=== PATIENT | male | born 1955 | race Caucasian/White ===

== ENCOUNTER → 2021-08-07 10:04 | Outpatient (CLI) | payer MEDICARE, SELFPAY | PROVIDERS: Visit Provider Nurse Practitioner | DX: Z20.822 Contact with and (suspected) exposure to COVID-19 (principal) | CPT/HCPCS: C9803; U0003; U0005 ==

== ENCOUNTER 2022-04-08 14:47 | Emergency (ER) | payer MEDICARE, SELFPAY ==
[2022-04-08] VITALS (13 sets, daily range): BP systolic 147–187; BP diastolic 80–125; PULSE 62–110; RESP 17–20; TEMP 36.7; O2SAT 89–96; BMI 36.6
--- NOTE | 2022-04-08 14:43 | ECG_ITS ---
APPROVED REPORT Exam: Resting ECG HR:112 bpm ECG Measurements Heart Rate 112 AXES WI 193 P 170 QRSd 97 QRS -80 QT 305 T 174 QTc 371 Conclusion ECTOPIC ATRIAL TACHYCARDIA INCOMPLETE RIGHT BUNDLE BRANCH BLOCK [90+ ms QRS DURATION, TERMINAL R IN V1/V2, 40+ ms S IN I/aVL/V4/V5/V6] LEFT ANTERIOR FASCICULAR BLOCK [QRS AXIS <= -45, QR IN I, RS IN II] LATERAL MYOCARDIAL INFARCTION , OF INDETERMINATE AGE [40+ ms Q WAVE AND/OR ST/T ABNORMALITY IN I/aVL/V5/V6] ABNORMAL ECG INTERPRETATION BASED ON A DEFAULT AGE OF 40 YEARS UNCONFIRMED REPORT Electronically signed by : Daniel Pelayo MD 04/09/2022 14:47:05
--- NOTE | 2022-04-08 14:48 | XR_ITS ---
FINAL REPORT CLINICAL HISTORY: ams COMPARISON: February 09, 2019 FINDINGS: A single portable view of the chest was obtained. The heart size and pulmonary vascularity are within normal limits. The mediastinum is within normal limits. There are mild left base opacities which may represent atelectasis or pneumonia. The bony thorax is intact. IMPRESSION: Mild left lung base atelectasis or pneumonia. Reviewed, Interpreted and Dictated by Zackery Roblero III, MD Transcribed by Antonette Saldana Authenticated and . [facility]
--- NOTE | 2022-04-08 14:48 | CT_ITS ---
FINAL REPORT CLINICAL HISTORY: ams COMPARISON: February 09, 2019 FINDINGS: Axial images of the head were obtained without contrast. Coronal reformatted images were also obtained. This study was performed with techniques to keep radiation doses as low as reasonably achievable (ALARA). Individualized dose reduction techniques using automated exposure control or adjustment of mA and/or kV according to the patient's size were employed. There is generalized age-appropriate atrophy. Periventricular low-attenuation areas are seen consistent with moderate chronic ischemic changes. There is no evidence of intracranial hemorrhage or mass. Note is made of ectasias of the distal internal carotid arteries and the vertebral arteries. 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 There is a small chronic right periventricular lacunar infarct. There is no evidence of acute infarct. There is no evidence of shift of the midline structures. No skull abnormality is seen on the bone window images. IMPRESSION: Atrophy and moderate periventricular chronic ischemic changes. 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 Consider CTA or MRA for further evaluation. Reviewed, Interpreted and Dictated by Zackery Roblero III, MD Transcribed by Antonette Saldana Authenticated and [facility]
--- NOTE | 2022-04-08 14:48 | PC.NURSE ---
at bedside upon arrival
--- NOTE | 2022-04-08 14:49 | HMH.EDGENADL ---
Discharge Plan Disposition Patient Disposition: Home, Self-Care Condition: Fair Chief Complaint: Altered Mental Status Prescriptions Prescriptions: No Action cephalexin 500 mg capsule 500 mg PO BID 10 Days Qty: 20 0RF metoprolol succinate 100 mg tablet extended release 24 hr 100 mg PO DAILY ranitidine HCl 150 mg capsule 150 mg PO BID nortriptyline 10 mg capsule 10 mg PO DAILY tizanidine 4 mg capsule 4 mg PO Q8H PRN (Reason: ..) triazolam 0.25 mg tablet 0.25 mg PO QHS PRN (Reason: ...) aspirin [Aspir-81] 81 mg tablet,delayed release (DR/EC) 81 mg PO ONCE glipizide 10 mg tablet 5 mg PO BID metformin 1,000 mg tablet 500 mg PO BID bupropion HCl 300 mg tablet extended release 24 hr 150 mg PO QAM fenofibrate 40 mg tablet 145 mg PO ONCE bacitracin 28 GM ointment 28 gm TP TID Qty: 1 0RF cephalexin 500 MG capsule 500 mg PO Q12H Qty: 20 0RF Referrals Follow up/Referrals: Thalia Meek MD [Staff Physician] - See instructions (seizure like activity) Activity Restrictions/Add. Instructions Additional Instructions/Restrictions: You have been evaluated for episode of altered mental status, seizure-like activity. It is very important that you avoid situations where sudden loss of consciousness can be dangerous or deadly. Do not drive a car. Please follow-up with your primary care doctor as well as a neurologist. Return to the emergency department at once for any new or worsening symptoms, headache, dizziness, numbness, weakness, seizures or any other concerns. Clinical Impressions Clinical Impression: Seizure Instructions Patient Instructions: DI for Seizure (Not Epilepsy/Seizure Disorder) Discharge ED Provider: Raine Pineda Adult HPI General Chief complaint: Altered Mental Status Stated complaint: AMS Time Seen by Provider: 04/08/22 14:49 Mode of Arrival: EMS Source of Information: Patient Limitations: Altered Mental Status History of Present Illness HPI narrative: 66-year-old male presenting to the emergency department with altered mental status, possible seizure. Incident happened just prior to arrival. He was at a local [employer] store. Staff said that they thought he was having a seizure, shaking of his arms and legs. Loss of bladder continence. When EMS arrived, he was quite confused. Now slightly less confused. Able to state his name and date of . He is moving all 4 extremities. Fingerstick blood glucose with EMS was greater than 400. He denies any current headache, neck pain, chest pain, abdominal pain. Related Data Home Medications Medication Instructions Recorded Confirmed aspirin 81 mg tablet,delayed 81 mg PO ONCE 01/11/18 01/09/19 release (Aspir-) glipizide 10 mg tablet 5 mg PO BID ... 01/11/18 02/09/19 metformin 1,000 mg tablet 500 mg PO BID .. 01/11/18 02/09/19 bupropion HCl 300 mg 24 hr tablet, 150 mg PO QAM ... 01/09/19 02/09/19 extended release fenofibrate 40 mg tablet 145 mg PO ONCE ... 01/09/19 02/09/19 metoprolol succinate 100 mg 100 mg PO DAILY .. 01/09/19 02/09/19 tablet,extended release 24 hr nortriptyline 10 mg capsule 10 mg PO DAILY .... 01/09/19 02/09/19 ranitidine HCl 150 mg capsule 150 mg PO BID ... 01/09/19 02/09/19 tizanidine 4 mg capsule 4 mg PO Q8H PRN .. 01/09/19 02/09/19 triazolam 0.25 mg tablet 0.25 mg PO QHS PRN ... 01/09/19 02/09/19 Previous Rx's Medication Instructions Recorded cephalexin 500 mg capsule 500 mg PO BID infected abrasion 10 01/09/19 days #20 caps bacitracin 500 unit/gram topical 28 gm TP TID ##1 02/09/19 ointment cephalexin 500 mg capsule 500 mg PO Q12H #20 caps 02/09/19 Allergies Allergy/AdvReac Type Severity Reaction Status Date / Time No Known Allergies Allergy Verified 01/09/19 16:37 [facility] Medical History (Updated 04/08/22 @ 19:54 by Raine Pineda DO) Diabetes mellitus, type 2 Migraine Spleen absent Family Hist
--- NOTE | 2022-04-08 14:54 | PC.NURSE ---
Called pt contact in chart which was his daughter. She advised pt has been c/o headache for the past the 2 weeks but he has a hx of migraines. Also advised he was seen at ER over the weekend for the headache and from the girlfriends info he had a CT of his head and echo of his heart. G/F reported to daughter that they told him he needed to follow-up with cardiology. Daughter advises pt has no hx of seizures. He is uncontrolled non-compliant diabetic. 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 Daughter advises she can call back later for update. Notified MD of this info.
--- NOTE | 2022-04-08 15:06 | PC.NURSE ---
BLOOD COLLECTED AT THIS TIME
--- NOTE | 2022-04-08 15:13 | PC.NURSE ---
Went in to assess pt. He advised he remembers being at the [employer] and then woke up here. Pt able to answer questions more appropriately. Pt going to CT at this time.
--- NOTE | 2022-04-08 15:17 | PC.NURSE ---
pt to ct scan at this time
[2022-04-08 15:20] LABS: Basophils # 0.1 K/mm3 (0-0.2); Basophils % 1.1 % (0.1-2.0); Eosinophils # 0.2 K/mm3 (0.0-0.4); Eosinophils % 2.4 % (0.1-12.0); Hemoglobin 16.5 g/dL (14.1-18.0); Lymphocytes # 2.9 K/mm3 (0.7-4.5); Lymphocytes % 29.6 % (10-50); Mean Corpuscular HGB Conc 32.4 g/dL (31.8-35.4); Mean Corpuscular Hemoglobin 31.3 pg (27.0-31.2); Mean Corpuscular Volume 96.4 fl (80-94); Mean Platelet Volume 10.3 fl (7.4-10.4); Monocytes # 0.6 K/mm3 (0.1-1.0); Monocytes % 6.1 % (1.7-9.3); Neutrophils % 60.7 % (37.0-80.0); Platelet Count 313 K/mm3 (142-424); Red Blood Count 5.29 M/mm3 (4.60-6.20); Red Cell Distribution Width 13.8 % (11.5-17.5); White Blood Count 9.9 K/mm3 (4.8-10.8)
--- NOTE | 2022-04-08 15:23 | PC.NURSE ---
pt returned from ct, urinal provided. no further needs
[2022-04-08 15:28] LABS: Alanine Aminotransferase 32 U/L (12-78); Albumin/Globulin Ratio 1.3 (1.1-1.8); Alkaline Phosphatase 125 U/L (38-126); Anion Gap 17.1 mEq/L (5-15); Aspartate Amino Transferase 33 U/L (17-59); Bilirubin,Total 0.2 mg/dl (0.2-1.3); Blood Urea Nitrogen 14 mg/dl (9-20); Calcium 8.5 mg/dl (8.4-10.2); Carbon Dioxide 23 mmol/L (22.0-30.0); Chloride 96 mmol/L (98-107); Creatinine Clearance Estimated 117 mL/min (50-200); Estimated Glomerular Filt Rate 112 ml/min (>60); GFR (African American) 136 ML/MIN (>60); Globulin 3.2 g/dL (1.3-3.2); Potassium 4.1 mmoL/L (3.5-5.1); Sodium 132 mmol/L (136-145); Total Protein,Serum 7.2 g/dl (6.3-8.2)
[2022-04-08 15:30] LABS: Glucose 466 mg/dl (74-100)
[2022-04-08 15:36] LABS: Acetone, Serum (Rapid) None Detected (None Detect)
[2022-04-08 16:21] LABS: VBG Base Excess -6.2 mmol/L (-2.4-2.3); VBG HCO3 19.4 mmol/L (23-30); VBG Oxygen Saturation 77.1 % (50-70); VBG PCO2 36.1 mmol/L (35-51); VBG PH 7.35 mmol/L (7.31-7.41); VBG PO2 44.2 mmol/L (28-40); VBG Total CO2 20.5 mmol/L (23-27)
--- NOTE | 2022-04-08 16:47 | PC.NURSE ---
DAUGHTER UPDATED BY LYNN QUILES
--- NOTE | 2022-04-08 17:17 | CT_ITS ---
PROCEDURE INFORMATION: Exam: CTA Head With Contrast, Arteriography Exam date and time: 04/08/2022 6:02 PM Age: 66 years old Clinical indication: Abnormal findings; Abnormal CT of the head; Additional info: Abnomral head CT TECHNIQUE: Imaging protocol: Computed tomographic angiography of the head with contrast. Exam focused on the arteries. 3D rendering (Not supervised by radiologist): MIP and/or 3D reconstructed images were created by the technologist. Radiation optimization: All CT scans at this facility use at least one of these dose optimization techniques: automated exposure control; mA and/or kV adjustment per patient size (includes targeted exams where dose is matched to clinical indication); or iterative reconstruction. Contrast material: ISOVUE 370; Contrast volume: 100 ml; Contrast route: INTRAVENOUS (IV); COMPARISON: CT HEAD/BRAIN WO CON 04/08/2022 3:09 PM FINDINGS: ANTERIOR CIRCULATION: Right internal carotid artery: Unremarkable. Intracranial segment is patent with no significant stenosis. No aneurysm. Right middle cerebral artery: Unremarkable. No occlusion or significant stenosis. No aneurysm. Right anterior cerebral artery: Unremarkable. No occlusion or significant stenosis. No aneurysm. Left internal carotid artery: Unremarkable. Calcified atherosclerosis is mild. Intracranial segment is patent with no significant stenosis. No aneurysm. Left middle cerebral artery: Unremarkable. No occlusion or significant stenosis. No aneurysm. Left anterior cerebral artery: Unremarkable. No occlusion or significant stenosis. No aneurysm. 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 Patent. Left vertebral artery: The left vertebral artery is dominant. Patent. Segmental calcified atherosclerosis does not contribute to significant stenosis. Basilar artery: No significant ectasia of or saccular aneurysm identified arising from the basilar artery. There is elongation and tortuosity. The basilar artery is patent. Right posterior cerebral artery: Unremarkable. No occlusion or significant stenosis. No aneurysm. Left posterior cerebral artery: Unremarkable. No occlusion or significant stenosis. No aneurysm. Brain: The brain demonstrates diffuse volume loss. White matter hypodensities most consistent with chronic small vessel ischemic change. No visible evolving territorial infarct. No hemorrhage. Cerebral ventricles: The ventricles are enlarged in keeping with volume loss. Orbital cavities: Thinning of the lenses of the globes consistent with prior lens surgery. Bones/joints: Unremarkable. No acute fracture. Soft tissues: Unremarkable. IMPRESSION: No evidence of intracranial aneurysm.
--- NOTE | 2022-04-08 17:44 | PC.NURSE ---
PT GOING TO CT AND REQUESTING SOMETHING FOR NAUSEA
--- NOTE | 2022-04-08 17:48 | CT_ITS ---
PROCEDURE INFORMATION: Exam: CTA Neck With Contrast Exam date and time: 04/08/2022 6:02 PM Age: 66 years old Clinical indication: Abnormal findings; Abnormal CT of the head; Additional info: Possibe seizure TECHNIQUE: Imaging protocol: Computed tomographic angiography of the neck with contrast. 3D rendering (Not supervised by radiologist): MIP and/or 3D reconstructed images were created by the technologist. Radiation optimization: All CT scans at this facility use at least one of these dose optimization techniques: automated exposure control; mA and/or kV adjustment per patient size (includes targeted exams where dose is matched to clinical indication); or iterative reconstruction. Contrast material: ISOVUE 370; Contrast volume: 100 ml; Contrast route: INTRAVENOUS (IV); COMPARISON: [facility] CT cervical spine wo con 02/09/2019 12:55 AM FINDINGS: Right common carotid artery: No stenosis. No dissection or occlusion. Right internal carotid artery: No stenosis of the extracranial segment. No dissection or occlusion. Right external carotid artery: No occlusion or stenosis of the origin. Left common carotid artery: No stenosis. No dissection or occlusion. Left internal carotid artery: No stenosis of the extracranial segment. No dissection or occlusion. Left external carotid artery: No occlusion or stenosis of the origin. 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 Patent. Left vertebral artery: The left vertebral artery is dominant. Patent. Soft tissues: Normal. No significant soft tissue swelling. Bones/joints: Degenerative changes of the right acromioclavicular joint. Slight degenerative retrolisthesis of C4 on C5 and degenerative anterolisthesis of C5 on C6. There is advanced cervical degenerative disc disease at C3-C4 and C4-C5. Facet arthropathy is moderate to severe on the right at C5-C6, moderate elsewhere. There are cervical central spinal canal and neural foraminal stenoses. IMPRESSION: 1. No acute vascular findings in the neck. 2. 0% right ICA stenosis. 3. 0% left ICA stenosis. 4. The vertebral arteries are patent without stenoses. REFERENCES: NASCET CRITERIA. The degree of stenosis in the cervical segment of the internal carotid artery is based on NASCET criteria. Normal is no stenosis. Mild is less than 50% stenosis. Moderate is 50-69% stenosis. Severe is 70% to 99% stenosis. Total occlusion is no detectable patent lumen.
--- NOTE | 2022-04-08 17:53 | PC.NURSE ---
pt family member at BS
--- NOTE | 2022-04-08 17:55 | PC.NURSE ---
ED MD AT BEDSIDE
--- NOTE | 2022-04-08 18:39 | PC.NURSE ---
PT REQUESTING SOMETHING FOR HIS HEAD MD AWARE
== END 2022-04-08 20:24 | disposition home or self-care (01) ==
PROVIDERS: Emergency Provider Emergency Medicine
DX: R41.82 Altered mental status, unspecified (principal); G40.909 Epilepsy, unspecified, not intractable, without status epilepticus; G43.909 Migraine, unspecified, not intractable, without status migrainosus; E11.65 Type 2 diabetes mellitus with hyperglycemia; R32 Unspecified urinary incontinence; R00.0 Tachycardia, unspecified; R03.0 Elevated blood-pressure reading, without diagnosis of hypertension; Z79.82 Long term (current) use of aspirin; Z79.84 Long term (current) use of oral hypoglycemic drugs; Z79.899 Other long term (current) drug therapy
CPT/HCPCS: 70450; 70496; 70498; 71045; 80053; 82009; 82803; 85025; 93005; 96374; 96375; 99285; J2405; Q9967

== ENCOUNTER 2022-04-12 20:38 | Emergency (ER) | payer MEDICARE, SELFPAY ==
[2022-04-12 20:39] VITALS: BP 182/114; PULSE 85; RESP 19; TEMP 36.6; O2SAT 95; BMI 30.5
[2022-04-12 20:53] VITALS: BP 177/103; PULSE 104; RESP 12; O2SAT 94
[2022-04-12 20:56] VITALS: BMI 30.5
--- NOTE | 2022-04-12 20:56 | XR_ITS ---
PROCEDURE INFORMATION: Exam: XR Chest Exam date and time: 04/12/2022 9:15 PM Age: 66 years old Clinical indication: Injury or trauma; Fall; Blunt trauma (contusions or hematomas); Additional info: Fall, chest pain TECHNIQUE: Imaging protocol: Radiologic exam of the chest. Views: 4 or more views. COMPARISON: CR XR CHEST PORTABLE 04/08/2022 3:27 PM FINDINGS: Lungs: Unremarkable. No consolidation. Pleural spaces: Unremarkable. No pleural effusion. No pneumothorax. Heart/Mediastinum: Unremarkable. No cardiomegaly. Bones/joints: Unremarkable. IMPRESSION: No acute findings.
--- NOTE | 2022-04-12 20:56 | ECG_ITS ---
APPROVED REPORT Exam: Resting ECG HR:108 bpm ECG Measurements Heart Rate 108 AXES MD 199 P 37 QRSd 107 QRS 231 QT 355 T 38 QTc 418 Conclusion SINUS TACHYCARDIA INCOMPLETE RIGHT BUNDLE BRANCH BLOCK [90+ ms QRS DURATION, TERMINAL R IN V1/V2, 40+ ms S IN I/aVL/V4/V5/V6] RIGHT VENTRICULAR HYPERTROPHY [SOME/ALL OF: PROMINENT R IN V1, LATE TRANSITION, RAD, EDDY, SSS] POSSIBLE ANTERIOR MYOCARDIAL INFARCTION , OF INDETERMINATE AGE [30 ms Q WAVE IN V3/V4, OR R < 0.2 mV IN V4] ABNORMAL ECG UNCONFIRMED REPORT Electronically signed by : Daniel Pelayo MD 04/13/2022 22:37:12
--- NOTE | 2022-04-12 20:56 | CT_ITS ---
PROCEDURE INFORMATION: Exam: CT Cervical Spine Without Contrast Exam date and time: 04/12/2022 9:12 PM Age: 66 years old Clinical indication: Injury or trauma; Fall; Additional info: Fall, nihss 3 TECHNIQUE: Imaging protocol: Computed tomography of the cervical spine without contrast. Radiation optimization: All CT scans at this facility use at least one of these dose optimization techniques: automated exposure control; mA and/or kV adjustment per patient size (includes targeted exams where dose is matched to clinical indication); or iterative reconstruction. COMPARISON: [facility] CT cervical spine wo con 02/09/2019 12:55 AM FINDINGS: Bones/joints: No acute fracture. Normal alignment. Moderate disc space narrowing and endplate osteophytes at C3-C4 and C4-C5. No significant disc protrusion. No severe spinal canal stenosis. Multilevel facet arthrosis. Severe left-sided bony foraminal stenosis at C3-C4. Moderate bilateral bony foraminal stenosis at C4-C5. Lungs: Lung apices are normal. Soft tissues: Unremarkable. IMPRESSION: No acute findings.
--- NOTE | 2022-04-12 20:56 | CT_ITS ---
PROCEDURE INFORMATION: Exam: CT Head Without Contrast Exam date and time: 04/12/2022 9:10 PM Age: 66 years old Clinical indication: Injury or trauma; Fall; Additional info: Fall, nihss 3 TECHNIQUE: Imaging protocol: Computed tomography of the head without contrast. Radiation optimization: All CT scans at this facility use at least one of these dose optimization techniques: automated exposure control; mA and/or kV adjustment per patient size (includes targeted exams where dose is matched to clinical indication); or iterative reconstruction. COMPARISON: CT HEAD/BRAIN WO CON 04/08/2022 3:09 PM FINDINGS: Brain: There is age-appropriate cerebral atrophy. Moderate changes of chronic small vessel ischemia within the cerebral white matter regions bilaterally. No acute infarct or hemorrhage. Cerebral ventricles: No ventriculomegaly. Paranasal sinuses: Visualized sinuses are unremarkable. No fluid levels. Mastoid air cells: Visualized mastoid air cells are well aerated. Bones/joints: Unremarkable. No acute fracture. Soft tissues: Unremarkable. IMPRESSION: No acute intracranial abnormality.
--- NOTE | 2022-04-12 20:56 | XR_ITS ---
PROCEDURE INFORMATION: Exam: XR Pelvis Exam date and time: 04/12/2022 9:17 PM Age: 66 years old Clinical indication: Injury or trauma; Fall; Blunt trauma (contusions or hematomas); Bilateral; Pelvic region TECHNIQUE: Imaging protocol: Radiologic exam of the pelvis. Views: 1 or 2 view. COMPARISON: CR (PELVIS, PELVIS AP) 02/09/2019 1:06 AM FINDINGS: Bones/joints: No acute fracture or dislocation. Mild bilateral hip joint space narrowing. SI joints and pubic symphysis are unremarkable. Soft tissues: Unremarkable. IMPRESSION: No acute findings.
[2022-04-12 21:00] VITALS: BP 168/105; PULSE 101; RESP 11
[2022-04-12 21:07] LABS: Basophils # 0.1 K/mm3 (0-0.2); Eosinophils # 0.3 K/mm3 (0.0-0.4); Eosinophils % 2.3 % (0.1-12.0); Hematocrit 53.1 % (42.0-52.0); Hemoglobin 17.6 g/dL (14.1-18.0); Lymphocytes # 3.9 K/mm3 (0.7-4.5); Lymphocytes % 32.8 % (10-50); Mean Corpuscular HGB Conc 33.2 g/dL (31.8-35.4); Mean Corpuscular Hemoglobin 31.8 pg (27.0-31.2); Mean Corpuscular Volume 95.7 fl (80-94); Mean Platelet Volume 10.9 fl (7.4-10.4); Monocytes # 0.8 K/mm3 (0.1-1.0); Monocytes % 6.9 % (1.7-9.3); Neutrophils # 6.7 K/mm3 (1.8-7.8); Neutrophils % 57.1 % (37.0-80.0); Platelet Count 281 K/mm3 (142-424); Red Blood Count 5.54 M/mm3 (4.60-6.20); Red Cell Distribution Width 13.8 % (11.5-17.5); White Blood Count 11.7 K/mm3 (4.8-10.8)
[2022-04-12 21:08] LABS: Coronavirus 19, PCR Not Detected (NotDetected); Influenza A, PCR Not Detected (NotDetected); Influenza B, PCR Not Detected (NotDetected)
[2022-04-12 21:20] LABS: Acetone, Serum (Rapid) None Detected (None Detect)
[2022-04-12 21:21] LABS: Alanine Aminotransferase 28 U/L (12-78); Alkaline Phosphatase 131 U/L (38-126); Ammonia < 9 umol/L (9-30); Amylase 60 U/L (30-110); Anion Gap 15.1 mEq/L (5-15); Aspartate Amino Transferase 32 U/L (17-59); Bilirubin,Direct 0.2 mg/dl (0.0-0.4); Bilirubin,Indirect 0.2 mg/dL (0.0-0.9); Bilirubin,Total 0.4 mg/dl (0.2-1.3); Bilirubin,Unconjugated 0.2 mg/dL (0.0-1.1); Blood Urea Nitrogen 14 mg/dl (9-20); Calcium 8.6 mg/dl (8.4-10.2); Carbon Dioxide 25 mmol/L (22.0-30.0); Chloride 94 mmol/L (98-107); Creatinine Clearance Estimated 90 mL/min (50-200); Estimated Glomerular Filt Rate 96 ml/min (>60); GFR (African American) 117 ML/MIN (>60); Lipase 192 U/L (23-300); Magnesium 1.3 mg/dl (1.6-2.3); Potassium 4.1 mmoL/L (3.5-5.1); Sodium 130 mmol/L (136-145); Total Protein,Serum 7.2 g/dl (6.3-8.2)
[2022-04-12 21:27] LABS: C-Reactive Protein 1.7 mg/L (0-4)
[2022-04-12 21:28] LABS: Glucose 573 mg/dl (74-100)
[2022-04-12 21:36] LABS: NT Pro Brain Natriuretic Pep. 42.2 pg/mL (0-125)
[2022-04-12 21:40] LABS: Procalcitonin 0.083 ng/mL (0.0-2.0)
[2022-04-12 21:42] LABS: Troponin I < 0.01 ng/ml (0.00-0.034)
[2022-04-12 21:45] VITALS: PULSE 103; RESP 14; O2SAT 95
--- NOTE | 2022-04-12 22:00 | PC.NURSE ---
PT REMOVED ALL VITAL SIGN MONITORING DEVICES. PT STATES THEY ARE JUST BOTHERING HIM. PT ALERT AND ORIENTED. FAMILY WITH PATIENT.
[2022-04-12 22:22] LABS: Erythrocyte Sedimentation Rate 11 mm/hr (0-20)
--- NOTE | 2022-04-12 22:49 | HMH.EDNEU ---
Discharge Plan Disposition Patient Disposition: Left Against Medical Advice Chief Complaint: Neuro Symptoms/Deficit Prescriptions Prescriptions: No Action cephalexin 500 mg capsule 500 mg PO BID 10 Days Qty: 20 0RF metoprolol succinate 100 mg tablet extended release 24 hr 100 mg PO DAILY ranitidine HCl 150 mg capsule 150 mg PO BID nortriptyline 10 mg capsule 10 mg PO DAILY tizanidine 4 mg capsule 4 mg PO Q8H PRN (Reason: ..) triazolam 0.25 mg tablet 0.25 mg PO QHS PRN (Reason: ...) aspirin [Aspir-81] 81 mg tablet,delayed release (DR/EC) 81 mg PO ONCE glipizide 10 mg tablet 5 mg PO BID metformin 1,000 mg tablet 500 mg PO BID bupropion HCl 300 mg tablet extended release 24 hr 150 mg PO QAM fenofibrate 40 mg tablet 145 mg PO ONCE bacitracin 28 GM ointment 28 gm TP TID Qty: 1 0RF cephalexin 500 MG capsule 500 mg PO Q12H Qty: 20 0RF Referrals Follow up/Referrals: Provider,Referral, MD [Primary Care Provider] - See instructions Clinical Impressions Clinical Impression: Type 2 diabetes mellitus with hyperglycemia, Concussion syndrome Instructions Patient Instructions: DI for Concussion Discharge ED Provider: Clayton Sol Neuro HPI General Chief Complaint: Neuro Symptoms/Deficit Stated Complaint: Poss Stroke Time Seen by Provider: 04/12/22 22:49 Mode of Arrival: Family Vehicle Source of Information: Patient, Relative and Medical Record Limitations: Altered Mental Status Description of Symptoms (Recalled from ER Triage Doc. by RN): Pt c/o chest pain, headache, and fall yesterday. He has a small swelling and abrasion under R eye. Family states pt has been acting really funny and talking crazy . States tonight at dinner he put butter on his water. Brought a paper-towel to sit down saying it was his plate. He acts like things aren't registering . Pt is still living by himself and is in charge of taking his own medications. Pt has been seen at [facility] on 04/08 for possible seizure and was at [facility] 04/06. NIHSS is 3 d/t mild dysarthria and mild aphasia. No LOC from fall. History of Present Illness HPI Narrative: pt with reported forte and family reports pt not acting right with fall yesterday - pt with recent ed visit and was sent to - no clear dx - pt denied any chest pain or current sx - Onset (ago): day(s) Timing confirmed by: family member History of same: Yes Severity: similar to previous episodes Quality: improving Relieving factors: none Exacerbating factors: none Context: recent fall On Anticoagulants: No Associated symptoms: confusion Treatments Prior to Arrival: none Related Data Home Medications Medication Instructions Recorded Confirmed aspirin 81 mg tablet,delayed 81 mg PO ONCE 01/11/18 01/09/19 release (Aspir-) glipizide 10 mg tablet 5 mg PO BID ... 01/11/18 02/09/19 metformin 1,000 mg tablet 500 mg PO BID .. 01/11/18 02/09/19 bupropion HCl 300 mg 24 hr tablet, 150 mg PO QAM ... 01/09/19 02/09/19 extended release fenofibrate 40 mg tablet 145 mg PO ONCE ... 01/09/19 02/09/19 metoprolol succinate 100 mg 100 mg PO DAILY .. 01/09/19 02/09/19 tablet,extended release 24 hr nortriptyline 10 mg capsule 10 mg PO DAILY .... 01/09/19 02/09/19 ranitidine HCl 150 mg capsule 150 mg PO BID ... 01/09/19 02/09/19 tizanidine 4 mg capsule 4 mg PO Q8H PRN .. 01/09/19 02/09/19 triazolam 0.25 mg tablet 0.25 mg PO QHS PRN ... 01/09/19 02/09/19 Previous Rx's Medication Instructions Recorded cephalexin 500 mg capsule 500 mg PO BID infected abrasion 01/09/19 days #20 caps bacitracin 500 unit/gram topical 28 gm TP TID ##1 02/09/19 ointment cephalexin 500 mg capsule 500 mg PO Q12H #20 caps 02/09/19 Allergies Allergy/AdvReac Type Severity Reaction Status Date / Time No Known Allergies Allergy Verified 01/09/19 16:37 Stroke Alert/NIH Score LOC Stroke Alert: No Level of Consciousness: Alert LOC Questions: Answ
[2022-04-13 00:46] VITALS: BP 148/68; PULSE 68; RESP 18; TEMP 36.7; O2SAT 95
== END 2022-04-13 01:36 | disposition left against medical advice (07) ==
PROVIDERS: Emergency Provider Emergency Medicine
DX: R41.82 Altered mental status, unspecified (principal); G43.909 Migraine, unspecified, not intractable, without status migrainosus; R07.9 Chest pain, unspecified; S05.01XA Injury of conjunctiva and corneal abrasion without foreign body, right eye, initial encounter; Z20.822 Contact with and (suspected) exposure to COVID-19; I25.10 Atherosclerotic heart disease of native coronary artery without angina pectoris; I25.2 Old myocardial infarction; E11.65 Type 2 diabetes mellitus with hyperglycemia; F17.210 Nicotine dependence, cigarettes, uncomplicated; Z79.4 Long term (current) use of insulin; Z79.82 Long term (current) use of aspirin; Z79.84 Long term (current) use of oral hypoglycemic drugs; Z79.899 Other long term (current) drug therapy; Z86.73 Personal history of transient ischemic attack (TIA), and cerebral infarction without residual deficits; Z56.0 Unemployment, unspecified
CPT/HCPCS: 70450; 71045; 72125; 72170; 80048; 80076; 82009; 82140; 82150; 83690; 83735; 83880; 84145; 84484; 85025; 85651; 86140; 93005; 96361; 96374; 99285; C9803; U0003; U0005

== ENCOUNTER → 2022-04-21 06:34 | Outpatient (CLI) | payer MEDICARE, SELFPAY ==
[2022-04-21 19:58] LABS: Alanine Aminotransferase 27 U/L (12-78); Albumin Level 3.8 g/dl (3.5-5.0); Albumin/Globulin Ratio 1.2 (1.1-1.8); Alkaline Phosphatase 163 U/L (38-126); Anion Gap 21.7 mEq/L (5-15); Aspartate Amino Transferase 30 U/L (17-59); Bilirubin,Total 0.2 mg/dl (0.2-1.3); Blood Urea Nitrogen 13 mg/dl (9-20); Calcium 9.1 mg/dl (8.4-10.2); Carbon Dioxide 27 mmol/L (22.0-30.0); Chloride 88 mmol/L (98-107); Estimated Glomerular Filt Rate 112 ml/min (>60); GFR (African American) 136 ML/MIN (>60); Globulin 3.2 g/dL (1.3-3.2); Potassium 4.7 mmoL/L (3.5-5.1); Sodium 132 mmol/L (136-145)
[2022-04-21 20:29] LABS: Thyroid Stimulating Hormone 1.84 uIU/mL (0.465-4.68)
[2022-04-21 21:04] LABS: Glucose 559 mg/dl (74-100)
== END ==
PROVIDERS: PCP Family Medicine; Visit Provider Family Medicine
DX: E11.65 Type 2 diabetes mellitus with hyperglycemia (principal); Z79.4 Long term (current) use of insulin
CPT/HCPCS: 80053; 83036; 84443

== ENCOUNTER → 2022-05-11 10:05 | Outpatient (CLI) | payer MEDICARE, SELFPAY ==
--- NOTE | 2022-05-11 10:05 | MR_ITS ---
FINAL REPORT CLINICAL HISTORY: Confusion, seizure. FATIGUE, WEAKNESS, HEADACHE AND DIZZINESS. FALLING FREQUENTLY WITH UNSTEADY GAIT. MEMORY LOSS. FINDINGS: Multiplanar MR imaging of the brain was performed without contrast. There is age-appropriate atrophy. There are multiple foci of increased T2 signal in the cerebral white matter. There is no evidence of intracranial hemorrhage or mass. No abnormal ventricular dilatation is identified. No abnormal extra-axial fluid collection is seen. No abnormality is seen on the diffusion weighted images. The posterior fossa and brainstem are unremarkable. Normal major vessel vascular flow voids are seen. IMPRESSION: Foci of increased T2 signal in the cerebral white matter could represent moderate chronic ischemic/gliotic change or demyelination. Age-appropriate atrophy. No acute intracranial abnormality. Reviewed, Interpreted and Dictated by Zackery Roblero III, MD Transcribed by Neal Cai Authenticated and [facility]
== END ==
LOC: RAD 10:05
PROVIDERS: PCP Family Medicine; Visit Provider Specialist
DX: G43.109 Migraine with aura, not intractable, without status migrainosus (principal); R56.9 Unspecified convulsions
CPT/HCPCS: 70551

== ENCOUNTER → 2022-05-12 16:20 | Outpatient (CLI) | payer MEDICARE, SELFPAY ==
[2022-05-12 18:46] LABS: Erythrocyte Sedimentation Rate 1 mm/hr (0-20)
[2022-05-12 18:51] LABS: Basophils # 0.5 K/mm3 (0-0.2); Basophils % 5.9 % (0.1-2.0); Eosinophils # 0.2 K/mm3 (0.0-0.4); Eosinophils % 2.5 % (0.1-12.0); Hemoglobin 17.2 g/dL (14.1-18.0); Lymphocytes # 3.1 K/mm3 (0.7-4.5); Lymphocytes % 39.1 % (10-50); Mean Corpuscular HGB Conc 26.3 g/dL (31.8-35.4); Mean Corpuscular Hemoglobin 29.7 pg (27.0-31.2); Mean Platelet Volume 27.6 fl (7.4-10.4); Monocytes # 0.6 K/mm3 (0.1-1.0); Monocytes % 7.4 % (1.7-9.3); Platelet Count 192 K/mm3 (142-424); Red Blood Count 5.78 M/mm3 (4.60-6.20); Red Cell Distribution Width 20.1 % (11.5-17.5); White Blood Count 7.9 K/mm3 (4.8-10.8)
[2022-05-12 18:55] LABS: Alanine Aminotransferase 39 U/L (12-78); Albumin Level 3.6 g/dl (3.5-5.0); Albumin/Globulin Ratio 1.2 (1.1-1.8); Alkaline Phosphatase 147 U/L (38-126); Anion Gap 20.5 mEq/L (5-15); Aspartate Amino Transferase 35 U/L (17-59); Bilirubin,Total 0.4 mg/dl (0.2-1.3); Blood Urea Nitrogen 13 mg/dl (9-20); Calcium 9.2 mg/dl (8.4-10.2); Carbon Dioxide 28 mmol/L (22.0-30.0); Chloride 88 mmol/L (98-107); Estimated Glomerular Filt Rate 96 ml/min (>60); GFR (African American) 117 ML/MIN (>60); Globulin 2.9 g/dL (1.3-3.2); Potassium 5.5 mmoL/L (3.5-5.1); Sodium 131 mmol/L (136-145); Total Protein,Serum 6.5 g/dl (6.3-8.2)
[2022-05-12 19:32] LABS: Hematocrit 65.3 % (42.0-52.0)
[2022-05-12 19:33] LABS: Glucose 532 mg/dl (74-100)
[2022-05-12 19:58] LABS: Vitamin B12 429 pg/mL (239-931)
[2022-05-12 20:20] LABS: Folate 9.15 ng/mL
[2022-05-14 12:20] LABS: Rapid Plasma Reagin Ab Titer Non Reactive (NonRea<1:1)
== END ==
PROVIDERS: PCP Family Medicine; Visit Provider Specialist
DX: R41.0 Disorientation, unspecified (principal); S09.90XA Unspecified injury of head, initial encounter
CPT/HCPCS: 36415; 80053; 82607; 82746; 85025; 85651; 86592

== ENCOUNTER 2022-05-13 14:17 | Emergency (ER) | payer MEDICARE, SELFPAY ==
--- NOTE | 2022-05-13 14:36 | HMH.EDGENADL ---
Discharge Plan Disposition Patient Disposition: Home, Self-Care Condition: Good Chief Complaint: Recheck/Abnormal Lab/Rx Prescriptions Prescriptions: No Action nortriptyline 10 mg capsule 10 mg PO BID trazodone 150 mg tablet 150 mg PO DAILY PRN (Reason: insomnia) Qty: 90 3RF Toujeo Max U-300 SoloStar 300 unit/mL (3 mL) insulin pen 50 unit SQ HS Qty: 6 10RF metformin 500 mg tablet 500 mg PO BID Qty: 180 3RF omeprazole 40 mg capsule,delayed release(DR/EC) 40 mg PO DAILY atorvastatin 80 mg tablet 80 mg PO HS tamsulosin 0.4 mg capsule 0.4 mg PO HS coenzyme [id number] E 100-100 mg-unit capsule 1 cap PO .COMPLEX Rx Instructions: 1 cap orally daily; riboflavin (vitamin B2) 100 mg tablet 100 mg PO DAILY magnesium 250 mg tablet 250 mg PO DAILY hydroxyzine pamoate [Vistaril] 50 mg capsule 50 mg PO HS PRN aspirin 500 mg tablet 325 mg PO DAILY Rx Instructions: while awake Referrals Follow up/Referrals: Kraig Pickett MD [Primary Care Provider] - See instructions Clinical Impressions Clinical Impression: Abnormal laboratory test Discharge ED Provider: Crescencio Langford General Adult HPI General Chief complaint: Recheck/Abnormal Lab/Rx Stated complaint: referral, blood work results Time Seen by Provider: 05/13/22 14:36 History of Present Illness HPI narrative: 66-year-old male with past medical history of diabetes, on insulin, metformin, and is known to be poorly controlled and review of records confirms this with glucose often in the 500s. He presents today with no complaint of symptoms but referred from the primary care office. His states he had a scheduled appointment and she called to reschedule, and the office notified her that recent blood work showed some abnormalities for which they have been trying to contact them and referred them to come to the emergency department. They are unaware of what the lab abnormalities were however on review of most recent lab work the notable abnormalities appear to be a blood glucose over 500 and a potassium of 5.5. He denies any chest pain, shortness of breath, palpitations lightheadedness or any other symptoms at this time, does not appear to have any history of renal insufficiency and renal function appeared normal on yesterday's lab tests. Related Data Home Medications Medication Instructions Recorded Confirmed atorvastatin 80 mg tablet 80 mg PO HS 04/20/22 05/12/22 coenzyme [id number] E 100 mg-100 1 cap PO .COMPLEX 04/20/22 05/12/22 unit capsule hydroxyzine pamoate 50 mg capsule 50 mg PO HS PRN 04/20/22 05/12/22 (Vistaril) magnesium 250 mg tablet 250 mg PO DAILY 04/20/22 05/12/22 nortriptyline 10 mg capsule 10 mg PO BID .... 04/20/22 05/12/22 omeprazole 40 mg capsule,delayed 40 mg PO DAILY 04/20/22 05/12/22 release riboflavin (vitamin B2) 100 mg 100 mg PO DAILY 04/20/22 05/12/22 tablet tamsulosin 0.4 mg capsule 0.4 mg PO HS 04/20/22 05/12/22 aspirin 500 mg tablet 325 mg PO DAILY 05/12/22 05/12/22 Previous Rx's Medication Instructions Recorded insulin glargine U-300 conc 300 50 unit (0.1667 mL) SQ HS #6 mL 04/21/22 unit/mL (3 mL) subcutaneous pen (Toujeo Max U-300 SoloStar) metformin 500 mg tablet 500 mg PO BID #180 tabs 04/21/22 trazodone 150 mg tablet 150 mg PO DAILY PRN insomnia #90 04/21/22 tabs Allergies Allergy/AdvReac Type Severity Reaction Status Date / Time codeine Allergy Mild Verified 05/12/22 15:06 [facility] Medical History Diabetes mellitus, type 2 Migraine Spleen absent Surgical History H/O splenectomy Family History Other Cancer Coronary artery disease Heart attack No significant family history Stroke Social History (Reviewed 05/13/22 @ 14:49 by Crescencio Garcia
[2022-05-13 15:20] VITALS: BMI 26.9
[2022-05-13 15:21] VITALS: BP 142/98; PULSE 87; RESP 18; TEMP 36.8; O2SAT 97; BMI 26.9
--- NOTE | 2022-05-13 15:27 | ECG_ITS ---
APPROVED REPORT Exam: Resting ECG HR:88 bpm ECG Measurements Heart Rate 88 AXES NE 197 P 27 QRSd 98 QRS -76 QT 375 T 30 QTc 421 Conclusion SINUS RHYTHM WITH OCCASIONAL SUPRAVENTRICULAR PREMATURE COMPLEXES LEFT AXIS DEVIATION [QRS AXIS < -30] INCOMPLETE RIGHT BUNDLE BRANCH BLOCK [90+ ms QRS DURATION, TERMINAL R IN V1/V2, 40+ ms S IN I/aVL/V4/V5/V6] ABNORMAL ECG UNCONFIRMED REPORT Electronically signed by : Daniel Pelayo MD 05/14/2022 20:07:26
[2022-05-13 15:41] LABS: Basophils # 0.1 K/mm3 (0-0.2); Basophils % 1.3 % (0.1-2.0); Eosinophils # 0.3 K/mm3 (0.0-0.4); Eosinophils % 3.3 % (0.1-12.0); Hematocrit 50.8 % (42.0-52.0); Hemoglobin 16.6 g/dL (14.1-18.0); Lymphocytes # 3.8 K/mm3 (0.7-4.5); Lymphocytes % 42.5 % (10-50); Mean Corpuscular HGB Conc 32.7 g/dL (31.8-35.4); Mean Corpuscular Hemoglobin 30.4 pg (27.0-31.2); Mean Corpuscular Volume 92.9 fl (80-94); Monocytes # 0.6 K/mm3 (0.1-1.0); Neutrophils # 4.1 K/mm3 (1.8-7.8); Platelet Count 256 K/mm3 (142-424); Red Blood Count 5.47 M/mm3 (4.60-6.20); White Blood Count 8.9 K/mm3 (4.8-10.8)
[2022-05-13 15:57] LABS: Alanine Aminotransferase 32 U/L (12-78); Albumin Level 3.5 g/dl (3.5-5.0); Albumin/Globulin Ratio 1.2 (1.1-1.8); Alkaline Phosphatase 122 U/L (38-126); Anion Gap 12.8 mEq/L (5-15); Aspartate Amino Transferase 28 U/L (17-59); Bilirubin,Total 0.3 mg/dl (0.2-1.3); Blood Urea Nitrogen 11 mg/dl (9-20); Calcium 8.5 mg/dl (8.4-10.2); Carbon Dioxide 27 mmol/L (22.0-30.0); Chloride 95 mmol/L (98-107); Creatinine Clearance Estimated 86 mL/min (50-200); Estimated Glomerular Filt Rate 134 ml/min (>60); GFR (African American) 163 ML/MIN (>60); Globulin 2.9 g/dL (1.3-3.2); Glucose 289 mg/dl (74-100); Magnesium 1.2 mg/dl (1.6-2.3); Potassium 3.8 mmoL/L (3.5-5.1); Sodium 131 mmol/L (136-145); Total Protein,Serum 6.4 g/dl (6.3-8.2)
[2022-05-13 16:01] LABS: POC Glucose,Bedside 272 (70-110)
[2022-05-13 16:03] VITALS: BP 140/94; PULSE 84; RESP 16; O2SAT 96
[2022-05-13 16:10] LABS: Troponin I < 0.01 ng/ml (0.00-0.034)
[2022-05-13 16:26] VITALS: BP 138/90; PULSE 86; RESP 17; TEMP 36.8; O2SAT 97
== END 2022-05-13 16:26 | disposition home or self-care (01) ==
PROVIDERS: Emergency Provider Emergency Medicine; PCP Family Medicine
DX: R79.9 Abnormal finding of blood chemistry, unspecified; E11.9 Type 2 diabetes mellitus without complications; Z79.4 Long term (current) use of insulin; Z79.84 Long term (current) use of oral hypoglycemic drugs; Z79.82 Long term (current) use of aspirin; Z79.899 Other long term (current) drug therapy; Z88.6 Allergy status to analgesic agent; G43.909 Migraine, unspecified, not intractable, without status migrainosus
CPT/HCPCS: 80053; 82962; 83735; 84484; 85025; 93005; 96365; 99284

== ENCOUNTER → 2022-07-20 22:26 | Outpatient (CLI) | payer MEDICARE, SELFPAY ==
[2022-07-20 18:04] LABS: Alanine Aminotransferase 31 U/L (12-78); Albumin Level 4.1 g/dl (3.5-5.0); Albumin/Globulin Ratio 1.4 (1.1-1.8); Alkaline Phosphatase 132 U/L (38-126); Anion Gap 15.4 mEq/L (5-15); Aspartate Amino Transferase 30 U/L (17-59); Bilirubin,Total 0.8 mg/dl (0.2-1.3); Blood Urea Nitrogen 13 mg/dl (9-20); Calcium 9.2 mg/dl (8.4-10.2); Carbon Dioxide 26 mmol/L (22.0-30.0); Chloride 96 mmol/L (98-107); Estimated Glomerular Filt Rate 84 ml/min (>60); GFR (African American) 102 ML/MIN (>60); Globulin 2.9 g/dL (1.3-3.2); Potassium 4.4 mmoL/L (3.5-5.1); Sodium 133 mmol/L (136-145)
[2022-07-20 18:24] LABS: Hemoglobin A1C 10.5 % (4.0-6.0)
[2022-07-20 20:00] LABS: Glucose 466 mg/dl (74-100)
[2022-07-27 09:24] LABS: Testosterone, Total, LC/MS 95 ng/dL (.)
== END ==
PROVIDERS: Visit Provider Family Medicine
DX: E11.65 Type 2 diabetes mellitus with hyperglycemia (principal); Z79.4 Long term (current) use of insulin; E29.1 Testicular hypofunction
CPT/HCPCS: 80053; 83036; 84403

== ENCOUNTER → 2022-09-01 11:11 | Day surgery (SDC) | payer MEDICARE, SELFPAY ==
[2022-09-01 11:42] VITALS: BP 179/103; PULSE 85; RESP 18; TEMP 36.2; O2SAT 98; BMI 28.5
[2022-09-01 11:50] LABS: POC Glucose,Bedside 95 (70-110)
--- NOTE | 2022-09-01 13:12 | EXP.TILT ---
Findings:: Procedure: Upright tilt table test Patient: Henrique Sloan Date of : 1955 MR number: [id number] Ordering physician: Dr. Thalia Meek Date of service: 09/01/2022 Findings: PROCEDURE: Upright tilt table test REQUESTING PHYSICIAN: Thalia Meek MD INDICATION: Recurrent syncopal episodes over the past 18 months MEDS: Aspirin 81 mg daily, atorvastatin 80 mg daily, bupropion 150 mg 3 tablets daily Suuncwuels-kvqadumrffive-mqynosgj 50-325-40 mg as directed, co-Q10 30 mg daily, insulin NPH-regular 70-30 U?100 as directed, magnesium oxide 250 mg daily, metformin 500 mg twice daily, nortriptyline 10 mg twice daily, omeprazole 40 mg daily, B12 100 mg daily, sildenafil 100 mg as needed, tamsulosin 0.4 mg daily, trazodone 150 mg daily as needed PRE-TEST VITALSIGNS: Blood pressure 194/111 mmHg, heart rate 83 bpm, O2 saturation 98% on room air PROCEDURE SUMMARY: Patient was prepared per protocol. He was then tilted into the upright position at 70 degrees for a total of 30 minutes with the test being terminated at that point. He had no syncope, near syncope or complaints of lightheadedness or dizziness. Blood pressure did drop to 159/85 mmHg 5 minutes after elevation to 70 degrees but then stayed around 160/80-106 mmHg for the duration of the test with heart rate in the 68-84 bpm range. Upon returning the patient back to supine position blood pressure noted to be 135/98 mmHg with heart rate 86 bpm and O2 saturation 95% but, one minute later, quickly nancy to 176/110 mmHg at heart rate of 90 bpm with O2 sat 96% with symptoms of slight nausea. Otherwise no discomfort.. Minimum heart rate 68 bpm at 10 minutes into the study and maximum heart rate was 86 bpm at conclusion. Minimum blood pressure during the test was 159/85 mmHg at 5 minutes into the test and peak blood pressure was 161/106 mmHg 10 minutes into the test and 169/76 mmHg at 25 minutes into the test. Patient remained in a sinus rhythm throughout the test. O2 sats on room air ranged from 94 to 98%. COMPLICATIONS: None CONCLUSION: Unremarkable upright TTT. Documented by Vitor Vázquez PA-C
== END ==
PROVIDERS: PCP Family Medicine; Visit Provider Specialist
DX: R55 Syncope and collapse (principal)
CPT/HCPCS: 82962; 93270

== ENCOUNTER → 2022-09-24 14:51 | Outpatient (CLI) | payer MEDICARE, SELFPAY ==
--- NOTE | 2022-09-24 15:04 | XR_ITS ---
FINAL REPORT CLINICAL HISTORY: PAIN, ABNORMAL NCV/EMG COMPARISON: none FINDINGS: LEFT WRIST Three views demonstrate no acute fracture or dislocation. The visualized joint spaces are normally aligned. There is mild degenerative change. There is a chronic calcification at the dorsal aspect of the wrist. The soft tissues are unremarkable. IMPRESSION: Degenerative change with no acute bony abnormality. Reviewed, Interpreted and Dictated by Zackery Roblero III, MD Transcribed by Antoinette Licea Authenticated and [facility]
--- NOTE | 2022-09-24 15:43 | MR_ITS ---
PROCEDURE INFORMATION: Exam: MR Left Upper Extremity Joint Without Contrast; Wrist Exam date and time: 09/24/2022 4:03 PM Age: 67 years old Clinical indication: Pain; Wrist; Left; Additional info: Left ulnar entrapment neuropathy TECHNIQUE: Imaging protocol: Magnetic resonance imaging of the left upper extremity without contrast. Exam focused on the wrist. COMPARISON: CR XR WRIST LT MIN 3V 09/24/2022 3:34 PM FINDINGS: Bones and cartilage: Tiny osseous cysts are identified within the scaphoid and lunate bones. Mild spurring is seen of the scaphoid bone distally. There is minimal spurring of the lunate bone. Narrowing of the radiocarpal joint space, likely due to arthropathy. There is a prominent spur or exostosis dorsal to the triquetral bone. This is likely chronic. No dislocation or significant acute marrow edema is visualized involving the carpal bones. Joint spaces: Minimal distal radioulnar joint effusion. Scapholunate ligament: Heterogeneous signal intensity of the scapholunate ligament, with suggested partial tear. Lunotriquetral ligament: No visualized tear. Triangular fibrocartilage complex: Edema is identified adjacent to the TFC complex, without a visualized full-thickness tear. Flexor compartment tendons: Evaluation of the tendons is limited by the absence of fat saturation on axial images. No visualized full-thickness tear. Extensor compartment tendons: Evaluation of the tendons is limited by the absence of fat saturation on axial images. No visualized full-thickness tear. Mild tendinosis of the extensor carpi ulnaris tendon. Muscles: No visualized acute abnormality. Nerves: Evaluation of the ulnar nerve is limited. There is no evidence of impingement upon the visualized portions of the ulnar nerve. Soft tissues: No significant soft tissue swelling. IMPRESSION: 1. Degenerative change/arthropathy visualized. 2. There is no evidence of impingement upon the visualized portions of the ulnar nerve. 3. Suggested partial tear of the scapholunate ligament. 4. Mild tendinosis of the extensor carpi ulnaris tendon. 5. Minimal distal radioulnar joint effusion. 6. There is a prominent spur or exostosis dorsal to the triquetral bone. This is likely chronic. 7. Additional findings described above.
== END ==
LOC: RAD 14:52
PROVIDERS: PCP Family Medicine; Visit Provider Specialist
DX: G62.9 Polyneuropathy, unspecified (principal); S54.02XA Injury of ulnar nerve at forearm level, left arm, initial encounter
CPT/HCPCS: 73110; 73221

== ENCOUNTER → 2023-03-08 14:30 | Outpatient (CLI) | payer MEDICARE, SELFPAY ==
--- NOTE | 2023-03-08 15:02 | XR_ITS ---
FINAL REPORT CLINICAL HISTORY: R heel pain, possible foreign body FINDINGS: Right foot Three views were obtained. There is no acute fracture or dislocation. There are mild degenerative changes. Mild vascular calcification is identified. There is a 2 mm possible foreign body in the heel pad well seen on the lateral view. IMPRESSION: Possible foreign body in the heel pad. Reviewed, Interpreted and Dictated by Zackery Roblero III, MD Transcribed by Cindy Browning Authenticated and [facility]
== END ==
LOC: RAD 14:31
PROVIDERS: Visit Provider Student in an Organized Health Care Education/Training Program
DX: M79.5 Residual foreign body in soft tissue (principal); M79.671 Pain in right foot
CPT/HCPCS: 73630

== ENCOUNTER → 2023-03-11 23:46 | Outpatient (CLI) | payer MEDICARE, SELFPAY | PROVIDERS: Visit Provider Nurse Practitioner Family | DX: S90.851A Superficial foreign body, right foot, initial encounter (principal); B96.1 Klebsiella pneumoniae [K. pneumoniae] as the cause of diseases classified elsewhere | CPT/HCPCS: 87070; 87077; 87186; 87205 ==

== ENCOUNTER 2023-07-06 12:46 | Emergency (ER) | payer MEDICARE, SELFPAY ==
[2023-07-06 13:10] VITALS: BP 130/81; PULSE 85; RESP 18; TEMP 37.1; O2SAT 98; BMI 31.1
--- NOTE | 2023-07-06 13:28 | EXP.UTC ---
Discharge Plan Disposition Patient Disposition: Home, Self-Care Condition: Good Prescriptions Prescriptions: New meclizine 12.5 mg tablet 12.5 mg PO TID PRN (Reason: dizziness) Qty: 9 0RF ondansetron 4 mg tablet,disintegrating 4 mg PO Q8H PRN (Reason: nausea and vomiting) Qty: 10 0RF amoxicillin-pot clavulanate 875-125 mg Tablet 1 tab PO Q12H Qty: 14 0RF No Action sildenafil 100 mg tablet 100 mg PO DAILY Novolin 70-30 FlexPen U-100 100 unit/mL (70-30) insulin pen 70 unit SQ BID tamsulosin 0.4 mg capsule 0.4 mg PO HS aspirin 500 mg tablet 81 mg PO DAILY Rx Instructions: while awake simvastatin 20 mg tablet 20 mg PO DAILY fenofibrate nanocrystallized 48 mg tablet 48 mg PO DAILY Referrals Follow up/Referrals: Provider,Referral, MD [Primary Care Provider] - See instructions Activity Restrictions/Add. Instructions Additional Instructions/Restrictions: *Monitor Temp, Over the counter Motrin or Tylenol as directed/as needed Tylenol every 4 hours and Motrin every 6 hours (as long as your family doctor has told you that you can take it) for fever or pain. and straight to ER if unable to lower temp less than 101.0 after medication given *Warm salt water gargles may help to soothe the throat *Throat Lozenges? *Warm fluids like tea with honey may help to soothe the throat? *Sleep elevated *Humidifier/Vaporizer Follow up IMMEDIATELY for new or worsening symptoms or no Noticeable improvement over the next 48-72 hours. 911 for difficulty breathing or swallowing You were tested for today for Upper Respiratory Panel with COVID19 your test result should be back in the next 24hours, you may check your results on the [facility] My Health Portal if your COVID test is positive you must Quarantine for 5 days Clinical Impressions Clinical Impression: Sinusitis Qualifiers: Sinusitis location: unspecified location Chronicity: unspecified Qualified Code(s): J32.9 - Chronic sinusitis, unspecified Instructions Patient Instructions: Sinusitis, DI for Sinusitis, DI for Vertigo, Meclizine Discharge ED Provider: Fouzia Patterson [facility] – [place] HPI General Stated complaint: chills, nausea and stomach ache Mode of Arrival: Ambulatory Source of Information: Patient Limitations: No Limitations Time Seen by Provider: 07/06/23 13:28 Description of Symptoms (Recalled from Triage Doc. by RN): body aches, diarrhea, vomiting, nausea, and dizziness for 3 days HEENT Symptoms (Recalled from RN notes): Yes Resp Symptoms (Recalled from RN notes): No Skin Symptoms (Recalled from RN notes): No MS Symptoms (Recalled from RN notes): No Functional Status (Recalled from RN notes): n/a History of Present Illness Provider Complaint: Patient states that he hasnt felt well for about 3 days States that he has been having watery eyes, sinus congestion and pressure behind his eyes, body aches, chills, nausea and felt a little dizzy on and off States that he feels like he has a bad flu States that he has had a little dizziness on and off for many years and has seen PT for it in the past and this is not new he does this sometimes. States that the pressure under and behind his eyes makes his head hurt and the drainage in his throat makes him feel nauseous Related Data Home Medications Medication Instructions Recorded Confirmed tamsulosin 0.4 mg capsule 0.4 mg PO HS prostate 04/20/22 07/06/23 insulin NPH-regular 70-30 U-100 70 unit SQ BID Diabetes 08/25/22 07/06/23 insulin 100 unit/mL subcutaneous pen (Novolin 70-30 FlexPen U-100 Insulin) sildenafil 100 mg tablet 100 mg PO DAILY erection 08/25/22 07/06/23 aspirin 500 mg tablet 81 mg PO DAILY . 08/27/22 07/06/23 fenofibrate nanocrystallized 48 mg 48 mg PO DAILY 07/06/23 07/06/23 tablet simvastatin 20 mg tablet 20 mg PO DAILY 07/06/23 07/06/23 Previous Rx's Medication Instructions Recorded amoxicillin 875 mg-sarah
[2023-07-06 13:30] LABS: UTC Influenza A Antigen Negative (Negative)
[2023-07-06 13:31] LABS: UTC Influenza B Antigen Negative (Negative)
[2023-07-06 13:51] LABS: POC Glucose,Bedside 200 (70-110)
[2023-07-06 14:43] VITALS: BP 130/81; PULSE 85; RESP 18; TEMP 37.1; O2SAT 98
== END 2023-07-06 14:43 | disposition home or self-care (01) ==
PROVIDERS: Emergency Provider Nurse Practitioner
DX: U07.1 COVID-19 (principal); J01.90 Acute sinusitis, unspecified; R11.2 Nausea with vomiting, unspecified; R42 Dizziness and giddiness; R19.7 Diarrhea, unspecified; R09.81 Nasal congestion; R09.82 Postnasal drip; R68.83 Chills (without fever); M79.18 Myalgia, other site; F17.290 Nicotine dependence, other tobacco product, uncomplicated; E11.9 Type 2 diabetes mellitus without complications; E78.5 Hyperlipidemia, unspecified; K21.9 Gastro-esophageal reflux disease without esophagitis; I10 Essential (primary) hypertension; Z79.4 Long term (current) use of insulin
CPT/HCPCS: 82962; 87635; 87804; 99204; 99212; G0463

== ENCOUNTER 2023-07-13 01:58 | Emergency (ER) | payer MEDICARE, SELFPAY ==
[2023-07-13] VITALS (8 sets, daily range): BP systolic 125–162; BP diastolic 67–106; PULSE 71–95; RESP 17–18; TEMP 36.4–36.7; O2SAT 93–99; BMI 31.0
--- OUTSIDE RECORDS SUMMARY | 2023-07-13 02:07 | XMS_ITS | Patient Health Record ---
Author Name Unknown Organization Cristhian Marino MD Address [address] [place] [address] Care Team Providers Care Administrative Professional Name Role Phone Cristhian Marino Primary Care Provider [phone] Allergies Allergen (clinical drug ingredient) Drug/Non Drug Allergy documented on EMR Reaction Allergy Type Onset Date Status codeine Codeine itchy nose Drug Allergy Active Reason For Referral No Information Medications Medication SIG (Take, Route, Frequency, Duration) Notes Start Date End Date Status Donepezil HCl 10 MG 1 tablet at bedtime Orally Once a day for 90 days Active hydrOXYzine Pamoate 50 MG 1 capsule when needed for sleep Orally at bedtime for 30 day(s) 11/11/2021 Active Atorvastatin Calcium 80 MG 1 tablet Oral ly Once a day for 90 days 04/01/2020 Active glipiZIDE 10 MG TAKE ONE TABLET BY M OUTH 2 TIMES A DAY Active Depo-Testosterone 200 MG/ML 2 mls Intramuscular every 2 weeks Active Sildenafil Citrate 100 MG Oral Active metFORMIN HCl 1000 mg 1 tablet with meal s Orally Twice a day Active Omeprazole 40 MG 1 capsule 30 minutes before morning meal Orally Once a day for 90 days Active NovoLIN 70/30 (70
--- NOTE | 2023-07-13 02:13 | XR_ITS ---
PROCEDURE INFORMATION: Exam: XR Chest Exam date and time: 07/13/2023 2:19 AM Age: 67 years old Clinical indication: Shortness of breath; Additional info: SOA TECHNIQUE: Imaging protocol: Radiologic exam of the chest. Views: 1 view. COMPARISON: CR XR CHEST AP 04/12/2022 9:15 PM FINDINGS: Lungs: There is an unchanged 6 mm nodule in the right mid lung. Lungs are otherwise clear. Pleural spaces: Unremarkable. No pleural effusion. No pneumothorax. Heart/Mediastinum: Unremarkable. No cardiomegaly. Bones/joints: Degenerative changes are noted in the bones. IMPRESSION: No acute cardiopulmonary disease.
--- NOTE | 2023-07-13 02:13 | PC.NURSE ---
RT notified for DuoNeb administration.
--- NOTE | 2023-07-13 02:16 | ECG_ITS ---
APPROVED REPORT Exam: Resting ECG HR:71 bpm ECG Measurements Heart Rate 71 AXES NH 214 P 41 QRSd 95 QRS -52 QT 424 T 52 QTc 446 Conclusion SINUS RHYTHM WITH FIRST DEGREE AV BLOCK PATTERN CONSISTENT WITH PULMONARY DISEASE INCOMPLETE RIGHT BUNDLE BRANCH BLOCK [90+ ms QRS DURATION, TERMINAL R IN V1/V2, 40+ ms S IN I/aVL/V4/V5/V6] LEFT ANTERIOR FASCICULAR BLOCK [QRS AXIS <= -45, QR IN I, RS IN II] ABNORMAL ECG UNCONFIRMED REPORT Electronically signed by : Daniel Pelayo MD 07/13/2023 16:52:43
--- NOTE | 2023-07-13 02:18 | HMH.EDCP ---
Discharge Plan Disposition Patient Disposition: Home, Self-Care Condition: Good Prescriptions Prescriptions: New hydroxyzine HCl 25 mg tablet 25 mg PO BID PRN (Reason: itching) Qty: 10 0RF albuterol sulfate 90 mcg/actuation HFA aerosol inhaler 2 inh inhalation Q6H PRN (Reason: shortness of breath or wheezing) Qty: 6.7 0RF No Action sildenafil 100 mg tablet 100 mg PO DAILY Novolin 70-30 FlexPen U-100 100 unit/mL (70-30) insulin pen 70 unit SQ BID tamsulosin 0.4 mg capsule 0.4 mg PO HS aspirin 500 mg tablet 81 mg PO DAILY Rx Instructions: while awake simvastatin 20 mg tablet 20 mg PO DAILY fenofibrate nanocrystallized 48 mg tablet 48 mg PO DAILY meclizine 12.5 mg tablet 12.5 mg PO TID PRN (Reason: dizziness) Qty: 9 0RF ondansetron 4 mg tablet,disintegrating 4 mg PO Q8H PRN (Reason: nausea and vomiting) Qty: 10 0RF amoxicillin-pot clavulanate 875-125 mg Tablet 1 tab PO Q12H Qty: 14 0RF Referrals Follow up/Referrals: Provider,Referral, MD [Primary Care Provider] - See instructions Activity Restrictions/Add. Instructions Additional Instructions/Restrictions: You were evaluated in the ER today for shortness of breath and anxiety. I believe most of your symptoms were likely caused by anxiety. You did have some diminished breath sounds that were improved by nebulizer so I have provided albuterol prescription if needed for shortness of breath since I suspect you may have mild underlying COPD. I also prescribed a few pills of hydroxyzine which may help with anxiety. Take this as directed if needed for anxiety. Make an appointment with your primary care physician for reevaluation in 2 to 3 days. Return to the ER with any new, worsening, or otherwise concerning symptoms. Clinical Impressions Clinical Impression: Anxiety, Shortness of breath, Atrioventricular block, first degree Discharge ED Provider: Tatyana Gregg General Chief Complaint: Shortness of Breath/Dyspnea Stated Complaint: congestion, SOA Time Seen by Provider: 07/13/23 02:13 Mode of Arrival: Ambulatory Source of Information: Patient Limitations: No Limitations Description of Symptoms (Recalled from ER Triage Doc. by RN): pt reports being diagnosed last week with covid, reports started having issues with difficulty sleeping, feeling anxious and SOA when laying flat tonight, denies CP. History of Present Illness HPI narrative: This 67-year-old male presents to the emergency department with concerns of difficulty breathing when he lays down, anxiety, inability to sleep as a result of his symptoms. Patient was diagnosed with COVID-19 at an urgent care visit 1 week ago. I reviewed urgent care records which demonstrates patient had symptoms of headache, body aches, chills, nausea. Patient was prescribed Augmentin, meclizine, Zofran. He states he has 1 more day of antibiotics to complete.. Patient has a history of insulin-dependent type 2 diabetes, hyperlipidemia, hypertension, asplenia. Patient states approximately 5 to 6 years ago he had an episode like this where he started feeling short of breath and anxious. He was diagnosed with an anxiety attack. He states he does not take any anxiety or depression medications at this time. He denies any fevers, chills, chest pain, dizziness, lightheadedness, ankle swelling, palpitations, or other associated symptoms at this time. He states overall he is feeling better from COVID until the symptoms onset late tonight Related Data Home Medications Medication Instructions Recorded Confirmed tamsulosin 0.4 mg capsule 0.4 mg PO HS prostate 04/20/22 07/06/23 insulin NPH-regular 70-30 U-100 70 unit SQ BID Diabetes 08/25/22 07/06/23 insulin 100 unit/mL subcutaneous pen (Novolin 70-30 FlexPen U-100 Insulin) sildenafil 100 mg tablet 100 mg PO DAILY erection 08/25/22 07/06/23 aspirin 500 mg tablet 81 mg PO DAILY . 08/27/22 07/06/23 fenofibrate n
[2023-07-13 02:21] LABS: Basophils # 0.1 K/mm3 (0-0.2); Basophils % 0.9 % (0.1-2.0); Eosinophils # 0.3 K/mm3 (0.0-0.4); Hematocrit 47.5 % (42.0-52.0); Hemoglobin 15.8 g/dL (14.1-18.0); Lymphocytes # 5.2 K/mm3 (0.7-4.5); Mean Corpuscular HGB Conc 33.2 g/dL (31.8-35.4); Mean Corpuscular Volume 90.4 fl (80-94); Mean Platelet Volume 9.2 fl (7.4-10.4); Monocytes # 0.8 K/mm3 (0.1-1.0); Monocytes % 7.8 % (1.7-9.3); Neutrophils # 4.2 K/mm3 (1.8-7.8); Neutrophils % 39.3 % (37.0-80.0); Platelet Count 332 K/mm3 (142-424); Red Blood Count 5.25 M/mm3 (4.60-6.20); Red Cell Distribution Width 13.7 % (11.5-17.5); White Blood Count 10.7 K/mm3 (4.8-10.8)
[2023-07-13 02:32] LABS: Alanine Aminotransferase 33 U/L (12-78); Albumin Level 4.4 g/dl (3.5-5.0); Albumin/Globulin Ratio 1.2 (1.1-1.8); Alkaline Phosphatase 81 U/L (38-126); Aspartate Amino Transferase 39 U/L (17-59); Bilirubin,Total 0.4 mg/dl (0.2-1.3); Blood Urea Nitrogen 13 mg/dl (9-20); Carbon Dioxide 30 mmol/L (22.0-30.0); Chloride 98 mmol/L (98-107); Creatinine Clearance Estimated 90 mL/min (50-200); Estimated Glomerular Filt Rate 96 ml/min (>60); GFR (African American) 116 ML/MIN (>60); Globulin 3.8 g/dL (1.3-3.2); Glucose 273 mg/dl (74-100); Potassium 3.8 mmoL/L (3.5-5.1); Total Protein,Serum 8.2 g/dl (6.3-8.2)
[2023-07-13 02:37] LABS: Anion Gap 9.8 mEq/L (5-15); Sodium 134 mmol/L (136-145)
[2023-07-13 02:41] LABS: NT Pro Brain Natriuretic Pep. 301 pg/mL (0-125)
[2023-07-13 02:47] LABS: Troponin I < 0.01 ng/ml (0.00-0.034)
[2023-07-13 05:18] LABS: Troponin I < 0.01 ng/ml (0.00-0.034)
== END 2023-07-13 05:54 | disposition home or self-care (01) ==
PROVIDERS: Emergency Provider Emergency Medicine
DX: R06.02 Shortness of breath (principal); I44.0 Atrioventricular block, first degree; F41.9 Anxiety disorder, unspecified; E11.9 Type 2 diabetes mellitus without complications; I10 Essential (primary) hypertension; E78.5 Hyperlipidemia, unspecified; Q89.01 Asplenia (congenital); F17.200 Nicotine dependence, unspecified, uncomplicated
CPT/HCPCS: 71045; 80053; 83880; 84484; 85025; 93005; 99285

== ENCOUNTER 2023-11-10 09:46 | Outpatient (CLI) | payer MEDICARE, SELFPAY ==
[2023-11-10 18:07] LABS: Basophils # 0.1 K/mm3 (0-0.2); Basophils % 1.2 % (0.1-2.0); Eosinophils # 0.3 K/mm3 (0.0-0.4); Eosinophils % 3.6 % (0.1-12.0); Hematocrit 47.3 % (42.0-52.0); Hemoglobin 15.2 g/dL (14.1-18.0); Lymphocytes # 3.2 K/mm3 (0.7-4.5); Lymphocytes % 37.3 % (10-50); Mean Corpuscular HGB Conc 32.1 g/dL (31.8-35.4); Mean Corpuscular Hemoglobin 30.7 pg (27.0-31.2); Mean Corpuscular Volume 95.4 fl (80-94); Mean Platelet Volume 10.6 fl (7.4-10.4); Monocytes # 0.6 K/mm3 (0.1-1.0); Monocytes % 7.1 % (1.7-9.3); Neutrophils # 4.4 K/mm3 (1.8-7.8); Neutrophils % 50.8 % (37.0-80.0); Platelet Count 314 K/mm3 (142-424); Red Blood Count 4.95 M/mm3 (4.60-6.20); Red Cell Distribution Width 14.1 % (11.5-17.5); White Blood Count 8.7 K/mm3 (4.8-10.8)
[2023-11-10 18:59] LABS: Alanine Aminotransferase 27 U/L (12-78); Albumin Level 4.2 g/dl (3.5-5.0); Albumin/Globulin Ratio 1.5 (1.1-1.8); Alkaline Phosphatase 83 U/L (38-126); Anion Gap 11.5 mEq/L (5-15); Aspartate Amino Transferase 28 U/L (17-59); Bilirubin,Total 0.6 mg/dl (0.2-1.3); Blood Urea Nitrogen 9 mg/dl (9-20); Calcium 9.5 mg/dl (8.4-10.2); Carbon Dioxide 28 mmol/L (22.0-30.0); Chloride 99 mmol/L (98-107); Estimated Glomerular Filt Rate 112 ml/min (>60); GFR (African American) 135 ML/MIN (>60); Globulin 2.8 g/dL (1.3-3.2); Glucose 357 mg/dl (74-100); Potassium 4.5 mmoL/L (3.5-5.1); Sodium 134 mmol/L (136-145)
[2023-11-10 19:05] LABS: Hemoglobin A1C 11.8 % (4.0-6.0)
[2023-11-10 20:06] LABS: Creatinine,Urine Random 66 mg/dL (Not Estab.)
[2023-11-10 20:16] LABS: Thyroid Stimulating Hormone 1.36 uIU/mL (0.465-4.68)
[2023-11-10 20:22] LABS: Microalbumin/Creatinine Ratio 823.1
== END 2023-11-10 23:59 | disposition home or self-care (01) ==
LOC: LAB.DROPOF 11-11 09:47
PROVIDERS: PCP Internal Medicine; Visit Provider Internal Medicine
DX: R73.09 Other abnormal glucose (principal); E78.5 Hyperlipidemia, unspecified; R53.83 Other fatigue; E05.90 Thyrotoxicosis, unspecified without thyrotoxic crisis or storm
CPT/HCPCS: 80053; 82043; 82570; 83036; 84443; 85025

== ENCOUNTER 2023-12-23 11:54 | Outpatient (CLI) | payer MEDICARE, SELFPAY ==
[2023-12-23 18:11] LABS: Creatinine,Urine Random 115 mg/dL (Not Estab.)
[2023-12-23 18:12] LABS: Basophils # 0.1 K/mm3 (0-0.2); Eosinophils # 0.3 K/mm3 (0.0-0.4); Eosinophils % 3.3 % (0.1-12.0); Hematocrit 43.9 % (42.0-52.0); Hemoglobin 14.3 g/dL (14.1-18.0); Lymphocytes # 3.5 K/mm3 (0.7-4.5); Lymphocytes % 34.8 % (10-50); Mean Corpuscular HGB Conc 32.6 g/dL (31.8-35.4); Mean Corpuscular Hemoglobin 31.2 pg (27.0-31.2); Mean Corpuscular Volume 95.6 fl (80-94); Mean Platelet Volume 11.1 fl (7.4-10.4); Monocytes # 0.7 K/mm3 (0.1-1.0); Monocytes % 6.8 % (1.7-9.3); Neutrophils # 5.4 K/mm3 (1.8-7.8); Neutrophils % 54.2 % (37.0-80.0); Platelet Count 298 K/mm3 (142-424); Red Blood Count 4.59 M/mm3 (4.60-6.20)
[2023-12-23 18:13] LABS: Alanine Aminotransferase 27 U/L (12-78); Albumin Level 3.7 g/dl (3.5-5.0); Anion Gap 14.1 mEq/L (5-15); Aspartate Amino Transferase 28 U/L (17-59); Bilirubin,Total 0.7 mg/dl (0.2-1.3); Blood Urea Nitrogen 10 mg/dl (9-20); Carbon Dioxide 27 mmol/L (22.0-30.0); Chloride 98 mmol/L (98-107); Estimated Glomerular Filt Rate 112 ml/min (>60); GFR (African American) 135 ML/MIN (>60); Glucose 320 mg/dl (74-100); Potassium 4.1 mmoL/L (3.5-5.1); Sodium 135 mmol/L (136-145); Total Protein,Serum 6.8 g/dl (6.3-8.2)
[2023-12-23 18:14] LABS: Albumin/Globulin Ratio 1.2 (1.1-1.8); Alkaline Phosphatase 94 U/L (38-126); Chol/HDL Ratio 4.4 (1-3.5); Cholesterol 185 mg/dl (140-200); Globulin 3.1 g/dL (1.3-3.2); HDL Cholesterol 42 mg/dl (40-60); Triglycerides 292 mg/dl (30-150); VLDL Cholesterol 58 mg/dL (0-40)
[2023-12-23 18:25] LABS: Direct LDL Cholesterol 86.75 mg/dL (100-129)
[2023-12-23 18:32] LABS: 25-OH Vitamin D, Total 16.9 ng/mL (30-100)
[2023-12-23 18:44] LABS: Hemoglobin A1C 12.3 % (4.0-6.0); Thyroid Stimulating Hormone 1.36 uIU/mL (0.465-4.68)
[2023-12-23 18:45] LABS: Microalbumin/Creatinine Ratio 751.8
[2023-12-23 19:03] LABS: Vitamin B12 878 pg/mL (239-931)
== END 2023-12-23 23:59 | disposition home or self-care (01) ==
LOC: LAB.DROPOF 12-24 11:55
PROVIDERS: PCP Internal Medicine; Visit Provider Internal Medicine
DX: E78.5 Hyperlipidemia, unspecified (principal); E55.9 Vitamin D deficiency, unspecified; R53.83 Other fatigue; E11.9 Type 2 diabetes mellitus without complications; E03.9 Hypothyroidism, unspecified; E53.8 Deficiency of other specified B group vitamins; Z68.27 Body mass index [BMI] 27.0-27.9, adult; Z79.4 Long term (current) use of insulin; Z79.84 Long term (current) use of oral hypoglycemic drugs
CPT/HCPCS: 80053; 80061; 82043; 82306; 82570; 82607; 83036; 84443; 85025

== ENCOUNTER 2024-01-03 11:31 | Emergency (ER) | payer MEDICARE, SELFPAY ==
[2024-01-03 11:42] VITALS: BP 163/93; PULSE 84; RESP 18; TEMP 36.6; O2SAT 97; BMI 26.6
--- NOTE | 2024-01-03 12:01 | XR_ITS ---
FINAL REPORT CLINICAL HISTORY: pain, swelling prioximal tib fall 1 week ago, pt is diabetic FINDINGS: LEFT TIBIA AND FIBULA There is no acute fracture or dislocation. The joint spaces are intact. Mild degenerative changes are noted. There is no soft tissue abnormality. IMPRESSION: No acute fracture Reviewed, Interpreted and Dictated by Zackery Roblero III, MD Transcribed by Heather Pratt Authenticated and [facility]
--- NOTE | 2024-01-03 12:07 | ED_ITS ---
Discharge Plan Disposition Patient Disposition: Home, Self-Care Prescriptions Prescriptions: No Action sildenafil 100 mg tablet 100 mg PO DAILY Novolin 70-30 FlexPen U-100 100 unit/mL (70-30) insulin pen 70 unit SQ BID trazodone 150 mg tablet 150 mg PO DAILY Qty: 90 2RF meclizine 12.5 mg tablet 12.5 mg PO TID PRN (Reason: dizziness) Qty: 90 0RF omeprazole 40 mg capsule,delayed release(DR/EC) 40 mg PO DAILY Qty: 30 2RF donepezil 10 mg tablet 10 mg PO DAILY 90 Days Qty: 90 2RF bupropion HCl 300 mg tablet extended release 24 hr 300 mg PO DAILY 90 Days Qty: 90 2RF (DME) blood-glucose meter [Advanced Glucose Meter] Misc See Rx Instructions .Route Qty: 1 0RF Rx Instructions: Twice daily or As directed (DME) Advanced Gluc Meter Test Strip Strip See Rx Instructions .Route Qty: 100 1RF Rx Instructions: Twice daily or As directed (DME) lancets [Advanced Travel Lancets] 28 gauge misc See Rx Instructions .Route Qty: 100 2RF Rx Instructions: Twice daily or As directed tamsulosin 0.4 mg capsule 0.4 mg PO HS aspirin 500 mg tablet 81 mg PO DAILY Rx Instructions: while awake metformin 500 mg tablet 500 mg PO BID Qty: 60 2RF cholecalciferol (vitamin D3) [Vitamin D3] 25 mcg (1,000 unit) capsule 25 mcg PO DAILY Qty: 30 2RF simvastatin 20 mg tablet 20 mg PO DAILY fenofibrate nanocrystallized 48 mg tablet 48 mg PO DAILY albuterol sulfate 90 mcg/actuation HFA aerosol inhaler 2 inh inhalation Q6H PRN (Reason: shortness of breath or wheezing) Qty: 6.7 0RF Referrals Follow up/Referrals: Garrison Tate DO [Staff Physician] - See instructions Jude Pacheco DO [Primary Care Provider] - See instructions Activity Restrictions/Add. Instructions Additional Instructions/Restrictions: Is follow-up with Dr. Tate on in clinic for wound reevaluation. You may floss the vessel loop twice a day as long as there continues to be bloody output. If the bleeding stops and your symptoms have improved you may cut it out. You were given a long-acting antibiotic today called dalbavancin you are not in need of any further IV or oral antibiotics. Return with any high fevers or other concerns. Clinical Impressions Clinical Impression: Cellulitis of left lower leg, Hematoma of left lower leg Discharge ED Provider: Mandy Tejada General Adult HPI General Chief complaint: Extremity Injury, Lower Stated complaint: L leg infection Time Seen by Provider: 01/03/24 11:58 Mode of Arrival: Ambulatory Source of Information: Patient Limitations: No Limitations Description of Symptoms (Recalled from ER Triage Doc. by RN): Pt reports he had a fall x1 week ago on [place]. Pt c/o left knee swellling, pain and drainage since that he can not get to heal. History of Present Illness HPI narrative: Patient is a 68-year-old male presents today with redness and swelling over the proximal tibia area after a fall last week. States that he started having swelling and redness only over the last few days. No fevers or chills. Went to his primary care doctor who sent him to the ED for further evaluation management. He has normal range of motion from historical standpoint. Not on any anticoagulants or antiplatelet agents Related Data Home Medications Medication Instructions Recorded Confirmed tamsulosin 0.4 mg capsule 0.4 mg PO HS prostate 04/20/22 01/03/24 insulin NPH-regular 70-30 U-100 70 unit SQ BID Diabetes 08/25/22 01/03/24 insulin 100 unit/mL subcutaneous pen (Novolin 70-30 FlexPen U-100 Insulin) sildenafil 100 mg tablet 100 mg PO DAILY erection 08/25/22 01/03/24 aspirin 500 mg tablet 81 mg PO DAILY . 08/27/22 01/03/24 fenofibrate nanocrystallized 48 mg 48 mg PO DAILY 07/06/23 01/03/24 tablet simvastatin 20 mg tablet 20 mg PO DAILY 07/06/23 01/03/24 Previous Rx's Medication Instructions Recorded albuterol sulfate 90 mcg/actuation 2 inh inhalation Q6H PRN shortness 07/13/23 aerosol inhaler of breath or wheezing #6.7 grams metformin 500 mg tablet 500 mg PO BID #60 tabs 11/12/23 blood sugar diagnostic (Advanced #100 ea 12/23/23 Glucose Meter Test Strips) blood-glucose meter (Advanced #1 ea 12/23/23 Glucose Meter) bupropion HCl 300 mg 24 hr tablet, 300 mg PO DAILY 90 days #90 tabs 12/23/23 extended release donepezil 10 mg tablet 10 mg PO DAILY 90 days #90 tabs 12/23/23 lancets 28 gauge (Advanced Travel #100 ea 12/23/23 Lancets) meclizine 12.5 mg tablet 12.5 mg PO TID PRN dizziness #90 12/23/23 tabs omeprazole 40 mg capsule,delayed 40 mg PO DAILY #30 caps 12/23/23 release trazodone 150 mg tablet 150 mg PO DAILY #90 tabs 12/23/23 cholecalciferol (vitamin D3) 25 25 mcg PO DAILY #30 caps 12/28/23 mcg (1,000 unit) capsule (Vitamin D3) Allergies Allergy/AdvReac Type Severity Reaction Status Date / Time codeine Allergy Mild Verified 01/03/24 11:02 [facility] Disclaimer: The information contained in this section may have been updated after the patient was seen, as this information can be updated by other users. Medical History GERD (gastroesophageal reflux disease) HLD (hyperlipidemia) Patient has not had a lipid panel done at this clinic. Will check 1 today. He is taking fenofibrate and simvastatin. HTN (hypertension) Spleen absent Migraine Diabetes mellitus, type 2 Surgical History H/O shoulder surgery H/O splenectomy Family History Other Cancer Coronary artery disease Heart attack No significant family history Stroke Social History Smoking Status: Current every day smoker tobacco type: cigars alcohol intake: current alcohol intake frequency: holidays/special occasions only substance use type: former substance user and marijuana current occupational status: unemployed and retired Travel in the last 8 weeks: None household members: none housing: house ROS Obtained: Yes All systems reviewed & no additional complaints except as documented Physical Exam General General appearance: alert Respiratory Respiratory exam: Present normal lung sounds bilaterally Cardiovascular Cardiovascular exam: Present regular rate Expanded Lower Extremity Exam Left: Leg image: 2 1. Erythema and fluctuance and tenderness there is a central area of necrosis normal range of motion Neurological Exam Neurological exam: Present alert and oriented X3 Medical Decision Making Shant Inquiry Pt receiving controlled substance: No Vital Signs: 01/03/24 11:42 01/03/24 13:00 Temperature 97.8 F Temperature Source Oral Pulse Rate 76 Pulse Rate [Right Brachial] 84 Respiratory Rate 18 Blood Pressure 185/104 H Blood Pressure [Right Arm] 163/93 H Blood Pressure Mean [Right Arm] 116 Blood Pressure Source [Right Arm] Automatic Cuff Blood Pressure Position [Right Arm] Sitting 02 Sat by Pulse Oximetry 97 95 Oxygen Delivery Method Room Air Room Air Lab Data Lab results reviewed: Yes I reviewed the patient's lab results. Lab Results 01/03/24 12:15: WBC 13.0 H, RBC 4.38 L, Hgb 13.6 L, Hct 41.0 L, MCV 93.7, MCH 31.1, MCHC 33.2, RDW 14.2, Plt Count 334, MPV 8.6, Neut % (Auto) 67.8, Lymph % (Auto) 19.4, [place] % (Auto) 9.5 H, Eos % (Auto) 2.6, Baso % (Auto) 0.7, Neut # (Auto) 8.8 H, Lymph # (Auto) 2.5, [place] # (Auto) 1.2 H, Eos # (Auto) 0.3, Baso # (Auto) 0.1, ESR 74 H, Sodium 134 L, Potassium 3.6, Chloride 94 L, Carbon Dioxide 33 H, Anion Gap 10.6, BUN 14, Creatinine 0.90, Estimated Creat Clear 76, Estimated GFR 84, Est GFR ( Amer) 101, Glucose 204 H, Calcium 8.9, Total Bilirubin 0.7, AST 26, ALT 19, Alkaline Phosphatase 78, C-Reactive Protein 50.5 H, Total Protein 7.4, Albumin 3.8, Globulin 3.6 H, Albumin/Globulin Ratio 1.1 01/03/24 12:15 01/03/24 12:15 Orders (Tests/Meds): ED MEDICATIONS Discontinued Medications Generic Name Dose Route Start Last Admin Trade Name Freq PRN Reason Stop Dose Admin Lactated Ringer's 1,000 mls @ 999 mls/hr 01/03/24 12:15 01/03/24 12:24 Lactated Ringer's 1000 Ml Bag IV 01/03/24 13:15 999 mls/hr .Q1H1M CARROL Administration Dalbavancin 1,500 mg/ Dextrose 250 mls @ 500 mls/hr 01/03/24 12:36 01/03/24 13:05 IV 01/03/24 12:37 500 mls/hr ONCE ONE Administration Morphine Sulfate 4 mg 01/03/24 12:01 01/03/24 12:24 Morphine 4mg/Ml Syringe IV 01/03/24 12:02 4 mg ONCE ONE Administration Ondansetron HCl 4 mg 01/03/24 12:01 01/03/24 12:24 Ondansetron 4mg/2ml Vial IV 01/03/24 12:02 4 mg ONCE ONE Administration ORDERS Category Date Time Status POCUS Point of Care (ER Only) Stat Exams 01/03/24 12:03 Completed Tibia/fibula XR left 2 views [XR tibia fibula LT 2V] Exams 01/03/24 12:01 Completed Stat CBC w/Auto Diff [Complete Blood Count Auto Diff] Stat Lab 01/03/24 12:15 Completed CMP [Comprehensive Metabolic Panel] Stat Lab 01/03/24 12:15 Completed CRP [C-Reactive Protein] Stat Lab 01/03/24 12:15 Completed ESR [Erythrocyte Sedimentation Rate] Stat Lab 01/03/24 12:15 Completed Wound Culture and Gram Stain Stat Micro 01/03/24 12:36 Ordered Medical Decision Narrative: 68-year-old presented today with erythema redness fluctuance after recent wound to the proximal tib-fib location. Has normal range of motion of the left knee I do not suspect a septic joint. Differential includes hematoma, infected hematoma with abscess and cellulitis, osteomyelitis, necrotizing soft tissue infection. Overall patient is well-appearing and nontoxic unlikely to be any type of systemic or rapidly progressing illness such as a necrotizing soft tissue infection. Will do a bedside ultrasound to see if there is no drainable fluid collection and reassess. Reassessment 143 x-ray performed to person interpreted shows no acute fractures or dislocation no significant subcutaneous gas or advanced bony degenerative changes. Dr. Tate was actually at the bedside and evaluated the patient and so the patient can follow-up on in clinic after drainage. Dalbavancin was given to treat overlying cellulitis incision and drainage was performed to see if there is any significant purulence and it was largely bloody discharge patient is significant improvement in pressure improvement once this incision and drainage was performed. Working diagnosis is an infected hematoma with overlying cellulitis. Dalbavancin should be adequate to treat this. No further oral or IV antibiotics needed at the moment. He will follow-up with Dr. Tate in clinic on . Procedures Abscess I/D Site: lower extremity Side (if applicable): left Local Anesthetic: lidocaine 1% and with epi Amount of anesthesia used (mL): 10 Technique: incised with #11 blade Amount of fluid expressed (mL): 30 (Bloody debris) Irrigation: No Packing used?: cheng drain (Vessel loop) Complications: bleeding Miscellaneous Procedure Procedure Performed: Limited soft tissue ultrasound Indication: Soft tissue swelling Identified structures: Location: Left anterior tib-fib area Findings: Extensive fluid collection that is well circumscribed approximately 10 x 10 x 2 cm with surrounding cobblestoning Impression: Large local drainable fluid collection abscess versus hematoma with surrounding inflammatory changes cellulitis versus soft tissue edema Images were saved to permanent archive The study was technically adequate Soft Tissue CPT Codes: CPT Lower Extremity: 55558-86 This study was performed by me, and I personally interpreted all images/videos. Based on my clinical judgement, these images were adequate and did not necessitate further imaging. Critical Care Critical Care Time Critical Care Time: No
[2024-01-03] MEDS: LACTATED RINGERS 1000ML 1,000 ML 999 ML IV (12:24)
[2024-01-03] MEDS: MORPHINE 4MG/ML SYRINGE 4 MG IV (12:24)
[2024-01-03] MEDS: ONDANSETRON 4MG/2ML VIAL 4 MG IV (12:24)
[2024-01-03 12:37] LABS: Basophils # 0.1 K/mm3 (0-0.2); Basophils % 0.7 % (0.1-2.0); Eosinophils # 0.3 K/mm3 (0.0-0.4); Eosinophils % 2.6 % (0.1-12.0); Hemoglobin 13.6 g/dL (14.1-18.0); Lymphocytes # 2.5 K/mm3 (0.7-4.5); Lymphocytes % 19.4 % (10-50); Mean Corpuscular HGB Conc 33.2 g/dL (31.8-35.4); Mean Corpuscular Hemoglobin 31.1 pg (27.0-31.2); Mean Corpuscular Volume 93.7 fl (80-94); Mean Platelet Volume 8.6 fl (7.4-10.4); Monocytes # 1.2 K/mm3 (0.1-1.0); Monocytes % 9.5 % (1.7-9.3); Neutrophils # 8.8 K/mm3 (1.8-7.8); Neutrophils % 67.8 % (37.0-80.0); Platelet Count 334 K/mm3 (142-424); Red Blood Count 4.38 M/mm3 (4.60-6.20); Red Cell Distribution Width 14.2 % (11.5-17.5)
[2024-01-03 12:41] LABS: Alanine Aminotransferase 19 U/L (12-78); Albumin Level 3.8 g/dl (3.5-5.0); Albumin/Globulin Ratio 1.1 (1.1-1.8); Alkaline Phosphatase 78 U/L (38-126); Anion Gap 10.6 mEq/L (5-15); Aspartate Amino Transferase 26 U/L (17-59); Bilirubin,Total 0.7 mg/dl (0.2-1.3); Blood Urea Nitrogen 14 mg/dl (9-20); Calcium 8.9 mg/dl (8.4-10.2); Carbon Dioxide 33 mmol/L (22.0-30.0); Chloride 94 mmol/L (98-107); Creatinine Clearance Estimated 76 mL/min (50-200); Estimated Glomerular Filt Rate 84 ml/min (>60); GFR (African American) 101 ML/MIN (>60); Globulin 3.6 g/dL (1.3-3.2); Glucose 204 mg/dl (74-100); Potassium 3.6 mmoL/L (3.5-5.1); Sodium 134 mmol/L (136-145); Total Protein,Serum 7.4 g/dl (6.3-8.2)
[2024-01-03 12:47] LABS: C-Reactive Protein 50.5 mg/L (0-4)
[2024-01-03 13:00] VITALS: BP 185/104; PULSE 76; O2SAT 95
[2024-01-03 13:03] LABS: Erythrocyte Sedimentation Rate 74 mm/hr (0-20)
[2024-01-03] MEDS: DALBAVANCIN HCL 1,500 MG in DEXTROSE 5 % IN WATER 250 ML 500 MG IV (13:05)
[2024-01-03 13:36] VITALS: BP 174/111; PULSE 76; O2SAT 97
[2024-01-03 13:49] VITALS: BP 163/85; PULSE 74; O2SAT 96
[2024-01-03 14:18] VITALS: BP 163/85; PULSE 71; RESP 20; TEMP 36.6; O2SAT 96
== END 2024-01-03 14:19 | disposition home or self-care (01) ==
PROVIDERS: Emergency Provider Student in an Organized Health Care Education/Training Program; PCP Internal Medicine
DX: L03.116 Cellulitis of left lower limb (principal); S80.12XA Contusion of left lower leg, initial encounter; E11.65 Type 2 diabetes mellitus with hyperglycemia; K21.9 Gastro-esophageal reflux disease without esophagitis; I10 Essential (primary) hypertension; E78.5 Hyperlipidemia, unspecified; F17.290 Nicotine dependence, other tobacco product, uncomplicated; Z79.4 Long term (current) use of insulin; Z79.84 Long term (current) use of oral hypoglycemic drugs; W19.XXXA Unspecified fall, initial encounter
CPT/HCPCS: 10060; 73590; 80053; 85025; 85651; 86140; 87070; 87205; 96361; 96374; 96375; 99285; J0875; J2405; J7120

== ENCOUNTER 2024-01-06 16:00 | Observation (INO) | payer MEDICARE, SELFPAY ==
--- NOTE | 2024-01-06 16:06 | ED_ITS ---
<Statement entered by Theresa Mcdonough DO - 01/06/24 18:10> I was consulted by the LAW, and we discussed the complexity of the problems being addressed. I approved the treatment and management plan for this patient's care in the emergency department, thus performing a substantive portion of the medical decision making. Theresa Mcdonough DO Discharge Plan Disposition Patient Disposition: Admitted Condition: Fair Clinical Impressions Clinical Impression: Infected hematoma Uncontrolled type 2 diabetes mellitus Qualifiers: Glycemic state: with hyperglycemia Qualified Code(s): E11.65 - Type 2 diabetes mellitus with hyperglycemia Discharge ED Provider: Theresa Mcdonough General Adult HPI General Chief complaint: Skin/Abscess/Foreign Body Stated complaint: sent by Tara Centeno, LT knee pain Time Seen by Provider: 01/06/24 16:06 History of Present Illness HPI narrative: Patient presents from Dr. Gutierres's office for evaluation of left lower extremity injury. Patient fell injuring his left hong and was seen in the ER on 01/03/2024. He was actually evaluated in the emergency department by Dr. Tate of orthopedics as well as the ER physician. It was felt that he had a superficial cellulitis but no abscess but possibly an infected hematoma. An I&D was performed with a vessel loop left in the wound, patient was given a dose of Dalvance and discharge. Patient was supposed to follow-up with orthopedics today but instead ended up at his PCPs office. Dr. Gutierres felt the patient need to be evaluated in the emergency department so he was sent here. Patient reports that the pain is greater and his prescribed pain medication is not helping. He had not taken down the dressing since he was here on 01 02. He denies chest pain fever chills hemoptysis hematochezia melena nausea vomiting diarrhea. Related Data Home Medications Medication Instructions Recorded Confirmed tamsulosin 0.4 mg capsule 0.4 mg PO HS prostate 04/20/22 01/06/24 insulin NPH-regular 70-30 U-100 70 unit SQ BID Diabetes 08/25/22 01/06/24 insulin 100 unit/mL subcutaneous pen (Novolin 70-30 FlexPen U-100 Insulin) sildenafil 100 mg tablet 100 mg PO DAILY erection 08/25/22 01/06/24 aspirin 500 mg tablet 81 mg PO DAILY . 08/27/22 01/06/24 fenofibrate nanocrystallized 48 mg 48 mg PO DAILY 07/06/23 01/06/24 tablet simvastatin 20 mg tablet 20 mg PO DAILY 07/06/23 01/06/24 Previous Rx's Medication Instructions Recorded albuterol sulfate 90 mcg/actuation 2 inh inhalation Q6H PRN shortness 07/13/23 aerosol inhaler of breath or wheezing #6.7 grams metformin 500 mg tablet 500 mg PO BID #60 tabs 11/12/23 blood sugar diagnostic (Advanced #100 ea 12/23/23 Glucose Meter Test Strips) blood-glucose meter (Advanced #1 ea 12/23/23 Glucose Meter) bupropion HCl 300 mg 24 hr tablet, 300 mg PO DAILY 90 days #90 tabs 12/23/23 extended release donepezil 10 mg tablet 10 mg PO DAILY 90 days #90 tabs 12/23/23 lancets 28 gauge (Advanced Travel #100 ea 12/23/23 Lancets) meclizine 12.5 mg tablet 12.5 mg PO TID PRN dizziness #90 12/23/23 tabs omeprazole 40 mg capsule,delayed 40 mg PO DAILY #30 caps 12/23/23 release trazodone 150 mg tablet 150 mg PO DAILY #90 tabs 12/23/23 cholecalciferol (vitamin D3) 25 25 mcg PO DAILY #30 caps 12/28/23 mcg (1,000 unit) capsule (Vitamin D3) Allergies Allergy/AdvReac Type Severity Reaction Status Date / Time codeine Allergy Mild Verified 01/03/24 11:02 [facility] Disclaimer: The information contained in this section may have been updated after the patient was seen, as this information can be updated by other users. Medical History GERD (gastroesophageal reflux disease) HLD (hyperlipidemia) Patient has not had a lipid panel done at this clinic. Will check 1 today. He is taking fenofibrate and simvastatin. HTN (hypertension) Spleen absent Migraine Diabetes mellitus, type 2 Surgical History H/O shoulder surgery H/O splenectomy Family History Other Cancer Coronary artery disease Heart attack No significant family history Stroke Social History (Reviewed 01/06/24 @ 15:30 by CORDELIA Knight Smoking Status: Never smoker alcohol intake: current alcohol intake frequency: holidays/special occasions only substance use type: former substance user and marijuana current occupational status: unemployed and retired Travel in the last 8 weeks: None household members: none housing: house ROS Obtained: Yes Systems reviewed as appropriate & no additional complaints except as documented Physical Exam General General appearance: alert and in no apparent distress Respiratory Respiratory exam: Present normal lung sounds bilaterally Cardiovascular Cardiovascular exam: Present regular rate and normal rhythm Expanded Lower Extremity Exam Left: Leg image: 2 1. Entire area 2. Vessel loop 3. Eschar Lower leg exam: Present tenderness and ecchymosis Gait: observed and normal Neurological Exam Neurological exam: Present alert and oriented X3 Medical Decision Making Medical Records Medical records reviewed: Yes I reviewed the patient's medical records. Shant Inquiry Pt receiving controlled substance: No Vital Signs: 01/06/24 16:27 01/06/24 16:30 Temperature 98.2 F Temperature Source Oral Pulse Rate 78 Pulse Rate [Left Radial] 77 Respiratory Rate 20 Blood Pressure 165/101 H Blood Pressure [Right Arm] 155/103 H Blood Pressure Mean [Right Arm] 120 02 Sat by Pulse Oximetry 96 95 Oxygen Delivery Method Room Air Lab Data Lab results reviewed: Yes I reviewed the patient's lab results. Lab Results 01/06/24 16:40: WBC 10.6, RBC 4.36 L, Hgb 13.4 L, Hct 42.3, MCV 97.1 H, MCH 30.8, MCHC 31.7 L, RDW 14.0, Plt Count 393, MPV 8.5, Neut % (Auto) 62.7, Lymph % (Auto) 25.3, [place] % (Auto) 7.5, Eos % (Auto) 3.2, Baso % (Auto) 1.3, Neut # (Auto) 6.6, Lymph # (Auto) 2.7, [place] # (Auto) 0.8, Eos # (Auto) 0.3, Baso # (Auto) 0.1, ESR 97 H, Sodium 134 L, Potassium 4.2, Chloride 95 L, Carbon Dioxide 29, Anion Gap 14.2, BUN 14, Creatinine 1.00, Estimated Creat Clear 76, Estimated GFR 74, Est GFR ( Amer) 90, Glucose 384 H, Calcium 9.0, Total Bilirubin 0.5, AST 29, ALT 23, Alkaline Phosphatase 87, C-Reactive Protein 36.1 H, Total Protein 7.4, Albumin 3.7, Globulin 3.7 H, Albumin/Globulin Ratio 1.0 L, Procalcitonin 0.074 01/06/24 16:40 01/06/24 16:40 Orders (Tests/Meds): ED MEDICATIONS Generic Name Dose Route Start Last Admin Trade Name Freq PRN Reason Stop Dose Admin Piperacillin Sod/Tazobactam 50 mls @ 100 mls/hr 01/06/24 18:00 01/06/24 18:07 Sod 3.375 gm/ Sodium Chloride IV 01/16/24 17:59 100 mls/hr Q6H CARROL Administration Discontinued Medications Generic Name Dose Route Start Last Admin Trade Name Freq PRN Reason Stop Dose Admin Acetaminophen 1,000 mg 01/06/24 16:24 01/06/24 16:41 Acetaminophen 1,000mg/100ml Vial IV 01/06/24 16:25 1,000 mg ONCE ONE Administration Lactated Ringer's 1,000 mls @ 999 mls/hr 01/06/24 16:24 01/06/24 16:41 Lactated Ringer's 1000 Ml Bag IV 01/06/24 17:24 999 mls/hr .Q1H1M ONE Administration Iopamidol 100 ml 01/06/24 17:56 01/06/24 17:56 Iopamidol-370 (76%);100ml Bottle IV 01/06/24 17:57 100 ml ONCE ONE Administration Ondansetron HCl 4 mg 01/06/24 16:24 01/06/24 16:41 Ondansetron 4mg/2ml Vial IV 01/06/24 16:25 4 mg ONCE ONE Administration Oxycodone HCl 5 mg 01/06/24 16:24 01/06/24 16:41 Oxycodone 5mg Immediate Release Tablet PO 01/06/24 16:25 5 mg ONCE ONE Administration Sodium Chloride 10 ml 01/06/24 17:56 01/06/24 17:56 Sodium Chloride 0.9% 10ml Syr (Rad Only) IV 01/06/24 17:57 10 ml ONCE ONE Administration Sodium Chloride 50 ml 01/06/24 17:56 01/06/24 17:56 0.9 % Sodium Chloride 50 Ml Vial IV 01/06/24 17:57 50 ml ONCE ONE Administration ORDERS Category Date Time Status CT lower leg LT w con Stat Cat Scan 01/06/24 17:20 Taken Ortho Consult [Consult to Orthopedic Surgery] [CONS] Cons 01/06/24 17:57 Ordered Stat CRP [C-Reactive Protein] AMLAB Lab 01/07/24 06:00 Ordered CRP [C-Reactive Protein] Stat Lab 01/06/24 16:40 Completed Complete Blood Count Auto Diff AMLAB Lab 01/07/24 06:00 Ordered Complete Blood Count Auto Diff Stat Lab 01/06/24 16:40 Completed Comprehensive Metabolic Panel AMLAB Lab 01/07/24 06:00 Ordered Comprehensive Metabolic Panel Stat Lab 01/06/24 16:40 Completed ESR [Erythrocyte Sedimentation Rate] Stat Lab 01/06/24 16:40 Completed Erythrocyte Sedimentation Rate AMLAB Lab 01/07/24 06:00 Ordered Magnesium AMLAB Lab 01/07/24 06:00 Ordered Procalcitonin Stat Lab 01/06/24 16:40 Completed Medical Decision Narrative: In summary patient is a 68-year-old male who presents to the emergency department for evaluation of left lower extremity wound. Patient is hemodynamically stable upon arrival, afebrile. Physical exam is remarkable for a very large area of ecchymosis over the left anterior hong. The wound is wet with no good scab formation. There appears to be tracking of old blood in a dependent fashion but no new evidence of cellulitis or abscess or fluctuance on palpation. The wound is not hot to touch though it is painful.. There appears to be a well-demarcated line proximally at the inferior border of the patella. There is a vessel loop at the proximal medial aspect does not appear to be draining any purulence. There is an area of eschar over the tibial tubercle that is draining a serosanguineous fluid. The area is very tender to palpation and patient has 2+ dependent edema.. Differential diagnosis includes cellulitis and abscess versus joint involvement versus muscle breakdown from crush injury etc. Initial workup will be conducted with hematologic labs CT scan of the knee and lower extremity. Initial interventions include Toradol Tylenol oxycodone. Initial workup reviewed by me shows that his white count has normalized, his CRP is in the 30s, and his sed rate is in the 90s. His blood sugar however is approximately 400 and review of his chart shows a hemoglobin A1c of 12 previously getting poor control. Upon repeat evaluation patient did have good response to the initial interventions. Given this I had an interactive discussion both with orthopedic surgery and hospital medicine regarding patient management. Given the patient's significant pain and poor blood sugar control he may benefit from IV gram-negative coverage and monitoring. Subsequently he will be admitted by hospital medicine for further evaluation and care. Critical Care Critical Care Time Critical Care Time: No
[2024-01-06 16:27] VITALS: BP 155/103; PULSE 77; RESP 20; TEMP 36.8; O2SAT 96; BMI 26.6
[2024-01-06 16:30] VITALS: BP 165/101; PULSE 78; O2SAT 95
[2024-01-06] MEDS: ACETAMINOPHEN 1,000MG/100ML VIAL 1000 MG IV (16:41)
[2024-01-06] MEDS: LACTATED RINGERS 1000ML 1,000 ML 999 ML IV (16:41)
[2024-01-06] MEDS: ONDANSETRON 4MG/2ML VIAL 4 MG IV (16:41)
[2024-01-06] MEDS: OXYCODONE 5MG IMMEDIATE RELEASE TABLET 5 MG PO (16:41)
[2024-01-06 16:51] LABS: Basophils # 0.1 K/mm3 (0-0.2); Basophils % 1.3 % (0.1-2.0); Eosinophils # 0.3 K/mm3 (0.0-0.4); Eosinophils % 3.2 % (0.1-12.0); Hematocrit 42.3 % (42.0-52.0); Hemoglobin 13.4 g/dL (14.1-18.0); Lymphocytes # 2.7 K/mm3 (0.7-4.5); Lymphocytes % 25.3 % (10-50); Mean Corpuscular HGB Conc 31.7 g/dL (31.8-35.4); Mean Corpuscular Hemoglobin 30.8 pg (27.0-31.2); Mean Corpuscular Volume 97.1 fl (80-94); Mean Platelet Volume 8.5 fl (7.4-10.4); Monocytes # 0.8 K/mm3 (0.1-1.0); Monocytes % 7.5 % (1.7-9.3); Neutrophils # 6.6 K/mm3 (1.8-7.8); Neutrophils % 62.7 % (37.0-80.0); Platelet Count 393 K/mm3 (142-424); Red Blood Count 4.36 M/mm3 (4.60-6.20); White Blood Count 10.6 K/mm3 (4.8-10.8)
[2024-01-06 17:01] LABS: Alanine Aminotransferase 23 U/L (12-78); Albumin Level 3.7 g/dl (3.5-5.0); Alkaline Phosphatase 87 U/L (38-126); Anion Gap 14.2 mEq/L (5-15); Aspartate Amino Transferase 29 U/L (17-59); Bilirubin,Total 0.5 mg/dl (0.2-1.3); Blood Urea Nitrogen 14 mg/dl (9-20); Carbon Dioxide 29 mmol/L (22.0-30.0); Chloride 95 mmol/L (98-107); Creatinine Clearance Estimated 76 mL/min (50-200); Estimated Glomerular Filt Rate 74 ml/min (>60); GFR (African American) 90 ML/MIN (>60); Globulin 3.7 g/dL (1.3-3.2); Glucose 384 mg/dl (74-100); Potassium 4.2 mmoL/L (3.5-5.1); Sodium 134 mmol/L (136-145); Total Protein,Serum 7.4 g/dl (6.3-8.2)
[2024-01-06 17:07] LABS: C-Reactive Protein 36.1 mg/L (0-4)
[2024-01-06 17:20] LABS: Procalcitonin 0.074 ng/mL (0.0-2.0)
--- NOTE | 2024-01-06 17:20 | CT_ITS ---
PROCEDURE INFORMATION: Exam: CT Left Lower Extremity With Contrast; Lower Leg Exam date and time: 01/06/2024 5:47 PM Age: 68 years old Clinical indication: Swelling, leg or foot and other: Open wound; Additional info: Hematoma, trauma TECHNIQUE: Imaging protocol: CT of the left lower extremity with intravenous contrast was performed. Exam focused on the lower leg. Radiation optimization: All CT scans at this facility use at least one of these dose optimization techniques: automated exposure control; mA and/or kV adjustment per patient size (includes targeted exams where dose is matched to clinical indication); or iterative reconstruction. Contrast material: ISOVUE; Contrast volume: 100 ml; Contrast route: IV; COMPARISON: CR XR TIBIA FIBULA LT 2V 01/03/2024 12:08 PM FINDINGS: Bones/joints: No acute fracture or malalignment. No joint effusion. Soft tissues: 1.9 x 7 x 10 cm complex fluid collection within the subcutaneous soft tissues anterior to the proximal tibia with overlying skin thickening and surrounding [id number] soft tissue swelling extending the distal leg. Suspected small drainage catheter within this fluid collection. Vasculature: Vascular calcifications. IMPRESSION: 1.9 x 7 x 10 cm complex subcutaneous fluid collection overlying the tibial tubercle favoring hematoma associated with overlying skin edema and moderate surrounding subcutaneous soft tissue swelling extending to the distal leg. No acute osseous findings.
[2024-01-06 17:28] LABS: Erythrocyte Sedimentation Rate 97 mm/hr (0-20)
--- NOTE | 2024-01-06 17:42 | PC.NURSE ---
PT TO CT
[2024-01-06] MEDS: IOPAMIDOL-370 (76%);100ML BOTTLE 100 ML IV (17:56)
[2024-01-06] MEDS: 0.9 % SODIUM CHLORIDE 50 ML VIAL IV (17:56)
[2024-01-06] MEDS: SODIUM CHLORIDE 0.9% 10ML SYR (RAD ONLY) 10 ML IV (17:56)
--- NOTE | 2024-01-06 17:56 | PC.NURSE ---
[facility] CASE SPEAKING WITH DR NEWBY FOR ADMISSION
--- NOTE | 2024-01-06 17:58 | PC.NURSE ---
[employer]ER NOTIFIED OF ADMISSION
--- NOTE | 2024-01-06 18:00 | P.HP_ITS ---
History of Present Illness *Admission Date: 01/06/24 *Reason for visit:: Left leg pain in, swelling *History of present illness: Mr. Sloan is a 68-year-old male who presented to the ER after seeing his PCP earlier today for evaluation of left lower extremity injury. He fell injuring his hong earlier this week and was seen in the ER on 01/02. On evaluation at that time, was seen by both the ER physician and orthopedics. Received a dose of Dalvance for cellulitis with no abscess and concern for possible infected hematoma. Vessel loop was placed, still in place today. Patient was discharged home with follow-up instructions. Was actually supposed to see orthopedics today not his PCP and got his appointments confused. On evaluation by his PCP, there was concern for worsening cellulitis due to progression of redness distal to injury. Patient has been afebrile, denies chest pain or shortness of breath. No fever or chills. No nausea or vomiting. Still having pain at injury site. Having some drainage that is dark/serosanguineous. On evaluation, white cell count showing some improvement. Given progression of redness, medicine was consulted for admission and treatment of worsening cellulitis and patient with uncontrolled diabetes at high risk for further decompensation. Patient received a dose of Zosyn in the ER. On evaluation, brother is at bedside who helps give history due to patient's MCI. Reports some pain but no other significant symptoms. Pleasant on exam. Gentle palpation of hematoma causes expression of bloody discharge from eschar/wound. [facility] Disclaimer: The information contained in this section may have been updated after the patient was seen, as this information can be updated by other users. Medical History GERD (gastroesophageal reflux disease) HLD (hyperlipidemia) HTN (hypertension) Spleen absent Migraine Diabetes mellitus, type 2 Surgical History H/O shoulder surgery H/O splenectomy Family History Other Cancer Coronary artery disease Heart attack No significant family history Stroke Social History Smoking Status: Never smoker alcohol intake: current alcohol intake frequency: holidays/special occasions only substance use type: former substance user and marijuana current occupational status: unemployed and retired Travel in the last 8 weeks: None household members: none housing: house Review of Systems Review of Systems Review of systems (narrative): 14 point review of systems performed, pertinent positives and negatives as per HPI Meds Home Medications and Allergies Home Medications Medication Instructions Recorded Confirmed Type tamsulosin 0.4 mg capsule 0.4 mg PO HS prostate 04/20/22 01/06/24 History insulin NPH-regular 70-30 U-100 70 unit SQ BID Diabetes 08/25/22 01/06/24 Histor y insulin 100 unit/mL subcutaneous pen (Novolin 70-30 FlexPen U-100 Insulin) sildenafil 100 mg tablet 100 mg PO DAILY erection 08/25/22 01/06/24 History aspirin 500 mg tablet 81 mg PO DAILY . 08/27/22 01/06/24 History fenofibrate nanocrystallized 48 mg 48 mg PO DAILY 07/06/23 01/06/24 History tablet simvastatin 20 mg tablet 20 mg PO DAILY 07/06/23 01/06/24 History albuterol sulfate 90 mcg/actuation 2 inh inhalation Q6H PRN shortness 07/13/23 01/06/24 Rx aerosol inhaler of breath or wheezing #6.7 grams metformin 500 mg tablet 500 mg PO BID #60 tabs 11/12/23 01/06/24 Rx blood sugar diagnostic (Advanced #100 ea 12/23/23 01/06/24 Rx Glucose Meter Test Strips) blood-glucose meter (Advanced #1 ea 12/23/23 01/06/24 Rx Glucose Meter) bupropion HCl 300 mg 24 hr tablet, 300 mg PO DAILY 90 days #90 tabs 12/23/23 01/06/24 Rx extended release donepezil 10 mg tablet 10 mg PO DAILY 90 days #90 tabs 12/23/23 01/06/24 Rx lancets 28 gauge (Advanced Travel #100 ea 12/23/23 01/06/24 Rx Lancets) meclizine 12.5 mg tablet 12.5 mg PO TID PRN dizziness #90 12/23/23 01/06/24 Rx tabs omeprazole 40 mg capsule,delayed 40 mg PO DAILY #30 caps 12/23/23 01/06/24 Rx release trazodone 150 mg tablet 150 mg PO DAILY #90 tabs 12/23/23 01/06/24 Rx cholecalciferol (vitamin D3) 25 25 mcg PO DAILY #30 caps 12/28/23 01/06/24 Rx mcg (1,000 unit) capsule (Vitamin D3) New Prescriptions to Start Prescriptions: Allergies Allergy/AdvReac Type Severity Reaction Status Date / Time codeine Allergy Mild Verified 01/03/24 11:02 Exam Data for Last 24 hours Vital signs and Labs for Last 24 Hours: Temp Pulse Resp BP Pulse Ox O2 Del Method 98.2 F 78 20 165/101 H 95 Room Air 01/06/24 16:27 01/06/24 16:30 01/06/24 16:27 01/06/24 16:30 01/06/24 16:30 01/06/24 16:30 Laboratory Results - last 24 hr 01/06/24 16:40: WBC 10.6, RBC 4.36 L, Hgb 13.4 L, Hct 42.3, MCV 97.1 H, MCH 30.8, MCHC 31.7 L, RDW 14.0, Plt Count 393, MPV 8.5, Neut % (Auto) 62.7, Lymph % (Auto) 25.3, [place] % (Auto) 7.5, Eos % (Auto) 3.2, Baso % (Auto) 1.3, Neut # (Auto) 6.6, Lymph # (Auto) 2.7, [place] # (Auto) 0.8, Eos # (Auto) 0.3, Baso # (Auto) 0.1, ESR 97 H, Sodium 134 L, Potassium 4.2, Chloride 95 L, Carbon Dioxide 29, Anion Gap 14.2, BUN 14, Creatinine 1.00, Estimated Creat Clear 76, Estimated GFR 74, Est GFR ( Amer) 90, Glucose 384 H, Calcium 9.0, Total Bilirubin 0.5, AST 29, ALT 23, Alkaline Phosphatase 87, C-Reactive Protein 36.1 H, Total Protein 7.4, Albumin 3.7, Globulin 3.7 H, Albumin/Globulin Ratio 1.0 L, Procalcitonin 0.074 I & O for Last 24 hours: Intake & Output 01/03/24 01/04/24 01/05/24 01/06/24 23:59 23:59 23:59 23:59 Weight 77.111 kg Constitutional Constitutional: no acute distress, average body habitus, chronically ill appearing and cooperative *Routine HEENT Exam Head: Present normocephalic Eye: Present EOMI and PERRL ENT: Present mucous membranes moist *Routine Neck Exam Neck: Present supple; Absent lymphadenopathy *Routine Respiratory Exam Respiratory: Present CTA bilaterally *Routine Cardiovascular Exam Cardiovascular: Present RRR *Routine Abdominal Exam Abdominal: Present soft and normoactive bowel sounds; Absent tenderness *Routine Rectal Exam Rectal:: deferred *Routine Genitalia Exam Genitalia:: deferred *Routine Extremities Exam Extremities: Absent cyanosis, clubbing or edema Comments: Erythema over tibial tuberosity of left lower extremity with overlying eschar, fluctuant hematoma that expresses with minimal pressure. No significant warmth. Erythema distal to lesion, no proximal streaking. *Routine Skin Exam Skin: Present erythema and warm; Absent rash Comments: Wound on left leg, see above exam *Routine Neurological Exam Neurological: Present alert, oriented X3 and moving all extremities; Absent altered mental status Assessment and Plan *Assessment and plan (1) Cellulitis of left lower leg: Status: Acute Category: Medical Code(s): L03.116 - Cellulitis of left lower limb (2) Hematoma of left lower leg: Status: Acute Category: Medical Code(s): S80.12XA - Contusion of left lower leg, initial encounter (3) Uncontrolled type 2 diabetes mellitus: Status: Acute Qualifiers: Glycemic state: with hyperglycemia Qualified Code(s): E11.65 - Type 2 diabetes mellitus with hyperglycemia Category: Medical (4) Anxiety: Status: Acute Category: Medical Code(s): F41.9 - Anxiety disorder, unspecified (5) MCI (mild cognitive impairment): Status: Chronic Category: Medical Code(s): G31.84 - Mild cognitive impairment of uncertain or unknown etiology (6) BPH (benign prostatic hyperplasia): Status: Chronic Qualifiers: Lower urinary tract symptom presence: symptoms absent Qualified Code(s): N40.0 - Benign prostatic hyperplasia without lower urinary tract symptoms Category: Medical Code(s): N40.0 - Benign prostatic hyperplasia without lower urinary tract symptoms Plan Mr. Sloan is a 68-year-old male who fell earlier this week. Presented to the ER, was treated with Dalvance and sent home. Marely presents today after being seen by his PCP due to concern for worsening redness. Evaluation in the ER, con bridgettn for persistent hematoma and possible slight worsening of cellulitis. ER requested admission for IV antibiotics, serial labs, and possible orthopedics eval. Medicine agreed to admit for further management. Initiated on Zosyn. Afebrile. Problems addressed as follows: Cellulitis of left lower extremity Traumatic hematoma -White cell count with slight improvement to 10 from earlier this week of 13. ESR up from 70-90 earlier this week and CRP down to 30 from 50 earlier this week. -Received Dalvance earlier this week. Will initiate Zosyn 3.375 g every 6 hours for additional bacterial coverage. - Repeat CBC, CMP, magnesium, ESR and CRP ordered for the morning -CT obtained, personally reviewed showing fluid collection under eschar of left anterior hong overlying tibial tuberosity. -Exam most consistent with hematoma. Draining dark old blood. Will place compressive dressing overnight to assist in evacuation of hematoma. -No drainage around loop that was placed in anterior hong, will removed to decrease further nidus for infection -Evaluate for orthopedics consult in the morning pending patient's labs and exam findings Uncontrolled diabetes -A1c greater than 12. Reports compliance with his insulin regimen. Strong concern that he is not compliant given his memory impairment and uncontrolled A1c -Continue 70/30 combo insulin 50 units twice daily -Sliding scale insulin high intensity per protocol ordered with fingersticks ACHS - Glucose 384 on labs in the ER -Uncontrolled diabetes complicates his ability to heal his wound and increases risk for infection. Goal glucose less than 200 Anxiety: continue Wellbutrin 300 mg daily Mild cognitive impairment/dementia: Continue donepezil milligram daily BPH: Continue tamsulosin 0.4 mg nightly Hyperlipidemia: Continue simvastatin 20 mg daily GERD: Continue PPI with pantoprazole as formulary conversion Sleep disorder: continue trazodone 150 mg nightly DNR Holding anticoagulation in setting of hematoma/bleeding Diabetic diet
[2024-01-06] MEDS: PIPERACILLIN/TAZO 3.375 GM in 0.9 % SODIUM CHLORIDE 50 ML IV (18:07)
[2024-01-06 18:20] VITALS: BP 153/84; PULSE 70; RESP 18; TEMP 36.7; O2SAT 95
--- NOTE | 2024-01-06 18:20 | PC.NURSE ---
REPORT CALLED TO ROSSANA RN
--- NOTE | 2024-01-06 18:43 | PC.NURSE ---
Patient arrived to floor via wheelchair from ED at 18:42.
[2024-01-06 18:49] VITALS: BP 168/85; PULSE 72; RESP 16; TEMP 36.7; O2SAT 94; BMI 27.0
--- NOTE | 2024-01-06 18:51 | PC.WOUNDNOTE ---
AREA TO LEFT FISH
[2024-01-06 20:00] VITALS: BP 170/92; PULSE 65; RESP 18; TEMP 36.6; O2SAT 93; O2SAT 94
[2024-01-06 20:24] LABS: POC Glucose,Bedside 366 (70-110)
[2024-01-06] MEDS: humaLOG 100 UNITS/ML 10ML VIAL (SSI) SQ (20:34)
[2024-01-06] MEDS: humaLOG MIX 75/25 3ML FLEXPEN 50 UNIT SQ (20:35)
[2024-01-06] MEDS: PANTOPRAZOLE 40MG TABLET 40 MG PO (20:36)
[2024-01-06] MEDS: PATIENT'S OWN HOME MEDICATION (Trazodone 150 mg tablet) 150 EACH PO (20:36)
[2024-01-06] MEDS: PRAVASTATIN 40MG TAB 40 MG PO (20:36)
[2024-01-06] MEDS: TAMSULOSIN 0.4MG CAPSULE 0.400000000000000022 MG PO (20:36)
[2024-01-06] MEDS: METFORMIN 500MG TABLET 500 MG PO (20:36)
--- NOTE | 2024-01-06 20:59 | PC.NURSE ---
Radha OLSEN NP NOTIFIED RE ELEVATED BPs. IF SBP EXCEEDS 200 CALL BACK FOR ORDERS. BP RA 170/92 AND BP LA 190/100.
--- NOTE | 2024-01-06 21:23 | PC.NURSE ---
1930 DR NEWBY REMOVED SURGICAL LOOP FROM WOUND, HEMATOMA DRAINING BLOODY DRAINAGE, CLEANED BY DR NEWBY WITH CHLORAPREP, (TELFA APPLIED AND REINFORCED WITH 4X4s AND SECURED WITH COBAN INSTRUCTED).
[2024-01-07] MEDS: PIPERACILLIN/TAZO 3.375 GM in 0.9 % SODIUM CHLORIDE 50 ML IV ×3 (00:02→11:38)
[2024-01-07 04:00] VITALS: BP 131/72; PULSE 81; RESP 18; TEMP 36.6; O2SAT 93; BMI 27.3
--- NOTE | 2024-01-07 04:38 | PC.NURSE ---
PATIENT DENIES PAIN. DRSG TO LEFT LE INTACT WITH SMALL AMT OF SANGUINESS DRAINAGE NOTED ON UPPER EDGE. VITAL SIGNS STABLE/AFEBRILE. RECEIVING ZOSYN IVAB EVERY 6 HRS AND TOLERATING WELL.
[2024-01-07] MEDS: HYDROCODONE/APAP 5/325 MG TABLET 1 TAB PO ×2 (06:11→14:57)
[2024-01-07 06:17] LABS: Chloride 102 mmol/L (98-107); Potassium 3.3 mmoL/L (3.5-5.1); Sodium 139 mmol/L (136-145)
[2024-01-07 06:19] LABS: Basophils # 0.1 K/mm3 (0-0.2); Basophils % 0.9 % (0.1-2.0); Blood Urea Nitrogen 12 mg/dl (9-20); Creatinine Clearance Estimated 78 mL/min (50-200); Eosinophils # 0.1 K/mm3 (0.0-0.4); Estimated Glomerular Filt Rate 84 ml/min (>60); GFR (African American) 101 ML/MIN (>60); Hematocrit 42.5 % (42.0-52.0); Hemoglobin 13.5 g/dL (14.1-18.0); Lymphocytes # 2.3 K/mm3 (0.7-4.5); Lymphocytes % 18.6 % (10-50); Mean Corpuscular HGB Conc 31.8 g/dL (31.8-35.4); Mean Corpuscular Hemoglobin 30.5 pg (27.0-31.2); Mean Corpuscular Volume 95.9 fl (80-94); Mean Platelet Volume 8.8 fl (7.4-10.4); Monocytes % 8.3 % (1.7-9.3); Neutrophils # 8.8 K/mm3 (1.8-7.8); Neutrophils % 71.2 % (37.0-80.0); Platelet Count 388 K/mm3 (142-424); Red Blood Count 4.43 M/mm3 (4.60-6.20); Red Cell Distribution Width 13.9 % (11.5-17.5); White Blood Count 12.3 K/mm3 (4.8-10.8)
[2024-01-07 06:20] LABS: Alanine Aminotransferase 22 U/L (12-78); Albumin Level 3.7 g/dl (3.5-5.0); Alkaline Phosphatase 80 U/L (38-126); Anion Gap 11.3 mEq/L (5-15); Aspartate Amino Transferase 33 U/L (17-59); Bilirubin,Total 0.4 mg/dl (0.2-1.3); Calcium 9.2 mg/dl (8.4-10.2); Carbon Dioxide 29 mmol/L (22.0-30.0); Globulin 3.6 g/dL (1.3-3.2); Glucose 57 mg/dl (74-100); Magnesium 1.6 mg/dl (1.6-2.3); Total Protein,Serum 7.3 g/dl (6.3-8.2)
[2024-01-07 06:20] LABS: POC Glucose,Bedside 88 (70-110)
[2024-01-07 06:26] LABS: C-Reactive Protein 32.5 mg/L (0-4)
--- NOTE | 2024-01-07 07:51 | HMH.PHAINT1 ---
Pharmacy Intervention Comments: HOME MEDICATION LIST VERIFIED USING LIST FROM OUTPATIENT PHARMACY AND PT INTERVIEW
[2024-01-07 08:00] VITALS: BP 145/79; PULSE 69; RESP 20; TEMP 36.9; O2SAT 99
--- NOTE | 2024-01-07 08:13 | EXP.DC.SUM ---
General Admission date:: 01/06/24 Discharge date: 01/07/24 HPI HPI HPI: Mr. Sloan is a 68-year-old male who presented to the ER after seeing his PCP earlier today for evaluation of left lower extremity injury. He fell injuring his hong earlier this week and was seen in the ER on 01/02. On evaluation at that time, was seen by both the ER physician and orthopedics. Received a dose of Dalvance for cellulitis with no abscess and concern for possible infected hematoma. Vessel loop was placed, still in place today. Patient was discharged home with follow-up instructions. Was actually supposed to see orthopedics today not his PCP and got his appointments confused. On evaluation by his PCP, there was concern for worsening cellulitis due to progression of redness distal to injury. Patient has been afebrile, denies chest pain or shortness of breath. No fever or chills. No nausea or vomiting. Still having pain at injury site. Having some drainage that is dark/serosanguineous. On evaluation, white cell count showing some improvement. Given progression of redness, medicine was consulted for admission and treatment of worsening cellulitis and patient with uncontrolled diabetes at high risk for further decompensation. Patient received a dose of Zosyn in the ER. On evaluation, brother is at bedside who helps give history due to patient's MCI. Reports some pain but no other significant symptoms. Pleasant on exam. Gentle palpation of hematoma causes expression of bloody discharge from eschar/wound. Hospital Course Hospital Course Hospital Course: Mr. Sloan is a 68-year-old male who fell earlier this week. Presented to the ER, was treated with Dalvance and sent home. Marely presents today after being seen by his PCP due to concern for worsening redness. Evaluation in the ER, concern for persistent hematoma and possible slight worsening of cellulitis. ER requested admission for IV antibiotics, serial labs, and possible orthopedics eval. Medicine agreed to admit for further management. Initiated on Zosyn. Remained afebrile. White cell count remained normal. Stable discharge home to complete short course of oral antibiotics and close follow-up with orthopedic surgery. Problems addressed as follows: Cellulitis of left lower extremity Traumatic hematoma -White cell count normal on admission. ESR slightly up but showed improvement by morning. CRP trending down from earlier in the week. Patient received a dose of Dalvance earlier in the week and was discharged home. Was initiated on Zosyn at admission. Given stable clinical findings, white count, improvement and redness of the leg, suspect redness is predominantly from expansion of hematoma. No proximal streaking of erythema. Will complete short course of Augmentin. Recommended patient follow-up with orthopedics in the coming week, appointment made for Wednesday. Will defer further labs including CBC and inflammatory markers to orthopedics discretion. Continue warm compress daily. Mild compression dressing placed on wound prior to discharge. Patient to rest and elevate leg if possible, encourage limited activity to decrease expansion of hematoma. Stable to discharge home with close outpatient follow-up. Informed patient's brother and patient of need to follow-up, both expressed understanding. Uncontrolled diabetes -A1c greater than 12. Reports compliance with his insulin regimen. Strong concern that he is not compliant given his memory impairment and uncontrolled A1c. Continue 70/30 combo insulin per home regimen at discharge. Needs close follow-up for further adjustments. Uncontrolled diabetes complicates his ability to heal his wound and increases risk for infection. Goal glucose less than 200 Anxiety: continue Wellbutrin 300 mg daily Mild cognitive impairment/dementia: Continue donepezil milligram daily BPH: Continue tamsulosin 0.4 mg nightly Hyperlipidemia: Continue simvastatin 20 mg daily GERD: Continue PPI with pantoprazole as formulary conversion Sleep disorder: continue trazodone 150 mg nightly Total time spent on discharge 35 minutes in counseling, documentation, discussion with subspecialist, chart review, and direct care with patient. Exam Data for Last 24 hours Vital signs and Labs for Last 24 Hours: Temp Pulse Resp BP Pulse Ox O2 Del Method 98 F 81 18 131/72 93 L Room Air 01/07/24 04:00 01/07/24 04:00 01/07/24 04:00 01/07/24 04:00 01/07/24 04:00 01/07/24 06:32 Laboratory Results - last 24 hr 01/06/24 16:40: WBC 10.6, RBC 4.36 L, Hgb 13.4 L, Hct 42.3, MCV 97.1 H, MCH 30.8, MCHC 31.7 L, RDW 14.0, Plt Count 393, MPV 8.5, Neut % (Auto) 62.7, Lymph % (Auto) 25.3, [place] % (Auto) 7.5, Eos % (Auto) 3.2, Baso % (Auto) 1.3, Neut # (Auto) 6.6, Lymph # (Auto) 2.7, [place] # (Auto) 0.8, Eos # (Auto) 0.3, Baso # (Auto) 0.1, ESR 97 H, Sodium 134 L, Potassium 4.2, Chloride 95 L, Carbon Dioxide 29, Anion Gap 14.2, BUN 14, Creatinine 1.00, Estimated Creat Clear 76, Estimated GFR 74, Est GFR ( Amer) 90, Glucose 384 H, Calcium 9.0, Total Bilirubin 0.5, AST 29, ALT 23, Alkaline Phosphatase 87, C-Reactive Protein 36.1 H, Total Protein 7.4, Albumin 3.7, Globulin 3.7 H, Albumin/Globulin Ratio 1.0 L, Procalcitonin 0.074 01/06/24 19:59: POC Glucose 366 H* 01/07/24 05:37: WBC 12.3 H, RBC 4.43 L, Hgb 13.5 L, Hct 42.5, MCV 95.9 H, MCH 30.5, MCHC 31.8, RDW 13.9, Plt Count 388, MPV 8.8, Neut % (Auto) 71.2, Lymph % (Auto) 18.6, [place] % (Auto) 8.3, Eos % (Auto) 1.0, Baso % (Auto) 0.9, Neut # (Auto) 8.8 H, Lymph # (Auto) 2.3, [place] # (Auto) 1.0, Eos # (Auto) 0.1, Baso # (Auto) 0.1, Sodium 139, Potassium 3.3 L D, Chloride 102, Carbon Dioxide 29, Anion Gap 11.3, BUN 12, Creatinine 0.90, Estimated Creat Clear 78, Estimated GFR 84, Est GFR ( Amer) 101, Glucose 57 L D, Calcium 9.2, Magnesium 1.6, Total Bilirubin 0.4, AST 33, ALT 22, Alkaline Phosphatase 80, C-Reactive Protein 32.5 H, Total Protein 7.3, Albumin 3.7, Globulin 3.6 H, Albumin/Globulin Ratio 1.0 L 01/07/24 06:03: POC Glucose 88 I & O for Last 24 hours: Intake & Output 06/04/24 06/05/24 06/06/24 06/07/24 23:59 23:59 23:59 23:59 Intake Total 560 / 560 Output Total 0 / 0 0 / 0 Balance 0 / 270 560 / 560 Weight 78.216 kg 78.925 kg Constitutional Constitutional: no acute distress, average body habitus, chronically ill appearing and cooperative *Routine HEENT Exam Head: Present normocephalic Eye: Present EOMI and PERRL ENT: Present mucous membranes moist *Routine Neck Exam Neck: Present supple; Absent lymphadenopathy *Routine Respiratory Exam Respiratory: Present CTA bilaterally; Absent rhonchi, wheezes or crackles *Routine Cardiovascular Exam Cardiovascular: Present RRR *Routine Abdominal Exam Abdominal: Present soft and normoactive bowel sounds; Absent tenderness *Routine Rectal Exam Patient deferred: visual exam *Routine Exam Patient deferred: penile exam *Routine Extremities Exam Extremities: Absent cyanosis, clubbing or edema Comments: Slight improvement in erythema distal to injury of left lower extremity. Old dark blood expressed from wound on leg. No significant warmth. Minor fluctuance around wound, boggy from hematoma *Routine Skin Exam Skin: Present warm and wounds; Absent rash Comments: Wound anterior hong left lower leg superficial to tibial tuberosity. *Routine Neurological Exam Neurological: Present alert, oriented X3 and moving all extremities; Absent altered mental status Results Data Completed and Pending Labs on day of discharge: Labs from last 24 hours 01/07/24 01/07/24 01/06/24 06:03 05:37 19:59 WBC 12.3 H RBC 4.43 L Hgb 13.5 L Hct 42.5 MCV 95.9 H MCH 30.5 MCHC 31.8 RDW 13.9 Plt Count 388 MPV 8.8 Neut % (Auto) 71.2 Lymph % (Auto) 18.6 [place] % (Auto) 8.3 Eos % (Auto) 1.0 Baso % (Auto) 0.9 Neut # (Auto) 8.8 H Lymph # (Auto) 2.3 [place] # (Auto) 1.0 Eos # (Auto) 0.1 Baso # (Auto) 0.1 ESR Sodium 139 Potassium 3.3 L D Chloride 102 Carbon Dioxide 29 Anion Gap 11.3 BUN 12 Creatinine 0.90 Estimated Creat Clear 78 Estimated GFR 84 Est GFR ( Amer) 101 Glucose 57 L D POC Glucose 88 366 H* Calcium 9.2 Magnesium 1.6 Total Bilirubin 0.4 AST 33 ALT 22 Alkaline Phosphatase 80 C-Reactive Protein 32.5 H Total Protein 7.3 Albumin 3.7 Globulin 3.6 H Albumin/Globulin Ratio 1.0 L Procalcitonin 01/06/24 16:40 WBC 10.6 RBC 4.36 L Hgb 13.4 L Hct 42.3 MCV 97.1 H MCH 30.8 MCHC 31.7 L RDW 14.0 Plt Count 393 MPV 8.5 Neut % (Auto) 62.7 Lymph % (Auto) 25.3 [place] % (Auto) 7.5 Eos % (Auto) 3.2 Baso % (Auto) 1.3 Neut # (Auto) 6.6 Lymph # (Auto) 2.7 [place] # (Auto) 0.8 Eos # (Auto) 0.3 Baso # (Auto) 0.1 ESR 97 H Sodium 134 L Potassium 4.2 Chloride 95 L Carbon Dioxide 29 Anion Gap 14.2 BUN 14 Creatinine 1.00 Estimated Creat Clear 76 Estimated GFR 74 Est GFR ( Amer) 90 Glucose 384 H POC Glucose Calcium 9.0 Magnesium Total Bilirubin 0.5 AST 29 ALT 23 Alkaline Phosphatase 87 C-Reactive Protein 36.1 H Total Protein 7.4 Albumin 3.7 Globulin 3.7 H Albumin/Globulin Ratio 1.0 L Procalcitonin 0.074 DS: Diagnosis Discharge Diagnosis (1) Cellulitis of left lower leg: Status: Acute Code(s): L03.116 - Cellulitis of left lower limb (2) Hematoma of left lower leg: Status: Acute Code(s): S80.12XA - Contusion of left lower leg, initial encounter (3) Uncontrolled type 2 diabetes mellitus: Status: Acute Qualifiers: Glycemic state: with hyperglycemia Qualified Code(s): E11.65 - Type 2 diabetes mellitus with hyperglycemia (4) Anxiety: Status: Acute Code(s): F41.9 - Anxiety disorder, unspecified (5) MCI (mild cognitive impairment): Status: Chronic Code(s): G31.84 - Mild cognitive impairment of uncertain or unknown etiology (6) BPH (benign prostatic hyperplasia): Status: Chronic Code(s): N40.0 - Benign prostatic hyperplasia without lower urinary tract symptoms Qualifiers: Lower urinary tract symptom presence: symptoms absent Qualified Code(s): N40.0 - Benign prostatic hyperplasia without lower urinary tract symptoms Meds Home Medications and Allergies Home Medications Medication Instructions Recorded Confirmed Type tamsulosin 0.4 mg capsule 0.8 mg PO HS 04/20/22 01/07/24 History sildenafil 100 mg tablet 100 mg PO DAILYP PRN EDS 08/25/22 01/07/24 History fenofibrate nanocrystallized 48 mg 48 mg PO DAILY 07/06/23 01/06/24 History tablet simvastatin 20 mg tablet 20 mg PO HS 07/06/23 01/07/24 History metformin 500 mg tablet 500 mg PO BID #60 tabs 11/12/23 01/07/24 Rx bupropion HCl 300 mg 24 hr tablet, 300 mg PO DAILY 90 days #90 tabs 12/23/23 01/06/24 Rx extended release donepezil 10 mg tablet 10 mg PO DAILY 90 days #90 tabs 12/23/23 01/06/24 Rx meclizine 12.5 mg tablet 12.5 mg PO TID PRN dizziness #90 12/23/23 01/06/24 Rx tabs omeprazole 40 mg capsule,delayed 40 mg PO DAILY #30 caps 12/23/23 01/06/24 Rx release trazodone 150 mg tablet 150 mg PO DAILY #90 tabs 12/23/23 01/06/24 Rx cholecalciferol (vitamin D3) 25 25 mcg PO DAILY #30 caps 12/28/23 01/06/24 Rx mcg (1,000 unit) capsule (Vitamin D3) aspirin 81 mg chewable tablet 81 mg PO DAILY 01/06/24 01/06/24 History amoxicillin 875 mg-potassium 1 tab PO BID 6 days #12 tabs 01/07/24 Rx clavulanate 125 mg tablet hydrocodone 5 mg-acetaminophen 325 1 tab PO Q6HP PRN Moderate To 01/07/24 Rx mg tablet Severe Pain (4-10) 3 days #12 tabs insulin NPH-regular 70-30 U-100 70 unit (0.7 mL) SQ BID Diabetes 01/07/24 01/06/24 Rx insulin 100 unit/mL subcutaneous 30 days #42 mL pen (Novolin 70-30 FlexPen U-100 Insulin) New Prescriptions to Start Prescriptions: amoxicillinKaitlynnpot luisulanate Paul Diez hydrocodone-acetaminophen Paul Diez Allergies Allergy/AdvReac Type Severity Reaction Status Date / Time codeine Allergy Mild Verified 01/03/24 11:02 Discharge Plan Disposition Patient Disposition: Home Health Service Condition: Fair Discharge Order Discharge Orders: Discharge Order (Routine); Ordered 01/07/24 Ordered By: Paul Diez Follow up Plan Follow up with: Garrison Tate DO [Staff Physician] - 01/10/24 10:00 am Jude Pacheco DO [Primary Care Provider] - 01/12/24 9:30 am Prescriptions/Medication Reconciliation: New amoxicillin-pot clavulanate 875-125 mg tablet 1 tab PO BID 6 Days Qty: 12 0RF hydrocodone-acetaminophen 5-325 mg Tablet 1 tab PO Q6HP PRN (Reason: Moderate To Severe Pain (4-10)) 3 Days Qty: 12 0RF Continued sildenafil 100 mg tablet 100 mg PO DAILYP PRN (Reason: EDS) trazodone 150 mg tablet 150 mg PO DAILY Qty: 90 2RF meclizine 12.5 mg tablet 12.5 mg PO TID PRN (Reason: dizziness) Qty: 90 0RF omeprazole 40 mg capsule,delayed release(DR/EC) 40 mg PO DAILY Qty: 30 2RF donepezil 10 mg tablet 10 mg PO DAILY 90 Days Qty: 90 2RF bupropion HCl 300 mg tablet extended release 24 hr 300 mg PO DAILY 90 Days Qty: 90 2RF tamsulosin 0.4 mg capsule 0.8 mg PO HS metformin 500 mg tablet 500 mg PO BID Qty: 60 2RF cholecalciferol (vitamin D3) [Vitamin D3] 25 mcg (1,000 unit) capsule 25 mcg PO DAILY Qty: 30 2RF simvastatin 20 mg tablet 20 mg PO HS fenofibrate nanocrystallized 48 mg tablet 48 mg PO DAILY Novolin 70-30 FlexPen U-100 100 unit/mL (70-30) insulin pen 70 unit SQ BID 30 Days Qty: 42 0RF Rx Instructions: Take before breakfast and before dinner Held aspirin 81 mg Tablet,Chewable 81 mg PO DAILY Hold Instructions: Pending improvement hematoma Problem Reconciliation Problems Reviewed?: Yes Patient Discharge Instructions ACTIVITY: Ambulate as tolerated DIET: continue same diet Patient Instructions: DI for Cellulitis -- Adult Providers Primary Care Provider: Jude Pacheco Admit Provider: Paul Diez Attending Provider: Paul Diez
[2024-01-07 08:15] LABS: Erythrocyte Sedimentation Rate 77 mm/hr (0-20)
[2024-01-07 09:23] LABS: POC Glucose,Bedside 207 (70-110)
[2024-01-07] MEDS: humaLOG MIX 75/25 3ML FLEXPEN 50 UNIT SQ (09:25)
[2024-01-07] MEDS: FENOFIBRATE 54MG TABLET 54 MG PO (09:25)
[2024-01-07] MEDS: METFORMIN 500MG TABLET 500 MG PO (09:25)
[2024-01-07] MEDS: buPROPion HCl SR 150MG TAB 300 MG PO (09:25)
--- NOTE | 2024-01-07 09:30 | HMH.PTEV ---
Physical Therapy Evaluation Rehab PT IP Evaluation Start: 01/07/24 07:54 Freq: ONCE Status: Active Protocol: Document 01/07/24 09:21 MARÍA (Rec: 01/07/24 09:30 MARÍA [id number]) Subjective/History History History Per H&P: Mr. Sloan is a 68-year-old male who presented to the ER after seeing his PCP earlier today for evaluation of left lower extremity injury. He fell injuring his hong earlier this week and was seen in the ER on 01/02. On evaluation at that time, was seen by both the ER physician and orthopedics. Received a dose of Dalvance for cellulitis with no abscess and concern for possible infected hematoma . Vessel loop was placed, still in place today. Patient was discharged home with follow-up instructions. Was actually supposed to see orthopedics today not his PCP and got his appointments confused. On evaluation by his PCP, there was concern for worsening cellulitis due to progression of redness distal to injury. Patient has been afebrile, denies chest pain or shortness of breath. No fever or chills. No nausea or vomiting. Still having pain at injury site. Having some drainage that is dark/ serosanguineous. On evaluation, white cell count showing some improvement. Given progression of redness, medicine was consulted for admission and treatment of worsening cellulitis and patient with uncontrolled diabetes at high risk for further decompensation. Subjective Subjective PLOF per pt report: Lives home alone in single story home with no ASHKAN. Has family that lives nearby. Was IND with functional mobility and ADLs with use of RW. Driving prior to admission. ~4 falls reported in last month. Pt reports his reason for falling is primarily dizziness (no tripping or poor safety awareness reported). Pt reports when he falls, he has difficulty getting back up. PT discussed with CM about providing pt with information regarding emergency alert devices (ex: Life alert, etc.) . New diagnosis of cancer in past 12 No months? Rehab PT IP Eval Objective Appearance Patient Behavior Appropriate,Cooperative Patient Orientation Person,Place,Situation Difficulty following instructions none Speech Pattern Clear Ambulation Patient Able to Ambulate Yes Ambulation Observation IP General Gait Pattern Observation No Deviations/Normal Ambulation Distance (feet) 60 Ambulation Assistive Device Rolling Walker Ambulation Ability Supervision/Stand by Balance Ability to Arise Able, uses arms to help Sitting Balance Steady, safe Standing Balance Steady, wide stance Transfers Bed Transfer Ability Supervision/Stand by Sit to Stand Bed Transfer Ability Supervision/Stand by Rehab PT IP prob,goals,plan Problems Date of Evaluation: 01/07/24 Rehab Potential Rehab Potential Innapropriate for Skilled Therapy Discharge Plan PT Discharge Plan Pt safe to d/c home when deemed medically necessary d/t current level of mobility and home set-up. Pt demo'd good safety awareness and proper RW use during ambulation. Pt not appropriate for skilled acute care PT at this time d/t pt?s mobility being at baseline. PT recommending home health PT services to address strength and endurance deficits. PT educated pt on performing all functional mobility with good safety awareness, RW use, and to monitor dizziness symptoms to prevent falls. Pt verbalized understanding to all education. Eval Complexity Eval Charge Codes 82456 - Moderate Complexity PHYSICIAN CERTIFICATION: I certify the specified therapy services for Henrique Sloan are required, authorized, and reviewed every 30 days.
--- NOTE | 2024-01-07 11:16 | CARE MANAGER ---
Addendum entered by Jessica Ibanez RN 01/07/24 14:53: Patient will be admitted Wednesday/Wednesday. Addendum entered by Jessica Ibanez RN 01/07/24 12:37: Patient accepted by [facility]. Original Note: PT recommends home health. Will also need SN for wound assessment. Patient requested any agency but [facility]. Information faxed to [facility]. KB Jenkins
--- NOTE | 2024-01-11 11:56 | CARE MANAGER ---
Attempted to contact patient related to hospital discharge x2. Left VM message. KB Jenkins
== END 2024-01-07 16:10 | disposition home health service (06) ==
LOC: ER 17:58 → 2ND 18:17
PROVIDERS: Physician Assistant; Admitting Provider Internal Medicine Adolescent Medicine; Emergency Provider Emergency Medicine; PCP Internal Medicine; Visit Provider Internal Medicine Adolescent Medicine
DX: L03.116 Cellulitis of left lower limb (principal); S80.12XA Contusion of left lower leg, initial encounter; E11.65 Type 2 diabetes mellitus with hyperglycemia; F41.9 Anxiety disorder, unspecified; G31.84 Mild cognitive impairment of uncertain or unknown etiology; N40.0 Benign prostatic hyperplasia without lower urinary tract symptoms; F17.210 Nicotine dependence, cigarettes, uncomplicated; Z79.899 Other long term (current) drug therapy; Z79.4 Long term (current) use of insulin
CPT/HCPCS: 36415; 73701; 80053; 82962; 83735; 84145; 85025; 85651; 86140; 97162; 99285; G0378; J0131; J2405; J2543; J7120; Q9967

== ENCOUNTER 2024-01-19 10:14 | Outpatient (CLI) | payer MEDICARE, SELFPAY ==
[2024-01-19 18:40] LABS: Basophils # 0.1 K/mm3 (0-0.2); Basophils % 0.7 % (0.1-2.0); Eosinophils # 0.3 K/mm3 (0.0-0.4); Eosinophils % 2.9 % (0.1-12.0); Hematocrit 43.4 % (42.0-52.0); Hemoglobin 14.2 g/dL (14.1-18.0); Lymphocytes # 4.2 K/mm3 (0.7-4.5); Lymphocytes % 40.4 % (10-50); Mean Corpuscular HGB Conc 32.7 g/dL (31.8-35.4); Mean Corpuscular Hemoglobin 31.2 pg (27.0-31.2); Mean Corpuscular Volume 95.4 fl (80-94); Mean Platelet Volume 9.6 fl (7.4-10.4); Monocytes # 0.8 K/mm3 (0.1-1.0); Monocytes % 7.7 % (1.7-9.3); Neutrophils % 48.2 % (37.0-80.0); Platelet Count 414 K/mm3 (142-424); Red Blood Count 4.55 M/mm3 (4.60-6.20); Red Cell Distribution Width 14.1 % (11.5-17.5); White Blood Count 10.4 K/mm3 (4.8-10.8)
[2024-01-19 18:57] LABS: Alanine Aminotransferase 19 U/L (12-78); Albumin Level 3.8 g/dl (3.5-5.0); Albumin/Globulin Ratio 1.2 (1.1-1.8); Alkaline Phosphatase 101 U/L (38-126); Anion Gap 17.3 mEq/L (5-15); Aspartate Amino Transferase 25 U/L (17-59); Bilirubin,Total 0.4 mg/dl (0.2-1.3); Blood Urea Nitrogen 12 mg/dl (9-20); Calcium 9.3 mg/dl (8.4-10.2); Carbon Dioxide 26 mmol/L (22.0-30.0); Chloride 96 mmol/L (98-107); Estimated Glomerular Filt Rate 96 ml/min (>60); GFR (African American) 116 ML/MIN (>60); Globulin 3.3 g/dL (1.3-3.2); Glucose 284 mg/dl (74-100); Potassium 4.3 mmoL/L (3.5-5.1); Sodium 135 mmol/L (136-145); Total Protein,Serum 7.1 g/dl (6.3-8.2)
[2024-01-19 19:07] LABS: Erythrocyte Sedimentation Rate 23 mm/hr (0-20)
== END 2024-01-19 23:59 | disposition home or self-care (01) ==
LOC: LAB.DROPOF 01-20 10:14
PROVIDERS: PCP Internal Medicine; Visit Provider Internal Medicine
DX: R53.83 Other fatigue (principal)
CPT/HCPCS: 80053; 85025; 85651

== ENCOUNTER 2024-02-21 11:36 | Outpatient (CLI) | payer MEDICARE, SELFPAY ==
[2024-02-21 11:42] LABS: Basophils # 0.1 K/mm3 (0-0.2); Basophils % 0.9 % (0.1-2.0); Eosinophils # 0.4 K/mm3 (0.0-0.4); Eosinophils % 3.6 % (0.1-12.0); Hematocrit 43.7 % (42.0-52.0); Hemoglobin 14.1 g/dL (14.1-18.0); Lymphocytes # 4.2 K/mm3 (0.7-4.5); Lymphocytes % 40.6 % (10-50); Mean Corpuscular HGB Conc 32.3 g/dL (31.8-35.4); Mean Corpuscular Hemoglobin 31.7 pg (27.0-31.2); Mean Corpuscular Volume 98.3 fl (80-94); Monocytes # 0.8 K/mm3 (0.1-1.0); Monocytes % 8.1 % (1.7-9.3); Neutrophils # 4.9 K/mm3 (1.8-7.8); Neutrophils % 46.8 % (37.0-80.0); Platelet Count 298 K/mm3 (142-424); Red Blood Count 4.45 M/mm3 (4.60-6.20); Red Cell Distribution Width 14.3 % (11.5-17.5); White Blood Count 10.4 K/mm3 (4.8-10.8)
[2024-02-21 12:12] LABS: Chloride 98 mmol/L (98-107); Potassium 4.2 mmoL/L (3.5-5.1); Sodium 132 mmol/L (136-145)
[2024-02-21 12:14] LABS: Blood Urea Nitrogen 11 mg/dl (9-20); Erythrocyte Sedimentation Rate 19 mm/hr (0-20)
[2024-02-21 12:15] LABS: Alanine Aminotransferase 23 U/L (12-78); Albumin Level 3.6 g/dl (3.5-5.0); Albumin/Globulin Ratio 1.2 (1.1-1.8); Alkaline Phosphatase 97 U/L (38-126); Anion Gap 14.2 mEq/L (5-15); Aspartate Amino Transferase 23 U/L (17-59); Bilirubin,Total 0.4 mg/dl (0.2-1.3); Calcium 9.2 mg/dl (8.4-10.2); Carbon Dioxide 24 mmol/L (22.0-30.0); Cholesterol 151 mg/dl (140-200); Estimated Glomerular Filt Rate 84 ml/min (>60); GFR (African American) 101 ML/MIN (>60); Globulin 3.1 g/dL (1.3-3.2); HDL Cholesterol 38 mg/dl (40-60); Total Protein,Serum 6.7 g/dl (6.3-8.2); Triglycerides 287 mg/dl (30-150); VLDL Cholesterol 57 mg/dL (0-40)
[2024-02-21 12:27] LABS: Direct LDL Cholesterol 68.35 mg/dL (100-129)
[2024-02-21 12:32] LABS: 25-OH Vitamin D, Total 31.3 ng/mL (30-100)
[2024-02-21 12:47] LABS: Thyroid Stimulating Hormone 1.84 uIU/mL (0.465-4.68)
[2024-02-21 13:06] LABS: Glucose 537 mg/dl (74-100)
== END 2024-02-21 23:59 | disposition home or self-care (01) ==
LOC: LAB.DROPOF 11:37
PROVIDERS: PCP Internal Medicine; Visit Provider Internal Medicine
DX: N40.0 Benign prostatic hyperplasia without lower urinary tract symptoms (principal); E11.65 Type 2 diabetes mellitus with hyperglycemia; E55.9 Vitamin D deficiency, unspecified; G62.9 Polyneuropathy, unspecified
CPT/HCPCS: 80053; 80061; 82306; 84443; 85025; 85651

== ENCOUNTER 2024-02-21 14:13 | Emergency (ER) | payer MEDICARE, SELFPAY ==
[2024-02-21] VITALS (7 sets, daily range): BP systolic 139–167; BP diastolic 87–96; PULSE 76–82; RESP 18–20; TEMP 36.3–36.8; O2SAT 92–97; BMI 24.3
--- NOTE | 2024-02-21 14:27 | ED_ITS ---
<Statement entered by Mandy Tejada MD - 02/21/24 23:23> I was consulted by the LAW, and we discussed the complexity of the problems being addressed. I approved the treatment and management plan for this patient's care in the emergency department, thus performing a substantive portion of the medical decision making. Mandy Tejada MD, ERAN, FACEP Discharge Plan Disposition Patient Disposition: Home, Self-Care Condition: Good Prescriptions Prescriptions: New Humulin 70/30 U-100 Insulin 100 unit/mL (70-30) suspension 70 unit SQ BID Qty: 10 0RF No Action sildenafil 100 mg tablet 100 mg PO DAILYP PRN (Reason: EDS) trazodone 150 mg tablet 150 mg PO DAILY Qty: 90 2RF meclizine 12.5 mg tablet 12.5 mg PO TID PRN (Reason: dizziness) Qty: 90 0RF omeprazole 40 mg capsule,delayed release(DR/EC) 40 mg PO DAILY Qty: 30 2RF donepezil 10 mg tablet 10 mg PO DAILY 90 Days Qty: 90 2RF bupropion HCl 300 mg tablet extended release 24 hr 300 mg PO DAILY 90 Days Qty: 90 2RF tamsulosin 0.4 mg capsule 0.8 mg PO HS amoxicillin-pot clavulanate 875-125 mg tablet 1 tab PO BID Qty: 16 0RF metformin 500 mg tablet 500 mg PO BID Qty: 60 2RF cholecalciferol (vitamin D3) [Vitamin D3] 25 mcg (1,000 unit) capsule 25 mcg PO DAILY Qty: 30 2RF simvastatin 20 mg tablet 20 mg PO HS Qty: 90 4RF fenofibrate nanocrystallized 48 mg tablet 48 mg PO DAILY Qty: 90 4RF aspirin 81 mg Tablet,Chewable 81 mg PO DAILY Hold Instructions: Pending improvement hematoma Novolin 70-30 FlexPen U-100 100 unit/mL (70-30) insulin pen 70 unit SQ BID 30 Days Qty: 42 0RF Rx Instructions: Take before breakfast and before dinner hydrocodone-acetaminophen 5-325 mg Tablet 1 tab PO Q6HP PRN (Reason: Moderate To Severe Pain (4-10)) 3 Days Qty: 12 0RF Referrals Follow up/Referrals: Jude Pacheco DO [Primary Care Provider] - See instructions Activity Restrictions/Add. Instructions Additional Instructions/Restrictions: Please follow-up with your PCP in 48 hours for recheck of your labs. Return to ER for any worsening signs or symptoms as needed. Clinical Impressions Clinical Impression: Hyperglycemia due to type 2 diabetes mellitus Instructions Patient Instructions: DI for Hyperglycemia -- Adult Discharge ED Provider: Mandy Tejada General Adult HPI General Chief complaint: Hyper/Hypoglycemia Stated complaint: abnormal lab/Blood sugar >500, no insulin x1 wk Time Seen by Provider: 02/21/24 14:27 History of Present Illness HPI narrative: Patient presents for evaluation of high blood sugar. Patient states that he has been out of his insulin for approximately a week. He is normally on 70 units morning and night of 70/30 insulin. He was part of the [facility] program however he has been dropped from the program until he sees them again in March for unknown reasons. They did not refill his medication however. Patient reports nausea polyuria polydipsia and noted that his blood sugar was over 500 on his home glucometer today. He denies chest pain fever chills hemoptysis hematochezia melena . Related Data Home Medications Medication Instructions Recorded Confirmed tamsulosin 0.4 mg capsule 0.8 mg PO HS 04/20/22 01/20/24 sildenafil 100 mg tablet 100 mg PO DAILYP PRN EDS 08/25/22 01/20/24 aspirin 81 mg chewable tablet 81 mg PO DAILY 01/06/24 01/20/24 Previous Rx's Medication Instructions Recorded metformin 500 mg tablet 500 mg PO BID #60 tabs 11/12/23 bupropion HCl 300 mg 24 hr tablet, 300 mg PO DAILY 90 days #90 tabs 12/23/23 extended release donepezil 10 mg tablet 10 mg PO DAILY 90 days #90 tabs 12/23/23 meclizine 12.5 mg tablet 12.5 mg PO TID PRN dizziness #90 12/23/23 tabs omeprazole 40 mg capsule,delayed 40 mg PO DAILY #30 caps 12/23/23 release trazodone 150 mg tablet 150 mg PO DAILY #90 tabs 12/23/23 cholecalciferol (vitamin D3) 25 25 mcg PO DAILY #30 caps 12/28/23 mcg (1,000 unit) capsule (Vitamin D3) hydrocodone 5 mg-acetaminophen 325 1 tab PO Q6HP PRN Moderate To 01/07/24 mg tablet Severe Pain (4-10) 3 days #12 tabs insulin NPH-regular 70-30 U-100 70 unit (0.7 mL) SQ BID Diabetes 01/07/24 insulin 100 unit/mL subcutaneous 30 days #42 mL pen (Novolin 70-30 FlexPen U-100 Insulin) amoxicillin 875 mg-potassium 1 tab PO BID #16 tabs 01/20/24 clavulanate 125 mg tablet fenofibrate nanocrystallized 48 mg 48 mg PO DAILY #90 tabs 02/08/24 tablet simvastatin 20 mg tablet 20 mg PO HS #90 tabs 02/08/24 insulin human U-100 NPH-regulr 70 unit (0.7 mL) SQ BID #10 mL 02/21/24 70-30 mix 100 unit/mL subcutaneous susp (Humulin 70/30 U-100 Insulin) Allergies Allergy/AdvReac Type Severity Reaction Status Date / Time codeine Allergy Mild Verified 01/20/24 13:58 [facility] Disclaimer: The information contained in this section may have been updated after the patient was seen, as this information can be updated by other users. Medical History Seizure Cannot exclude symptomatic seizure in the setting of uncontrolled hyperglycemia, hypertension. GERD (gastroesophageal reflux disease) HLD (hyperlipidemia) Patient has not had a lipid panel done at this clinic. Will check 1 today. He is taking fenofibrate and simvastatin. HTN (hypertension) Spleen absent Migraine Diabetes mellitus, type 2 Surgical History H/O shoulder surgery H/O splenectomy Family History Other Cancer Coronary artery disease Heart attack No significant family history Stroke Social History Smoking Status: Current every day smoker tobacco type: cigars alcohol intake: never substance use type: former substance user and marijuana current occupational status: retired Travel in the last 8 weeks: None household members: none housing: house ROS Obtained: Yes Systems reviewed as appropriate & no additional complaints except as documented Physical Exam General General appearance: alert and in no apparent distress ENT ENT exam: Absent mucous membranes dry Respiratory Respiratory exam: Present normal lung sounds bilaterally Cardiovascular Cardiovascular exam: Present regular rate, normal rhythm and normal heart sounds Neurological Exam Neurological exam: Present alert and oriented X3 Psychiatric Psychiatric exam: Present normal affect and normal mood Skin Skin exam: Present intact (Patient does have a defect at the tibial tuberosity of his left lower extremity that is healing and has good granulation tissue at the base) Medical Decision Making Medical Records Medical records reviewed: Yes I reviewed the patient's medical records. Shant Inquiry Pt receiving controlled substance: No Vital Signs: 02/21/24 14:15 02/21/24 15:01 02/21/24 15:26 Temperature 97.3 F L Temperature Source Oral Pulse Rate 77 80 Pulse Rate [Right Radial] 79 Respiratory Rate 20 Blood Pressure 160/91 H Blood Pressure [Right Arm] 153/89 H Blood Pressure Mean 120 Blood Pressure Mean [Right Arm] 110 Blood Pressure Source [Right Arm] Automatic Cuff Blood Pressure Position [Right Arm] Sitting 02 Sat by Pulse Oximetry 97 95 97 Oxygen Delivery Method Room Air Room Air Room Air 02/21/24 16:00 Temperature Temperature Source Pulse Rate 77 Pulse Rate [Right Radial] Respiratory Rate Blood Pressure 167/96 H Blood Pressure [Right Arm] Blood Pressure Mean 112 Blood Pressure Mean [Right Arm] Blood Pressure Source [Right Arm] Blood Pressure Position [Right Arm] 02 Sat by Pulse Oximetry 97 Oxygen Delivery Method Room Air Lab Data Lab results reviewed: Yes I reviewed the patient's lab results. Lab Results 02/21/24 14:42: WBC 9.9, RBC 4.34 L, Hgb 13.5 L, Hct 41.4 L, MCV 95.5 H, MCH 31.0, MCHC 32.5, RDW 14.4, Plt Count 300, MPV 9.5, Neut % (Auto) 47.0, Lymph % (Auto) 42.2, [place] % (Auto) 7.1, Eos % (Auto) 2.7, Baso % (Auto) 1.0, Neut # (Auto) 4.6, Lymph # (Auto) 4.2, [place] # (Auto) 0.7, Eos # (Auto) 0.3, Baso # (Auto) 0.1, Sodium 131 L, Potassium 3.8, Chloride 98, Carbon Dioxide 24, Anion Gap 12.8, BUN 12, Creatinine 1.00, Estimated Creat Clear 69, Estimated GFR 74, Est GFR ( Amer) 90, Glucose 493 H*, Calcium 8.9, Magnesium 1.4 L, Total Bilirubin 0.3, AST 27, ALT 28, Alkaline Phosphatase 88, Total Protein 6.9, Albumin 3.7, Globulin 3.2, Albumin/Globulin Ratio 1.2, Acetone Level None detected 02/21/24 14:54: VBG pH 7.35, VBG pCO2 42.2, VBG pO2 45.4 H, VBG HCO3 22.6 L, VBG Total CO2 23.9, VBG O2 Saturation 81.6 H, VBG Base Excess -3.0 L, VBG Lactic Acid 4.2 H 02/21/24 15:01: Urine Color Yellow, Urine Appearance Clear, Urine pH 6.0, Ur Specific [place] 1.020, Urine Protein Trace, Urine Glucose (UA) 3+, Urine Ketones Negative, Urine Blood Negative, Urine Nitrate Negative, Urine Bilirubin Negative, Urine Urobilinogen 0.2, Ur Leukocyte Esterase Negative, Urine RBC None, Urine WBC None, Ur Squamous Epith Cells Occasional, Urine Bacteria Trace 02/21/24 14:42 02/21/24 14:42 Orders (Tests/Meds): ED MEDICATIONS Discontinued Medications Generic Name Dose Route Start Last Admin Trade Name Freq PRN Reason Stop Dose Admin Sodium Chloride 1,000 mls @ 999 mls/hr 02/21/24 14:32 02/21/24 14:51 Sod Chlor 0.9% 1000ml Bag IV 02/21/24 15:32 999 mls/hr .Q1H1M ONE Administration Magnesium Sulfate 2 gm in 50 mls @ 50 mls/hr 02/21/24 15:50 02/21/24 15:59 Magnesium Sulfate 2gm/50ml Premix IV 02/21/24 16:49 50 mls/hr ONCE ONE Administration Insulin Human Regular 10 unit 02/21/24 15:50 02/21/24 15:59 Insulin Human Regular 100 Units/Ml 10ml Vial IVP 02/21/24 15:51 10 unit ONCE ONE Administration Ondansetron HCl 4 mg 02/21/24 14:48 02/21/24 14:51 Ondansetron 4mg/2ml Vial IV 02/21/24 14:49 4 mg ONCE ONE Administration ORDERS Category Date Time Status Acetone, Serum (Rapid) Stat Lab 02/21/24 14:42 Completed CBC w/Auto Diff [Complete Blood Count Auto Diff] Stat Lab 02/21/24 14:42 Completed CMP [Comprehensive Metabolic Panel] Stat Lab 02/21/24 14:42 Completed Magnesium Stat Lab 02/21/24 14:42 Completed UA [Urinalysis and Microscopic] Stat Lab 02/21/24 15:01 Completed VBG [Venous Blood Gas] Stat RT 02/21/24 14:54 Completed Medical Decision Narrative: In summary patient is a 68-year-old male who presents to the emergency department for evaluation of glycemia and type 2 diabetes mellitus. Patient is hemodynamically stable upon arrival, afebrile. Physical exam is remarkable for dry oral mucosa but otherwise nonfocal including no chest pain no abdominal pain normal sinus rhythm on the bedside monitor.. Differential diagnosis includes simple hyperglycemia versus DKA versus nonketotic hyperosmolar hyperglycemia. Initial workup will be conducted with hematologic labs urinalysis.. Initial interventions include crystalloid bolus until initial labs are back. Initial workup reviewed by me show that he indeed has hyperglycemia but has no gap and is not acidotic normal bicarb is low magnesium which is being repleted and remainder of his hematologic labs are nonactionable. Upon repeat evaluation patient feels better after crystalloid and glucose down. Given this patient is appropriate for discharge with a prescription for 70/30 insulin for 1 month only. Patient to follow-up with PCP in 48 hours for recheck of his labs or sooner as needed. Critical Care Critical Care Time Critical Care Time: No
[2024-02-21 14:50] LABS: Basophils # 0.1 K/mm3 (0-0.2); Eosinophils # 0.3 K/mm3 (0.0-0.4); Eosinophils % 2.7 % (0.1-12.0); Hematocrit 41.4 % (42.0-52.0); Hemoglobin 13.5 g/dL (14.1-18.0); Lymphocytes # 4.2 K/mm3 (0.7-4.5); Lymphocytes % 42.2 % (10-50); Mean Corpuscular HGB Conc 32.5 g/dL (31.8-35.4); Mean Corpuscular Volume 95.5 fl (80-94); Mean Platelet Volume 9.5 fl (7.4-10.4); Monocytes # 0.7 K/mm3 (0.1-1.0); Monocytes % 7.1 % (1.7-9.3); Neutrophils # 4.6 K/mm3 (1.8-7.8); Platelet Count 300 K/mm3 (142-424); Red Blood Count 4.34 M/mm3 (4.60-6.20); Red Cell Distribution Width 14.4 % (11.5-17.5); White Blood Count 9.9 K/mm3 (4.8-10.8)
[2024-02-21] MEDS: 0.9 % SODIUM CHLORIDE 1000ML 1,000 ML 999 ML IV (14:51)
[2024-02-21] MEDS: ONDANSETRON 4MG/2ML VIAL 4 MG IV (14:51)
[2024-02-21 14:52] LABS: VBG HCO3 22.6 mmol/L (23-30); VBG Oxygen Saturation 81.6 % (50-70); VBG PCO2 42.2 mmol/L (35-51); VBG PH 7.35 mmol/L (7.31-7.41); VBG PO2 45.4 mmol/L (28-40); VBG Total CO2 23.9 mmol/L (23-27)
[2024-02-21 14:56] LABS: Lactate Venous 4.2 mmol/L (0.4-2.0)
--- NOTE | 2024-02-21 14:56 | PC.NURSE ---
VBG results MD rubi
[2024-02-21 14:57] LABS: Chloride 98 mmol/L (98-107); Potassium 3.8 mmoL/L (3.5-5.1); Sodium 131 mmol/L (136-145)
[2024-02-21 14:59] LABS: Alanine Aminotransferase 28 U/L (12-78); Aspartate Amino Transferase 27 U/L (17-59); Blood Urea Nitrogen 12 mg/dl (9-20); Creatinine Clearance Estimated 69 mL/min (50-200); Estimated Glomerular Filt Rate 74 ml/min (>60); GFR (African American) 90 ML/MIN (>60)
[2024-02-21 15:00] LABS: Albumin Level 3.7 g/dl (3.5-5.0); Albumin/Globulin Ratio 1.2 (1.1-1.8); Alkaline Phosphatase 88 U/L (38-126); Anion Gap 12.8 mEq/L (5-15); Bilirubin,Total 0.3 mg/dl (0.2-1.3); Calcium 8.9 mg/dl (8.4-10.2); Carbon Dioxide 24 mmol/L (22.0-30.0); Globulin 3.2 g/dL (1.3-3.2); Magnesium 1.4 mg/dl (1.6-2.3); Total Protein,Serum 6.9 g/dl (6.3-8.2)
[2024-02-21 15:03] LABS: Glucose 493 mg/dl (74-100)
[2024-02-21 15:06] LABS: Appearance,Urine CLEAR (Clear); Bilirubin,Urine Negative (Negative); Blood, Urine Negative (Negative); Color,Urine YELLOW (Yellow); Glucose,Urine (UA) 3+ (Negative); Ketones,Urine Negative (Negative); Leukocyte Esterase,Urine Negative (Negative); Microscopic, Urine URINE MICROSCOPIC (MICROSCOPIC); Nitrate,Urine Negative (Negative); Protein,Urine TRACE (Negative); Urobilinogen,Urine 0.2 EU/dl (0.2)
[2024-02-21 15:24] LABS: Bacteria,Urine Trace /lpf; Squamous Epithelial Cell,Urine Occasional #/hpf (0-5)
[2024-02-21 15:42] LABS: Acetone, Serum (Rapid) None Detected (None Detect)
--- NOTE | 2024-02-21 15:52 | PC.NURSE ---
CRITICAL GLUCOSE 493 RECEIVED FROM JABARI IN LAB. PT NAME AND JOVITA R/V. JOVITA CASE NOTIFIED. NO NEW ORDERS
[2024-02-21] MEDS: INSULIN HUMAN REGULAR 100 UNITS/ML 10ML VIAL 10 UNIT IVP (15:59)
[2024-02-21] MEDS: MAGNESIUM SULFATE IN WATER 2 GM/50 ML PIGGYBACK IV (15:59)
[2024-02-21 18:55] LABS: Reflex Lactic Add Lactic Reflex
== END 2024-02-21 17:20 | disposition home or self-care (01) ==
PROVIDERS: Physician Assistant; Emergency Provider Student in an Organized Health Care Education/Training Program; PCP Internal Medicine
DX: E11.65 Type 2 diabetes mellitus with hyperglycemia (principal); N40.0 Benign prostatic hyperplasia without lower urinary tract symptoms; E55.9 Vitamin D deficiency, unspecified; E11.40 Type 2 diabetes mellitus with diabetic neuropathy, unspecified; F17.210 Nicotine dependence, cigarettes, uncomplicated; Z79.4 Long term (current) use of insulin; Z79.899 Other long term (current) drug therapy; T38.3X6A Underdosing of insulin and oral hypoglycemic [antidiabetic] drugs, initial encounter; Z91.138 Patient's unintentional underdosing of medication regimen for other reason; E78.5 Hyperlipidemia, unspecified; K21.9 Gastro-esophageal reflux disease without esophagitis; I10 Essential (primary) hypertension; E87.1 Hypo-osmolality and hyponatremia; R11.0 Nausea
CPT/HCPCS: 80053; 80061; 81001; 82009; 82306; 82803; 83735; 84443; 85025; 85651; 96365; 96375; 99284; J2405; J3475

== ENCOUNTER 2024-05-06 08:34 | Emergency (ER) | payer MEDICARE, SELFPAY ==
[2024-05-06 08:48] VITALS: BP 160/101; PULSE 72; RESP 20; TEMP 36.6; O2SAT 96; BMI 29.0
[2024-05-06 08:59] VITALS: BP 144/90
--- NOTE | 2024-05-06 09:14 | EXP.UTC ---
Discharge Plan Disposition Patient Disposition: Home, Self-Care Condition: Good Prescriptions Prescriptions: New amoxicillin-pot clavulanate 875-125 mg tablet 1 tab PO Q12H 10 Days Qty: 20 0RF No Action pioglitazone 15 mg tablet 15 mg PO DAILY metformin 500 mg tablet 500 mg PO DAILY Humulin 70/30 U-100 Insulin 100 unit/mL (70-30) suspension 100 unit SQ NEEDED PRN (Reason: BLOOD) tamsulosin 0.4 mg capsule 0.4 mg PO DAILY simvastatin 20 mg tablet 20 mg PO DAILY fenofibrate nanocrystallized 48 mg tablet 48 mg PO DAILY Referrals Follow up/Referrals: Jude Pacheco DO [Primary Care Provider] - See instructions Activity Restrictions/Add. Instructions Additional Instructions/Restrictions: Call Dr. Pacheco's office on Wednesday for a follow up appointment. If toe gets worse over the weekend, return to [facility] or go to ER. Clean foot twice daily and apply triple antibiotic ointment. Cover with a non-stick dressing and wrap with cling. Do not go without socks and shoes. Clinical Impressions Clinical Impression: Diabetic infection of left foot Instructions Patient Instructions: DI for Diabetic Foot Ulcer Print Language Print Language: Nepali Discharge ED Provider: Joy Santana [facility] HPI General Stated complaint: blister left toe Mode of Arrival: Ambulatory Source of Information: Patient Time Seen by Provider: 05/06/24 09:13 Description of Symptoms (Recalled from Triage Doc. by RN): C/O BLISTER ON LEFT BIG TOE THAT IS BLEEDING IS A DIABETIC HEENT Symptoms (Recalled from RN notes): No Resp Symptoms (Recalled from RN notes): No Skin Symptoms (Recalled from RN notes): Yes MS Symptoms (Recalled from RN notes): No Functional Status (Recalled from RN notes): WNL History of Present Illness Provider Complaint: Pt reports that he is diabetic and noted a blister on his left great toe. He states that this has gotten worse and now the blister has ruptured, his toe is red and swollen. He states that he has been putting neosporin on his toe. Related Data Home Medications ?Medication ?Instructions ?Recorded ?Confirmed fenofibrate nanocrystallized 48 mg 48 mg PO DAILY 05/06/24 05/06/24 tablet insulin human U-100 NPH-regulr 100 unit SQ NEEDED PRN BLOOD 05/06/24 05/06/24 70-30 mix 100 unit/mL subcutaneous susp (Humulin 70/30 U-100 Insulin) metformin 500 mg tablet 500 mg PO DAILY 05/06/24 05/06/24 pioglitazone 15 mg tablet 15 mg PO DAILY 05/06/24 05/06/24 simvastatin 20 mg tablet 20 mg PO DAILY 05/06/24 05/06/24 tamsulosin 0.4 mg capsule 0.4 mg PO DAILY 05/06/24 05/06/24 Previous Rx's ?Medication ?Instructions ?Recorded amoxicillin 875 mg-potassium 1 tab PO Q12H 10 days #20 tabs 05/06/24 clavulanate 125 mg tablet Allergies Allergy/AdvReac Type Severity Reaction Status Date / Time codeine Allergy Mild Verified 01/20/24 13:58 Worker's Comp Is this a Worker's Comp case?: No [facility] Disclaimer: The information contained in this section may have been updated after the patient was seen, as this information can be updated by other users. Medical History Seizure Cannot exclude symptomatic seizure in the setting of uncontrolled hyperglycemia, hypertension. GERD (gastroesophageal reflux disease) HLD (hyperlipidemia) Patient has not had a lipid panel done at this clinic. Will check 1 today. He is taking fenofibrate and simvastatin. HTN (hypertension) Spleen absent Migraine Diabetes mellitus, type 2 Surgical History H/O shoulder surgery H/O splenectomy Family History Other Cancer Coronary artery disease Heart attack No significant family history Stroke Social History Smoking Status: Current every day smoker tobacco type: cigars alcohol intake: never substance use type: former substance user and marijuana current occupational status: retired Travel in the last 8 weeks: None household members: none housing: house ROS Obtained: Yes All systems reviewed & no additional complaints except as documented Constitutional Constitutional: Reports system reviewed and no additional complaints, except as documented Eyes Eyes: Reports system reviewed and no additional complaints, except as documented ENT Ears, Nose, Mouth, and Throat: Reports system reviewed and no additional complaints, except as documented Cardiovascular Cardiovascular: Reports system reviewed and no additional complaints, except as documented Respiratory Respiratory: Reports system reviewed and no additional complaints, except as documented Gastrointestinal Gastrointestingal: Reports system reviewed and no additional complaints, except as documented Genitourinary Male Genitourinary: Reports system reviewed and no additional complaints, except as documented Musculoskeletal Musculoskeletal: Reports system reviewed and no additional complaints, except as documented Integumentary/Breasts Skin/Breast: Reports system reviewed and no additional complaints, except as documented Neurologic Neurologic: Reports system reviewed and no additional complaints, except as documented Endocrine Endocrine: Reports system reviewed and no additional complaints, except as documented Hematologic/Lymphatic Henatologic/Lymphatic: Reports system reviewed and no additional complaints, except as documented Allergic/Immunologic Allergic/Immunologic: Reports system reviewed and no additional complaints, except as documented Physical Exam General General appearance: alert and in no apparent distress Head Head exam: atraumatic and normocephalic Eye Eye exam: Present normal appearance ENT ENT exam: Present normal exam, normal oropharynx and mucous membranes moist Neck Neck exam: Present normal inspection Chest Chest inspection: Present normal inspection and symmetric chest wall rise Respiratory Respiratory exam: Present normal lung sounds bilaterally Cardiovascular Cardiovascular exam: Present regular rate and normal rhythm Abdominal Exam Abdominal exam: Present soft and normal bowel sounds Extremities Exam Extremities exam: Present normal inspection Back Exam Back exam: Present normal inspection Neurological Exam Neurological exam: Present alert and oriented X3 Psychiatric Psychiatric exam: Present normal affect and normal mood Skin Skin exam: Present warm and dry Expanded Skin Exam Type of lesion: Present abrasion Distribution: LLE Description: Present erythematous, swelling and blisters Comment: left great toe with redness & swelling along with a blister noted around the top and bottom of the toe. Lymphatic Lymphatic Findings: no adenopathy Medical Decision Making Medical Records Screening: Per USPSTF and CDC recommendations, given the prevalence of disease in our region, it is our hospital?s policy to screen for HIV and viral Hepatitis for all patients aged 18 and over and those with ongoing risk factors. Shant Inquiry Pt receiving controlled substance: No Shant was queried for this patient: No Vital Signs: 05/06/24 08:48 05/06/24 08:59 Temperature 97.9 F Temperature Source Oral Pulse Rate [Left Radial] 72 Respiratory Rate 20 Blood Pressure [Left Arm] 160/101 H 144/90 H Blood Pressure Mean [Left Arm] 120 108 02 Sat by Pulse Oximetry 96
[2024-05-06 10:03] VITALS: BP 144/90; PULSE 72; RESP 20; TEMP 36.6
== END 2024-05-06 10:04 | disposition home or self-care (01) ==
PROVIDERS: Emergency Provider Nurse Practitioner Family; PCP Internal Medicine
DX: E11.621 Type 2 diabetes mellitus with foot ulcer (principal)
CPT/HCPCS: 99213; G0381

== ENCOUNTER 2024-05-24 04:26 | Emergency (ER) | payer MEDICARE, SELFPAY ==
[2024-05-24 04:33] VITALS: BP 183/98; PULSE 96; O2SAT 95
[2024-05-24 04:37] VITALS: BP 164/100; PULSE 98; RESP 18; TEMP 36.6; O2SAT 96; BMI 28.1
--- OUTSIDE RECORDS SUMMARY | 2024-05-24 04:38 | XMS_ITS | Patient Health Record ---
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 Role Phone Cristhian Marino Primary Care Provider Allergies Allergen (clinical drug ingredient) Drug/Non Drug [...] day for 90 days Active NovoLIN 70/30 (70-30) 100 UNIT/ML 70 units Subcutaneous bid with meals 03/15/2019 Active Vitamin D3 25 MCG (1000 UT) 1 capsule Orally Once a day Active Fenofibrate 145 MG 1 tablet Orally once every night for 90 days 01/17/2018 Active Zovirax 5 % 1 application to aff ected area Externally every 3 hrs 08/14/2020 Active Metoprolol Succinate ER 100 MG 1 tablet Orally Once a day for 90 days Active Nortriptyline HCl 10 MG 1 capsule Orally twice a day for 30 days Active Co Q-10 200 MG 1 capsule with a jann l Orally Once a day Active Magnesium 250 MG 1 tablet with a meal Orally Once a day Active Testosterone Cypionate 200 MG/ML 2 ml Intramuscular every 2 weeks Active Ibuprofen 200 mg #60 200 mg 3 tablets orally daily Activ e Riboflavin 100 MG Orally Ac tive Vitamin B-2 100 MG 1 tablet Orally Once a day Active Tylenol Extra Strength 500 mg 1-2 tablet as needed Orally OTC Active Probiotic - 1 capsule Orally daily OTC Active Memantine HCl 5 MG 1 tablet Orally Once a day for 90 days 04/30/2021 Active buPROPion HCl ER (XL) 150 MG 3 tablets in the morning Orally Once a day for 90 days Active Triamcinolone Acetonide 0.5 % apply tobically to affected area Externally three times a day (tid) as needed (prn) 07/01/2016 Active Tamsulosin HCl 0.4 MG Oral Active Citalopram Hydrobromide 20 MG 1 tablet Orally Once a day for 90 days Active Social History Tobacco Use: Social History Observation Description Date Details (start date - stop date) Current Smoker [birth year]02/1965 - NA Alcohol Question Answer Notes Did you have a drink contain ing alcohol in the past year? Yes How often did you have a dri nk containing alcohol in the past year? Monthly or less (1 point) How many drinks did you have on a typical day when you were drinking in the past year? 1 or 2 (0 points) How often did you have six o r more drinks on one occasion in the past year? Never (0 points) Points 1 Interpretation Negative Smoking: Question Answer Notes Are you a: current smoker How often do you smoke cigarettes? some days, but not every day How soon after you wake up d o you smoke your first cigarette? after 60 minutes How many cigarettes a day do you smoke? 5 or less 1-2 cigars a week Are you interested in quitting? Not ready to joana t When did you start smoking? 08/02/1965 Additional Findings: Tobacco Non-User used to smoke, chew and dip Problems Problem Type SNOMED Code ICD Code Onset Dates Problem Status W/U Status Risk Notes Problem Essential hypertension (75017857) Essential (primary) hypertension (I10) Active confirmed Problem Abnormality of red blood cells (39486870) Other abnormality of red blood cells (R71.8) Active confirmed Problem Anxiety disorder (210137657) Anxiety disorder, unspecified (F41.9) Active confirmed Problem Insomnia (278570302) Insomnia, unspecified (G47.00) Active confirmed Problem Hyperlipidemia (14255091) Hyperlipidemia, unspecified (E78.5) Active confirmed Problem Gastro-esophageal reflux disease without esophagitis (668128876) Gastro-esophagea l reflux disease without esophagitis (K21.9) Active confirmed Problem Diabetic peripheral neuropathy associated with type 2 diabetes mellitus (4800640283267) Type 2 diabetes mellitus with diabetic neuropathy, unspecified (E11.40) Active confirmed Problem Hyperglycemia due to type 2 diabetes mellitus (629536744460719) Type 2 diabetes mellitus with hyperglycemia (E11.65) Active confirmed Problem Herpes simplex viral infection (71998987) Herpesviral infection, unspecified (B00.9) Active confirmed Problem Dementia (60527496) Unspecified dementia without behavioral disturbance (F03.90) Active confirmed Problem Mild major depression, single episode (55289182) Major depressive disorder, single episode, mild (F32.0) Active confirmed Problem Moderate major depression, single episode (14307532) Major depressive disorder, single episode, moderate (F32.1) Active confirmed Problem Severe major depression, single episode, without psychotic features (88733568) Major depressive disorder, single episode, severe without psychotic features (F32.2) Active confirmed Problem Migraine with aura (5294964) Migraine with aura, not intractable, without status migrainosus (G43.109) Active confirmed Problem Diverticulitis of colon (729282690) Diverticulitis of large intestine without perforation or abscess without bleeding (K57.32) Active confirmed improving Problem Chronic kidney disease stage 3 (disorder) (514166190) Chronic kidney disease, stage 3 (moderate) (N18.3) Active confirmed Problem Erectile dysfunction (disorder) (446670078) Male erectile dysfunction, unspecified (N52.9) Active confirmed Problem Nausea (181107221) Nausea (R11.0) Active confirmed Problem Amnesia (46506853) Other amnesia (R41.3) Active confirmed Problem Peripheral neuropathy (914487823) peripheral neuropathy, unspecified (G60.9) Active confirmed Plan Of Treatment Pending Test Test Name Order Date VENIPUNCTURE 07/30/2014 VENIPUNCTURE 12/05/2014 glucose, blood by finger stick 6 CULTURE, STOOL, SYLVIA/SHIG/CAMPY AND SHIGA TOXINS EIA W/RFL E.COLI O157 CULT 09/23/2020 Partial Thromboplastin Time 12/05/2014 Differential, Automated 12/05/2014 Differential, Automated 04/22/2015 Fecal Globin by Immunochemistry (InSure( R)) (FIT) 08/26/2017 Differential, Automated 01/10/2015 FECAL GLOBIN BY IMMUNOCHEM. (MEDICARE) 0 08/29/2019 FECAL GLOBIN BY IMMUNOCHEM. (MEDICARE) 0 01/20/2021 Thyroid Stimulating Hormone 3rd Gen 03/2020 Future Test Test Name Order Date Comprehensive Metabolic Panel w/EGFR 07/2022 CBC with Platelets and Differential 05/02 Urinalysis Dipstick 05/13/2022 Thyroid Stimulating Hormone 3rd Gen 05/02 Lipid Panel (Rflx) 05/13/2022 Insurance Providers Payer Name Payer Address Payer Phone Subscriber Number Group Number Insured Name Patient Relationship to Insured Coverage Start Date Coverage End Date Medicare J15 Part [place] [address] [place] [place] [phone] [id number] Henrique Sloan Self - patient is the insured Medical (General) History Medical History History ICD Code migraine headaches - Dr. Hill Surgical History Surgery Date(Month/Year) Splenectomy, [facility] 1 991 shoulder surgery, Dr Simpson in office 2013 dental work-teeth pulled, crowns 2019 all teeth pulled, working on getting den tures at Dental clinic 03/2021 Hospitalization History Reason Date(Month/Year) [facility] [place] [facility] Charles ward 08/2014 (11 to [facility]-had been found unresponsive in his parking lot with laceation to his head. 02/08/19
--- NOTE | 2024-05-24 04:54 | HMH.EDGENADL ---
Discharge Plan Disposition Patient Disposition: Home, Self-Care Condition: Good Prescriptions Prescriptions: No Action doxycycline hyclate 100 mg capsule 100 mg PO DAILY mupirocin 2 % ointment 1 applic topical BID 14 Days Qty: 15 0RF ketoconazole 2 % cream 1 applic topical BID 30 Days Qty: 30 2RF metformin 1,000 mg tablet 1,000 mg PO BID Qty: 60 2RF pioglitazone 15 mg tablet 15 mg PO DAILY Humulin 70/30 U-100 Insulin 100 unit/mL (70-30) suspension 100 unit SQ NEEDED PRN (Reason: BLOOD) tamsulosin 0.4 mg capsule 0.4 mg PO DAILY simvastatin 20 mg tablet 20 mg PO DAILY fenofibrate nanocrystallized 48 mg tablet 48 mg PO DAILY amoxicillin-pot clavulanate 875-125 mg tablet 1 tab PO Q12H 10 Days Qty: 20 0RF Referrals Follow up/Referrals: Jude Pacheco DO [Primary Care Provider] - See instructions Jude Machado MD [Staff Physician] - See instructions (hematuria) Activity Restrictions/Add. Instructions Additional Instructions/Restrictions: You were evaluated in the emergency department today. You were incidentally found to have some blood in your urine, so I recommend following up with urology for further evaluation and management of this. I feel that your blood sugar dropping is likely a result of the increase in your insulin dose. I recommend dropping down to 70 units as opposed to 80 and then following up very closely with your diabetes team as well as your primary care provider. Let them know that you were seen here in the emergency department for this and see what other further recommendations they have. Return to the emergency department right away for new or worsening symptoms. Make sure you eat well-balanced meals. Clinical Impressions Clinical Impression: Hypoglycemia, Hematuria Instructions Patient Instructions: DI for Hypoglycemia, DI for Hematuria Print Language Print Language: Sami Discharge ED Provider: Theresa Mcdonough General Adult HPI <Tatyana Gregg MD - Last Filed: 05/24/24 06:57> General Chief complaint: Hyper/Hypoglycemia Stated complaint: low blood sugar Time Seen by Provider: 05/24/24 04:36 Mode of Arrival: Ambulatory Source of Information: Patient Limitations: No Limitations Description of Symptoms (Recalled from ER Triage Doc. by RN): Patient complains of low blood sugar for 4 hours. States it has been in the 40's History of Present Illness HPI narrative: 68-year-old male with known type 2 diabetes on insulin and metformin with a Dexcom presents to the ER for concerns of hypoglycemia. Patient states he feels shaky and his vision is blurry compared to normal. He states these are symptoms of his blood sugar being low. He states he took his normal 80 units of Novolin earlier tonight but for the last 4 hours his Dexcom has been alerting to his blood sugar being significantly low. He states after eating a chocolate cupcake it went from the 40s to the 90s but then fell back down to the 40s again. He states he has not been having any symptoms of being ill such as fevers, chills, chest pain, difficulty breathing, cough, congestion, vomiting, or diarrhea. He has no numbness, tingling, or weakness. Patient states he has not had any significant changes in his medications recently, he states the last time his Novolin dosing was adjusted was approximately 3 weeks ago. He receives his diabetes care at [facility] at . He does not have a medication list with him but knows he takes Novolin and metformin. He states he takes approximately 12 medications but does not know what they are all for. Related Data Home Medications ?Medication ?Instructions ?Recorded ?Confirmed fenofibrate nanocrystallized 48 mg 48 mg PO DAILY 05/06/24 05/10/24 tablet insulin human U-100 NPH-regulr 100 unit SQ NEEDED PRN BLOOD 05/06/24 05/10/24 70-30 mix 100 unit/mL subcutaneous susp (Humulin 70/30 U-100 Insulin) pioglitazone 15 mg tablet 15 mg PO DAILY 05/06/24 05/10/24 simvastatin 20 mg tablet 20 mg PO DAILY 05/06/24 05/10/24 tamsulosin 0.4 mg capsule 0.4 mg PO DAILY 05/06/24 05/10/24 doxycycline hyclate 100 mg capsule 100 mg PO DAILY 05/10/24 05/10/24 Previous Rx's ?Medication ?Instructions ?Recorded amoxicillin 875 mg-potassium 1 tab PO Q12H 10 days #20 tabs 05/06/24 clavulanate 125 mg tablet ketoconazole 2 % topical cream 1 applic topical BID fungal 05/10/24 infection 30 days #30 grams metformin 1,000 mg tablet 1,000 mg PO BID #60 tabs 05/10/24 mupirocin 2 % topical ointment 1 applic topical BID infection 14 05/10/24 days #15 grams Allergies Allergy/AdvReac Type Severity Reaction Status Date / Time codeine Allergy Mild Verified 05/10/24 10:57 [facility] <Tatyana Gregg MD - Last Filed: 05/24/24 06:57> [facility] Disclaimer: The information contained in this section may have been updated after the patient was seen, as this information can be updated by other users. Medical History Seizure Cannot exclude symptomatic seizure in the setting of uncontrolled hyperglycemia, hypertension. GERD (gastroesophageal reflux disease) HLD (hyperlipidemia) HTN (hypertension) Spleen absent Migraine Diabetes mellitus, type 2 Surgical History H/O shoulder surgery H/O splenectomy Family History Other Cancer Coronary artery disease Heart attack No significant family history Stroke Social History Smoking Status: Current every day smoker tobacco type: cigars alcohol intake: never substance use type: former substance user and marijuana current occupational status: retired Travel in the last 8 weeks: None household members: none housing: house Other Medical History Have you received the Flu Vaccine for this season: No Have you received the Pneumonia Vaccine: Yes <Tatyana Gregg MD - Last Filed: 05/24/24 06:57> ROS Obtained: Yes All systems reviewed & no additional complaints except as documented Positive ROS per HPI Physical Exam <Tatyana Gregg MD - Last Filed: 05/24/24 06:57> General General appearance: alert and in no apparent distress Head Head exam: atraumatic and normocephalic Eye Eye exam: Present PERRL and EOMI ENT ENT exam: Present mucous membranes moist Neck Neck exam: Present normal inspection and full ROM Chest Chest inspection: Present symmetric chest wall rise Respiratory Respiratory exam: Present normal lung sounds bilaterally; Absent respiratory distress, wheezes or stridor Cardiovascular Cardiovascular exam: Present regular rate and normal rhythm Abdominal Exam Abdominal exam: Present soft; Absent distention, tenderness, guarding or rebound Extremities Exam Extremities exam: Present full ROM and other (Diabetic ulcer of left great toe very well-healed, no findings of infection); Absent edema Neurological Exam Neurological exam: Present alert, oriented X3, CN II-XII intact and normal gait; Absent motor sensory deficit Psychiatric Psychiatric exam: Present normal affect and normal mood Skin Skin exam: Present warm and dry Medical Decision Making <Tatyana Gregg MD - Last Filed: 05/24/24 06:57> Medical Records Screening: Per USPSTF and CDC recommendations, given the prevalence of disease in our region, it is our hospital?s policy to screen for HIV and viral Hepatitis for all patients aged 18 and over and those with ongoing risk factors. MR Comment: Patient was recently evaluated with Dr. Pacheco and his note demonstrates he has BPH, his current medication list includes insulin NPH/regular human, metformin, pioglitazone. Review of patient's records from demonstrate he is also on empagliflozin. Review of [facility] records also demonstrates patient is supposed to take 80 units of his insulin NPH-regular before breakfast and before dinner. This is how he described taking his medication earlier today. Review of note from podiatry also demonstrates patient has known diabetic foot ulcer on the left great toe. This has been present since the beginning of May. Patient had callus debridement on 05/10/2024 with podiatry as well as wound debridement. Shant Inquiry Pt receiving controlled substance: No Vital Signs: 05/24/24 04:33 05/24/24 04:37 05/24/24 05:00 Temperature 97.9 F Temperature Source Oral Pulse Rate 96 H 85 Pulse Rate [Right Radial] 98 H Respiratory Rate 18 Blood Pressure 183/98 H 151/82 H Blood Pressure [Right Arm] 164/100 H Blood Pressure Mean [Right Arm] 121 Blood Pressure Source [Right Arm] Automatic Cuff Blood Pressure Position [Right Arm] Supine 02 Sat by Pulse Oximetry 95 96 95 Oxygen Delivery Method Room Air 05/24/24 05:20 Temperature Temperature Source Pulse Rate 80 Pulse Rate [Right Radial] Respiratory Rate Blood Pressure 181/98 H Blood Pressure [Right Arm] Blood Pressure Mean [Right Arm] Blood Pressure Source [Right Arm] Blood Pressure Position [Right Arm] 02 Sat by Pulse Oximetry 97 Oxygen Delivery Method Lab Data Lab Results 05/24/24 04:51: WBC 12.8 H, RBC 4.69, Hgb 14.4, Hct 42.4, MCV 90.4, MCH 30.8, MCHC 34.0, RDW 14.2, Plt Count 338, MPV 8.4, Neut % (Auto) 40.1, Lymph % (Auto) 48.4, Gilliam % (Auto) 7.7, Eos % (Auto) 2.9, Baso % (Auto) 0.9, Neut # (Auto) 5.2, Lymph # (Auto) 6.2 H, Gilliam # (Auto) 1.0, Eos # (Auto) 0.4, Baso # (Auto) 0.1, Sodium 139, Potassium 3.8, Chloride 105, Carbon Dioxide 29, Anion Gap 8.8, BUN 13, Creatinine 0.90, Estimated Creat Clear 81, Estimated GFR 84, Est GFR ( Amer) 101, Glucose 51 L, Calcium 9.7, Total Bilirubin 0.6, AST 25, ALT 18, Alkaline Phosphatase 59, Total Protein 7.3, Albumin 4.1, Globulin 3.2, Albumin/Globulin Ratio 1.3, TSH 2.59, Free T4 0.98, HIV 1&2 Antibody Rapid Nonreactive 05/24/24 05:27: Urine Color Dark yellow, Urine Appearance Cloudy, Urine pH 6.0, Ur Specific [place] 1.025, Urine Protein 2+ A, Urine Glucose (UA) Negative, Urine Ketones Negative, Urine Blood 3+ A, Urine Nitrate Negative, Urine Bilirubin Negative, Urine Urobilinogen 0.2, Ur Leukocyte Esterase Negative, Urine RBC 20-50, Urine WBC 3-5, Ur Squamous Epith Cells 3-5, Calcium Oxalate Crystal 1+, Urine Bacteria 1+ 05/24/24 04:51 05/24/24 04:51 Orders (Tests/Meds): ED MEDICATIONS Discontinued Medications Generic Name Dose Route Start Last Admin Trade Name Freq PRN Reason Stop Dose Admin Dextrose/Water 500 mls @ 250 mls/hr 05/24/24 04:45 05/24/24 04:55 Dextrose 10% In Water 500ml IV 05/24/24 06:44 250 mls/hr .Q2H ONE Administration ORDERS Category Date Time Status CBC w/Auto Diff [Complete Blood Count Auto Diff] Stat Lab 05/24/24 04:51 Completed CMP [Comprehensive Metabolic Panel] Stat Lab 05/24/24 04:51 Completed Free T4 (Free Thyroxine) Stat Lab 05/24/24 04:51 Completed HIV (1&2) Antibody Rapid Stat Lab 05/24/24 04:51 Completed Hep C Ab with Reflex to RNA Stat Lab 05/24/24 04:51 Received POC Glucose,Bedside Stat Lab 05/24/24 04:38 Ordered Thyroid Stimulating Hormone Stat Lab 05/24/24 04:51 Completed Urinalysis and Microscopic Stat Lab 05/24/24 05:27 Completed Medical Decision Narrative: In summary, this 68-year-old male with known type 2 diabetes which is a comorbidity of current condition and increases overall morbidity presents to the emergency department today with concerns of low blood sugar, shakiness. On initial evaluation patient is hemodynamically stable, afebrile, [id number] glucose on arrival was 48 which does correspond with patient's Dexcom reading low . Patient is a GCS 15 with no focal neurologic deficits, cardiopulmonary exam benign, abdominal exam benign, no peripheral edema, no findings of infection clinically or on review of systems. Diabetic ulcer of great toe significantly improved compared to pictures in podiatry note. While we are establishing IV access, patient is actively drinking orange juice and eating peanut butter crackers. Differential diagnosis includes but is not limited to medication side effect, inappropriate medication use, I considered the possibility of infection, electrolyte abnormality, thyroid abnormality. Patient denies suicidal or homicidal ideation and I do not believe it is likely that he intentionally overdosed on his insulin since he specifically states he took 80 units before dinner like he is prescribed. Review of records does not demonstrate any sulfonylureas or other medications that can cause profound persistent hypoglycemia. Based on these concerns, I ordered serum labs, thyroid studies, urinalysis. Patient received orange juice and snacks initially for treatment until IV access was established. Patient was blood glucose was rechecked after these interventions and was still only 57. Patient continues to drink orange juice and D10 is being administered. Labs personally reviewed demonstrate only slight leukocytosis which is nonspecific and nonactionable at this time, no anemia, platelets normal, CMP demonstrates hypoglycemia but no other actionable abnormalities, UA with hematuria but no findings of infection. Patient has known BPH. After receiving 250 mL D10, patient's blood glucose was 116. D10 was stopped and patient was n.p.o. to continue to monitor his glucose with frequent rechecks. Approximately 30 minutes after D10 was stopped, FSBG was 92 Patient was placed into ED observation at 0615 for continued symptomatic monitoring and repeat fingerstick blood glucose checks. This is in hopes of precluding unnecessary admission. 30 minutes after that FSBG was 106. Patient will continue to be monitored while he remains n.p.o. and is not currently receiving D10 to see if he has any recurrent hypoglycemia without any glucose intake. Patient handed off to Dr. Mcdonough at physician shift change for further management and disposition. <Theresa Mcdonough, DO - Last Filed: 05/24/24 08:14> Vital Signs: 05/24/24 04:33 05/24/24 04:37 05/24/24 05:00 Temperature 97.9 F Temperature Source Oral Pulse Rate 96 H 85 Pulse Rate [Right Radial] 98 H Respiratory Rate 18 Blood Pressure 183/98 H 151/82 H Blood Pressure [Right Arm] 164/100 H Blood Pressure Mean [Right Arm] 121 Blood Pressure Source [Right Arm] Automatic Cuff Blood Pressure Position [Right Arm] Supine 02 Sat by Pulse Oximetry 95 96 95 Oxygen Delivery Method Room Air 05/24/24 05:20 Temperature Temperature Source Pulse Rate 80 Pulse Rate [Right Radial] Respiratory Rate Blood Pressure 181/98 H Blood Pressure [Right Arm] Blood Pressure Mean [Right Arm] Blood Pressure Source [Right Arm] Blood Pressure Position [Right Arm] 02 Sat by Pulse Oximetry 97 Oxygen Delivery Method Lab Data Lab Results 05/24/24 04:51: WBC 12.8 H, RBC 4.69, Hgb 14.4, Hct 42.4, MCV 90.4, MCH 30.8, MCHC 34.0, RDW 14.2, Plt Count 338, MPV 8.4, Neut % (Auto) 40.1, Lymph % (Auto) 48.4, Gilliam % (Auto) 7.7, Eos % (Auto) 2.9, Baso % (Auto) 0.9, Neut # (Auto) 5.2, Lymph # (Auto) 6.2 H, Gilliam # (Auto) 1.0, Eos # (Auto) 0.4, Baso # (Auto) 0.1, Sodium 139, Potassium 3.8, Chloride 105, Carbon Dioxide 29, Anion Gap 8.8, BUN 13, Creatinine 0.90, Estimated Creat Clear 81, Estimated GFR 84, Est GFR ( Amer) 101, Glucose 51 L, Calcium 9.7, Total Bilirubin 0.6, AST 25, ALT 18, Alkaline Phosphatase 59, Total Protein 7.3, Albumin 4.1, Globulin 3.2, Albumin/Globulin Ratio 1.3, TSH 2.59, Free T4 0.98, HIV 1&2 Antibody Rapid Nonreactive 05/24/24 05:27: Urine Color Dark yellow, Urine Appearance Cloudy, Urine pH 6.0, Ur Specific [place] 1.025, Urine Protein 2+ A, Urine Glucose (UA) Negative, Urine Ketones Negative, Urine Blood 3+ A, Urine Nitrate Negative, Urine Bilirubin Negative, Urine Urobilinogen 0.2, Ur Leukocyte Esterase Negative, Urine RBC 20-50, Urine WBC 3-5, Ur Squamous Epith Cells 3-5, Calcium Oxalate Crystal 1+, Urine Bacteria 1+ Orders (Tests/Meds): ED MEDICATIONS Discontinued Medications Generic Name Dose Route Start Last Admin Trade Name Freq PRN Reason Stop Dose Admin Dextrose/Water 500 mls @ 250 mls/hr 05/24/24 04:45 05/24/24 04:55 Dextrose 10% In Water 500ml IV 05/24/24 06:44 250 mls/hr .Q2H ONE Administration ORDERS Category Date Time Status CBC w/Auto Diff [Complete Blood Count Auto Diff] Stat Lab 05/24/24 04:51 Completed CMP [Comprehensive Metabolic Panel] Stat Lab 05/24/24 04:51 Completed Free T4 (Free Thyroxine) Stat Lab 05/24/24 04:51 Completed HIV (1&2) Antibody Rapid Stat Lab 05/24/24 04:51 Completed Hep C Ab with Reflex to RNA Stat Lab 05/24/24 04:51 Received POC Glucose,Bedside Stat Lab 05/24/24 04:38 Ordered Thyroid Stimulating Hormone Stat Lab 05/24/24 04:51 Completed Urinalysis and Microscopic Stat Lab 05/24/24 05:27 Completed Medical Decision Narrative: In summary, this 68-year-old male with known type 2 diabetes which is a comorbidity of current condition and increases overall morbidity presents to the emergency department today with concerns of low blood sugar, shakiness. On initial evaluation patient is hemodynamically stable, afebrile, urbfa-oj-lcjy glucose on arrival was 48 which does correspond with patient's Dexcom reading low . Patient is a GCS 15 with no focal neurologic deficits, cardiopulmonary exam benign, abdominal exam benign, no peripheral edema, no findings of infection clinically or on review of systems. Diabetic ulcer of great toe significantly improved compared to pictures in podiatry note. While we are establishing IV access, patient is actively drinking orange juice and eating peanut butter crackers. Differential diagnosis includes but is not limited to medication side effect, inappropriate medication use, I considered the possibility of infection, electrolyte abnormality, thyroid abnormality. Patient denies suicidal or homicidal ideation and I do not believe it is likely that he intentionally overdosed on his insulin since he specifically states he took 80 units before dinner like he is prescribed. Review of records does not demonstrate any sulfonylureas or other medications that can cause profound persistent hypoglycemia. Based on these concerns, I ordered serum labs, thyroid studies, urinalysis. Patient received orange juice and snacks initially for treatment until IV access was established. Patient was blood glucose was rechecked after these interventions and was still only 57. Patient continues to drink orange juice and D10 is being administered. Labs personally reviewed demonstrate only slight leukocytosis which is nonspecific and nonactionable at this time, no anemia, platelets normal, CMP demonstrates hypoglycemia but no other actionable abnormalities, UA with hematuria but no findings of infection. Patient has known BPH. After receiving 250 mL D10, patient's blood glucose was 116. D10 was stopped and patient was n.p.o. to continue to monitor his glucose with frequent rechecks. Approximately 30 minutes after D10 was stopped, FSBG was 92 Patient was placed into ED observation at 0615 for continued symptomatic monitoring and repeat fingerstick blood glucose checks. This is in hopes of precluding unnecessary admission. 30 minutes after that FSBG was 106. Patient will continue to be monitored while he remains n.p.o. and is not currently receiving D10 to see if he has any recurrent hypoglycemia without any glucose intake. Patient handed off to Dr. Mcdonough at physician shift change for further management and disposition. DO Ceasar: On my assessment of the patient, he is resting comfortably. Glucose remained stable until 8:00 AM after approximately 1 hour and 45 minutes in ED observation status. At this time, he was deemed to be appropriate for discharge home. He notes that they just increased his insulin from 70 units to 80 units about 3 weeks ago, and this is when he started experiencing more lows. He notes that he is actually been experiencing lows over the last 4 days. I do feel that he likely is experiencing these lows related to his increased insulin dose, as he reports that he did not have issues prior to that. I advised that he go back down to his previous dose of 70 units and discussed this with his primary care provider as well as with his diabetes team in [place]. Ultimately given the glucose remained stable and he is asymptomatic, I feel that he is appropriate for discharge home. He was given instructions to keep a very close eye on his blood sugar and strict return precautions. He was discharged after all questions were answered. He was also given instructions to follow-up with urology given hematuria noted on assessment, though he has no urinary symptoms or flank pain warranting further emergent evaluation Critical Care <Tatyana Gregg MD - Last Filed: 05/24/24 06:57> Critical Care Time Critical Care Time: Yes Attestation: On 05/24/24, the high probability of a clinically significant, sudden or life threatening deterioration of the following system(s) (endocrine, neuro) required my full and direct attention, intervention and personal management. The time I documented below is in addition to time spent performing reported procedures but includes the following listed in this critical care notation. Total Time Total Critical Care Time: 35
[2024-05-24] MEDS: DEXTROSE 10 % IN WATER 500 ML 250 ML IV (04:55)
[2024-05-24 05:00] VITALS: BP 151/82; PULSE 85; O2SAT 95
[2024-05-24 05:00] LABS: Basophils # 0.1 K/mm3 (0-0.2); Basophils % 0.9 % (0.1-2.0); Eosinophils # 0.4 K/mm3 (0.0-0.4); Eosinophils % 2.9 % (0.1-12.0); Hematocrit 42.4 % (42.0-52.0); Hemoglobin 14.4 g/dL (14.1-18.0); Lymphocytes # 6.2 K/mm3 (0.7-4.5); Lymphocytes % 48.4 % (10-50); Mean Corpuscular Hemoglobin 30.8 pg (27.0-31.2); Mean Corpuscular Volume 90.4 fl (80-94); Mean Platelet Volume 8.4 fl (7.4-10.4); Monocytes % 7.7 % (1.7-9.3); Neutrophils # 5.2 K/mm3 (1.8-7.8); Neutrophils % 40.1 % (37.0-80.0); Platelet Count 338 K/mm3 (142-424); Red Blood Count 4.69 M/mm3 (4.60-6.20); Red Cell Distribution Width 14.2 % (11.5-17.5); White Blood Count 12.8 K/mm3 (4.8-10.8)
[2024-05-24 05:12] LABS: Alanine Aminotransferase 18 U/L (12-78); Albumin Level 4.1 g/dl (3.5-5.0); Albumin/Globulin Ratio 1.3 (1.1-1.8); Alkaline Phosphatase 59 U/L (38-126); Anion Gap 8.8 mEq/L (5-15); Aspartate Amino Transferase 25 U/L (17-59); Bilirubin,Total 0.6 mg/dl (0.2-1.3); Blood Urea Nitrogen 13 mg/dl (9-20); Calcium 9.7 mg/dl (8.4-10.2); Carbon Dioxide 29 mmol/L (22.0-30.0); Chloride 105 mmol/L (98-107); Creatinine Clearance Estimated 81 mL/min (50-200); Estimated Glomerular Filt Rate 84 ml/min (>60); GFR (African American) 101 ML/MIN (>60); Globulin 3.2 g/dL (1.3-3.2); Glucose 51 mg/dl (74-100); Potassium 3.8 mmoL/L (3.5-5.1); Sodium 139 mmol/L (136-145); Total Protein,Serum 7.3 g/dl (6.3-8.2)
[2024-05-24 05:20] VITALS: BP 181/98; PULSE 80; O2SAT 97
[2024-05-24 05:28] LABS: Free T4 (Free Thyroxine) 0.98 ng/dl (0.78-2.19)
[2024-05-24 05:33] LABS: Microscopic, Urine URINE MICROSCOPIC (MICROSCOPIC)
[2024-05-24 05:41] LABS: Bilirubin,Urine Negative (Negative); Blood, Urine 3+ (Negative); Glucose,Urine (UA) Negative (Negative); Ketones,Urine Negative (Negative); Leukocyte Esterase,Urine Negative (Negative); Nitrate,Urine Negative (Negative); Protein,Urine 2+ (Negative); Specific Gravity, Urine 1.025 (1.005-1.030); Urobilinogen,Urine 0.2 EU/dl (0.2)
[2024-05-24 05:43] LABS: Appearance,Urine Cloudy (Clear); Color,Urine Dark Yellow (Yellow)
[2024-05-24 05:46] LABS: Bacteria,Urine 1+ /lpf; Calcium Oxalate Crystals,Urine 1+ /lpf; RBC,Urine 20-50 #/hpf (0-3)
[2024-05-24 05:53] LABS: HIV (1&2) Antibody Rapid NONREACTIVE (NONREACTIVE)
[2024-05-24 05:59] LABS: Thyroid Stimulating Hormone 2.59 uIU/mL (0.465-4.68)
--- NOTE | 2024-05-24 07:19 | PC.NURSE ---
Finger Blood Sugar is 101 at this time.
[2024-05-24 08:20] VITALS: BP 181/98; PULSE 80; RESP 16; TEMP 36.7; O2SAT 97
[2024-05-25 09:33] LABS: HCV Ab Non Reactive (Non Reactive)
== END 2024-05-24 08:21 | disposition home or self-care (01) ==
PROVIDERS: Emergency Medicine; Emergency Provider Emergency Medicine; PCP Internal Medicine
DX: E16.2 Hypoglycemia, unspecified (principal); R31.9 Hematuria, unspecified; H53.8 Other visual disturbances; R25.9 Unspecified abnormal involuntary movements
CPT/HCPCS: 80053; 81001; 84439; 84443; 85025; 86803; 87389; 99291

== ENCOUNTER → 2025-01-23 20:29 | Outpatient (CLI) | payer MEDICARE, SELFPAY ==
--- OUTSIDE RECORDS SUMMARY | 2025-01-23 20:34 | XMS_ITS | Encounter Summary ---
Author Organization Address [address] [place] [address] Care Team Providers Care Vamp Creaser Name Role Phone Cristhian Marino MD Primary Care Provider [phone] Natan Eaton DMD Unavailable [phone] Pancho Hood Unavailable Unavailabl e Arie Bateman S Unavailable Unavailable Caitie Burton DMD Unavailable [phone] Chinyere Artis Unavailable Unavailable Jude Pacheco DO Primary Care Provider [phone] Encounter Details Date Type Department Care Team (Late st Contact Info) Description 12/25/2020 Abstract [facility] [address] [place] [address] [employer] Dental caries on smooth surface limited to enamel Social History Tobacco Use Types Packs/Day Years Used Date Smoking Tobacco: Every Day Comments:Cigar smoker Alcohol Use Standard Drinks/Week Comments Yes 0 (1 standard drink = 0.6 oz pur e alcohol) Sex and Gender Information Value Date Recorded Sex Assigned at Not on file Legal Sex Male 8:38 PM EDT Gender Identity Not on file Sexual Orientation Not on file documented as of this encounter Plan of Treatment Not on file documented as of this encounter Visit Diagnoses Diagnosis Dental caries on smooth surface limited to enamel documented in this encounter Care Teams Vamp Creaser Relationship Specialty Start Date End Date Cristhian Marino MD [address] [place] [address] PCP - General 12/13/20 05/08/24 Jude Pacheco DO [address] [place] [address] PCP - General 05/09/24 Natan Eaton, GEOVANNA [address] [facility] [place] [address] Dentist Dental Disbursing Agent 01/14/21 02/27/22 [employer] Dental Student Dental Disbursing Agent 01/14/21 01/07/22 Arie Bateman [facility]istry Dental Student Dental Disbursing Agent 01/08/22 06/15/23 Caitie Burton DMD [address] [facility] [address] [place] [id number] Dentist Dental Disbursing Agent 02/27/22 06/15/23 [place] [address] [employer] 04/09/22 05/11/22 documented as of this encounter
--- OUTSIDE RECORDS SUMMARY | 2025-01-23 20:34 | XMS_ITS | Data Portability ---
Author Organization [place] - [facility] ADMIN Address [address] [place] [address] Assessment No assessment recorded. Plan of Treatment Reminders Order Date Submit Date Provider Last Modified By Organization Details Last Modified Time Details Appointments None recorded. Lab PSA, total, serum or plasma 2022 023 [email or web address] [facility] (Lab Registration) , [address] [place] [address] [place], [address], 3 14:59:36 Referral None recorded. Procedures None recorded. Surgeries None recorded. Imaging None recorded. Medication Orders tamsulosin 0.4 mg capsule 2022 023 [facility], [address] [place] [address], [id number], 3 13:23:09 Patient TargetsNo targets recorded. Patient InstructionsNo instructions recorded. Reason for Referral None Reported. Results Created Date Observation Date Name Description Value Unit Range Abnormal Flag Note LastModifiedBy Organization Detail LastModifiedTime 06/09/2006/09/2023 PSA, TOTAL (REFL EX TO FREE) note Unles s other norman noted testi ng perfo rmed at: [facility] [address] [place] [address] Rashi gasca MD Not Available [facility] (Pre-Op Clinic) [address] [place] [address] [place], [address], 06/11/2023 04:09:23 06/09/2006/11/2023 PSA, TOTAL (REFL EX TO FREE) prostate specific Ag, serum 0.4 NG/mL 0.0-4. 0 Mariann ECLIA metho dolog y. . Accor ding to the Ameri can Urolo gical Assoc iatio n, Serum PSA shoul d decre ase and remai n at undet ectab le level s after radic al prost atect jet. The AUA defin es bioch emica l recur rence as an initi al PSA value 0.2 ng/mL or great er follo wed by a subse quent confi rmato ry PSA value 0.2 ng/mL or great er. Value s obtai violet with diffe rent assay metho ds or kits canno t be used inter jc eably . Resul ts canno t be inter prete d as absol zuleika evide nce of the prese nce or absen ce of jennifer little se. Not Available [facility] (Pre-Op Clinic) [address] [place] [address] [place], [address], 06/11/2023 04:09:23 06/09/2006/11/2023 PSA, TOTAL (REFL EX TO FREE) reflex criteria Commen t . The perce nt free PSA is perfo rmed on a refle x basis only when the total PSA is betwe en 4.0 and 10.0 ng/mL . Perfo rmed at: - [facility] [place] [id number] [facility] Lab Direc tor: [place] zepeda PhD, Phone : [phone] Not Available [facility] (Pre-Op Clinic) [address] [place] [address] [place], [address], 06/11/2023 04:09:23 Result Notes None recorded. Procedures Surgical History Date Name Laterality Status Provider Name and Address Organization Details Recorded Time Other completed Bettie KIMBLE - CRISTHI[place] - [place] & [place] 06/09/2023 13:10:17 Imaging Results None recorded. Procedure Notes None recorded. Medical Equipment None Reported. Allergies No known drug allergies Medications Name Sig Start Date Stop Date Status Note LastModified by Organization Details LastModified Time atorvastatin 80 mg tablet active Not Available Not Available No t Available doxycycline hyclate 100 mg capsule active Not Available Not Available Not Available meclizine 12.5 mg tablet active Not Available Not Available No t Available omeprazole 40 mg capsule,delayed release active Not Available Not Available Not Available sildenafil 100 mg tablet active Not Available Not Available No t Available tamsulosin 0.4 mg capsule TAKE ONE CAPSULE BY MOUTH 2 TIMES A DAY active Not Available Not Available No t Available simvastatin 20 mg tablet active Not Available Not Available No t Available nortriptyline 10 mg capsule active Not Available Not Availabl e Not Available trazodone 150 mg tablet active Not Available Not Available No t Available hydroxyzine HCl 25 mg tablet active Not Available Not Available Not Available albuterol sulfate HFA 90 mcg/actuation aerosol inhaler active Not Available Not Availa ble Not Available ondansetron 4 mg disintegrating tablet active Not Available Not Available Not Available metformin ER 500 mg tablet,extended release 24 hr active Not Available Not Availabl e Not Available doxycycline hyclate 100 mg tablet active Not Available Not Available Not Available amoxicillin 875 mg-potassium clavulanate 125 mg tablet active Not Available Not Available No t Available bupropion HCl XL 300 mg 24 hr tablet, extended release active Not Available Not Available Not Available bupropion HCl XL 150 mg 24 hr tablet, extended release active Not Available Not Available Not Available fenofibrate nanocrystallize d 48 mg tablet active Not Available Not Availab le Not Available Vitals Date Recorded Body temperature Body weight Provider N aby and Address Organization Details Last Updated DateTime 06/09/2023 97 [degF] 21741.51 g [facility] [place] & [place] 06/09/2023 13:10:12 Social History None recorded. Functional Status None recorded. Mental Status None recorded. Family History Nothing Reported. Medical History No medical history recorded. Past Encounters Encounter ID Performer Location Encounter Start Date Encounter Closed Date Diagnosis/Indication Diagnosis SNOMED-CT Code Diagnosis ICD10 Code Diagnosis Note [id number] Charles Thurman M.D [facility]3] [facility] [address] 06/09/2023 12:57:28 06/09/2023 13:28:54 Benign prostatic hyperplasia with outflow obstruction 257350574 N40.1 RTc 4-6 weeks for pvrfollow up response to tx Screening for malignant neoplasm of prostate 445691467 Z12.5 repeat PSA screening in 1 year Health Concerns Section Related Observation LastModified by Organization Detai ls LastModified Time None Recorded Concern Status LastModified by Organization Details LastModified Time None Recorded Advance Directives Directive None Recorded Payers Insurance Date Sequence Insurance Name Policy Number Policy Em Covered Member ID Em Member ID Guarantor Name 02/19/2024 1 MEDICARE-[place] (MEDICARE) Henrique lSoan [id number] Henrique Sloan Notes Date Note Type Note Provider Name and Address Organization Details Recorded Time 06/09/2023 text/html pt is here for follow uphe has been on HRT in the past but not recentlyhe notes he is forgetfulhe has incontinence of urine and wears a diaperhe has been on flomax in the past but is not sure if he is currently using Flomax. He did have a medicine bottle with him and is empty.He denies any gross blood in the urine Charles Thurman M.D [address] [place] [address], [address], [place], [address], [facility] - [place] [facility] [place] 06/11/2023 17:02:20
--- OUTSIDE RECORDS SUMMARY | 2025-01-23 20:34 | XMS_ITS | Encounter Summary ---
Author Organization [facility] Address [address] [place] [address] Care Team Providers Care Wildlife Technician Name Role Phone Jude Pacheco DO Primary Care Provider [phone] Reason for Visit * Reason Comments Med Refill Encounter Details Date Type Department Care Team (Late st Contact Info) Description 12/14/2024 [facility] [address] [place] [address] Estella Rosales, OCCASIONAL CAREGIVER [address] [facility] [address] [place] [address] Social History Tobacco Use Types Packs/Day Years Used Date Smoking Tobacco: Every Day Cigars Smokeless Tobacco: Never Comments:Cigar smoker Alcohol Use Standard Drinks/Week Comments Yes 0 (1 standard drink = 0.6 oz pur e alcohol) occasional PHQ-2 Answer Date Recorded Patient Health Questionnaire-2 Score 0 05/31/2024 CAGE ASSESSMENT Answer Date Recorded Cage unable to access Not on file 04/06/2022 Maximum number of drinks you had on a given occasion in the last month? 0 drinks 04/06/2022 How many alcoholic Beverages do you typically drink in a week? 0 - 7 per week 04/06/2022 Have you ever felt you should CUT down on your d rinking? 0 04/06/2022 Have you been ANNOYED by peo ple criticizing your drinking? 0 04/06/2022 Have you felt GUILTY about your drinking? 0 04/06/2022 Have you had a drink first t vishal in the morning (EYE-PREDATORY ANIMAL EXTERMINATOR) to steady your nerves or to get rid of a hangover? 0 04/06/2022 CAGE Questionnaire Score 0 022 Sex and Gender Information Value Date Recorded Sex Assigned at Not on file Legal Sex Male 8:38 PM EDT Gender Identity Not on file Sexual Orientation Not on file documented as of this encounter Miscellaneous Notes * Telephone Encounter - Avani Quiñones PharmD - 12/14/2024 10:51 AM EDT Refill request does not meet protocol. Sending to clinic for review. Additional info: Clarification required: Per current med list, directions have changed. Please review. documented in this encounter Plan of Treatment Not on file documented as of this encounter Visit Diagnoses Not on filedocumented in this encounter Additional Health Concerns Assessment Noted Time A fall risk assessment has been complete d for the patient 09/07/2024 3:44 PM EST A Body Mass Index follow-up plan has been documented for the patient 09/07/2024 4:29 PM EST documented as of this encounter Care Teams Wildlife Technician Relationship Specialty Start Date End Date Jude Pacheco DO [address] [place] [address] PCP - General 05/09/24 documented as of this encounter
--- OUTSIDE RECORDS SUMMARY | 2025-01-23 20:34 | XMS_ITS | Encounter Summary ---
Author Organization [facility] Address [address] [place] [address] Care Team Providers Care Organic Extractions Technician Name Role Phone Jude Pacheco DO Primary Care Provider [phone] Reason for Visit * Reason Comments Med Refill Encounter Details Date Type Department Care Team (Late st Contact Info) Description 12/24/2024 Refill [facility] Diabetes Education [address] [place] [address] Mitali Dominguez, WARDROBE ATTENDANT [address] [facility] [address] [place] [address] Social History Tobacco Use Types [...] drink first t vishal in the morning (EYE-MICA MINER BLASTING) to steady your nerves or to get rid of a hangover? 0 04/06/2022 CAGE Questionnaire Score 0 022 Sex and Gender Information Value Date Recorded Sex Assigned at Not on file Legal Sex Male 8:38 PM EDT Gender Identity Not on file Sexual Orientation Not on file documented as of this encounter Miscellaneous Notes * Telephone Encounter - Beatriz Wolf, PharmD - 12/26/2024 10:25 AM EDT Refill request does not meet protocol. Sending to clinic for review. Additional info: Clarification required: No recent labs. documented in this encounter Plan of Treatment [...] documented as of this encounter Care Teams Organic Extractions Technician Relationship Specialty Start Date End Date Jude Pacheco DO [address] [place] [address] PCP - General 05/09/24 documented as of this encounter
--- OUTSIDE RECORDS SUMMARY | 2025-01-23 20:34 | XMS_ITS ---
Author Organization Unknown TREATMENT PLAN [facility] Start Date Provider Encounter for Check-up [id number] [facility]
--- OUTSIDE RECORDS SUMMARY | 2025-01-23 20:34 | XMS_ITS | Encounter Summary ---
Author Organization [facility] Address [address] [place] [address] Care Team Providers Care Plastic Extrusion Operator Name Role Phone Cristhian Marino MD Primary Care Provider [phone] Arie Bateman Unavailable Unavailable Caitie Burton DMD Unavailable [phone] Jude Pacheco DO Primary Care Provider [phone] Encounter Details Date Type Department Care Team (Late st Contact Info) Description 01/19/2023 [facility] [address] [place] [address] Severino Hernandez, ELEVATOR SERVICEMAN [address] [place] [address] Social History Tobacco Use Types Packs/Day Years Used Date Smoking Tobacco: Every Day Cigars Smokeless Tobacco: Never Comments:Cigar smoker Alcohol Use Standard Drinks/Week Comments Yes 0 (1 standard drink = 0.6 oz pur e alcohol) occasional CAGE ASSESSMENT Answer Date Recorded Cage unable [...] drink first t vishal in the morning (EYE-ANIMAL HUSBANDRY TEACHER) to steady your nerves or to get [...] has been complete d for the patient 2022 3:06 PM EST documented as of this encounter Care Teams Plastic Extrusion Operator Relationship Specialty Start Date End Date Cristhian Marino MD [address] [facility] [address] [place] [address] PCP - General 12/13/20 05/08/24 Jude Pacheco DO [address] [place] [address] PCP - General 05/09/24 Arie Bateman [employer] Dental Student Dental Aoc Aadc Operations Staff Officer 01/08/22 06/15/23 Caitie Burton DMD [address] [facility] [address] [place] [address] Dentist Dental Aoc Aadc Operations Staff Officer 02/27/2206/15 documented as of this encounter
--- OUTSIDE RECORDS SUMMARY | 2025-01-23 20:34 | XMS_ITS | Clinical Summary ---
Author Organization [facility] Address [address] [place] [address] Care Team Providers Care Study Abroad Advisor Name Role Phone Jude Pacheco Jacinta Primary Care Provider [phone] Allergies Active Allergy Reactions Criticality Noted Date Comments Codeine Itching Medium 02/09/2019 Medications buPROPion XL (Wellbutrin XL) 150 MG 24 hr tablet TAKE 1 TABLET DAILY. 03/17/20 19 Active fenofibrate (Tricor) 145 MG tablet TAKE 1 TABLET DAILY. 03/17/20 19 Active Lancet Device misc use to check blood sugar 2 times a day. DX: E11.9 12/01/19 Active Lancets Ultra Thin 30G misc USE 3 TIMES DAILY FOR DIABETIC TESTING 12/01/19 20 Active metoprolol succinate XL (Toprol-XL) 100 MG 24 hr tablet TAKE 1 TABLET ONCE DAILY. 03/17/20 19 Active nortriptyline (Pamelor) 10 MG capsule TAKE 1 CAPSULE 3 TIMES DAILY. 03/17/20 19 Active tiZANidine (Zanaflex) 4 MG tablet 03/17/20 19 Active ibuprofen 800 MG tablet Take 1 tablet (800 mg total) by mouth every 8 (eight) hours if needed for mild pain. 24 tablet 01/29/20 21 Active oxyCODONE-acet aminophen (Percocet) 5-325 MG tablet Active tamsulosin (Flomax) 0.4 MG 24 hr capsule tamsulosin 0.4 mg capsule Daily Active topiramate (Topamax) 200 MG tablet topiramate 200 mg tablet Active atenolol (Tenormin) 50 MG tablet atenolol 50 mg tablet Daily Active simvastatin (Zocor) 20 MG tablet 03/07/20 24 Active meclizine (Antivert) 12.5 MG tablet 12/23/19 24 Active omeprazole (PriLOSEC) [address] capsule 12/23/19 24 Active donepezil (Aricept) 10 MG tablet 12/23/19 24 Active hydrOXYzine HCl (Atarax) 25 MG tablet 07/13/20 23 Active Blood Glucose Monitoring Suppl (Paratek ULTRA 2) w/Device kit device kitIndications :Type 2 diabetes mellitus with diabetic polyneuropathy , with long-term current use of insulin (CMS/HCC) Use as instructed 1 kit 1 03/29/20 24 Active Glucose Blood (Blood Glucose Test) stripIndicatio ns:Type 2 diabetes mellitus with diabetic polyneuropathy , with long-term current use of insulin (CMS/HCC) Use as directed up to 4 times per day 100 strip 11 03/29/20 24 Active traZODone (Desyrel) 150 MG tablet Active insulin syringe-needle U-100 (UltiCare Insulin Syringe) 31G X 5/16 1 mL miscIndication s:Type 2 diabetes mellitus with diabetic polyneuropathy , with long-term current use of insulin (CMS/HCC) USE TO INJECT INSULIN TWO TIMES A DAY. 50 each 1 06/08/20 24 Active insulin NPH-insulin regular (INSULIN NPH ISOPHANE & REGULAR HUMAN INJ) (70-30) 100 UNIT/ML SC injection vial INJECT 70 UNITS UNDER THE SKIN BEFORE BREAKFAST AND BEFORE DINNER. TITRATE DIRECTED. MAX DAILY DOSE OF 160 UNITS 50 mL 3 09/07/19 25 Active metFORMIN XR (Glucophage-XR ) 500 MG 24 hr tablet Take 1 tablet by mouth 2 times a day. 180 tablet 1 12/15/19 25 Active pioglitazone (Actos) 30 MG tablet TAKE 1 TABLET BY MOUTH EVERY DAY 30 tablet 3 12/27/19 25 Active pioglitazone (Actos) 15 MG tablet Take 2 tablets (30 mg) by mouth 1 (one) time each day. 60 tablet 3 09/07/19 25 05/27/2 025 Discontinued Active Problems Problem Noted Date Diagnosed Date Type 2 diabetes mellitus wit h hyperglycemia, with long-term current use of insulin 03/17/2019 Depression 04/03/2016 Diabetic peripheral neuropathy 04/03/2016 ED (erectile dysfunction) of non-organic origin 04/03/2016 Esophagitis, reflux 04/03/2016 Overview (12/26/2021): Assessed By: Alesia Dow; Last Assessed: 28 May 2014 Headache, migraine 04/03/2016 Overview (12/26/2021): Assessed By: Misael España (Neurology); Last Assessed: 23 May 2015 Hyperlipidemia 04/03/2016 Overview (12/26/2021): Assessed By: Alex Hernandez (Internal Medicine); Last Assessed: 19 Jul 2013 Hypertension 04/03/2016 Overview (12/26/2021): Assessed By: Alex Hernandez (Internal Medicine); Last Assessed: 19 Jul 2013 Insomnia 04/03/2016 Overview (12/26/2021): Assessed By: Re Stauffer; Last Assessed: 07 Jun 2014 Nephrolithiasis 04/03/2016 Overview (12/26/2021): Assessed By: Alex Hernandez (Internal Medicine); Last Assessed: 19 Jul 2013 Obstructive sleep apnea 04/03/2016 Overview (12/26/2021): Assessed By: Misael España (Neurology); Last Assessed: 23 May 2015 Encounters Date Type Department Care Team Description 12/24/2024 [facility] Diabetes [place] [address] [place] [address] Mitali Dominguez, ASSISTANT DIRECTOR OF ADMISSIONS 12/14/2024 Refill [facility] Endocrinology [address] [place] [address] Estella Rosales, ASSISTANT DIRECTOR OF ADMISSIONS from Last 3 Months Family History Medical History Relation Name Comments Hypertension Brother Hypertension Father Lung cancer Father Stroke Father Hypertension Father's Brother Hypertension Father's Sister Hypertension Maternal Grandfather Lung cancer Maternal Grandfather Hypertension Mother Lung cancer Mother Hypertension Mother's Brother Hypertension Mother's Sister Hypertension Paternal Grandfather Stroke Paternal Grandmother Relation Name Status Comments Brother Father Father's Brother Father's Sister Maternal Grandfather Mother Mother's Brother Mother's Sister Paternal Grandfather Paternal Grandmother Social History Tobacco Use Types Packs/Day Years Used Date Smoking Tobacco: Every Day Cigars Smokeless Tobacco: Never Tobacco Cessation:Ready to Q uit: Not Asked; Counseling Given: Not Answered Comments:Cigar smoker Alcohol Use Standard Drinks/Week Comments [...] drink first t vishal in the morning (EYE-CONVENTIONS ASSISTANT) to steady your nerves or to get rid of a hangover? 0 04/06/2022 CAGE Questionnaire Score 0 022 Sex and Gender Information Value Date Recorded Sex Assigned at Not on file Legal Sex Male 8:38 PM EDT Gender Identity Not on file Sexual Orientation Not on file Last Filed Vital Signs Vital Sign Reading Time Taken Comments Blood Pressure 176/83 09/07/2024 4:12 PM EST Pulse 80 09/07/2024 4:12 PM EST Temperature 37.1 C (98.7 F) 04/06/2022 8:26 AM EDT Respiratory Rate 15 04/06/2022 12:22 PM EDT Oxygen Saturation 98% 04/06/2022 12:22 PM EDT Inhaled Oxygen Concentration - - Weight 89.7 kg (197 lb 12 oz) 09/07/2024 3:40 PM EST Height 170.2 cm (5' 7 ) 09/07/2024 3:40 PM EST Body Mass Index 30.97 09/07/2024 3:40 PM EST Plan of Treatment Health Maintenance Due Date Last Done Comments Dental Oral Exam 1954 Dental Prophylaxis 1954 Dental X-Ray: Bitewings 1954 Dental X-Ray: Full Mouth 1955 [facility] Annual Wellness (AWV) 1955 [facility]-Infant/Child/Adol SDOH Screenings 1954 Diabetes: Dental Exam 1964 [facility]- SDOH Screenings 1972 [facility]-Adult SDOH Screenings 1972 [facility]-DTaP,Tdap,and Td Vaccines (1 - Tdap) 1973 [facility]-Pneumococcal Vaccine: 50+ Years (1 of 2 - PCV) 1973 CT Colonography 1999 Colonoscopy 1999 FIT-DNA 1999 FIT 1999 FOBT 1999 Sigmoidoscopy 1999 [facility]-Colorectal Cancer Screening 1999 [facility]-Zoster Vaccines (1 of 2) 2004 [facility]-RSV Vaccine: 60+ Years or (1 - Risk 60-74 years 1-dose series) 2014 [facility]-Abdominal Aortic Aneurysm (AAA) Screening 2019 LUG-EZSCW-24 Vaccine ( - season) 2024 [facility]-Diabetes: Hemoglobin A1C 12/07/202412/2024, 03/29/2024, 2022, Additional history exists [facility]-Influenza Vaccine (Season Ended) 2025 [facility]-Depression Screening 05/31/2025 05/31/2024 [facility]-Hepatitis C Screening Completed 07/10/2020, [facility]-Obesity Intervention Completed 025, 05/31/2024, 05/09/2024, Additional history exists HPV Vaccines Aged Out No longer eligi ble based on patient's age to complete this topic [facility]-HIB Vaccines Aged Out No longer e ligible based on patient's age to complete this topic [facility]-Hepatitis A Vaccines Aged Out No longer eligible based on patient's age to complete this topic [facility]-IPV Vaccines Aged Out No longer e ligible based on patient's age to complete this topic [facility]-Rotavirus Vaccines Aged Out No lo nger eligible based on patient's age to complete this topic Procedures Procedure Name Priority Date/Time Associated Diagnosis Comments POCT GLYCOSYLATED HEMOGLOBIN (HGB A1C) Routine 09/07/2024 3:50 PM EST Type 2 diabetes mellitus with hyperglycemia, with long-term current use of insulin (CMS/HCC) HEPATITIS C ANTIBODY - ED W/REFLEX TO HCV QUANT PCR Routine 07/10/2020 4:25 PM EST from Last 3 Months or Most Recently Relevant to Health Maintenance Results * (ABNORMAL) POCT glycosylated hemoglobin (Hb A1C) (09/07/2024 3:50 PM EST) Pathologist [facility] POCT Hemoglobin A1C 10.6 <5.7% Non-Diabet ic % [facility] Kit Lot Number [id number] [facility] Kit Expiration Date 06/27 [facility] Blood Venous blood specimen / Unknown 09/07/2024 3:50 PM EST us Mitali Dominguez ASSISTANT DIRECTOR OF ADMISSIONS POINT OF CARE TEST ENTER /EDIT ORDERABLES Final Result [facility] [address] [place] [address] * [place] Hepatitis C Antibody (07/10/2020 4:25 PM EST) [facility] NEGATIVE Reference Range: Negative [facility] 07/10/2020 4:25 PM EST 07/10/2020 4:44 PM EST us Ray Mccallum MD LAB BLOOD ORDERABLES Final Result [facility]QUEST from Last 3 Months or Most Recently Relevant to Health Maintenance Insurance MEDICARE Member Subscriber Plan / Payer (Ef fective 2019-Present) Name:Henrique Sloan Sergio Member ID:[id number] Relation to Subscriber:Self Name:Henrique Sloan Subscriber ID:[id number] Payer ID:MEDICARE Group ID:Not on file Type:Medicare Address: [address] Care Teams Study Abroad Advisor Relationship Specialty Start Date End Date Jude Pacheco DO [address] [place] [address] PCP - General 05/09/24
--- OUTSIDE RECORDS SUMMARY | 2025-01-23 20:34 | XMS_ITS | Encounter Summary ---
Author Organization [facility] Address [address] [place] [address] Care Team Providers Care Glove Examiner Name Role Phone Cristhian Marino MD Primary Care Provider [phone] Natan Eaton DMD Unavailable [phone] Pancho Hood Unavailable Unavailabl e Arie Bateman S Unavailable Unavailable Caitie Burton DMD Unavailable [phone] Chinyere Artis Unavailable Unavailable Jude Pacheco DO Primary Care Provider [phone] Encounter Details Date Type Department Care Team (Late st Contact Info) Description 12/25/2020 Abstract [facility] [address] [place] [address] [employer] Dental caries [...] enamel documented in this encounter Care Teams Glove Examiner Relationship Specialty Start Date End Date Cristhian Marino MD [address] [place] [address] PCP - General 12/13/20 05/08/24 Jude Pacheco DO [address] [place] [address] PCP - General 05/09/24 Natan Eaton, GEOVANNA [address] [facility], [address] [place] [address] Dentist Dental Pulmonology Physician 01/14/21 02/27/22 [employer] Dental Student Dental Pulmonology Physician 01/14/21 01/07/22 Arie Bateman [facility] Dental Student Dental Pulmonology Physician 01/08/22 06/15/23 Caitie Burton DMD [address] [facility] [address] [place] [id number] Dentist Dental Pulmonology Physician 02/27/22 06/15/23 [place] [address] [employer] Navigator 04/09/22 05/11/22 documented as of this encounter
== END ==
LOC: SL 20:32
PROVIDERS: PCP Family Medicine; Visit Provider Family Medicine
DX: G47.61 Periodic limb movement disorder; G47.36 Sleep related hypoventilation in conditions classified elsewhere; G47.33 Obstructive sleep apnea (adult) (pediatric)
CPT/HCPCS: 95810

== ENCOUNTER 2025-02-19 14:52 | Observation (INO) | payer MEDICARE, SELFPAY ==
[2025-02-19] VITALS (10 sets, daily range): BP systolic 134–165; BP diastolic 65–92; PULSE 89–97; RESP 14–18; TEMP 37.2; O2SAT 93–97; BMI 31.3
--- NOTE | 2025-02-19 15:09 | CA_ITS ---
FINAL REPORT TECHNIQUE: Compression byrnes scale and Doppler evaluation CLINICAL HISTORY: RT CALF EDEMA,RT GREAT TOE IS RED AND SWOLLEN FINDINGS: Femoral and popliteal veins show normal compressibility and flow. Visualized portion of the calf veins are patent by Doppler exam. IMPRESSION: No evidence of right lower extremity deep venous thrombosis Reviewed, Interpreted and Dictated by Danny Barrios MD Transcribed by Antoinette Licea Authenticated and [facility]
--- NOTE | 2025-02-19 15:09 | CT_ITS ---
PROCEDURE INFORMATION: Exam: CT Right Lower Extremity With Contrast, Foot Exam date and time: 02/19/2025 5:30 PM Age: 69 years old Clinical indication: Swelling, leg or foot; Additional info: Great toe redness, foot swelling and pain TECHNIQUE: Imaging protocol: CT of the right lower extremity with intravenous contrast was performed. Exam focused on the foot. Radiation optimization: All CT scans at this facility use at least one of these dose optimization techniques: automated exposure control; mA and/or kV adjustment per patient size (includes targeted exams where dose is matched to clinical indication); or iterative reconstruction. Contrast material: ISOVUE; Contrast volume: 120 ml; Contrast route: IV; COMPARISON: CR XR FOOT WT BEARING RT 3V 03/08/2023 3:15 PM FINDINGS: Bones/joints: No suspicious osseous erosions or rim enhancing fluid collections. Soft tissues: Moderate soft tissue swelling with postcontrast enhancement of the bilateral lower extremities, greatest at the right great toe with markers. IMPRESSION: Moderate soft tissue swelling with postcontrast enhancement of the bilateral lower extremities, greatest at the right great toe with markers. No suspicious osseous erosions or rim enhancing fluid collections.
--- OUTSIDE RECORDS SUMMARY | 2025-02-19 15:11 | XMS_ITS | Encounter Summary ---
Author Organization [facility] Address [address] [place] [address] Care Team Providers Care Social Media Designer Name Role Phone Cristhian Marino MD Primary Care Provider [phone] Natan Eaton DMD Unavailable [phone] Pancho Hood Unavailable Unavailabl e Arie Bateman S Unavailable Unavailable Caitie Burton DMD Unavailable [phone] Chinyere Artis Unavailable Unavailable Jude Pacheco DO Primary Care Provider [phone] Encounter Details Date Type Department Care Team (Late st Contact Info) Description 12/25/2020 Abstract DSB [facility] [address] [place] [address] [employer] Dental caries [...] enamel documented in this encounter Care Teams Social Media Designer Relationship Specialty Start Date End Date Cristhian Marino MD [address] [place] [address] PCP - General 12/13/20 05/08/24 Jude Pacheco DO [address] [place] [address] PCP - General 05/09/24 Natan Eaton, GEOVANNA [address] [facility], [address] [place] [address] Dentist Dental Mortgage Or Loan Underwriter 01/14/21 02/27/22 [employer] Dental Student Dental Mortgage Or Loan Underwriter 01/14/21 01/07/22 Arie Bateman [facility] Dental Student Dental Mortgage Or Loan Underwriter 01/08/22 06/15/23 Caitie Burton DMD [address] [facility] [address] [place] [id number] Dentist Dental Mortgage Or Loan Underwriter 02/27/22 06/15/23 [place] [address] [employer] Navigator 04/09/22 05/11/22 documented as of this encounter
--- OUTSIDE RECORDS SUMMARY | 2025-02-19 15:11 | XMS_ITS | Clinical Summary ---
Author Organization [facility] Address [address] [place] [address] Care Team Providers Care Children'S Service Supervisor Name Role Phone Luisa Golden Salo DUMONT Primary Care Provider [phone] Allergies Active Allergy Reactions Criticality Noted Date Comments Codeine Itching Medium 02/09/2019 Medications Coenzyme Q-10 200 MG capsuleIndicatio ns:Migraine without aura and without status migrainosus, not intractable TAKE ONE CASPULE BY MOUTH DAILY 30 each 4 7 Active SUMAtriptan (IMITREX) 100 MG tabletIndication s:Migraine without aura and without status migrainosus, not intractable TAKE ONE TABLET BY MOUTH ONE TIME NEEDED FOR MIGRAINE 9 tablet 5 8 Active nortriptyline (PAMELOR) 10 MG capsuleIndicatio ns:Migraine without aura and without status migrainosus, not intractable Take 1 capsule by mouth 2 (Two) Times a Day. 60 capsule 1 8 Active magnesium oxide (MAGOX) 400 (241.3 Mg) MG tablet tabletIndication s:Migraine without aura and without status migrainosus, not intractable Take 1 tablet by mouth Daily. 30 tablet 1 8 Active Riboflavin 400 MG tabletIndication s:Migraine without aura and without status migrainosus, not intractable Take 1 tablet by mouth Daily. 30 tablet 1 8 Active ASPIRIN 81 PO Take by mouth. 3 Active Blood Glucose Monitoring Suppl ([employer]yle [place] Lite) w/Device kit 10/30/201 3 Active glucose blood test strip FreeStyle Lite Test In Vitro Strip; Patient Sig: FreeStyle Lite Test In Vitro Strip TEST as directed once daily; 300; 3; 19-Jan-2013; Active 3 Active atenolol (TENORMIN) 50 MG tablet atenolol 50 mg tablet Daily 3 Active glipizide (GLUCOTROL) 10 MG tablet Take by mouth. 3 Active insulin NPH-insulin regular (NovoLIN 70/30) (70-30) 100 UNIT/ML injection Inject 70 units before breakfast and before dinner. Titrate as directed to MDD of 140 units 3 Active sildenafil (VIAGRA) 100 MG tablet 3 Active omeprazole (priLOSEC) 40 MG capsule 3 Active Potassium Citrate ER (Urocit-K 15) 15 MEQ (1620 MG) tablet controlled-relea se Take by mouth. 4 Active tamsulosin (FLOMAX) 0.4 MG capsule 24 hr capsule 3 Active triazolam (HALCION) 0.25 MG tablet Take by mouth. 3 Active metFORMIN ER (GLUCOPHAGE-XR) 500 MG 24 hr tablet Take 2 tablets by mouth Daily With Breakfast for 180 days. 180 tablet 3 3 Active fenofibrate (TRICOR) 48 MG tablet Take 1 tablet by mouth Daily. 90 tablet 3 3 Active simvastatin (ZOCOR) 20 MG tablet Take 1 tablet by mouth Daily. 90 tablet 3 3 Active buPROPion XL (FORFIVO XL) 450 MG 24 hr tabletIndication s:Major depressive disorder, recurrent, mild Take 1 tablet by mouth Daily. 90 tablet 1 3 Active Active Problems Problem Noted Date Diagnosed Date Leg edema, right 09/29/2016 Acute right ankle pain 09/29/2016 Acute pain of right knee 09/29/2016 Arthralgia of multiple sites 09/29/2016 Depression 04/03/2016 Diabetes mellitus 04/03/2016 Overview (04/03/2016): Assessed By: Laura Lee (Internal Medicine); Last Assessed: 17 Aug 2014 ED (erectile dysfunction) of non-organic origin 04/03/2016 Esophagitis, reflux 04/03/2016 Overview (04/03/2016): Assessed By: Alesia Dow; Last Assessed: 28 May 2014 Hyperlipidemia 04/03/2016 Overview (04/03/2016): Assessed By: Alex Hernandez (Internal Medicine); Last Assessed: 19 Jul 2013 Hypertension 04/03/2016 Overview (04/03/2016): Assessed By: Alex Hernandez (Internal Medicine); Last Assessed: 19 Jul 2013 Hypogonadism male 04/03/2016 Overview (04/03/2016): Assessed By: Estelle Berger (Family Medicine); Last Assessed: 28 May 2014 Insomnia 04/03/2016 Overview (04/03/2016): Assessed By: Re Stauffer; Last Assessed: 07 Jun 2014 Headache, migraine 04/03/2016 Overview (04/03/2016): Assessed By: Misael Espaañ (Neurology); Last Assessed: 23 May 2015 Nephrolithiasis 04/03/2016 Overview (04/03/2016): Assessed By: Alex Hernandez (Internal Medicine); Last Assessed: 19 Jul 2013 Obstructive sleep apnea 04/03/2016 Overview (04/03/2016): Assessed By: Misael España (Neurology); Last Assessed: 23 May 2015 Pain, joint, shoulder 04/03/2016 Diabetic peripheral neuropathy 04/03/2016 Family History Medical History Relation Name Comments Cancer Father Hypertension Father Cancer Mother Hypertension Mother Heart disease Other 1 GM Stroke Other 1 GM Hypertension Other 2 AUNT Hypertension Other 3 UNCLE Relation Name Status Comments Father Mother Other 1 GM Other 2 AUNT Other 3 UNCLE Alive Social History Tobacco Use Types Packs/Day Years Used Date Smoking Tobacco: Every Day Cigars Started: 08/02/2002 Tobacco Cessation:Ready to Q uit: No Comments:1-2 cigars daily Alcohol Use Standard Drinks/Week Comments Yes 0 (1 standard drink = 0.6 oz pur e alcohol) 2 beers monthly Abuse Screen Answer Date Recorded Unsafe at Home or Work/School Not on file Feels Threatened by Someone? Not on file 03/2023 Does Anyone Keep You from Co ntacting Others or Doint Things Outside the Home? Not on file 05/09/2023 Physical Sign of Abuse Present Not on file 1 Housing Stability Answer Date Recorded Current Living Arrangements Not on file 03/2023 Potentially Unsafe Housing Conditions Not on ander e 05/09/2023 Family and Community Support Answer Todd e Recorded Help with Day-to-Day Activities Not on file 05/09/2023 Lonely or Isolated Not on file 05/09/2023 Employment Answer Date Recorded Do you want help finding or keeping work or a dhaval b? Not on file 05/09/2023 Disabilities Answer Date Recorded Concentrating, Remembering, or Making Decisions Difficulty Not on file 05/09/2023 Doing Errands Independently Difficulty Not on fi le 05/09/2023 Education Answer Date Recorded Help with school or training? Not on file Preferred Language Not on file 05/09/2023 Sex and Gender Information Value Date Recorded Sex Assigned at Not on file Legal Sex Male 10:49 AM EDT Gender Identity Not on file Sexual Orientation Not on file Last Filed Vital Signs Vital Sign Reading Time Taken Comments Blood Pressure 144/84 11/16/2022 5:15 PM EDT Pulse 106 11/16/2022 5:15 PM EDT Temperature 37.1 C (98.7 F) 11/16/2022 5:15 PM EDT Respiratory Rate 18 05/23/2015 10:48 AM EDT Oxygen Saturation 98% 11/16/2022 5:15 PM EDT Inhaled Oxygen Concentration - - Weight 86.4 kg (190 lb 8 oz) 11/16/2022 5:15 PM EDT Height 168.3 cm (5' 6.25 ) 11/16/2022 5:15 PM ED T Body Mass Index 30.52 11/16/2022 5:15 PM EDT Plan of Treatment Health Maintenance Due Date Last Done Comments LIPID PANEL 1955 DIABETIC EYE EXAM 1965 DIABETIC FOOT EXAM 1965 URINE MICROALBUMIN-CREATININ E RATIO (uACR) 1964 Pneumococcal Vaccine 50+ (1 of 2 - PCV) 1973 COLOGUARD 1999 COLON CANCER SCREENING 5 YEA R SIGMOIDOSCOPY 1999 COLONOSCOPY 1999 COLORECTAL CANCER SCREENING 1999 CT COLONOGRAPHY 1999 FECAL OCCULT BLOOD TEST 1999 FIT Testing (1 year) 1999 ZOSTER VACCINE (1 of 2) 2004 ANNUAL WELLNESS VISIT 12/08/2016 HEPATITIS C SCREENING 12/08/2016 TDAP/TD VACCINES (2 - Td or Tdap) 12/23/2022 013 COVID-19 Vaccine (1 - 2023-2 5 season) 2024 HEMOGLOBIN A1C 12/05/2024 09/07/2024, 03/03, 11/16/2022, Additional history exists INFLUENZA VACCINE 05/02/2025 AAA SCREEN ONCE Completed 09/23/2020, 09/03, 01/17/2014, Additional history exists Procedures Procedure Name Priority Date/Time Associated Diagnosis Comments POCT GLYCOSYLATED HEMOGLOBIN (HGB A1C) Routine 11/16/2022 5:48 PM EDT Type 2 diabetes mellitus with hyperglycemia, without long-term current use of insulin US ABDOMEN LIMITED Routine 01/17/2014 8: 03 AM EDT from Last 3 Months or Most Recently Relevant to Health Maintenance Results * POC Glycosylated Hemoglobin (Hb A1C) (11/16/2022 5:48 PM EDT) Hemoglobin A1C 8.5 % [facility] Lot Number [id number] [facility] Expiration Date [facility] Blood 11/16/2022 5:48 PM EDT us Luisa Golden COMPUTER ART INSTRUCTOR POINT OF CARE TEST ORDERABLE S Final Result [facility]
[address] [place] [address], [place] [phone] * ULTRASOUND ABDOMEN LIMITED (01/17/2014 8:03 AM EDT) Anatomical Region Laterality Modality Body, Abdomen Ultrasound 01/17/2014 8:03 AM EDT Narrative 01/17/2014 10:54 AM EDT [address] [address] Ultrasound Report [id number] Signed PATIENT NAME: NAKITA SLOAN : 1955 ATTENDING: SAMI QUIROS APRN DATE OF EXAM: 01/17/14 PRIMARY CARE: NONE LOCATION: ORDERING PHYSICIAN: SAMI QUIROS APRN PROCEDURE(s): ABDOMEN RUQ ORDER NUMBER(s): [id number] CC: EXAM: RIGHT UPPER QUADRANT ULTRASOUND INDICATIONS: Upper abdominal pain. TECHNIQUE: Sonographic images of the right upper quadrant were obtained in the transverse and sagittal planes. FINDINGS: The visualized pancreas is within normal limits. The liver is echogenic consistent with fatty infiltration. No focal liver lesions are identified. Note is made of focal fatty sparring adjacent to the gallbladder fossa. The gallbladder is unremarkable with no shadowing stones or wall thickening. The common duct is normal at 3.3 mm. There is right renocortical thinning. There is no evidence of renal obstruction. IMPRESSION- Fatty infiltration of the liver. Reviewed and signed by: VIANCA STEVE MD, 01/17/2014 10:50:24 This document has been electronically signed and is considered final. [id number] DICTATED BY : VIANCA STEVE MD DICTATED DATE/TIME : 01/17/14 0923 TRANSCRIBED DATE/TIME : 01/17/14 1042 CC : Procedure Note Vianca Steve MD - 04/22/[address] [address] Ultrasound Report [id number] Signed PATIENT NAME: NAKITA SLOAN : 1955 ATTENDING: SAMI QUIROS APRN DATE OF EXAM: 01/17/14 PRIMARY CARE: NONE LOCATION: ORDERING PHYSICIAN: SAMI QUIROS APRN PROCEDURE(s): ABDOMEN RUQ ORDER NUMBER(s): [id number] CC: EXAM: RIGHT UPPER QUADRANT ULTRASOUND INDICATIONS: Upper abdominal pain. TECHNIQUE: Sonographic images of the right upper quadrant were obtainedin the transverse and sagittal planes. FINDINGS: The visualized pancreas is within normal limits. The liver is echogenic consistent with fatty infiltration. No focal liver lesions are identified. Note is made of focal fatty sparring adjacent to thegallbladder fossa. The gallbladder is unremarkable with no shadowing stones or wall thickening. The common duct is normal at 3.3 mm. There is rightrenocortical thinning. There is no evidence of renal obstruction. IMPRESSION- Fatty infiltration of the liver. Reviewed and signed by: VIANCA STEVE MD, 01/17/2014 10:50:24 This document has been electronically signed and is considered final. [id number] DICTATED BY : VIANCA STEVE MD DICTATED DATE/TIME : 01/17/14 0923 TRANSCRIBED DATE/TIME : 01/17/14 1042 CC : Sami Quiros Jr., APRN [facility] ORDERABLES Final Result from Last 3 Months or Most Recently Relevant to Health Maintenance Insurance MEDICARE A & B Care Teams Children'S Service Supervisor Relationship Specialty Start Date End Date Luisa Golden APRN [address] [place] [address] (work) PCP - General Family Medicine 11/16/22
--- OUTSIDE RECORDS SUMMARY | 2025-02-19 15:11 | XMS_ITS | Data Portability ---
Author Organization [place] - [facility] ADMIN Address [address] [place] [id number] Assessment No assessment recorded. Plan of Treatment Reminders Order Date Submit Date Provider Last Modified By Organization Details Last Modified Time Details Appointments None recorded. Lab PSA, total, serum or plasma 2022 023 [facility] (Lab Registration) , [address] [place] [address] [place], [address], 3 14:59:36 Referral None recorded. Procedures None recorded. Surgeries None recorded. Imaging None recorded. Medication Orders tamsulosin 0.4 mg capsule 2022 023 [facility] [address] [place] [address], [id number], 3 13:23:09 Patient TargetsNo targets recorded. Patient InstructionsNo instructions recorded. Reason for Referral None Reported. Results Created Date Observation Date Name Description Value Unit Range Abnormal Flag Note LastModifiedBy Organization Detail LastModifiedTime 06/09/2006/09/2023 PSA, TOTAL (REFL EX TO FREE) note Unles s other norman noted testi ng [facility]: [facility] r [address] [place] [address] Rashi gasca MD Not Available [facility] (Pre-Op Clinic) [address] [place] [address] [place], [address], 06/11/2023 04:09:23 06/09/2006/11/2023 PSA, TOTAL (REFL EX [...] ce of jennifer little se. Not Available [facility] (Pre-Op Clinic) [address] [place] [address] [place], [address], 06/11/2023 04:09:23 06/09/2006/11/2023 PSA, TOTAL (REFL EX TO FREE) reflex criteria Commen t . The perce nt free PSA is perfo rmed on a refle x basis only when the total PSA is betwe en 4.0 and 10.0 ng/mL . Perfo rmed at: - [facility] [place] [id number] [facility] Lab Direc tor: [place] zepeda PhD, Phone : [phone] Not Available [facility] (Pre-Op Clinic) [address] [place] [address] [place], [address], 06/11/2023 04:09:23 Result Notes None recorded. Procedures Surgical History Date Name Laterality Status Provider Name and Address Organization Details Recorded Time Other completed Bettie KIMBLE - C[facility] - [place] [facility] [place] 06/09/2023 13:10:17 Imaging Results None recorded. Procedure [...] Details Last Updated DateTime 06/09/2023 97 [degF] 18440.51 g [facility] [place] [facility] [place] 06/09/2023 13:10:12 Social History None recorded. Functional Status None recorded. Mental Status None recorded. Family History Nothing Reported. Medical History No medical history recorded. Past Encounters Encounter ID Performer Location Encounter Start Date Encounter Closed Date Diagnosis/Indication Diagnosis SNOMED-CT Code Diagnosis ICD10 Code Diagnosis Note [id number] Charles Thurman M.D [facility] [phone] [facility] 06/09/2023 12:57:28 06/09/2023 13:28:54 Benign prostatic hyperplasia with outflow obstruction 621520465 N40.1 RTc 4-6 weeks for pvrfollow up response to tx Screening for malignant neoplasm of prostate 559232122 Z12.5 repeat PSA screening in 1 year Health Concerns Section Related Observation LastModified by Organization Detai ls LastModified Time None Recorded Concern Status LastModified by Organization Details LastModified Time None Recorded Advance Directives Directive None Recorded Payers Insurance Date Sequence Insurance Name Policy Number Policy Em Covered Member ID Em Member ID Guarantor Name 02/19/2024 1 [place] Henrique Sloan [id number] Henrique Sloan Notes Date Note Type [...] blood in the urine Charles Thurman M.D [address] [place] [address], [address], [place], [address], [facility] - [place] [facility] [place] 06/11/2023 17:02:20
--- OUTSIDE RECORDS SUMMARY | 2025-02-19 15:11 | XMS_ITS | Data Portability ---
Author Organization SHYANNE BERTHA Brownlee JENKINS CLOSED Address [address] [facility] [address] [place] [address] Care Team Providers Care Artist Scientific Name Role Phone DOLORES GARNICALAS Referring Provider [phone] Assessment No assessment recorded. Plan of Treatment Reminders Order Date Submit Date Provider Last Modified By Organization Details Last Modified Time Details Appointments None recorded. Lab None recorded. Referral None recorded. Procedures None recorded. Surgeries None recorded. Imaging None recorded. Medication Orders Kenalog 40 mg/mL suspension for injection 2020 021 [facility], [address] [place] [address], [id number], 1 10:36:44 triamcinolo ne acetonide 0.1 % topical cream 2020 021 [facility], [address] [place] [address], [id number], 1 10:38:14 Patient TargetsNo targets recorded. Patient Instructions Encounter Date Encounter Id Patient Instructions Last Modified By Organization Details Last Modified Time 03/16/2018 [id number] Walk in hearing aid check. Patient reports weak sound from both aids. Problem identified: tubes very hard The tubes were replaced ear molds were cleaned and the aids were placed in the dehumidifier. Listening check was improved for both aids, no distortion or weakness was detected. The patient is to return in 6 months for another hearing aid check or sooner if problems arise. The patient requested DVR contact information to see if he can get new aids as his current aids are from 2004. [email or web address] Not available 03/16/2018 14:36:24 08/30/2018 [id number] Walk in hearing aid check. Patient reports weak sound from both aids. Problem identified: noneL battery door missing. The tubes were replaced ear molds were cleaned and the aids were placed in the dehumidifier. Left battery door replaced out of warranty. Listening check was good for both aids, no distortion or weakness was detected. The patient is to return in 6 months for another hearing aid check or sooner if problems arise. The patient requested DVR contact info for new HAs. He was provided with the requested information. [email or web address] Not available 08/30/2018 15:00:14 11/21/2020 [id number] Risks/Benefits/O p tions/Side Effects of diagnosis and treatment discussed. UV protection and signs of skin cancer discussed [email or web address] Not available 11/21/2020 09:40:40 Reason for Referral None Reported. 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 Medical Equipment None Reported. Allergies Allergen ID Allergen Name Allergen Category Reaction Reaction Severity Criticality Documentation Date Start Date Code Code System Note Provider Name and Address Organization Details Recorded Time 715281 codeine medicatio n itching Not available Not available 06/25/20162014 2670 RxNorm React ion: ITCHI NG; Comme nt: Creat ed By: Estela oquendo Date: 2014 2:43: 46 PM; Not Available [facility] 6 10:24:12 Medications Name Sig Start Date Stop Date Status Note LastModified by Organization Details LastModified Time triazolam 0.25 mg tablet Every night at bedtime active Duration : 10 days;Bharathi quency: qhs;Medi cation Descript ion: triazola m; Route:or al; refills: 0; Quantity :7 tablet Not Available Not Available Not Available Multiple Vitamin capsule Daily active Duration : 30 days;Bharathi quency: daily;Me dication Descript ion: multivit harris; Dosage:1 ; Route:or al; refills: 3; Quantity :100 capsule Not Available Not Available Not Available minocycli ne 100 mg capsule Two times a day 11/21 completed Duration : 14 days;Bharathi quency: bid;Alt Frequenc y: with food;Med ication Descript ion: minocycl ine; Dosage:1 ; Route:or al; refills: 1; Quantity :28 capsule Not Available Not Available Not Available glipizide 10 mg tablet Daily 2007 active Frequenc y: daily;Me dication Descript ion: glipizid e; Dosage:3 ; Route:or al; refills: 5; Quantity :90 tablet Not Available Not Available Not Available Glucophag e 1,000 mg tablet Two times a day 2006 active Duration : 90 days;Bharathi quency: bid;Medi cation Descript ion: metformi n; Dosage:1 ; Route:or al; refills: PRN 1 yr; Quantity :60 tablet Not Available Not Available Not Available Endocet 5 mg-325 mg tablet As needed active Frequenc y: prn;Medi cation Descript ion: acetamin ophen-ox ycodone; Route:or al; refills: 0; Quantity :6 tablet Not Available Not Available Not Available triamcino lone acetonide 0.1 % topical cream APPLY A THIN LAYER TOPICALL Y TO THE AFFECTED AREA(S) OF RASH 2 TIMES A DAY WHEN FLARING active Not Available Not Available No t Available Kenalog 40 mg/mL suspensio n for injection KENALOG 40 MG/ML 2020 active INJECTIO N GIVEN BY [facility] Not Available Not Available Not Available Zanaflex 4 mg tablet Bedtime 2011 active Frequenc y: hs;Medic ation Descript ion: tizanidi ne; Dosage:2 ; Route:or al; refills: 12; Quantity :60 tablet Not Available Not Available Not Available tamsulosi n 0.4 mg capsule Daily active Duration : 90 days;Bharathi quency: daily;Me dication Descript ion: tamsulos in; Dosage:1 ; Route:or al; refills: 5; Quantity :90 capsule Not Available Not Available Not Available simvastat in 20 mg tablet 11/21 completed Medicati on Descript ion: simvasta tin; Route:or al; refills: 0 Not Available Not Available Not Available aspirin 81 mg tablet Daily active Frequenc y: daily;Me dication Descript ion: aspirin; Dosage:1 ; Route:or al; refills: 5; Quantity :30 tablet Not Available Not Available Not Available topiramat e 200 mg tablet active Medicati on Descript ion: topirama te; Route:or al; refills: 0 Not Available Not Available Not Available Imitrex 100 mg tablet As Directed 2011 active Instruct ions: Take with two advil prn ZULETA;Frequ ency: as direct.; Alt Frequenc y: prn;Medi cation Descript ion: sumatrip garcia; Dosage:1 ; Route:or al; refills: 12; Quantity :9 tablet Not Available Not Available Not Available atenolol 50 mg tablet Daily active Duration : 30 days;Bharathi quency: daily;Me dication Descript ion: atenolol ; Dosage:1 ; Route:or al; refills: 0; Quantity :30 tablet Not Available Not Available Not Available Bactrim DS 800 mg-160 mg tablet Two times a day 11/21 completed Duration : 7 days;Bharathi quency: bid;Medi cation Descript ion: sulfamet hoxazole -trimeth oprim; Dosage:1 ; Route:or al; refills: 0; Quantity :14 tablet Not Available Not Available Not Available Wellbutri n SR 200 mg tablet, 12 hr sustained -release Daily 2005 active Instruct ions: 2 in the AM and 1 in the afternoo n;Freque ncy: daily;Me dication Descript ion: bupropio n; Dosage:2 ; Route:or al; refills: 3; Quantity :270 tablet, extended release Not Available Not Available Not Available Prilosec OTC 20 mg tablet,de layed release Daily 2005 active Frequenc y: daily;Me dication Descript ion: omeprazo le; Dosage:1 ; Route:or al; refills: 0 Not Available Not Available Not Available Cialis 20 mg tablet active Medicati on Descript ion: tadalafi l; Route:or al; refills: 0 Not Available Not Available Not Available Tradjenta 5 mg tablet 11/21 completed Medicati on Descript ion: linaglip tin; Route:or al; refills: 0 Not Available Not Available Not Available Vitals None Recorded Social History None recorded. Functional Status None recorded. Mental Status None recorded. Family History Nothing Reported. Medical History No medical history recorded. Past Encounters Encounter ID Performer Location Encounter Start Date Encounter Closed Date Diagnosis/Indication Diagnosis SNOMED-CT Code Diagnosis ICD10 Code Diagnosis Note [id number] [facility] [address] [place] [id number] 1 03/16/2018 13:21:16 03/16/2018 17:59:03 [id number] [facility]AN SHAH [facility] [address] [place] [address] 08/30/2018 13:32:36 08/30/2018 15:01:02 [id number] ANTONIA BARLOW PA-C [facility] [address] [place] [address] 11/21/2020 09:37:45 11/21/2020 10:26:08 Eczema [id number] L30.9 APPEARS ECZEMATOUS WIDESPREAD FLARE START TRIAMCINOL ONE 0.1% TOPICAL CREAM BID PT IS CONTROLLED DIABETIC - FASTING GLUCOSE 120'S PER PT INJECTED KENALOG 40 MG/ML IM PER [place] SIGN MANUFACTURER, NO COMPLICATI ONS; PT TOLERATED WELL ADVISED PT TO MONITOR BLOOD GLUCOSE LEVELS CLOSELY AFTER INJECTION AND LET PCP KNOW OF ANY SIGNIFICAN T INCREASES; PT UNDERSTOOD RECOMMENDE D GENTLE CLEANSING AND HEAVY MOISTURIZI NG SAMPLES OF DOVE SOAP PROVIDED TODAY D/C MANIPULATI ON RECOMMENDE D OTC BENADRYL QHS PRN ITCHING F/U 1 MONTH Health Concerns Section Related Observation LastModified by Organization Detai ls LastModified Time None Recorded Concern Status LastModified by Organization Details LastModified Time None Recorded Advance Directives Directive None Recorded Payers Insurance Date Sequence Insurance Name Policy Number Policy Em Covered Member ID Em Member ID Guarantor Name 10/31/2020 1 *SELF PAY* Meme Bragg Nathalia 12/17/2020 1 MEDICARE-MD (MEDICARE) Henrique Bragg Nathalia [id number] Henrique Bragg Nathalia Notes Date Note Type Note Provider Name and Address Organization Details Recorded Time 03/16/2018 text/html hac ALAN SHAH, AUD [address] [place], [address], [facility] 03/16/2018 14:36:26 08/30/2018 text/html Hearing aid check ALAN SHAH, AUD [address] [place], [address], [facility] 08/30/2018 15:00:16 11/21/2020 text/html NEW PATIENT 1) PT C/O PINK SCALY RASH ON PALMS, ABDOMEN, BACK, ARMS AND LEGS X 1 MONTH (+)ITCH/BLEED. HE STATES HE HAD SIMILAR RASH 20 YEARS AGO WITH NO TX AND CLEARED. PT IS TREATING WITH BAGBALM WITH LITTLE BENEFIT. FAMILY HX OF ECZEMA (DAUGHTER). NO PERSONAL OR FAMILY HX OF PSORIASIS. PT IS TAKING ASPIRIN PT HAS DM no issues with scarring Denies any other new, changing, or bleeding lesions, or other rashes, feels well, in a good mood, and has no family history of melanoma. ANTONIA BARLOW PA-C [address] [place], [address], [facility] 11/21/2020 12:20:52
--- OUTSIDE RECORDS SUMMARY | 2025-02-19 15:12 | XMS_ITS | Encounter Summary ---
Author Organization [facility] Address [address] [place] [address] Care Team Providers Care Financial Rep Name Role Phone Jude Pacheco DO Primary Care Provider [phone] Reason for Visit * Reason Comments Med Refill Encounter Details Date Type Department Care Team (Late st Contact Info) Description 12/24/2024 Refill [facility] Diabetes Education [address] [place] [address] Mitali Dominguez, REFRIGERATING TECHNICIAN [address] [facility] [address] [place] [address] Social History Tobacco Use Types [...] drink first t vishal in the morning (EYE-SURVEY SUPERVISOR) to steady your nerves or to get [...] documented as of this encounter Care Teams Financial Rep Relationship Specialty Start Date End Date Jude Pacheco DO [address] [place] [address] PCP - General 05/09/24 documented as of this encounter
--- OUTSIDE RECORDS SUMMARY | 2025-02-19 15:12 | XMS_ITS | Encounter Summary ---
Author Organization [facility] Address [address] [place] [address] Care Team Providers Care Consultant Education Name Role Phone Cristhian Marino MD Primary Care Provider [phone] Arie Bateman Unavailable Unavailable Caitie Burton DMD Unavailable [phone] Jude Pacheco DO Primary Care Provider [phone] Encounter Details Date Type Department Care Team (Late st Contact Info) Description 01/19/2023 [facility] [address] [place] [address] Severino Hernandez, HAND HIDE STRETCHER [address] [place] [address] Social History Tobacco Use Types [...] drink first t vishal in the morning (EYE-WOOD DIE MAKER) to steady your nerves or to get [...] documented as of this encounter Care Teams Consultant Education Relationship Specialty Start Date End Date Cristhian Marino MD [address] [facility] [address] [place] [address] PCP - General 12/13/20 05/08/24 Jude Pacheco DO [address] [place] [address] PCP - General 05/09/24 Arie Bateman [employer] Dental Student Dental Patrol Man 01/08/22 06/15/23 Caitie Burton DMD [address] [facility] [address] [place] [address] Dentist Dental Patrol Man 02/27/2206/15 documented as of this encounter
--- OUTSIDE RECORDS SUMMARY | 2025-02-19 15:12 | XMS_ITS | Encounter Summary ---
Author Organization [facility] Address [address] [place] [address] Care Team Providers Care Wet Wash Assembler Name Role Phone Cristhian Marino MD Primary Care Provider [phone] Natan Eaton DMD Unavailable [phone] Pancho Hood Unavailable Unavailabl e Arie Bateman S Unavailable Unavailable Caitie Burton DMD Unavailable [phone] Chinyere Artis Unavailable Unavailable Jude Pacheco DO Primary Care Provider [phone] Encounter Details Date Type Department Care Team (Late st Contact Info) Description 12/25/2020 Abstract DSB [facility] [address] [place] [address] [employer] Dental caries [...] enamel documented in this encounter Care Teams Wet Wash Assembler Relationship Specialty Start Date End Date Cristhian Marino MD [address] [place] [address] PCP - General 12/13/20 05/08/24 Jude Pacheco DO [address] [place] [address] PCP - General 05/09/24 Natan Eaton, GEOVANNA [address] [facility] [place] [address] Dentist Dental Lumber Trimmer 01/14/21 02/27/22 [employer] Dental Student Dental Lumber Trimmer 01/14/21 01/07/22 Arie Bateman [facility] Dental Student Dental Lumber Trimmer 01/08/22 06/15/23 Caitie Burton DMD [address] [facility] [address] [place] [address] Dentist Dental Lumber Trimmer 02/27/22 06/15/23 [place] [address] [employer] Navigator 04/09/22 05/11/22 documented as of this encounter
--- OUTSIDE RECORDS SUMMARY | 2025-02-19 15:12 | XMS_ITS | Clinical Summary ---
Author Organization [facility] Address [address] [place] [address] Care Team Providers Care Digital Ad Trafficker Name Role Phone Jude Pacheco Jacinta Primary Care Provider [phone] Allergies Active Allergy Reactions Criticality Noted Date Comments Codeine Itching Medium 02/09/2019 Medications buPROPion XL (Wellbutrin XL) 150 MG 24 hr tablet TAKE 1 TABLET DAILY. 9 Active fenofibrate (Tricor) 145 MG tablet TAKE 1 TABLET DAILY. 9 Active Lancet Device misc use to check blood sugar 2 times a day. DX: E11.9 0 Active Lancets Ultra Thin 30G misc USE 3 TIMES DAILY FOR DIABETIC TESTING 0 Active metoprolol succinate XL (Toprol-XL) 100 MG 24 hr tablet TAKE 1 TABLET ONCE DAILY. 9 Active nortriptyline (Pamelor) 10 MG capsule TAKE 1 CAPSULE 3 TIMES DAILY. 9 Active tiZANidine (Zanaflex) 4 MG tablet 9 Active ibuprofen 800 MG tablet Take 1 tablet (800 mg total) by mouth every 8 (eight) hours if needed for mild pain. 24 tablet 1 Active oxyCODONE-aceta minophen (Percocet) 5-325 MG tablet Acti ve tamsulosin (Flomax) 0.4 MG 24 hr capsule tamsulosin 0.4 mg capsule Daily Active topiramate (Topamax) 200 MG tablet topiramate 200 mg tablet Active atenolol (Tenormin) 50 MG tablet atenolol 50 mg tablet Daily Active simvastatin (Zocor) 20 MG tablet 4 Active meclizine (Antivert) 12.5 MG tablet 4 Active omeprazole (PriLOSEC) [address] capsule 4 Active donepezil (Aricept) 10 MG tablet 4 Active hydrOXYzine HCl (Atarax) 25 MG tablet 3 Active Blood Glucose Monitoring Suppl (DemandTec ULTRA 2) w/Device kit device kitIndications: Type 2 diabetes mellitus with diabetic polyneuropathy, with long-term current use of insulin (CMS/HCC) Use as instructed 1 kit 1 4 Active Glucose Blood (Blood Glucose Test) stripIndication s:Type 2 diabetes mellitus with diabetic polyneuropathy, with long-term current use of insulin (CMS/HCC) Use as directed up to 4 times per day 100 strip 11 4 Active traZODone (Desyrel) 150 MG tablet Active insulin syringe-needle U-100 (UltiCare Insulin Syringe) 31G X 12/15 1 mL miscIndications :Type 2 diabetes mellitus with diabetic polyneuropathy, with long-term current use of insulin (CMS/HCC) USE TO INJECT INSULIN TWO TIMES A DAY. 50 each 1 4 Active insulin NPH-insulin regular (INSULIN NPH ISOPHANE & REGULAR HUMAN INJ) (70-30) 100 UNIT/ML SC injection vial INJECT 70 UNITS UNDER THE SKIN BEFORE BREAKFAST AND BEFORE DINNER. TITRATE DIRECTED. MAX DAILY DOSE OF 160 UNITS 50 mL 3 5 Active metFORMIN XR (Glucophage-XR) 500 MG 24 hr tablet Take 1 tablet by mouth 2 times a day. 180 tablet 1 5 Active pioglitazone (Actos) 30 MG tablet TAKE 1 TABLET BY MOUTH EVERY DAY 30 tablet 3 5 Active Active Problems Problem Noted Date Diagnosed [...] Date Type Department Care Team Description 12/24/2024 Refill [facility] Diabetes Education [address] [place] [address] Mitali Dominguez, LEAD MECHANIC 12/14/2024 Refill [facility] Endocrinology [address] [place] [address] Estella Rosales APRN from Last 3 Months Family History Medical [...] drink first t vishal in the morning (EYE-MEAT SLICER) to steady your nerves or to get [...] Bite[employer]ings 1954 Dental X-Ray: Full Mouth 1955 [facility]-Medicare Annual Wellness (AWV) 1955 [facility]-Infant/Child/Adol SDOH Screenings [...] 2014 [facility]-Abdominal Aortic Aneurysm (AAA) Screening 2019 GUG-TFTED-87 Vaccine ( - season) 2024 [facility]-Diabetes: Hemoglobin A1C 12/07/202412/2024, 03/29/2024, 2022, Additional history exists [facility]-Influenza Vaccine (#1) 2025 [facility]-Depression Screening 05/31/2025 05/31/2024 [facility]-Hepatitis C [...] (Hb A1C) (09/07/2024 3:50 PM EST) Pathologist [facility] POCT Hemoglobin A1C 10.6 <5.7% Non-Diabet ic % [facility] Kit Lot Number [id number] [facility] Kit Expiration Date 06/27 [facility] Blood Venous blood specimen / Unknown 09/07/2024 3:50 PM EST Mitali Dominguez LEAD MECHANIC POINT OF CARE TEST ENTER /EDIT ORDERABLES Final Result Performing Organization Address [facility] Co de Phone Number [facility] [address] [place] [address] * [place] Hepatitis C Antibody (07/10/2020 4:25 PM EST) Pathologist [facility] Hepatitis C Ab NEGATIVE Reference Range: Negative SUNQUEST 07/10/2020 4:25 PM EST 07/10/2020 4:44 PM EST Ray Mccallum MD LAB BLOOD ORDERABLES Final Result SUNQUEST from Last 3 Months or Most Recently Relevant to Health Maintenance Insurance MEDICARE Care Teams Digital Ad Trafficker Relationship Specialty Start Date End Date Jude Pacheco DO [address] [place] [address] PCP - General 05/09/24
[2025-02-19 15:24] LABS: Hematocrit 40.1 % (42.0-52.0); Hemoglobin 13.1 g/dL (14.1-18.0); Immature Granulocytes % 0.5 %; Mean Corpuscular HGB Conc 32.7 g/dL (31.8-35.4); Mean Corpuscular Hemoglobin 29.4 pg (27.0-31.2); Mean Corpuscular Volume 89.9 fl (80-94); Nucleated Red Blood Cells % 0 %; Platelet Count 303 K/mm3 (142-424); Red Blood Count 4.46 M/mm3 (4.60-6.20); Red Cell Distribution Width-SD 44.3 fL; White Blood Count 17.3 K/mm3 (4.8-10.8)
--- NOTE | 2025-02-19 15:31 | HMH.EDGENADL ---
Discharge Plan Disposition Patient Disposition: Home, Self-Care Prescriptions Prescriptions: No Action coenzyme Q10 [Co Q-10] 200 mg capsule 200 mg PO DAILY magnesium 250 mg tablet 250 mg PO DAILY aspirin 81 mg tablet,delayed release (DR/EC) 81 mg PO DAILY bupropion HCl 300 mg tablet extended release 24 hr 300 mg PO DAILY pioglitazone 30 mg tablet 30 mg PO Patient Comments: TAKE 1 TABLET BY MOUTH EVERY DAY metformin 500 mg tablet extended release 24 hr 500 mg PO lisinopril 10 mg tablet 10 mg PO DAILY Qty: 30 2RF tamsulosin 0.4 mg capsule 0.8 mg PO DAILY Qty: 60 12RF simvastatin 20 mg tablet 20 mg PO DAILY fenofibrate nanocrystallized 48 mg tablet 48 mg PO DAILY Humulin 70/30 U-100 Insulin 100 unit/mL (70-30) suspension 70 unit SQ NEEDED PRN (Reason: BLOOD) Referrals Follow up/Referrals: Daniel Ugarte MD [Primary Care Provider, [facility]] - See instructions Clinical Impressions Clinical Impression: Diabetic foot infection Instructions Patient Instructions: DI for Skin Abscess Print Language Print Language: Russian Discharge ED Provider: Gus Sin General Adult HPI General Chief complaint: Skin/Abscess/Foreign Body Stated complaint: right foot, big toe pain, swollen, red Time Seen by Provider: 02/19/25 15:04 Mode of Arrival: Wheelchair Source of Information: Patient Description of Symptoms (Recalled from ER Triage Doc. by RN): Pt presents to ED c/o right great toe redness and swelling. pt reports he is a diabetic. pt denies any known injury. pt states he first noticed the swelling and redness yesterday. History of Present Illness HPI narrative: Patient is a 69-year-old male with past medical history of hypertension hyperlipidemia insulin-dependent diabetes who presents emergency department for evaluation of a red toe. He has had a red toe and right foot swelling for the last few days. It has never happened before. Denies trauma. It is gotten progressively red and swollen, the toe affected is his right great toe. There is associated vague calf pain without any proximal leg pain. No other acute complaints at this time. Please note that above description of symptoms, in this electronic medical record under categorization of recalled from ER triage doctor by RN are reflective of an initial nursing assessment, however, is not reflective of my full history and physical exam that was personally taken and clarified. Consequentially, this preceding description of symptoms, which may include the patient's categorized chief complaint in the EMR, do not reflect my personal clinical impression, and the ultimate description of history of present illness and patient stated complaints should be deferred to this section of the note. Unless stated otherwise or congruent with this section of the note, additional signs, symptoms, or incongruence should be interpreted as inaccurate with my clinical impression. Related Data Home Medications ?Medication ?Instructions ?Recorded ?Confirmed fenofibrate nanocrystallized 48 mg 48 mg PO DAILY 05/06/24 12/11/24 tablet simvastatin 20 mg tablet 20 mg PO DAILY 05/06/24 12/11/24 aspirin 81 mg tablet,delayed 81 mg PO DAILY 12/11/24 12/11/24 release bupropion HCl 300 mg 24 hr tablet, 300 mg PO DAILY 12/11/24 12/11/24 extended release coenzyme Q10 200 mg capsule (Co 200 mg PO DAILY 12/11/24 12/11/24 Q-10) insulin human U-100 NPH-regulr 70 unit SQ NEEDED PRN BLOOD 12/11/24 12/11/24 70-30 mix 100 unit/mL subcutaneous susp (Humulin 70/30 U-100 Insulin) magnesium 250 mg tablet 250 mg PO DAILY 12/11/24 12/11/24 metformin 500 mg tablet,extended 500 mg PO 12/11/24 12/11/24 release 24 hr pioglitazone 30 mg tablet 30 mg PO 12/11/24 12/11/24 Previous Rx's ?Medication ?Instructions ?Recorded lisinopril 10 mg tablet 10 mg PO DAILY #30 tabs 12/12/24 tamsulosin 0.4 mg capsule 0.8 mg (2 x 0.4 mg) PO DAILY #60 01/15/25 caps Allergies Allergy/AdvReac Type Severity Reaction Status Date / Time codeine Allergy Mild Verified 12/11/24 13:30 [facility] Disclaimer: The information contained in this section may have been updated after the patient was seen, as this information can be updated by other users. Medical History (Updated 02/19/25 @ 20:06 by Gus Sin MD) Sleep apnea Diabetes Seizure GERD (gastroesophageal reflux disease) HLD (hyperlipidemia) HTN (hypertension) Spleen absent Migraine Diabetes mellitus, type 2 Surgical History H/O shoulder surgery H/O splenectomy Family History Other Cancer Coronary artery disease Heart attack No significant family history Stroke Social History Smoking Status: Current every day smoker tobacco type: cigars alcohol intake: never substance use type: former substance user and marijuana current occupational status: retired Travel in the last 8 weeks?: None household members: none housing: house Have you lived/traveled outside [place] in past 30 days?: No Contact w/someone who lives/traveled outside [place] past 30 days?: No Exposure to someone with infectious disease in past 14 days?: No Do you have a fever (greater than 100.4 F or 38 C)?: No Have you tested positive for COVID-19?: No Exposed to someone with COVID-19 in past 14 days?: No Do you have a sore throat?: No Do you have a cough?: No Do you have any weakness?: No Do you have any diarrhea?: No Are you experiencing any unusual bleeding?: No Do you have any muscle aches/pain?: No Do you have any abdominal pain?: No Are you experiencing loss of taste or smell?: No Other Medical History Have you received the Flu Vaccine for this season: No Have you received the Pneumonia Vaccine: Yes ROS Obtained: Yes Systems reviewed as appropriate & no additional complaints except as documented Physical Exam General General appearance: alert and in no apparent distress Head Head exam: atraumatic and normocephalic Eye Eye exam: Present PERRL and EOMI ENT ENT exam: Present mucous membranes moist Neck Neck exam: Present normal inspection Chest Chest inspection: Present normal inspection and symmetric chest wall rise Respiratory Respiratory exam: Present normal lung sounds bilaterally; Absent respiratory distress Cardiovascular Cardiovascular exam: Present regular rate and normal rhythm Abdominal Exam Abdominal exam: Present soft; Absent tenderness Extremities Exam Extremities exam: Present other (Mild edema and swelling of the right foot with scattered dorsal erythema and circumferential erythema about the right great toe. Sensation is intact distally. Foot is warm and has palpable dorsal pedal pulse. No tenderness over the right calf.) Neurological Exam Neurological exam: Present alert Psychiatric Psychiatric exam: Present normal affect Skin Skin exam: Present warm and dry Medical Decision Making Medical Records Screening: Per USPSTF and CDC recommendations, given the prevalence of disease in our region, it is our hospital?s policy to screen for HIV and viral Hepatitis for all patients aged 18 and over and those with ongoing risk factors. [facility]ant Inquiry Pt receiving controlled substance: No Vital Signs: 02/19/25 15:02 02/19/25 15:30 02/19/25 16:01 Temperature 98.9 F Temperature Source Oral Pulse Rate 90 92 H Pulse Rate [Right Radial] 91 H Respiratory Rate 18 18 Blood Pressure 136/75 164/88 H Blood Pressure [Right Arm] 145/65 H Blood Pressure Mean 87 105 Blood Pressure Mean [Right Arm] 91 Blood Pressure Source [Right Arm] Automatic Cuff Blood Pressure Position [Right Arm] Sitting 02 Sat by Pulse Oximetry 97 95 95 Oxygen Delivery Method Room Air 02/19/25 16:31 02/19/25 16:50 02/19/25 17:49 Temperature Temperature Source Pulse Rate 94 H 97 H 94 H Pulse Rate [Right Radial] Respiratory Rate 18 18 18 Blood Pressure 151/85 H 146/91 H 142/80 H Blood Pressure [Right Arm] Blood Pressure Mean 100 109 100 Blood Pressure Mean [Right Arm] Blood Pressure Source [Right Arm] Blood Pressure Position [Right Arm] 02 Sat by Pulse Oximetry 94 L 95 95 Oxygen Delivery Method 02/19/25 18:00 02/19/25 19:24 02/19/25 19:24 Temperature Temperature Source Pulse Rate 95 H 95 H Pulse Rate [Right Radial] Respiratory Rate 18 Blood Pressure 134/84 165/92 H Blood Pressure [Right Arm] Blood Pressure Mean 100 110 Blood Pressure Mean [Right Arm] Blood Pressure Source [Right Arm] Blood Pressure Position [Right Arm] 02 Sat by Pulse Oximetry 95 93 L Oxygen Delivery Method Lab Data Lab Results 02/19/25 15:13: WBC 17.3 H, RBC 4.46 L, Hgb 13.1 L, Hct 40.1 L, MCV 89.9, MCH 29.4, MCHC 32.7, RDW 13.5, Plt Count 303, MPV 10.8 H, Neut % (Auto) 65.5, Lymph % (Auto) 20.9, [place] % (Auto) 10.3 H, Eos % (Auto) 2.4, Baso % (Auto) 0.4, Neut # (Auto) 11.3 H, Lymph # (Auto) 3.6, [place] # (Auto) 1.8 H, Eos # (Auto) 0.4, Baso # (Auto) 0.1, Total Counted 100, Neutrophils % (Manual) 66, Lymphocytes % (Manual) 21, Atypical Lymphs % 4.0, Monocytes % (Manual) 7, Eosinophils % (Manual) 2, Platelet Estimate Normal, RBC Morphology Normal, Sodium 132 L, Potassium 4.3, Chloride 95 L, Carbon Dioxide 29, Anion Gap 12.3, BUN 14, Creatinine 0.80, Estimated Creat Clear 88, Estimated GFR 96, Est GFR ( Amer) 116, Glucose 315 H, Uric Acid 4.4, Calcium 9.0, Total Bilirubin 0.7, AST 27, ALT 23, Alkaline Phosphatase 91, C-Reactive Protein 43.5 H, Total Protein 7.6, Albumin 4.0, Globulin 3.6 H, Albumin/Globulin Ratio 1.1 02/19/25 15:13 02/19/25 15:13 Orders (Tests/Meds): ED MEDICATIONS Generic Name Dose Route Start Last Admin Trade Name Freq PRN Reason Stop Dose Admin Acetaminophen 650 mg 02/19/25 19:41 Acetaminophen 325mg Tab PO 03/21/25 19:40 Q4HP PRN Fever or Mild Pain (1-3) Hydromorphone HCl 1 mg 02/19/25 19:41 Hydromorphone 2mg/Ml Syringe IV 03/21/25 19:40 Q4HP PRN Severe Pain (7-10) Insulin Human Lispro 0 unit 02/19/25 21:00 Humalog 100 Units/Ml 10ml Vial (Ssi) SUBCUT 03/21/25 20:59 [facility] Protocol Ketorolac Tromethamine 15 mg 02/19/25 19:41 Ketorolac 30mg/Ml Vial IV 02/24/25 19:40 Q6HP PRN Moderate Pain (4-6) Miscellaneous 1 each 02/19/25 17:15 Vancomycin Consult Request NOTAPPLIC 03/21/25 17:14 CONSULT PHARMACY [facility] Ondansetron HCl 4 mg 02/19/25 19:41 Ondansetron 4mg/2ml Vial IV 03/21/25 19:40 Q8HP PRN Nausea Pantoprazole Sodium 40 mg 02/19/25 21:00 Pantoprazole 40mg Tablet PO 03/21/25 20:59 HS CARROL Discontinued Medications Generic Name Dose Route Start Last Admin Trade Name Samantha PRN Reason Stop Dose Admin Piperacillin Sod/Tazobactam 100 mls @ 200 mls/hr 02/19/25 17:13 02/19/25 17:37 Sod 4.5 gm/ Sodium Chloride IV 02/19/25 17:42 200 mls/hr ONCE ONE Administration Vancomycin HCl 2,000 mg/ 250 mls @ 125 mls/hr 02/19/25 17:30 02/19/25 17:38 Sodium Chloride IV 02/19/25 19:29 125 mls/hr ONCE ONE Administration Iopamidol 120 ml 02/19/25 17:30 02/19/25 17:31 Iopamidol-370 (76%);100ml Bottle IV 02/19/25 17:31 120 ml ONCE ONE Administration Ondansetron HCl 4 mg 02/19/25 17:09 02/19/25 17:38 Ondansetron 4mg/2ml Vial IV 02/19/25 17:10 4 mg ONCE ONE Administration Sodium Chloride 10 ml 02/19/25 17:30 02/19/25 17:30 Sodium Chloride 0.9% 10ml Syr (Rad Only) IV 02/19/25 17:31 10 ml ONCE ONE Administration ORDERS Category Date Time Status CT foot RT w con Stat Cat Scan 02/19/25 15:09 Completed CBC w/Auto Diff [Complete Blood Count Auto Diff] Stat Lab 02/19/25 15:13 Completed CMP [Comprehensive Metabolic Panel] Stat Lab 02/19/25 15:13 Completed CRP [C-Reactive Protein] Stat Lab 02/19/25 15:13 Completed CRP [C-Reactive Protein] Stat Lab 02/20/25 06:47 Ordered Complete Blood Count Auto Diff AMLAB Lab 02/20/25 06:00 Ordered Comprehensive Metabolic Panel AMLAB Lab 02/20/25 06:00 Ordered ESR [Erythrocyte Sedimentation Rate] Stat Lab 02/20/25 06:47 Ordered Hemoglobin A1C Stat Lab 02/20/25 06:52 Ordered Magnesium AMLAB Lab 02/20/25 06:00 Ordered Uric Acid Stat Lab 02/19/25 15:13 Completed Blood Culture Stat Micro 02/19/25 15:53 Received CA venous doppler LE RT Stat Y 02/19/25 15:09 Completed Medical Decision Narrative: In summary patient is a 69-year-old male with past medical history described above presents emergency department for evaluation of right foot pain and great toe erythema and swelling. Patient is hemodynamically stable nontoxic-appearing upon arrival, afebrile. Based on history and physical exam my concern for diabetic foot infection is high. He appears to be decently perfused with a palpable pulse and his foot is warm nicking arterial pathology less likely. DVT is a thought given that he has calf pain therefore venous duplex ultrasound will be obtained. CT of the right foot with IV contrast will be obtained looking for pockets of infection and possible early signs of osteomyelitis. Basic hematologic labs will be obtained. Patient is well-appearing and initial antibiotics will be deferred at this time. Initial hematologic labs reviewed by me leukocytosis of 17.3 with left shift. Mild nonactionable hyponatremia, elevated glucose without elevated anion gap, elevated CRP. Venous duplex no evidence of DVT. Given this I presume this is diabetic foot infection although CT is pending will have broad-spectrum coverage with vancomycin and Zosyn. Sepsis bolus fluids were considered but patient is not septic and does not meet criteria and will be deferred at this time as he appears euvolemic anyways. Case discussed with hospital medicine regarding management they will meet the patient their service for continued evaluation at this time will consult podiatry tomorrow morning. Critical Care Critical Care Time Critical Care Time: No
[2025-02-19 15:32] LABS: Chloride 95 mmol/L (98-107)
[2025-02-19 15:33] LABS: Albumin Level 4.0 g/dl (3.5-5.0); Potassium 4.3 mmoL/L (3.5-5.1); Sodium 132 mmol/L (136-145)
[2025-02-19 15:35] LABS: Blood Urea Nitrogen 14 mg/dl (9-20); Creatinine Clearance Estimated 88 mL/min (50-200); Creatinine,Serum 0.80 mg/dl (0.66-1.25); Estimated Glomerular Filt Rate 96 ml/min (>60); GFR (African American) 116 ML/MIN (>60)
[2025-02-19 15:36] LABS: Alanine Aminotransferase 23 U/L (12-78); Albumin/Globulin Ratio 1.1 (1.1-1.8); Alkaline Phosphatase 91 U/L (38-126); Anion Gap 12.3 mEq/L (5-15); Aspartate Amino Transferase 27 U/L (17-59); Bilirubin,Total 0.7 mg/dl (0.2-1.3); Calcium 9.0 mg/dl (8.4-10.2); Carbon Dioxide 29 mmol/L (22.0-30.0); Globulin 3.6 g/dL (1.3-3.2); Glucose 315 mg/dl (74-100); Total Protein,Serum 7.6 g/dl (6.3-8.2)
--- NOTE | 2025-02-19 15:40 | PC.NURSE ---
US tech reports preliminary is neg.
[2025-02-19 15:41] LABS: C-Reactive Protein 43.5 mg/L (0-4)
[2025-02-19 16:54] LABS: Total Cells Counted 100
[2025-02-19 16:55] LABS: RBC Morphology Normal
[2025-02-19] MEDS: SODIUM CHLORIDE 0.9% 10ML SYR (RAD ONLY) 10 ML IV (17:30)
[2025-02-19] MEDS: IOPAMIDOL-370 (76%);100ML BOTTLE 120 ML IV (17:31)
[2025-02-19] MEDS: PIPERACILLIN/TAZO 4.5 GM in 0.9 % SODIUM CHLORIDE 100 ML IV (17:37)
[2025-02-19] MEDS: VANCOMYCIN HCL 2,000 MG in 0.9 % SODIUM CHLORIDE 250 ML 125 MG IV (17:38)
[2025-02-19] MEDS: ONDANSETRON 4MG/2ML VIAL 4 MG IV (17:38)
--- NOTE | 2025-02-19 17:38 | PC.NURSE ---
pt back from RAD
[2025-02-19 19:46] LABS: Uric Acid 4.4 mg/dl (3.5-8.5)
--- NOTE | 2025-02-19 20:01 | P.HP_ITS ---
<Statement entered by Paul Diez MD - 02/20/25 16:30> Rounded on patient after nurse practitioner. Personally examined and interviewed patient. Agree with exam findings and care plan as documented. Evaluated by podiatry in the morning. Taken for surgical debridement of toe. Discussed case, no obvious signs of osteomyelitis. Continue broad-spectrum antibiotics. Repeat CBC, CMP, magnesium ordered for the morning History of Present Illness *Admission Date: 02/19/25 *Reason for visit:: Diabetic right foot inflamed right toe *History of present illness: Mr. 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 Patient noted that he smokes 2 cigars a day. That he does have an implanted device for blood sugar can run as low as 50 as high as 250. Notes that he only drinks a couple of beers a month.. He began to have pain into the right foot noting that the right toe and to the right I distal metatarsal was becoming red and painful.. He has come into the emergency room to be rechecked finding that there was no abscesses or free air on CT scan.. Patient has a past history of infection to the other foot actually Klebsiella pneumonia grew in the past.. Patient noted that he still has feeling to both feet. Plan at this time we will go ahead and place him in continue antibiotics and have podiatry see him in the morning. Does not appear to be surgical at this time but long-term antibiotics may be required and continued evaluation in case I&D is needed.. Early in this case do not see the obvious osteomyelitis, and/or gout complications. But uric acid was added to the labs Mr. Sloan's past medical history includes splenectomy,mild sleep apnea recommended for appliance to help with that also noting nocturnal hypoxinemia drops to 72%, presently also mild chronic hyponatremia, noting that since 01/20/2024 patient has gained 25 pounds. Patient also noted for hypertension and BPH per history. Patient is stable at this time we will place him onto the floor for continue antibiotics and development of plan as outpatient to treat this infection. [facility] Disclaimer: The information contained in this section may have been updated after the patient was seen, as this information can be updated by other users. Medical History (Updated 02/19/25 @ 20:24 by Rehan Nogueira APRN) Tobacco use Falls MCI (mild cognitive impairment) Tinea pedis of both feet Hematuria Uncontrolled type 2 diabetes mellitus Infected hematoma Hematoma of left lower leg Cellulitis of left lower leg Leg skin lesion, left Vertigo Tobacco abuse counseling Cardiac risk counseling Anxiety BPV (benign positional vertigo) Cubital tunnel syndrome on left Contusion, knee Abrasion of knee, bilateral Type 2 diabetes mellitus with hyperglycemia Complicated migraine Abnormal laboratory test Syncope Callus of foot Skin ulcer of left great toe, limited to breakdown of skin Nocturnal hypoxemia Sleep apnea Diabetes Seizure GERD (gastroesophageal reflux disease) HLD (hyperlipidemia) HTN (hypertension) Spleen absent Migraine Diabetes mellitus, type 2 Surgical History H/O shoulder surgery H/O splenectomy Family History Other Cancer Coronary artery disease Heart attack No significant family history Stroke Social History Smoking Status: Current every day smoker tobacco type: cigars alcohol intake: never substance use type: former substance user and marijuana current occupational status: retired Travel in the last 8 weeks?: None household members: none housing: house Have you lived/traveled outside [place] in past 30 days?: No Contact w/someone who lives/traveled outside [place] past 30 days?: No Exposure to someone with infectious disease in past 14 days?: No Do you have a fever (greater than 100.4 F or 38 C)?: No Have you tested positive for COVID-19?: No Exposed to someone with COVID-19 in past 14 days?: No Do you have a sore throat?: No Do you have a cough?: No Do you have any weakness?: No Do you have any diarrhea?: No Are you experiencing any unusual bleeding?: No Do you have any muscle aches/pain?: No Do you have any abdominal pain?: No Are you experiencing loss of taste or smell?: No Other Medical History Have you received the Flu Vaccine for this season: No Have you received the Pneumonia Vaccine: Yes Review of Systems Review of Systems Review of systems:: pertinent systems reviewed and negative unless documented below Review of systems (narrative): Talked with patient lying on stretcher in ER. Patient in no signs of excessive distress or having pain. Is a little hard of hearing but besides that were able to answer all questions well. Constitutional Constitutional: Reports as per HPI and Reports weight gain Comments: Noted over last year 25 pound increase in weight Eyes Eyes: Reports as per HPI Comments: Patient voiced no problems with vision ENT Ears, Nose, Mouth, and Throat: Reports as per HPI *Cardiovascular Cardiovascular: Reports as per HPI Comments: Patient denies any chest pain or increasing shortness of breath *Respiratory Comments: Patient had no cough *Genitourinary Genitourinary: Reports as per HPI *Musculoskeletal Musculoskeletal: Reports abnormal gait, Reports arthralgias and Reports limited range of motion Comments: Patient's right great toe is extremely painful thus limiting movement and interfering with walking *Neurologic Neurologic: Reports as per HPI and Reports abnormal gait Comments: Patient has equal sensation to both lower extremities follows commands well fine no sign of any neurologic deficit Psychiatric Psychiatric: Reports as per HPI Endocrine Endocrine: Reports as per HPI Hematologic/Lymphatic Hematologic/Lymphatic: Reports as per HPI Allergic/Immunologic Allergic/Immunologic: Reports as per HPI Meds Home Medications and Allergies Home Medications ?Medication ?Instructions ?Recorded ?Confirmed ?Type fenofibrate nanocrystallized 48 mg 48 mg PO DAILY 12/2312/11/24 History tablet simvastatin 20 mg tablet 20 mg PO DAILY 05/06/2411/30 History aspirin 81 mg tablet,delayed 81 mg PO DAILY 12/11/24 0 12/11/24 History release bupropion HCl 300 mg 24 hr tablet, 300 mg PO DAILY 07/2612/11/24 History extended release coenzyme Q10 200 mg capsule (Co 200 mg PO DAILY 12/11/24 History Q-10) insulin human U-100 NPH-regulr 70 unit SQ NEEDED MA N BLOOD 12/11/24 12/11/24 History 70-30 mix 100 unit/mL subcutaneous susp (Humulin 70/30 U-100 Insulin) magnesium 250 mg tablet 250 mg PO DAILY 12/11/2407/26 History metformin 500 mg tablet,extended 500 mg PO 12/11/24 History release 24 hr pioglitazone 30 mg tablet 30 mg PO 12/11/24 12/11/24 H istory lisinopril 10 mg tablet 10 mg PO DAILY #30 tabs 11/3012/12/24 Rx tamsulosin 0.4 mg capsule 0.8 mg (2 x 0.4 mg) PO DAILY #60 01/15/25 Rx caps New Prescriptions to Start Prescriptions: Allergies Allergy/AdvReac Type Severity Reaction Status Date / Time codeine Allergy Mild Verified 12/11/24 13:30 Exam Data for Last 24 hours Vital signs and Labs for Last 24 Hours: Temp Pulse Resp BP Pulse Ox O2 Del Method 98.9 F 95 H 18 165/92 H 93 L Room Air 02/19/25 15:02 02/19/25 19:24 02/19/25 18:00 02/19/25 19:24 02/19/25 19:24 02/19/25 15:02 Laboratory Results - last 24 hr 02/19/25 15:13: WBC 17.3 H, RBC 4.46 L, Hgb 13.1 L, Hct 40.1 L, MCV 89.9, MCH 29.4, MCHC 32.7, RDW 13.5, Plt Count 303, MPV 10.8 H, Neut % (Auto) 65.5, Lymph % (Auto) 20.9, Mccracken % (Auto) 10.3 H, Eos % (Auto) 2.4, Baso % (Auto) 0.4, Neut # (Auto) 11.3 H, Lymph # (Auto) 3.6, M[place]racken # (Auto) 1.8 H, Eos # (Auto) 0.4, Baso # (Auto) 0.1, Total Counted 100, Neutrophils % (Manual) 66, Lymphocytes % (Manual) 21, Atypical Lymphs % 4.0, Monocytes % (Manual) 7, Eosinophils % (Manual) 2, Platelet Estimate Normal, RBC Morphology Normal, Sodium 132 L, Potassium 4.3, Chloride 95 L, Carbon Dioxide 29, Anion Gap 12.3, BUN 14, Creatinine 0.80, Estimated Creat Clear 88, Estimated GFR 96, Est GFR ( Amer) 116, Glucose 315 H, Uric Acid 4.4, Calcium 9.0, Total Bilirubin 0.7, AST 27, ALT 23, Alkaline Phosphatase 91, C-Reactive Protein 43.5 H, Total Protein 7.6, Albumin 4.0, Globulin 3.6 H, Albumin/Globulin Ratio 1.1 I & O for Last 24 hours: Intake & Output 02/17/25 02/18/25 02/19/25 02/20/25 05:59 05:59 05:59 05:59 Weight 200 lb Radiology Reports for the Last 24 Hours: Moderate soft tissue swelling with postcontrast enhancement of the bilateral lower extremities, greatest at the right great toe with markers. No suspicious osseous erosions or rim enhancing fluid collections. Constitutional Constitutional: no acute distress, obese and cooperative *Routine HEENT Exam Head: Present normocephalic and atraumatic Eye: Present EOMI and PERRL ENT: Present mucous membranes moist *Routine Neck Exam Neck: Present supple and full ROM *Routine Respiratory Exam Respiratory: Present CTA bilaterally, normal respiratory effort, able to speak in complete sentences and symmetric chest movement *Routine Cardiovascular Exam Cardiovascular: Present RRR, Normal S1, Normal S2 and tachycardia *Routine Abdominal Exam Abdominal: Present soft and normoactive bowel sounds Comments: No tenderness or enlarged organs found on examination of abdomen *Routine Rectal Exam Rectal:: deferred *Routine Genitalia Exam Genitalia:: deferred *Routine Extremities Exam Extremities: Present edema, pulses intact and normal capillary refill Comments: Examination of the left foot found no signs of infection there is some scabbing noted onto the medial aspect of the foot near the great toe, examination of right foot finds that the right great toe is red with slight outer skin erosion on the pad of the great toe. Redness and tenderness present to fpc down the distal metatarsal so the foot does not appear to be involved at this time., Lower legs showing old scarring from previous injuries but no signs of edema skin color is normal *Routine Skin Exam Skin: Present intact and erythema (Most of the skin is perfectly normal but the right toe is quite red and swollen moving into the metatarsal) *Routine Neurological Exam Neurological: Present alert, oriented X3, moving all extremities, normal tone, vision grossly intact, hearing grossly intact (Patient is hard of hearing which is common and normal for him) and normal speech Routine Psychiatric Exam Psychiatric: Present normal affect, normal thought process, cooperative, good insight and good judgment H&P: Result Impressions 1. Diabetic right foot with cellulitis to the right great toe extending into the metatarsal 2. Lifestyle includes smoking 2 cigars a day, weight gain of 25 pounds over the last year, chronic hypertension, oxygen saturations decreasing to as low as 72% on sleep study Imaging and Cardiology ct foot: Status: image reviewed by me Additional comments: Moderate soft tissue swelling with postcontrast enhancement of the bilateral lower extremities, greatest at the right great toe with markers. No suspicious osseous erosions or rim enhancing fluid collections. 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[employer] use Qualified Code(s): E11.69 - Type 2 diabetes mellitus with other specified complication; Z79.4 - terminologist (current) use of insulin Category: Medical Code(s): E11.9 - Type 2 diabetes mellitus without complications (3) Nocturnal hypoxemia: Status: Acute Category: Medical Code(s): G47.34 - Idiopathic sleep related nonobstructive alveolar hypoventilation (4) Hearing loss: Problem Comment: 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 Status: Acute Category: Medical Code(s): E87.1 - Hypo-osmolality and hyponatremia (6) Tobacco use: Status: Acute Category: Social Hx Code(s): Z72.0 - Tobacco use Plan 1. Patient will be placed on the floor continued on IV antibiotics. Consult to podiatry. To continue to monitor great toe infection that appears to be getting worse and now starting to move into the foot 2. Will continue to try to curl controlled diabetes hypertension and will monitor the patient due to his history of moderate sleep apnea with nocturnal hypoxia, also will continue to monitor for any pain control needed for the foot
[2025-02-19] MEDS: humaLOG 100 UNITS/ML 10ML VIAL (SSI) SUBCUT (21:39)
[2025-02-19] MEDS: PANTOPRAZOLE 40MG TABLET 40 MG PO (21:39)
--- NOTE | 2025-02-19 21:48 | PC.NURSE ---
Patient does not have a list of medication, when comparing medication to external, patient stated if he takes medication or not. Went over list and patient was able to say yes or no. Patient also stated he takes more than on the list but not sure what they are. Patient cant remember. Completed med rec based on patient statements.
[2025-02-19 22:02] LABS: POC Glucose,Bedside 347 (70-110)
--- NOTE | 2025-02-19 22:02 | PC.WOUNDNOTE ---
right great toe
[2025-02-20] VITALS (20 sets, daily range): BP systolic 120–148; BP diastolic 59–89; PULSE 72–92; RESP 14–19; TEMP 36.2–38.6; O2SAT 90–94; BMI 34.1
--- NOTE | 2025-02-20 00:09 | PC.NURSE ---
Let nurse know about elevated temperature. [id number]
[2025-02-20] MEDS: ACETAMINOPHEN 325MG TAB 650 MG PO ×2 (00:23→20:32)
[2025-02-20] MEDS: KETOROLAC 30MG/ML VIAL 15 MG IV (02:08)
--- NOTE | 2025-02-20 03:50 | PC.NURSE ---
Linen bags & trash bags taken out, ice filled , bedside table organized and cleaned. Pt does not need anything at this time. [id number]
--- NOTE | 2025-02-20 03:53 | PC.NURSE ---
Alert and oriented. Hard of hearing, patient forgot hearing aids at home. Temperature noted at midnight, patient had several blankets on, removed these blankets, and gave Tylenol, resolved. Patient complained of soreness in right toe, treated per sep. Patient also stated he needed sleep aid, treated per sep. No other complaints from patient. Call light in reach. Bed alarm on due to falls at home.
--- NOTE | 2025-02-20 06:19 | PC.NURSE ---
Patient is sleeping and does not need anything at this time.
[2025-02-20] MEDS: humaLOG 100 UNITS/ML 10ML VIAL (SSI) SUBCUT ×4 (06:29→20:34)
--- NOTE | 2025-02-20 06:32 | EXP.POD.CONS ---
History of Present Illness *Admission Date: 02/19/25 *History of present illness: Mr. 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 Patient noted that he smokes 2 cigars a day. That he does have an implanted device for blood sugar can run as low as 50 as high as 250. Notes that he only drinks a couple of beers a month.. He began to have pain into the right foot noting that the right toe and to the right I distal metatarsal was becoming red and painful.. He has come into the emergency room to be rechecked finding that there was no abscesses or free air on CT scan.. Patient has a past history of infection to the other foot actually Klebsiella pneumonia grew in the past.. Patient noted that he still has feeling to both feet. Plan at this time we will go ahead and place him in continue antibiotics and have podiatry see him in the morning. Does not appear to be surgical at this time but long-term antibiotics may be required and continued evaluation in case I&D is needed.. Early in this case do not see the obvious osteomyelitis, and/or gout complications. But uric acid was added to the labs Mr. Sloan's past medical history includes splenectomy,mild sleep apnea recommended for appliance to help with that also noting nocturnal hypoxinemia drops to 72%, presently also mild chronic hyponatremia, noting that since 01/20/2024 patient has gained 25 pounds. Patient also noted for hypertension and BPH per history. Patient is stable at this time we will place him onto the floor for continue antibiotics and development of plan as outpatient to treat this infection. 02/20/25: Podiatry consult: Right Hallux DFU with cellulitis, pain to touch with a fluctuate abscess plantar hallux. Patient unsure how this started, he was thinking it was a spider/bug bite that happened around Wednesday night and progressed worse. -The site was cleaned with wound drain cleaner and then using sterile #15 blade to open a small area for abscess to be expelled. -Wound culture was obtained -Sterile hemostat was used to probe the site and a pocket of drainage was drained but was unable to completely get all out due to pain. -Patient was medicated a one time dose of Dilaudid for pain but will need to be surgically debrided and bone biopsy done this afternoon. -Patient was made NPO after midnight but will try and ate 2-3 bites before tray was removed. -Patient is to remain n.p.o. until after surgical procedure done today. -Betadine dressing/gauze and Coban applied to site. [facility] Disclaimer: The information contained in this section may have been updated after the patient was seen, as this information can be updated by other users. Medical History (Updated 02/20/25 @ 08:36 by Ileana Peralta APRN) Tobacco use Falls MCI (mild cognitive impairment) Tinea pedis of both feet Hematuria Uncontrolled type 2 diabetes mellitus Infected hematoma Hematoma of left lower leg Cellulitis of left lower leg Leg skin lesion, left Vertigo Tobacco abuse counseling Cardiac risk counseling Anxiety BPV (benign positional vertigo) Cubital tunnel syndrome on left Contusion, knee Abrasion of knee, bilateral Type 2 diabetes mellitus with hyperglycemia Complicated migraine Abnormal laboratory test Syncope Callus of foot Skin ulcer of left great toe, limited to breakdown of skin Nocturnal hypoxemia Sleep apnea Diabetes Seizure GERD (gastroesophageal reflux disease) HLD (hyperlipidemia) HTN (hypertension) Spleen absent Migraine Diabetes mellitus, type 2 Surgical History H/O shoulder surgery H/O splenectomy Family History Other Cancer Coronary artery disease Heart attack No significant family history Stroke Social History Smoking Status: Current every day smoker tobacco type: cigars alcohol intake: never substance use type: former substance user and marijuana current occupational status: retired Travel in the last 8 weeks?: None household members: none housing: house Have you lived/traveled outside [place] in past 30 days?: No Contact w/someone who lives/traveled outside US past 30 days?: No Exposure to someone with infectious disease in past 14 days?: No Do you have a fever (greater than 100.4 F or 38 C)?: No Have you tested positive for COVID-19?: No Exposed to someone with COVID-19 in past 14 days?: No Do you have a sore throat?: No Do you have a cough?: No Do you have any weakness?: No Do you have any diarrhea?: No Are you experiencing any unusual bleeding?: No Do you have any muscle aches/pain?: No Do you have any abdominal pain?: No Are you experiencing loss of taste or smell?: No Review of Systems *Musculoskeletal Musculoskeletal: Reports abnormal gait *Neurologic Neurologic: Reports as per HPI and Reports abnormal gait Meds Home Medications and Allergies Home Medications ?Medication ?Instructions ?Recorded ?Confirmed ?Type aspirin 81 mg tablet,delayed 81 mg PO DAILY 12/11/24 02/19/25 History release bupropion HCl 300 mg 24 hr tablet, 300 mg PO DAILY 12/11/24 02/19/25 History extended release insulin human U-100 NPH-regulr 70 unit SQ BID 12/11/24 02/19/25 History 70-30 mix 100 unit/mL subcutaneous susp (Humulin 70/30 U-100 Insulin) pioglitazone 30 mg tablet 30 mg PO DAILY 12/11/24 02/19/25 History lisinopril 10 mg tablet 10 mg PO DAILY #30 tabs 12/12/24 02/19/25 Rx tamsulosin 0.4 mg capsule 0.8 mg PO HS 02/20/25 02/20/25 History New Prescriptions to Start Prescriptions: Allergies Allergy/AdvReac Type Severity Reaction Status Date / Time codeine Allergy Mild Verified 12/11/24 13:30 Exam (Inpt) Vital signs and Labs for Last 24 Hours: Temp Pulse Resp BP Pulse Ox O2 Del Method 98.6 F 73 19 120/59 L 93 L Room Air 02/20/25 03:49 02/20/25 03:49 02/20/25 03:49 02/20/25 03:49 02/20/25 03:49 02/20/25 04:59 Laboratory Results - last 24 hr 02/19/25 15:13: WBC 17.3 H, RBC 4.46 L, Hgb 13.1 L, Hct 40.1 L, MCV 89.9, MCH 29.4, MCHC 32.7, RDW 13.5, Plt Count 303, MPV 10.8 H, Neut % (Auto) 65.5, Lymph % (Auto) 20.9, Meigs % (Auto) 10.3 H, Eos % (Auto) 2.4, Baso % (Auto) 0.4, Neut # (Auto) 11.3 H, Lymph # (Auto) 3.6, Meigs # (Auto) 1.8 H, Eos # (Auto) 0.4, Baso # (Auto) 0.1, Total Counted 100, Neutrophils % (Manual) 66, Lymphocytes % (Manual) 21, Atypical Lymphs % 4.0, Monocytes % (Manual) 7, Eosinophils % (Manual) 2, Platelet Estimate Normal, RBC Morphology Normal, Sodium 132 L, Potassium 4.3, Chloride 95 L, Carbon Dioxide 29, Anion Gap 12.3, BUN 14, Creatinine 0.80, Estimated Creat Clear 88, Estimated GFR 96, Est GFR ( Amer) 116, Glucose 315 H, Uric Acid 4.4, Calcium 9.0, Total Bilirubin 0.7, AST 27, ALT 23, Alkaline Phosphatase 91, C-Reactive Protein 43.5 H, Total Protein 7.6, Albumin 4.0, Globulin 3.6 H, Albumin/Globulin Ratio 1.1 02/19/25 21:35: POC Glucose 347 H* I & O for Labs for Last 24 Hours: Intake & Output 02/17/25 02/18/25 02/19/25 02/20/25 23:59 23:59 23:59 23:59 Intake Total 430 / 430 Output Total 0 / 0 Balance 430 / 430 Weight 200 lb 217 lb 6.4 oz Constitutional: Present no acute distress and cooperative Comment:: Patient is very Hard of hearing and forgot to bring his hearing aids. Head: Present normocephalic Eye: Present as per HPI Neck: Present normal inspection and trachea midline Respiratory: Present normal respiratory effort and able to speak in complete sentences Cardiac: Present posterior tibial pulses present and pedal pulses present GI: Present soft Rectal (male): Present deferred (male): Present deferred Extremities: Present edema Comment:: 02/20/25: Right hallux redness and swelling, CT neg. for OM, No suspicious osseous erosions or rim enhancing fluid collections. Skin: Present intact, erythema and warm Comment:: Plantar hallux had two areas of minor soft tissue injury (blood trapped) under skin, fluctuant abscess noted. -Sites cleaned and using sterile #15 blade-to Debrided with a 15' blade sharply, excisionally through skin into the subcu layer. Serous and purulent drainage cultured and expelled, wound does not probe to bone. Good bleeding was noted. Post debridement the wound measured ~ 1.0x 0.5x 0.5cm. Neuro: Present Sensory Function Intact and oriented x 3 Comment:: Hx of DM neuropathy, but he was able to feel us touching the wound and noted pain. Ankle: bilateral: normal inspection Feet/Toes: right: erythema (R great toe redness and swelling, cellulitis ), right: swelling (R great toe cellulitis, DFU ) and right: tenderness (R great toe cellulitis, DFU ) and bilateral: nail abnormalities Inspection: Present nail disorder, infection (R great toe cellulitis ) and ulceration (Right hallux cellulitis, DFU ) Pulses: L dorsalis pedis pulse: normal, R dorsalis pedis pulse: normal, L posterior tibial pulse: diminished (palpable but weak) and R posterior tibial pulse: diminished (palpable but weak) CFT: normal: CFT Results Labs 02/20/25 07:00 02/20/25 07:00 Labs: Abnormal lab results 02/19/25 02/19/25 Range/Units 15:13 21:35 WBC 17.3 H (4.8-10.8) K/mm3 RBC 4.46 L (4.60-6.20) M/mm3 Hgb 13.1 L (14.1-18.0) g/dL Hct 40.1 L (42.0-52.0) % MPV 10.8 H (7.4-10.4) fl Meigs % (Auto) 10.3 H (1.7-9.3) % Neut # (Auto) 11.3 H (1.8-7.8) K/mm3 Meigs # (Auto) 1.8 H (0.1-1.0) K/mm3 Sodium 132 L (136-145) mmol/L Chloride 95 L (98-107) mmol/L Glucose 315 H (74-100) mg/dl POC Glucose 347 H* (70-110) C-Reactive Protein 43.5 H (0-4) mg/L Globulin 3.6 H (1.3-3.2) g/dL H & H 02/19/25 Range/Units 15:13 Hgb 13.1 L (14.1-18.0) g/dL Hct 40.1 L (42.0-52.0) % All other labs normal. Assessment and Plan *Assessment and plan (1) Diabetic foot infection: Status: Acute Category: Medical Code(s): E11.628 - Type 2 diabetes mellitus with other skin complications; L08.9 - Local infection of the skin and subcutaneous tissue, unspecified (2) Diabetes mellitus, type 2: Status: Acute Qualifiers: Diabetes mellitus complication status: with other specified complication Diabetes mellitus jail insulin use: with long term care phlebotomist use Qualified Code(s): E11.69 - Type 2 diabetes mellitus with other specified complication; Z79.4 - long-term (current) use of insulin Category: Medical Code(s): E11.9 - Type 2 diabetes mellitus without complications (3) Diabetic peripheral neuropathy: Problem Comment: This patient does have reduction in light discrimination lower extremities. He clearly has diabetic peripheral polyneuropathy. He is also losing muscle mass in the hands which is probably related. Most of his problems are related to his diabetes. He has not seen podiatry and we will send him to podiatry for evaluation. Goal here is to get his blood sugars better controlled. Status: Acute Category: Medical Code(s): E11.42 - Type 2 diabetes mellitus with diabetic polyneuropathy (4) Diabetic foot: Status: Acute Category: Medical Code(s): E11.8 - Type 2 diabetes mellitus with unspecified complications (5) Neuropathy: Problem Comment: Most likely secondary to poorly controlled diabetes mellitus. Status: Chronic Category: Medical Code(s): G62.9 - Polyneuropathy, unspecified (6) Cellulitis of great toe of right foot: Status: Acute Category: Medical Code(s): L03.031 - Cellulitis of right toe (7) Diabetic ulcer of toe of right foot: Status: Acute Qualifiers: Diabetes mellitus type: type 2 Non-pressure ulcer stage: with fat layer exposed Qualified Code(s): E11.621 - Type 2 diabetes mellitus with foot ulcer; L97.512 - Non-pressure chronic ulcer of other part of right foot with fat layer exposed Category: Medical Code(s): E11.621 - Type 2 diabetes mellitus with foot ulcer; L97.519 - Non-pressure chronic ulcer of other part of right foot with unspecified severity (8) Abscess of great toe, right: Status: Acute Category: Medical Code(s): L02.611 - Cutaneous abscess of right foot Plan 02/20/25: Right Hallux DFU with Cellulitis/Abscess: -IDDM, glucose was 347mg/dl and last recorded HA1c 05/09/24- 8.9% -Reviewed images and report of 02/19/25 CT Right Lower Extremity With Contrast, Foot, Clinical indication: Swelling, leg or foot; Additional info: Great toe redness, foot swelling and pain COMPARISON: CR XR FOOT WT BEARING RT 3V 03/08/2023 3:15 PM FINDINGS: Bones/joints: No suspicious osseous erosions or rim enhancing fluid collections. Soft tissues: Moderate soft tissue swelling with postcontrastenhancement of the bilateral lower extremities, greatest at the right great toe with markers. IMPRESSION: Moderate soft tissue swelling with postcontrast enhancement of the bilateral lower extremities, greatest at the right greattoe with markers. No suspicious osseous erosions or rim enhancing fluid collections. -Patient started on broad-spectrum coverage with vancomycin and Zosyn per ER MD. -Patient made NPO until after our Podiatry consult this am. -Patient ate 2-3 bites for breakfast tray was removed -Hallux was cleaned with wound drain cleaner then using sterile #15 blade and hemostat to probe the site, serous/purulent drainage was expressed and cultured. The site was too painful to completely remove all of the abscess, he will need to go to surgery this afternoon for I&D with a bone biopsy. -Betadine, DSD,kerlix, coban applied to Right foot. -All orders per Dr. Moody
[2025-02-20 07:14] LABS: Hematocrit 37.1 % (42.0-52.0); Hemoglobin 12.2 g/dL (14.1-18.0); Immature Granulocytes % 0.5 %; Mean Corpuscular HGB Conc 32.9 g/dL (31.8-35.4); Mean Corpuscular Hemoglobin 29.4 pg (27.0-31.2); Mean Corpuscular Volume 89.4 fl (80-94); Nucleated Red Blood Cells % 0 %; Platelet Count 294 K/mm3 (142-424); Red Blood Count 4.15 M/mm3 (4.60-6.20); Red Cell Distribution Width-SD 44.1 fL; White Blood Count 17.4 K/mm3 (4.8-10.8)
[2025-02-20 07:37] LABS: Alanine Aminotransferase 18 U/L (12-78); Albumin Level 3.4 g/dl (3.5-5.0); Albumin/Globulin Ratio 1.1 (1.1-1.8); Alkaline Phosphatase 81 U/L (38-126); Anion Gap 8.0 mEq/L (5-15); Aspartate Amino Transferase 25 U/L (17-59); Bilirubin,Total 0.8 mg/dl (0.2-1.3); Blood Urea Nitrogen 13 mg/dl (9-20); Calcium 8.4 mg/dl (8.4-10.2); Carbon Dioxide 27 mmol/L (22.0-30.0); Chloride 101 mmol/L (98-107); Creatinine Clearance Estimated 96 mL/min (50-200); Creatinine,Serum 1.00 mg/dl (0.66-1.25); Estimated Glomerular Filt Rate 74 ml/min (>60); GFR (African American) 89 ML/MIN (>60); Globulin 3.2 g/dL (1.3-3.2); Glucose 163 mg/dl (74-100); Magnesium 1.4 mg/dl (1.6-2.3); Potassium 4.0 mmoL/L (3.5-5.1); Sodium 132 mmol/L (136-145); Total Protein,Serum 6.6 g/dl (6.3-8.2)
[2025-02-20 07:42] LABS: C-Reactive Protein 56.6 mg/L (0-4)
[2025-02-20] MEDS: HYDROMORPHONE 2MG/ML SYRINGE 1 MG IV (08:00)
--- NOTE | 2025-02-20 08:33 | HMH.PHAINT1 ---
Pharmacy Intervention Comments: HOME MEDICATION LIST VERIFIED USING LIST FROM OUTPATIENT PHARMACY AND PRIMARY CARE OFFICE, PT JESIKA MIX
--- NOTE | 2025-02-20 08:34 | EXP.PHA.CONS ---
Pharmacy Consult Date: 02/20/25 Time: 08:34 Referring provider: DR NEWBY Reason for Consult:: VANCOMYCIN DOSING CONSULT Allergies Allergy/AdvReac Type Severity Reaction Status Date / Time codeine Allergy Mild Verified 12/11/24 13:30 Home Medications ?Medication ?Instructions ?Recorded ?Confirmed ?Type aspirin 81 mg tablet,delayed 81 mg PO DAILY 12/11/24 02/19/25 History release bupropion HCl 300 mg 24 hr tablet, 300 mg PO DAILY 12/11/24 02/19/25 History extended release insulin human U-100 NPH-regulr 70 unit SQ BID 12/11/24 02/19/25 History 70-30 mix 100 unit/mL subcutaneous susp (Humulin 70/30 U-100 Insulin) pioglitazone 30 mg tablet 30 mg PO DAILY 12/11/24 02/19/25 History lisinopril 10 mg tablet 10 mg PO DAILY #30 tabs 12/12/24 02/19/25 Rx tamsulosin 0.4 mg capsule 0.8 mg PO HS 02/20/25 02/20/25 History New Prescriptions to Start Prescriptions: Height: 1.7 m Weight: 98.611 kg Laboratory Results:: Laboratory Results - last 24 hr 02/19/25 15:13: WBC 17.3 H, RBC 4.46 L, Hgb 13.1 L, Hct 40.1 L, MCV 89.9, MCH 29.4, MCHC 32.7, RDW 13.5, Plt Count 303, MPV 10.8 H, Neut % (Auto) 65.5, Lymph % (Auto) 20.9, Maries % (Auto) 10.3 H, Eos % (Auto) 2.4, Baso % (Auto) 0.4, Neut # (Auto) 11.3 H, Lymph # (Auto) 3.6, Maries # (Auto) 1.8 H, Eos # (Auto) 0.4, Baso # (Auto) 0.1, Total Counted 100, Neutrophils % (Manual) 66, Lymphocytes % (Manual) 21, Atypical Lymphs % 4.0, Monocytes % (Manual) 7, Eosinophils % (Manual) 2, Platelet Estimate Normal, RBC Morphology Normal, Sodium 132 L, Potassium 4.3, Chloride 95 L, Carbon Dioxide 29, Anion Gap 12.3, BUN 14, Creatinine 0.80, Estimated Creat Clear 88, Estimated GFR 96, Est GFR ( Amer) 116, Glucose 315 H, Uric Acid 4.4, Calcium 9.0, Total Bilirubin 0.7, AST 27, ALT 23, Alkaline Phosphatase 91, C-Reactive Protein 43.5 H, Total Protein 7.6, Albumin 4.0, Globulin 3.6 H, Albumin/Globulin Ratio 1.1 02/19/25 21:35: POC Glucose 347 H* 02/20/25 07:00: WBC 17.4 H, RBC 4.15 L, Hgb 12.2 L, Hct 37.1 L, MCV 89.4, MCH 29.4, MCHC 32.9, RDW 13.4, Plt Count 294, MPV 10.6 H, Neut % (Auto) 58.0, Lymph % (Auto) 27.8, Maries % (Auto) 10.4 H, Eos % (Auto) 2.8, Baso % (Auto) 0.5, Neut # (Auto) 10.1 H, Lymph # (Auto) 4.8 H, Maries # (Auto) 1.8 H, Eos # (Auto) 0.5 H, Baso # (Auto) 0.1, ESR 70 H, Sodium 132 L, Potassium 4.0, Chloride 101, Carbon Dioxide 27, Anion Gap 8.0, BUN 13, Creatinine 1.00 D, Estimated Creat Clear 96, Estimated GFR 74, Est GFR ( Amer) 89 D, Glucose 163 H D, Calcium 8.4, Magnesium 1.4 L, Total Bilirubin 0.8, AST 25, ALT 18, Alkaline Phosphatase 81, C-Reactive Protein 56.6 H D, Total Protein 6.6, Albumin 3.4 L D, Globulin 3.2, Albumin/Globulin Ratio 1.1 Medical History: Medical History (Updated 02/20/25 @ 08:28 by Ileana Peralta APRN) Tobacco use [place] MCI (mild cognitive impairment) Tinea pedis of both feet Hematuria Uncontrolled type 2 diabetes mellitus Infected hematoma Hematoma of left lower leg Cellulitis of left lower leg Leg skin lesion, left Vertigo Tobacco abuse counseling Cardiac risk counseling Anxiety BPV (benign positional vertigo) Cubital tunnel syndrome on left Contusion, knee Abrasion of knee, bilateral Type 2 diabetes mellitus with hyperglycemia Complicated migraine Abnormal laboratory test Syncope Callus of foot Skin ulcer of left great toe, limited to breakdown of skin Nocturnal hypoxemia Sleep apnea Diabetes Seizure GERD (gastroesophageal reflux disease) HLD (hyperlipidemia) HTN (hypertension) Spleen absent Migraine Diabetes mellitus, type 2 Assessment and Plan Assessment and plan all Dx Assessment and Plan for all problems:: Pharmacokinetic dosing service Objective: Age: 69 yo Serum creatinine: 1 mg/dL Height: 66.9 Inches Weight (kg): 98.611 Diagnosis: DIABETIC FOOT WOUND/CELLULITIS Assessment: IBW (kg): 65.87 Dosing wt(kg): 98.611 Estimated Creatinine clearance (ml/min): 64.0 CRCL method: Cockcroft and Gault using ibw(default). Drug selected: Vancomycin Loading dose (mg): 2000 MG Vd (liters): 74.0 (factor used: 0.75 L/kg) Filiberto (hr-1): 0.058 Half life (hrs): 11.95 CLvanco=?? 4.292 L/hr Recommended dose: 1750 mg Interval: 18 hrs Infusion time (hrs): 2.0 Predicted peak (mcg/mL): 34.5 Predicted trough (mcg/mL): 13.64 Total body weight is being used for vancomycin dosing. Recommendations: Give Vancomycin 1750 mg q 18 hrs with an expected Cpeak of 34.5 mcg/ml and an expected Ctrough of 13.64 mcg/ml AUC 0-24 /DINO Data: DINO 0.5 mcg/mL:?? AUC/DINO:? 1087.3 DINO 1.0 mcg/mL:?? AUC/DINO:? 543.6 --------- DINO 1.5 mcg/mL:?? AUC/DINO:? 362.4 DINO 2.0 mcg/mL:?? AUC/DINO:? 271.8 Thank you for the consult
[2025-02-20 08:56] LABS: Hemoglobin A1C 8.9 % (4.0-6.0)
[2025-02-20] MEDS: PIPERACILLIN/TAZO 4.5 GM in 0.9 % SODIUM CHLORIDE 100 ML IV ×3 (08:57→22:17)
[2025-02-20] MEDS: FENOFIBRATE 54MG TABLET 54 MG PO (08:58)
[2025-02-20] MEDS: MAGNESIUM SULFATE IN WATER 2 GM/50 ML PIGGYBACK IV ×3 (08:58→12:29)
[2025-02-20 08:59] LABS: RBC Morphology Normal; Total Cells Counted 100
--- NOTE | 2025-02-20 09:45 | US_ITS ---
FINAL REPORT CLINICAL HISTORY: R DFU, decreased pedal pulses/hair growth FINDINGS: LOWER EXTREMITY SEGMENTAL PRESSURE MEASUREMENTS FINDINGS: Pressure indices are as follows: RIGHT LOWER EXTREMITY: Upper thigh: 1.19 Calf: 1.08 Ankle, posterior tibial artery: 1.19 Ankle, dorsalis pedis: 1.06 Toe: 0.65 Comments: LEFT LOWER EXTREMITY: Thigh: 1.19 Calf: 1.14 Ankle, posterior tibial artery: 1.19 Ankle, dorsalis pedis: 1.54 IMPRESSION: Normal pulses and waveforms. Reviewed, Interpreted and Dictated by Danny Barrios MD Transcribed by Heather Pratt Authenticated and [facility]
--- NOTE | 2025-02-20 11:07 | P.PN_ITS ---
<Statement entered by Paul Diez MD - 02/20/25 15:49> Rounded on patient after nurse practitioner. Personally examined and interviewed patient. Agree with exam findings and care plan as documented. Subjective *Date: 02/20/25 *Time: 15:25 Interval history: Patient lying in bed, states he just saw podiatry and they debrided his foot. Denies pain at this time. N.p.o. currently for surgical intervention later today. Patient has no complaints at this time. Medical Exam Vital signs and Labs for Last 24 Hours: Vital Signs Temp Pulse Pulse Resp BP BP Pulse Ox 02/20/25 09:20 02/20/25 08:30 94 L 02/20/25 08:00 98.4 F 73 18 144/81 H 94 L 02/20/25 06:44 02/20/25 04:59 02/20/25 03:49 98.6 F 73 19 120/59 L 93 L 02/20/25 03:00 02/20/25 00:56 02/20/25 00:55 98.5 F 02/20/25 00:00 101.5 F H 84 18 123/66 93 L 02/19/25 23:00 02/19/25 21:00 02/19/25 20:53 02/19/25 20:16 98.9 F 89 14 135/76 02/19/25 20:00 135/76 02/19/25 20:00 89 93 L 02/19/25 19:24 95 H 93 L 02/19/25 19:24 165/92 H 02/19/25 18:00 95 H 18 134/84 95 02/19/25 17:49 94 H 18 142/80 H 95 02/19/25 16:50 97 H 18 146/91 H 95 02/19/25 16:31 94 H 18 151/85 H 94 L 02/19/25 16:01 92 H 18 164/88 H 95 02/19/25 15:30 90 136/75 95 02/19/25 15:02 98.9 F 91 H 18 145/65 H 97 O2 Del Method 02/20/25 09:20 Room Air 02/20/25 08:30 Room Air 02/20/25 08:00 Room Air 02/20/25 06:44 Room Air 02/20/25 04:59 Room Air 02/20/25 03:49 Room Air 02/20/25 03:00 Room Air 02/20/25 00:56 Room Air 02/20/25 00:55 02/20/25 00:00 Room Air 02/19/25 23:00 Room Air 02/19/25 21:00 Room Air 02/19/25 20:53 Room Air 02/19/25 20:16 Room Air 02/19/25 20:00 02/19/25 20:00 02/19/25 19:24 02/19/25 19:24 02/19/25 18:00 02/19/25 17:49 02/19/25 16:50 02/19/25 16:31 02/19/25 16:01 02/19/25 15:30 02/19/25 15:02 Room Air Intake and Output 02/19/25 02/20/25 02/20/25 23:59 07:59 15:59 Intake Total 430 / 790 360 / 790 Output Total 0 / 0 Balance 430 / 790 360 / 790 Intake: Intake, Oral Amount 180 / 540 360 / 540 Intake, Total IV Amount 250 / 250 Vancomycin HCl 2,000 mg In 0.9 250 / 250 % Sodium Chloride 250 ml @ 125 mls/hr IV ONCE ONE Rx#:[id number] Output: Output, Urine Amount 0 / 0 Other: Number of Unmeasured Voids 1 Weight 98.611 kg 98.611 kg Patient Weight 02/20/25 23:59 Weight 98.611 kg Laboratory Results - last 24 hr 02/19/25 15:13: WBC 17.3 H, RBC 4.46 L, Hgb 13.1 L, Hct 40.1 L, MCV 89.9, MCH 29.4, MCHC 32.7, RDW 13.5, Plt Count 303, MPV 10.8 H, Neut % (Auto) 65.5, Lymph % (Auto) 20.9, Gregory % (Auto) 10.3 H, Eos % (Auto) 2.4, Baso % (Auto) 0.4, Neut # (Auto) 11.3 H, Lymph # (Auto) 3.6, Gregory # (Auto) 1.8 H, Eos # (Auto) 0.4, Baso # (Auto) 0.1, Total Counted 100, Neutrophils % (Manual) 66, Lymphocytes % (Manual) 21, Atypical Lymphs % 4.0, Monocytes % (Manual) 7, Eosinophils % (Manual) 2, Platelet Estimate Normal, RBC Morphology Normal, Sodium 132 L, Potassium 4.3, Chloride 95 L, Carbon Dioxide 29, Anion Gap 12.3, BUN 14, Creatinine 0.80, Estimated Creat Clear 88, Estimated GFR 96, Est GFR ( Amer) 116, Glucose 315 H, Uric Acid 4.4, Calcium 9.0, Total Bilirubin 0.7, AST 27, ALT 23, Alkaline Phosphatase 91, C-Reactive Protein 43.5 H, Total Protein 7.6, Albumin 4.0, Globulin 3.6 H, Albumin/Globulin Ratio 1.1 02/19/25 21:35: POC Glucose 347 H* 02/20/25 07:00: WBC 17.4 H, RBC 4.15 L, Hgb 12.2 L, Hct 37.1 L, MCV 89.4, MCH 29.4, MCHC 32.9, RDW 13.4, Plt Count 294, MPV 10.6 H, Neut % (Auto) 58.0, Lymph % (Auto) 27.8, Gregory % (Auto) 10.4 H, Eos % (Auto) 2.8, Baso % (Auto) 0.5, Neut # (Auto) 10.1 H, Lymph # (Auto) 4.8 H, Gregory # (Auto) 1.8 H, Eos # (Auto) 0.5 H, Baso # (Auto) 0.1, Total Counted 100, Neutrophils % (Manual) 56, Lymphocytes % (Manual) 32, Monocytes % (Manual) 10 H, Eosinophils % (Manual) 2, Platelet Estimate Normal, RBC Morphology Normal, ESR 70 H, Sodium 132 L, Potassium 4.0, Chloride 101, Carbon Dioxide 27, Anion Gap 8.0, BUN 13, Creatinine 1.00 D, Estimated Creat Clear 96, Estimated GFR 74, Est GFR ( Amer) 89 D, Glucose 163 H D, Hemoglobin A1c 8.9 H, Calcium 8.4, Magnesium 1.4 L, Total Bilirubin 0.8, AST 25, ALT 18, Alkaline Phosphatase 81, C-Reactive Protein 56.6 H D, Total Protein 6.6, Albumin 3.4 L D, Globulin 3.2, Albumin/Globulin Ratio 1.1 I & O for Labs for Last 24 Hours: Intake & Output 02/17/25 02/18/25 02/19/25 02/20/25 23:59 23:59 23:59 23:59 Intake Total 790 / 790 Output Total 0 / 0 Balance 790 / 790 Weight 90.718 kg 98.611 kg Assessment and Plan *Assessment and plan (1) Diabetic foot infection: Status: Acute Category: Medical Code(s): E11.628 - Type 2 diabetes mellitus with other skin complications; L08.9 - Local infection of the skin and subcutaneous tissue, unspecified (2) Diabetes mellitus, type 2: Status: Acute Qualifiers: Diabetes mellitus complication status: with other specified complication Diabetes mellitus exterminator termite insulin use: with exterminator termite use Qualified Code(s): E11.69 - Type 2 diabetes mellitus with other specified complication; Z79.4 - MCC (current) use of insulin Category: Medical Code(s): E11.9 - Type 2 diabetes mellitus without complications (3) Cellulitis of great toe of right foot: Status: Acute Category: Medical Code(s): L03.031 - Cellulitis of right toe (4) Diabetic ulcer of toe of right foot: Status: Acute Qualifiers: Diabetes mellitus type: type 2 Non-pressure ulcer stage: with fat layer exposed Qualified Code(s): E11.621 - Type 2 diabetes mellitus with foot ulcer; L97.512 - Non-pressure chronic ulcer of other part of right foot with fat layer exposed Category: Medical Code(s): E11.621 - Type 2 diabetes mellitus with foot ulcer; L97.519 - Non-pressure chronic ulcer of other part of right foot with unspecified severity (5) Abscess of great toe, right: Status: Acute Category: Medical Code(s): L02.611 - Cutaneous abscess of right foot (6) BPH (benign prostatic hyperplasia): Status: Chronic Qualifiers: Lower urinary tract symptom presence: symptoms absent Qualified Code(s): N40.0 - Benign prostatic hyperplasia without lower urinary tract symptoms Category: Medical Code(s): N40.0 - Benign prostatic hyperplasia without lower urinary tract symptoms (7) Depression: Status: Acute Category: Medical Code(s): F32.A - Depression, unspecified Plan Mr. Sloan is a 69-year-old male who presented to the emergency department yesterday with pain in his right foot and toe, denies trauma. He states that it had become red and painful. Patient has a primary medical history of type 2 diabetes, tobacco use, DEEDEE, neuropathy, hyperlipidemia, BPH, diabetic foot ulcers. CT of right foot was obtained and shows pockets of infection possible osteomyelitis. Leukocytosis noted at 17.3. Due to evidence of possible osteomyelitis, leukocytosis, patient was admitted to the medical surgical floor for further broad-spectrum coverage antibiotics, podiatry evaluation. Plan of care is as follows: #Diabetic foot infection, right hallux #Diabetes mellitus, type II #Diabetic peripheral neuropathy #Cellulitis of great toe on right foot #Diabetic ulcer of toe on right foot ? Podiatry consulted, x-ray of foot shows moderate soft tissue swelling of greatest at the right toe, no suspicious osseous erosions or rim-enhancing fluid collections. ? Per podiatry's recommendation staying on broad spectrum antibiotic coverage, vancomycin and Zosyn. ? Plan to take patient to operating room this afternoon for I&D and bone biopsy. ? Patient had bedside debridement and dressing with Betadine, DSD, Kerlix, Coban applied to the right foot. Wound culture obtained, pending. ? Patient currently takes insulin NPH 70-3070 units SQ twice daily, pioglitazone 30 mg daily for management of his diabetes. ? Current A1c 8.9%. Patient does have notable leukocytosis, WBC 17.4. Currently on broad-spectrum antibiotics. Blood cultures pending. ? Continue to monitor CBC, CMP in the a.m. ? Metformin 500 mg twice daily, insulin lispro 55 units SQ twice daily, ? SSI, ACHS blood sugars #Hypertension ? Continue lisinopril 10 mg and aspirin 81 mg daily. #BPH ? Continue tamsulosin 0.8 mg at bedtime. #Depression ? Continue Wellbutrin 300 mg daily. Full code Podiatry consulted Patient n.p.o. for procedure Ambulate as tolerated VTE contraindicated due to surgery
[2025-02-20 11:39] LABS: POC Glucose,Bedside 194 (70-110)
[2025-02-20] MEDS: VANCOMYCIN/WATER FOR INJ (PEG) 1.75 GM/350 ML PIGGYBACK IV (11:42)
--- NOTE | 2025-02-20 13:45 | PC.NURSE ---
pt was taken down for surgery on foot
--- NOTE | 2025-02-20 13:55 | P.PNANES_ITS ---
[facility] Disclaimer: The information contained in this section may have been updated after the patient was seen, as this information can be updated by other users. Medical History (Updated 02/20/25 @ 08:36 by Ileana Peralta APRN) Tobacco use [place] MCI (mild cognitive impairment) Tinea pedis of both feet Hematuria Uncontrolled type 2 diabetes mellitus Infected hematoma Hematoma of left lower leg Cellulitis of left lower leg Leg skin lesion, left Vertigo Tobacco abuse counseling Cardiac risk counseling Anxiety BPV (benign positional vertigo) Cubital tunnel syndrome on left Contusion, knee Abrasion of knee, bilateral Type 2 diabetes mellitus with hyperglycemia Complicated migraine Abnormal laboratory test Syncope Callus of foot Skin ulcer of left great toe, limited to breakdown of skin Nocturnal hypoxemia Sleep apnea Diabetes Seizure GERD (gastroesophageal reflux disease) HLD (hyperlipidemia) HTN (hypertension) Spleen absent Migraine Diabetes mellitus, type 2 Surgical History H/O shoulder surgery H/O splenectomy Family History Other Cancer Coronary artery disease Heart attack No significant family history Stroke Social History Smoking Status: Current every day smoker tobacco type: cigars alcohol intake: never substance use type: former substance user and marijuana current occupational status: retired Travel in the last 8 weeks?: None household members: none housing: house Have you lived/traveled outside [place] in past 30 days?: No Contact w/someone who lives/traveled outside US past 30 days?: No Exposure to someone with infectious disease in past 14 days?: No Do you have a fever (greater than 100.4 F or 38 C)?: No Have you tested positive for COVID-19?: No Exposed to someone with COVID-19 in past 14 days?: No Do you have a sore throat?: No Do you have a cough?: No Do you have any weakness?: No Do you have any diarrhea?: No Are you experiencing any unusual bleeding?: No Do you have any muscle aches/pain?: No Do you have any abdominal pain?: No Are you experiencing loss of taste or smell?: No [facility] Anesthesia Checklist Patient Identification Patient Identification: Arm Band and Verbal (Name & ) Structural Data Admitted From: Home Planned Operative Procedure/s: I&D of great toe, bone biopsy Consent for Planned Operative Procedure(s) Verified: Yes Verified Documents: Surgical Consent NPO Status Verified Time NPO: 00:00 Chart Verification Results Verified: CBC and BMP Additional verifications Fingerstick Blood Glucose: 194 Anesthesia Reactions: No Hx Blood Transfusions: Yes Blood Transfusion Reaction: No Airway Assessment Mallampati Score:: Class II C-Spine Mobility Assessed: Yes TMJ Mobility Assessed: Yes Dentition: Edentulous Neurological Assessment Level of Consciousness: Awake, Alert and Appropriate Hx Seizures: No Numbness or tingling in extremities: No Anesthesia Plan Anesthesia Risk discussed: Yes Anesthesia Plan: Verified ASA Class: II Anesthesia Type: General
[2025-02-20] MEDS: LACTATED RINGERS 1000ML 1,000 ML 25 ML IV (13:56)
[2025-02-20] MEDS: GENTAMICIN 80 MG/2 ML VIAL (14:33)
[2025-02-20] MEDS: BUPIVACAINE 0.5% 30ML VIAL 150 MG (14:33)
[2025-02-20] MEDS: VANCOMYCIN 1000MG VIAL 1000 MG (14:55)
--- NOTE | 2025-02-20 15:20 | XR_ITS ---
FINAL REPORT CLINICAL HISTORY: s/p R hallux bone biopsy COMPARISON: 03/08/2023 FINDINGS: RIGHT FOOT 3 views of the right foot were obtained. There is no acute fracture or dislocation. There is mild hallux valgus deformity. Calcaneal spurs noted. Visualized joint spaces are normally aligned. Soft tissues are unremarkable. IMPRESSION: No acute bony abnormality. Reviewed, Interpreted and Dictated by Danny Barrios MD Transcribed by Heather Pratt Authenticated and [facility]
--- NOTE | 2025-02-20 15:21 | P.OP_ITS ---
Date of procedure: 02/20/25 Pre-op Diagnosis:: Right hallux diabetic foot ulcer Right hallux abscess Diabetic foot infection Uncontrolled diabetes Obesity Post-op Diagnosis:: Same Procedure performed:: Right foot incision and drainage Right foot wide excisional irrigation and debridement Open bone biopsy Surgeon:: Bailey Moody DPM Anesthesia: local (25cc 0.5%radha plain) and LMA Estimated blood loss (mL): 10 Clinical Note:: Preoperative indications: Patient is a 69-year-old and controlled diabetic who presents for right great toe cellulitis with suspected abscess. New images were discussed with the patient. Bedside wound debridement/I&D performed, purulence expressed and a wound culture was obtained. We discussed conservative versus surgical treatment options. We discussed conservative care including continued oral vs IV antibiotics and local wound care versus surgical incision and drainage. Due to elevated infection markers and clinical appearance, recommend surgery for I&D and biopsy. Patient understands that they could have wound healing complications including delayed healing and infection. We discussed that if the wound does not heal, it is possible that they may need further debridement. Patient understands if infection spreads into the bone, it may warrant proximal amputation and could result in further loss of digits, loss of partial foot or loss of leg. We discussed the risks and benefits in great detail. Other surgical risks include: prolonged pain and swelling, further infection requiring oral or IV antibiotics, delay in healing of soft tissue or bone, nerve or blood vessel damage, CRPS/RSD, DVT/PE, anesthesia complications, and even . All questions answered. Patient verbalized understanding and agreement with treatment plan. Verbal and written consent obtained. ABIs were obtained and show patient has adequate flow for healing. Operative findings:: Patient had localized edema and erythema extending to the first MTPJ of the right hallux. This morning had bedside I&D and wound debridement. There was a linear incision noted to the central plantar aspect of the right hallux which extended to deep fascia. 15 blade was utilized to make a linear incision through the same area extending it superiorly and inferiorly full-thickness down to the level of the FHL tendon. FHL was visualized and had no obvious necrotic changes. Due to the depth of the wound and nonviable tissue, decision made to do bone biopsy. Separate incision made to the medial hallux to perform the open bone biopsy with Jamshidi needle. The hallux bone was somewhat soft but not crumbly and but appeared normal color. No purulence to bone directly. Diabetic foot ulcer noted to the plantar medial aspect of the base of the proximal phalanx. 15 blade was used to sharply excisionally debride diabetic foot ulcer full-thickness through skin into subcutaneous tissue. Postdebridement: 100% granular, 0.6 x 0.6 x 0.3cm. The ulcer did connect via track to the I&D site at the level of the subcutaneous tissue. Separate linear incision was made over the plantar medial first MTPJ full-thickness down to the level of deep fascia. No purulence malodor or drainage noted. At the end of the case there was a total of 3 incisions plus the DFU site. Wound was flushed and due to wide excisional debridement of all nonviable soft tissue, Vanco powder inserted and the wounds were partially closed to prevent full-thickness wound dehiscence. Overall prognosis: Fair/guarded. Patient's uncontrolled diabetes is concern for healing. Outcome will also depend on path/culture results and patient's ability to be compliant with minimizing activity and partial weightbearing only to the heel i.e. offloading forefoot. Operative note:: On this date and time the patient was deemed an appropriate surgical candidate. With informed consent time patient was transferred from the preoperative holding area to the operating theater placed on table in a normal supine position. Right lower extremities prepped and draped in normal sterile fashion. No tourniquet utilized. IV Clinda given. Patient getting Vanco, Zosyn scheduled on the floor. Right foot incision and drainage: 10 cc of half percent Marcaine plain were infiltrated in regional ankle block. Attention was directed to the right dorsal foot where edema and erythema was noted to 1st MTPJ. Utilizing a 15 blade, a linear incision was made over the plantar hallux, see op findings for details. No sonia purulence expressed. The tissue looked to be nonviable and was soft and yellow-brown and grayish in appearance. [id number] pressure was applied to the incision and serous fluid was expressed. Wound culture taken at bedside this a.m, no new purulence for wound culture. The nonviable soft tissue was sharply visually debrided with 15 blade forceps and rongeur. A piece of it was sent for plantar tissue culture and pathology. Next hemostat used to explore the area. There was tracking/tunneling noted from the I&D site to the plantar medial DFU. A separate linear incision was made over the first MTPJ medial first met head full-thickness to the level of deep fascia with a 15 blade. No purulence malodor or signs of infection noted to the medial first met. Right foot open bone biopsy: A stab incision was made over the medial hallux with a 15 blade. Blunt dissection carried down to level of bone. Angelique grace dle was used to obtain a piece of the hallux bone. Portion of the bone was sent to micro as culture. Another piece which was sent to pathology for bone biopsy. The hallux bone was somewhat soft but not crumbly and but appeared normal color. Right foot wide excisional irrigation and debridement of nonviable tissue, DFU wound debridement: 15 blade was used to sharply debride nonviable soft tissue full-thickness through skin into subcutaneous tissue. See operative findings for measurements. Sinus tract to the I&D site noted. The DFU did not extend to the level of the bone. No purulence expressed from this area. Gentamicin irrigation was used to flush all incisions. The wounds were explored and no more purulence was noted. Vancomycin powder was inserted into the incision sites. 15cc 0.5% Marcaine plain injected to the forefoot at the end of the case. Prolene retention stitches were inserted. Xeroform applied. Betadine soaked gauze applied followed by dry sterile dressing. Patient appeared to tolerate procedure and anesthesia without complication. Patient was woken from anesthesia with vitals stable and neurovascular status intact to be transferred to recovery for further monitoring before being transferred back to the floor. Materials: Prolene, vancomycin powder 1 g, Betadine soaked gauze Plan: Maintain dressing clean dry and intact to right foot, reinforce as necessary. PWB to right heel in short fracture boot, walker. Antibiotics: IV vancomycin, Zosyn via hospitalist team. X-rays right foot 3 views. Plan for dressing change in the morning per podiatry. Condition: stable Disposition: floor Specimens:: Micro: Right plantar tissue culture Right hallux bone culture Path: Right plantar tissue Right hallux bone Complications:: None
--- NOTE | 2025-02-20 15:23 | P.PNANES_ITS ---
[facility] Anesthesia Record Part I Anesthesia Record I Intake, IV Amount: 700 Hydration: Adequate Estimated blood loss (mL): 0 Urine output (mL): 0 Blood Products used (#): none Blood Pressure: 130/73 SaO2: 92 Pulse Rate: 79 Airway Patency: Patent Respiratory Rate: 14 Temperature: 97.1 F Patient is:: Mask O2 and Stable Stable to PACU at:: 15:18
[2025-02-20 16:14] LABS: POC Glucose,Bedside 165 (70-110)
[2025-02-20] MEDS: METFORMIN 500MG TABLET 500 MG PO (16:41)
[2025-02-20] MEDS: humaLOG MIX 75/25 3ML FLEXPEN 55 UNIT SUBCUT (16:43)
[2025-02-20 17:02] LABS: POC Glucose,Bedside 278 (70-110)
--- NOTE | 2025-02-20 18:42 | PC.NURSE ---
pt is A&Ox4. pt had diabetic ulcer to right foot. Dr lunsford saw him this morning and decided to do incision and drainage on it. had bone biopsy while in there. surgery went well and pt is tolerating well. foot has dressing in place. it is clean, dry, and intact. vital signs stable at this time. pt has no other needs. call light within reach. safety measures in place.
[2025-02-20] MEDS: PANTOPRAZOLE 40MG TABLET 40 MG PO (20:32)
[2025-02-20] MEDS: MELATONIN 5MG TABLET 5 MG PO (20:32)
[2025-02-20] MEDS: PRAVASTATIN 40MG TAB 40 MG PO (20:32)
[2025-02-20] MEDS: humaLOG MIX 75/25 3ML FLEXPEN 50 UNIT SUBCUT (22:11)
[2025-02-20 23:13] LABS: POC Glucose,Bedside 306 (70-110)
[2025-02-21] VITALS: BP 110/57; PULSE 71; RESP 18; TEMP 36.7; O2SAT 93
[2025-02-21] MEDS: KETOROLAC 30MG/ML VIAL 15 MG IV ×2 (02:01→13:30)
[2025-02-21] MEDS: humaLOG 100 UNITS/ML 10ML VIAL (SSI) 10 UNIT SUBCUT (02:13)
[2025-02-21 03:27] LABS: POC Glucose,Bedside 275 (70-110)
[2025-02-21 04:00] VITALS: BP 130/65; PULSE 66; RESP 20; TEMP 36.7; O2SAT 94; BMI 31.8
[2025-02-21] MEDS: PIPERACILLIN/TAZO 4.5 GM in 0.9 % SODIUM CHLORIDE 100 ML IV ×2 (04:44→09:19)
--- NOTE | 2025-02-21 05:04 | PC.NURSE ---
Pt. is alert and orientated x 4. Pt. very hard of hearing. Pt. on rppm air. Pt. had uler to right great toe,. Pt. went to OR yesterday for I and D. Pt c/o minimal pain to foot. Medicated per SEP. Dressing in place to right foot clean, dry, intact. Foot elevated on a pillow. Pt. getting IV antibiotics tolerating well. Pt. had high glucose overnight 306 and received extra Humalog for coverage in addition to regular scheduled Insulin. Pt. sleeping on and off this shift. Personal items and call gutierrez in reach.
[2025-02-21] MEDS: VANCOMYCIN/WATER FOR INJ (PEG) 1.75 GM/350 ML PIGGYBACK IV (05:44)
[2025-02-21] MEDS: humaLOG 100 UNITS/ML 10ML VIAL (SSI) SUBCUT (06:02)
[2025-02-21 06:23] LABS: POC Glucose,Bedside 151 (70-110)
--- NOTE | 2025-02-21 06:35 | P.PN_ITS ---
Subjective *Date: 02/21/25 *Time: 09:52 Interval history: 02/21/25: Patient doing well this morning. He was sitting up on side of bed eating breakfast, stated had some nausea earlier but it resolved. He stated he was chilling last night and this morning he has several blankets on his bed. Right foot looks better, less edema and erythema, sutures intact, scant bloody drainage from the surgical site when compressed. She reports pain has been tolerable. Patient has been staying on top of his pain and requesting medication before pain gets out of hand. Ortho Exam (Inpt) Vital signs and Labs for Last 24 Hours: Temp Pulse Resp BP Pulse Ox O2 Del Method O2 Flow Rate 98.1 F 66 20 130/65 94 L Room Air 1 02/21/25 04:00 02/21/25 04:00 02/21/25 04:00 02/21/25 04:00 02/21/25 04:00 02/21/25 04:00 02/20/25 17:00 Laboratory Results - last 24 hr 02/20/25 06:26: POC Glucose 165 H 02/20/25 07:00: WBC 17.4 H, RBC 4.15 L, Hgb 12.2 L, Hct 37.1 L, MCV 89.4, MCH 29.4, MCHC 32.9, RDW 13.4, Plt Count 294, MPV 10.6 H, Neut % (Auto) 58.0, Lymph % (Auto) 27.8, [place] % (Auto) 10.4 H, Eos % (Auto) 2.8, Baso % (Auto) 0.5, Neut # (Auto) 10.1 H, Lymph # (Auto) 4.8 H, [place] # (Auto) 1.8 H, Eos # (Auto) 0.5 H, Baso # (Auto) 0.1, Total Counted 100, Neutrophils % (Manual) 56, Lymphocytes % (Manual) 32, Monocytes % (Manual) 10 H, Eosinophils % (Manual) 2, Platelet Estimate Normal, RBC Morphology Normal, ESR 70 H, Sodium 132 L, Potassium 4.0, Chloride 101, Carbon Dioxide 27, Anion Gap 8.0, BUN 13, Creatinine 1.00 D, Estimated Creat Clear 96, Estimated GFR 74, Est GFR ( Amer) 89 D, Glucose 163 H D, Hemoglobin A1c 8.9 H, Calcium 8.4, Magnesium 1.4 L, Total Bilirubin 0.8, AST 25, ALT 18, Alkaline Phosphatase 81, C-Reactive Protein 56.6 H D, Total Protein 6.6, Albumin 3.4 L D, Globulin 3.2, Albumin/Globulin Ratio 1.1 02/20/25 11:30: POC Glucose 194 H 02/20/25 16:37: POC Glucose 278 H 02/20/25 20:11: POC Glucose 306 H* 02/21/25 02:08: POC Glucose 275 H 02/21/25 05:50: POC Glucose 151 H I & O for Labs for Last 24 Hours: Intake & Output 02/18/25 02/19/25 02/20/25 02/21/25 23:59 23:59 23:59 23:59 Intake Total 2390 / 2390 0 / 0 Output Total 0 / 0 600 / 600 Balance 2390 / 2390 -600 / -600 Weight 200 lb 217 lb 6.4 oz 202 lb 9.6 oz Microbiology Reports for the Last 24 Hours: Microbiology 02/20/25 14:45 Foot,Right - Right Bone Culture - Preliminary 02/20/25 14:45 Foot,Right - Right Gram Stain - Final 02/19/25 15:53 Blood Blood Culture - Preliminary NO GROWTH AFTER 24 HOURS 02/20/25 07:50 Toe,Right Great Gram Stain - Final 02/19/25 15:13 Blood Blood Culture - Preliminary NO GROWTH AFTER 24 HOURS Constitutional: Present no acute distress and cooperative Head: Present normocephalic Eyes: Present as per HPI Neck: Present normal inspection and trachea midline Respiratory: Present normal respiratory effort and able to speak in complete sentences Cardiac: Present posterior tibial pulses present and pedal pulses present GI: Present soft Rectal (male): Present deferred (male): Present deferred Extremities: Present tenderness (Right hallux s/p Right foot incision and drainage Right foot wide excisional irrigation and debridement Open bone biopsy) and normal capillary refill Skin: Present erythema, warm and wounds Comment:: 02/20/25: S/P Right foot incision and drainage, Right foot wide excisional irrigation and debridement, Open bone biopsy -Sutures intact, less erythema and edema noted today. Neuro: Present Sensory Function Intact, oriented x 3 and moves all extremities Ankle: bilateral: normal inspection Feet/Toes: right: wound (02/20/25: s/p Right foot incision and drainage Right foot wide excisional irrigation and debridement Open bone biopsy) and bilateral: nail abnormalities Assessment and Plan *Assessment and plan (1) Diabetic foot infection: Status: Acute Category: Medical Code(s): E11.628 - Type 2 diabetes mellitus with other skin complications; L08.9 - Local infection of the skin and subcutaneous tissue, unspecified (2) Diabetes mellitus, type 2: Status: Acute Qualifiers: Diabetes mellitus complication status: with other specified complication Diabetes mellitus skilled nursing insulin use: with intermediate school teacher use Qualified Code(s): E11.69 - Type 2 diabetes mellitus with other specified complication; Z79.4 - [facility] (current) use of insulin Category: Medical Code(s): E11.9 - Type 2 diabetes mellitus without complications (3) Diabetic peripheral neuropathy: Problem Comment: This patient does have reduction in light discrimination lower extremities. He clearly has diabetic peripheral polyneuropathy. He is also losing muscle mass in the hands which is probably related. Most of his problems are related to his diabetes. He has not seen podiatry and we will send him to podiatry for evaluation. Goal here is to get his blood sugars better controlled. Status: Acute Category: Medical Code(s): E11.42 - Type 2 diabetes mellitus with diabetic polyneuropathy (4) Diabetic foot: Status: Acute Category: Medical Code(s): E11.8 - Type 2 diabetes mellitus with unspecified complications (5) Neuropathy: Problem Comment: Most likely secondary to poorly controlled diabetes mellitus. Status: Chronic Category: Medical Code(s): G62.9 - Polyneuropathy, unspecified (6) Cellulitis of great toe of right foot: Status: Acute Category: Medical Code(s): L03.031 - Cellulitis of right toe (7) Diabetic ulcer of toe of right foot: Status: Acute Qualifiers: Diabetes mellitus type: type 2 Non-pressure ulcer stage: with fat layer exposed Qualified Code(s): E11.621 - Type 2 diabetes mellitus with foot ulcer; L97.512 - Non-pressure chronic ulcer of other part of right foot with fat layer exposed Category: Medical Code(s): E11.621 - Type 2 diabetes mellitus with foot ulcer; L97.519 - Non-pressure chronic ulcer of other part of right foot with unspecified severity (8) Abscess of great toe, right: Status: Acute Category: Medical Code(s): L02.611 - Cutaneous abscess of right foot Plan 02/21/25: SX: S/P 02/20/25: Right foot incision and drainage, Right foot wide excisional irrigation and debridement, Open bone biopsy POD#1 Plan: Maintain dressing clean dry and intact to right foot, reinforce as necessary. PT consulted to get patient up Post OP day #1 for gait training with short fracture boot and walker PWB to right heel in short fracture boot, walker. Patient wears a size- 9.5-10 (Podiatry will get boot for him) Antibiotics: IV vancomycin, Zosyn via hospitalist team. Recommend: Levofloxacin 750mg po daily x 14 days, and Doxycycline 100mg po bid x 14 days (may change up when WCx's finalize) Completed dressing change this morning, less erythema and edema, sutures intact Dressing: Site cleaned with betadine, then using xeroform, betadine gauze, dry gauze, kerlix, keaton wrap Once daily dressing changes needed Reviewed labs: WBC down from 17.4 to 6.5 today, CRP still elevated r/t surgery 75.6. Patient feeling better, pain tolerable, surgical biopsies pending. Patient stable for home discharge from a Podiatry standpoint, he may need to have [facility] arranged initially for dressing changes Podiatry will need to see him back in 1 week for POV#1 (we will schedule this for him) once d/c'd from hospital. All orders per Dr. Moody Specimens:: Pending Micro: Right plantar tissue culture Right hallux bone culture Path: Right plantar tissue Right hallux bone
[2025-02-21 07:01] LABS: Hematocrit 38.3 % (42.0-52.0); Hemoglobin 12.6 g/dL (14.1-18.0); Immature Granulocytes % 0.3 %; Mean Corpuscular HGB Conc 32.9 g/dL (31.8-35.4); Mean Corpuscular Hemoglobin 29.9 pg (27.0-31.2); Mean Corpuscular Volume 91.0 fl (80-94); Nucleated Red Blood Cells % 0 %; Platelet Count 303 K/mm3 (142-424); Red Blood Count 4.21 M/mm3 (4.60-6.20); Red Cell Distribution Width-SD 44.2 fL; White Blood Count 6.5 K/mm3 (4.8-10.8)
[2025-02-21 07:19] LABS: C-Reactive Protein 75.6 mg/L (0-4)
[2025-02-21 08:00] VITALS: BP 94/49; PULSE 49; RESP 18; TEMP 36.9; O2SAT 95
[2025-02-21 08:48] LABS: Alanine Aminotransferase 29 U/L (12-78); Albumin Level 3.7 g/dl (3.5-5.0); Albumin/Globulin Ratio 1.0 (1.1-1.8); Alkaline Phosphatase 85 U/L (38-126); Anion Gap 15.7 mEq/L (5-15); Aspartate Amino Transferase 47 U/L (17-59); Bilirubin,Total 0.8 mg/dl (0.2-1.3); Blood Urea Nitrogen 17 mg/dl (9-20); Calcium 8.6 mg/dl (8.4-10.2); Carbon Dioxide 21 mmol/L (22.0-30.0); Chloride 103 mmol/L (98-107); Creatinine Clearance Estimated 81 mL/min (50-200); Creatinine,Serum 1.10 mg/dl (0.66-1.25); Estimated Glomerular Filt Rate 66 ml/min (>60); GFR (African American) 80 ML/MIN (>60); Globulin 3.6 g/dL (1.3-3.2); Glucose 92 mg/dl (74-100); Potassium 4.7 mmoL/L (3.5-5.1); Sodium 135 mmol/L (136-145); Total Protein,Serum 7.3 g/dl (6.3-8.2)
[2025-02-21] MEDS: humaLOG MIX 75/25 3ML FLEXPEN 55 UNIT SUBCUT (09:09)
[2025-02-21] MEDS: FENOFIBRATE 54MG TABLET 54 MG PO (09:10)
[2025-02-21] MEDS: METFORMIN 500MG TABLET 500 MG PO (09:10)
[2025-02-21 09:34] LABS: POC Glucose,Bedside 96 (70-110)
--- NOTE | 2025-02-21 10:04 | SW/DCPLANNER ---
Addendum entered by Elsy Garrett 02/21/25 13:57: Patient information/order has been faxed to [facility] for a rolling walker. Patient will discharge home today. Addendum entered by Aniya Michel 02/21/25 13:39: [facility] has accepted patient for home health. Original Note: Spoke with patient regarding discharge plans. PT and POD recommended home health for therapy and wound care. Patient was agreeable to home health, no agency preference. CM will set up home health at time of discharge.
--- NOTE | 2025-02-21 10:34 | [facility].PTEV ---
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 Patient noted that he smokes 2 cigars a day. That he does have an implanted device for blood sugar can run as low as 50 as high as 250. Notes that he only drinks a couple of beers a month.. He began to have pain into the right foot noting that the right toe and to the right I distal metatarsal was becoming red and painful.. He has come into the emergency room to be rechecked finding that there was no abscesses or free air on CT scan. Patient has a past history of infection to the other foot actually Klebsiella pneumonia grew in the past. He reports he lives alone, [address] the home, he is generally independent with ambulation, but does have a cane and a rolling walker for use at home if needed. Now S/P I&D of R foot due to possible infection. Subjective Subjective Pt reports no c/o pain in his R foot this am and agrees to mobility assessment. [facility] How much help from another person do you currently need... Turning from your None back to your side while in a flat bed without using bedrails? Moving from lying on None back to sitting on the side of a flat bed without using bedrails? Moving to and from a None bed to a chair ( including a wheelchair)? Standing up from a None chair using your arms? (e.g., wheelchair, bedside chair) Walking in hospital A little room? Climbing 3-5 steps A little with a railing? Mobility Score 22 Mobility Level [facility] Mobility 7 Walk 25 feet or more Mobility Calculator Rehab PT IP Eval Objective Appearance Patient Behavior Cooperative Patient Orientation Person,Place,Time Difficulty following none instructions Speech Pattern Clear Ambulation Patient Able to Yes Ambulate Ambulation Observation IP General Gait Decrease Weight Bear (R) Pattern Observation Ambulation Distance 25 (feet) Ambulation Assistive Rolling Walker Device Ambulation Ability Contact Guard/Hand Hold Balance Ability to Arise Able, uses arms to help Sitting Balance Steady, safe Standing Balance Narrow stance w/o support Dynamic Sitting Good Balance Ability Dynamic Standing Fair Balance Ability Transfers Bed Transfer Ability Independent Chair Transfer Independent Ability Sit to Stand Bed Independent Transfer Ability Sit to Stand Chair Independent Transfer Ability Rehab PT IP prob,goals,plan Problems Date of Evaluation: 02/21/25 PT IP Problems Gait Rehab Potential Rehab Potential Good Plan PT Intervention Plan Gait,Balance PT Plan Frequency Daily Duration LOS Discharge Goals Ambulation Assistive Rolling Walker Device Ambulation Distance 40 (feet) Discharge Plan PT Discharge Plan Pt is appropriate to return home once medically stable for d/c. Recommend home health therapy after return home if able. Skilled therapy is indicated to assist patient in returning to [facility] with appropriate dynamic standing balance and gait pattern as able. Eval Complexity Eval Charge Codes 16547 - High Complexity PHYSICIAN CERTIFICATION: I certify the specified therapy services for Henrique Sloan are required, authorized, and reviewed every 30 days.
--- NOTE | 2025-02-21 11:00 | P.DS_ITS ---
General Admission date:: 02/19/25 Discharge date: 02/21/25 HPI HPI HPI: Mr. 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 Patient noted that he smokes 2 cigars a day. That he does have an implanted device for blood sugar can run as low as 50 as high as 250. Notes that he only drinks a couple of beers a month.. He began to have pain into the right foot noting that the right toe and to the right I distal metatarsal was becoming red and painful.. He has come into the emergency room to be rechecked finding that there was no abscesses or free air on CT scan.. Patient has a past history of infection to the other foot actually Klebsiella pneumonia grew in the past.. Patient noted that he still has feeling to both feet. Plan at this time we will go ahead and place him in continue antibiotics and have podiatry see him in the morning. Does not appear to be surgical at this time but long-term antibiotics may be required and continued evaluation in case I&D is needed.. Early in this case do not see the obvious osteomyelitis, and/or gout complications. But uric acid was added to the labs Mr. Sloan's past medical history includes splenectomy,mild sleep apnea recommended for appliance to help with that also noting nocturnal hypoxinemia drops to 72%, presently also mild chronic hyponatremia, noting that since 01/20/2024 patient has gained 25 pounds. Patient also noted for hypertension and BPH per history. Patient is stable at this time we will place him onto the floor for continue antibiotics and development of plan as outpatient to treat this infection. 02/20/25: Podiatry consult: Right Hallux DFU with cellulitis, pain to touch with a fluctuate abscess plantar hallux. Patient unsure how this started, he was thinking it was a spider/bug bite that happened around Wednesday night and progressed worse. -The site was cleaned with wound cleaner industrial and then using sterile #15 blade to open a small area for abscess to be expelled. -Wound culture was obtained -Sterile hemostat was used to probe the site and a pocket of drainage was drained but was unable to completely get all out due to pain. -Patient was medicated a one time dose of Dilaudid for pain but will need to be surgically debrided and bone biopsy done this afternoon. -Patient was made NPO after midnight but will try and ate 2-3 bites before tray was removed. -Patient is to remain n.p.o. until after surgical procedure done today. -Betadine dressing/gauze and Coban applied to site. Hospital Course Hospital Course Hospital Course: Mr. Sloan is a 69-year-old male who presented to the emergency department yesterday with pain in his right foot and toe, denies trauma. He states that it had become red and painful. Patient has a primary medical history of type 2 diabetes, tobacco use, DEEDEE, neuropathy, hyperlipidemia, BPH, diabetic foot ulcers. CT of right foot was obtained and shows pockets of infection possible osteomyelitis. Leukocytosis noted at 17.3. Due to evidence of possible osteomyelitis, leukocytosis, patient was admitted to the medical surgical floor for further broad-spectrum coverage antibiotics, podiatry evaluation. Plan of care is as follows: #Diabetic foot infection, right hallux #Diabetes mellitus, type II #Diabetic peripheral neuropathy #Cellulitis of great toe on right foot #Diabetic ulcer of toe on right foot ? Podiatry consulted, x-ray of foot shows moderate soft tissue swelling of greatest at the right toe, no suspicious osseous erosions or rim-enhancing fluid collections. ? Per podiatry's recommendation broad spectrum antibiotic coverage, vancomycin and Zosyn during admission. ? Patient had right foot I&D and bone biopsy yesterday in the operating room with Dr. Benoit, podiatry. Per podiatry's note does not appear to have oste omyelitis, but will follow with bone biopsy. Patient needs every other day dressing changes Xeroform, Betadine soaked gauze, dry gauze, Maggi, Jarrett. Patient is set up with home health for wound checks and care. ? Patient will follow-up in 1 week with podiatry clinic. He will be partial weightbearing to heel and short fracture boot with a walker. ? Patient's WBC on admission was 17.4, has improved to 6.5 with IV antibiotics. Patient will discharge with doxycycline 100 mg twice daily x 10 days, Levaquin 750 mg daily x 10 days. Will follow-up with wound cultures. ? Continue insulin 70-30, 70 units twice daily, start metformin 500 mg twice daily, continue pioglitazone 30 mg daily at discharge. ? Discussed with patient the need for regular glucose checks at home, states he has Accu-Chek at home. Patient should follow with PCP for repeat A1c in 3 months, medical management of diabetic regimen. ?Patient discharged with Vilas 5/325 mg every 6 hours as needed for pain control. #Elevated triglycerides ? Patient has elevated triglycerides, started on fenofibrate 54 mg daily. Follow-up for further instruction with your PCP. #Hypertension ? Continue lisinopril 10 mg and aspirin 81 mg daily at discharge. #BPH ? Continue tamsulosin 0.8 mg at bedtime at discharge. #Depression ? Continue Wellbutrin 300 mg daily at discharge. Total time spent on discharge 35 minutes in counseling, documentation, chart review, and direct care with patient. Exam Data for Last 24 hours Vital signs and Labs for Last 24 Hours: Temp Pulse Resp BP Pulse Ox O2 Del Method O2 Flow Rate 98.5 F 49 L 18 94/49 L 95 Room Air 1 02/21/25 08:00 02/21/25 08:00 02/21/25 08:00 02/21/25 08:00 02/21/25 08:00 02/21/25 08:00 02/20/25 17:00 Laboratory Results - last 24 hr 02/20/25 06:26: POC Glucose 165 H 02/20/25 11:30: POC Glucose 194 H 02/20/25 16:37: POC Glucose 278 H 02/20/25 20:11: POC Glucose 306 H* 02/21/25 02:08: POC Glucose 275 H 02/21/25 05:50: POC Glucose 151 H 02/21/25 06:26: C-Reactive Protein 75.6 H D 02/21/25 06:29: Sodium 135 L, Potassium 4.7, Chloride 103, Carbon Dioxide 21 L, Anion Gap 15.7 H, BUN 17 D, Creatinine 1.10, Estimated Creat Clear 81, Estimated GFR 66, Est GFR ( Amer) 80, Glucose 92 D, Calcium 8.6, Total Bilirubin 0.8, AST 47 D, ALT 29 D, Alkaline Phosphatase 85, Total Protein 7.3, Albumin 3.7, Globulin 3.6 H, Albumin/Globulin Ratio 1.0 L 02/21/25 08:09: WBC 6.5 D, RBC 4.21 L, Hgb 12.6 L, Hct 38.3 L, MCV 91.0, MCH 29.9, MCHC 32.9, RDW 13.4, Plt Count 303, MPV 11.1 H, Neut % (Auto) 83.8 H, Lymph % (Auto) 14.9, [place] % (Auto) 0.8 L, Eos % (Auto) 0.0 L, Baso % (Auto) 0.2, Neut # (Auto) 5.5, Lymph # (Auto) 1.0, [place] # (Auto) 0.1, Eos # (Auto) 0.0, Baso # (Auto) 0.0, ESR 72 H 02/21/25 09:07: POC Glucose 96 I & O for Last 24 hours: Intake & Output 02/18/25 02/19/25 02/20/25 02/21/25 23:59 23:59 23:59 23:59 Intake Total 2390 / 2390 600 / 600 Output Total 0 / 0 600 / 600 Balance 2390 / 2390 0 / 0 Weight 90.718 kg 98.611 kg 91.898 kg Microbiology Reports for the Last 24 Hours: Microbiology 02/20/25 07:50 Toe,Right Great Gram Stain - Final 02/20/25 07:50 Toe,Right Great Wound Culture - Preliminary Gram Negative Rods 02/20/25 14:45 Foot,Right - Right Bone Culture - Preliminary 02/20/25 14:45 Foot,Right - Right Gram Stain - Final 02/19/25 15:53 Blood Blood Culture - Preliminary NO GROWTH AFTER 24 HOURS 02/19/25 15:13 Blood Blood Culture - Preliminary NO GROWTH AFTER 24 HOURS Constitutional Constitutional: no acute distress, chronically ill appearing and cooperative *Routine HEENT Exam Head: Present normocephalic ENT: Present mucous membranes moist *Routine Neck Exam Neck: Present supple and full ROM *Routine Respiratory Exam Respiratory: Present CTA bilaterally, normal respiratory effort, able to speak in complete sentences and symmetric chest movement *Routine Cardiovascular Exam Cardiovascular: Present RRR; Absent murmur *Routine Abdominal Exam Abdominal: Present soft and normoactive bowel sounds; Absent tenderness or distended *Routine Rectal Exam Patient deferred: visual exam *Routine Extremities Exam Extremities: Present pulses intact; Absent edema Comments: Postsurgical changes to right foot/toe *Routine Skin Exam Skin: Present intact and dry Comments: Postsurgical changes to right foot/toe *Routine Neurological Exam Neurological: Present alert and oriented X3 Results Data Completed and Pending Labs on day of discharge: Labs from last 24 hours 02/21/25 02/21/25 02/21/25 09:07 08:09 06:29 WBC 6.5 D RBC 4.21 L Hgb 12.6 L Hct 38.3 L MCV 91.0 MCH 29.9 MCHC 32.9 RDW 13.4 Plt Count 303 MPV 11.1 H Neut % (Auto) 83.8 H Lymph % (Auto) 14.9 [place] % (Auto) 0.8 L Eos % (Auto) 0.0 L Baso % (Auto) 0.2 Neut # (Auto) 5.5 Lymph # (Auto) 1.0 [place] # (Auto) 0.1 Eos # (Auto) 0.0 Baso # (Auto) 0.0 ESR 72 H Sodium 135 L Potassium 4.7 Chloride 103 Carbon Dioxide 21 L Anion Gap 15.7 H BUN 17 D Creatinine 1.10 Estimated Creat Clear 81 Estimated GFR 66 Est GFR ( Amer) 80 Glucose 92 D POC Glucose 96 Calcium 8.6 Total Bilirubin 0.8 AST 47 D ALT 29 D Alkaline Phosphatase 85 C-Reactive Protein Total Protein 7.3 Albumin 3.7 Globulin 3.6 H Albumin/Globulin Ratio 1.0 L 02/21/25 02/21/25 02/21/25 06:26 05:50 02:08 WBC RBC Hgb Hct MCV MCH MCHC RDW Plt Count MPV Neut % (Auto) Lymph % (Auto) [place] % (Auto) Eos % (Auto) Baso % (Auto) Neut # (Auto) Lymph # (Auto) [place] # (Auto) Eos # (Auto) Baso # (Auto) ESR Sodium Potassium Chloride Carbon Dioxide Anion Gap BUN Creatinine Estimated Creat Clear Estimated GFR Est GFR ( Amer) Glucose POC Glucose 151 H 275 H Calcium Total Bilirubin AST ALT Alkaline Phosphatase C-Reactive Protein 75.6 H D Total Protein Albumin Globulin Albumin/Globulin Ratio 02/20/25 02/20/25 02/20/25 20:11 16:37 11:30 WBC RBC Hgb Hct MCV MCH MCHC RDW Plt Count MPV Neut % (Auto) Lymph % (Auto) [place] % (Auto) Eos % (Auto) Baso % (Auto) Neut # (Auto) Lymph # (Auto) [place] # (Auto) Eos # (Auto) Baso # (Auto) ESR Sodium Potassium Chloride Carbon Dioxide Anion Gap BUN Creatinine Estimated Creat Clear Estimated GFR Est GFR ( Amer) Glucose POC Glucose 306 H* 278 H 194 H Calcium Total Bilirubin AST ALT Alkaline Phosphatase C-Reactive Protein Total Protein Albumin Globulin Albumin/Globulin Ratio 02/20/25 06:26 WBC RBC Hgb Hct MCV MCH MCHC RDW Plt Count MPV Neut % (Auto) Lymph % (Auto) [place] % (Auto) Eos % (Auto) Baso % (Auto) Neut # (Auto) Lymph # (Auto) [place] # (Auto) Eos # (Auto) Baso # (Auto) ESR Sodium Potassium Chloride Carbon Dioxide Anion Gap BUN Creatinine Estimated Creat Clear Estimated GFR Est GFR ( Amer) Glucose POC Glucose 165 H Calcium Total Bilirubin AST ALT Alkaline Phosphatase C-Reactive Protein Total Protein Albumin Globulin Albumin/Globulin Ratio Preliminary micro results at discharge 02/20/25 07:50 Wound Culture - Preliminary Toe,Right Great Gram Negative Rods 02/20/25 14:45 Bone Culture - Preliminary Foot,Right - Right 02/19/25 15:53 Blood Culture - Preliminary Blood NO GROWTH AFTER 24 HOURS 02/19/25 15:13 Blood Culture - Preliminary Blood NO GROWTH AFTER 24 HOURS DS: Diagnosis Discharge Diagnosis (1) Diabetic foot infection: Status: Acute Code(s): E11.628 - Type 2 diabetes mellitus with other skin complications; L08.9 - Local infection of the skin and subcutaneous tissue, unspecified (2) Diabetes mellitus, type 2: Status: Acute Code(s): E11.9 - Type 2 diabetes mellitus without complications Qualifiers: Diabetes mellitus complication status: with other specified complication Diabetes mellitus jail insulin use: with computer terminal operator use Qualified Code(s): E11.69 - Type 2 diabetes mellitus with other specified complication; Z79.4 - intermediate frame tender (current) use of insulin (3) Diabetic peripheral neuropathy: Status: Acute Code(s): E11.42 - Type 2 diabetes mellitus with diabetic polyneuropathy Problem details: This patient does have reduction in light discrimination lower extremities. He clearly has diabetic peripheral polyneuropathy. He is also losing muscle mass in the hands which is probably related. Most of his problems are related to his diabetes. He has not seen podiatry and we will send him to podiatry for evaluation. Goal here is to get his blood sugars better controlled. (4) Diabetic foot: Status: Acute Code(s): E11.8 - Type 2 diabetes mellitus with unspecified complications (5) Neuropathy: Status: Chronic Code(s): G62.9 - Polyneuropathy, unspecified Problem details: Most likely secondary to poorly controlled diabetes mellitus. (6) Cellulitis of great toe of right foot: Status: Acute Code(s): L03.031 - Cellulitis of right toe (7) Diabetic ulcer of toe of right foot: Status: Acute Code(s): E11.621 - Type 2 diabetes mellitus with foot ulcer; L97.519 - Non-pressure chronic ulcer of other part of right foot with unspecified severity Qualifiers: Diabetes mellitus type: type 2 Non-pressure ulcer stage: with fat layer exposed Qualified Code(s): E11.621 - Type 2 diabetes mellitus with foot ulcer; L97.512 - Non-pressure chronic ulcer of other part of right foot with fat layer exposed (8) Abscess of great toe, right: Status: Acute Code(s): L02.611 - Cutaneous abscess of right foot (9) Hypertriglyceridemia: Status: Acute Code(s): E78.1 - Pure hyperglyceridemia Meds Home Medications and Allergies Home Medications ?Medication ?Instructions ?Recorded ?Confirmed ?Type aspirin 81 mg tablet,delayed 81 mg PO DAILY 12/11/24 0 02/19/25 History release bupropion HCl 300 mg 24 hr tablet, 300 mg PO DAILY 07/2602/19/25 History extended release insulin human U-100 NPH-regulr 70 unit SQ BID 12/11/24 02/19/25 History 70-30 mix 100 unit/mL subcutaneous susp (Humulin 70/30 U-100 Insulin) pioglitazone 30 mg tablet 30 mg PO DAILY 12/11/24/08/26 History lisinopril 10 mg tablet 10 mg PO DAILY #30 tabs 11/3002/19/25 Rx tamsulosin 0.4 mg capsule 0.8 mg PO HS 02/20/25 History doxycycline hyclate 100 mg capsule 100 mg PO BID #20 c aps 02/21/25 Rx fenofibrate 54 mg tablet 54 mg PO DAILY 30 days #30 t abs 02/21/25 Rx hydrocodone 5 mg-acetaminophen 325 1 tab PO Q6H PRN pa in #17 tabs 02/21/25 Rx mg tablet levofloxacin 750 mg tablet 750 mg PO DAILY #10 tabs Rx metformin 500 mg tablet 500 mg PO BIDWMEAL 30 days # 60 tabs 02/21/25 Rx New Prescriptions to Start Prescriptions: doxycycline hyclate Gurpreet,Sabrina fenofibrate Gurpreet,Sabrina hydrocodone-acetaminophen Gurpreet,Sabrina levofloxacin Gurpreet,Sabrina metformin Gurpreet,Sabrina Allergies Allergy/AdvReac Type Severity Reaction Status Date / Time codeine Allergy Mild Verified 12/11/24 13:30 Discharge Plan Disposition Patient Disposition: Home Health Service Condition: Fair Discharge Order Discharge Orders: Discharge Order (Routine); Ordered 02/21/25 Ordered By: Sabrina Vázquez Follow up Plan Follow up with: Dominique Ervin APRN [Nurse Practitioner, Family Practice] - 02/28/25 1:40 pm Bailey Moody DPM [Staff Physician, Podiatry] - 03/01/25 8:45 am Prescriptions/Medication Reconciliation: New levofloxacin 750 mg tablet 750 mg PO DAILY Qty: 10 0RF doxycycline hyclate 100 mg capsule 100 mg PO BID Qty: 20 0RF hydrocodone-acetaminophen 5-325 mg tablet 1 tab PO Q6H PRN (Reason: pain) Qty: 17 0RF metformin 500 mg Tablet 500 mg PO BIDWMEAL 30 Days Qty: 60 1RF fenofibrate 54 mg Tablet 54 mg PO DAILY 30 Days Qty: 30 1RF Continued aspirin 81 mg tablet,delayed release (DR/EC) 81 mg PO DAILY bupropion HCl 300 mg tablet extended release 24 hr 300 mg PO DAILY pioglitazone 30 mg tablet 30 mg PO DAILY Patient Comments: TAKE 1 TABLET BY MOUTH EVERY DAY lisinopril 10 mg tablet 10 mg PO DAILY Qty: 30 2RF Humulin 70/30 U-100 Insulin 100 unit/mL (70-30) suspension 70 unit SQ BID tamsulosin 0.4 mg capsule 0.8 mg PO HS Patient Comments: TAKE 2 CAPSULES BY MOUTH ONCE A DAY Other Ambulatory Orders: Home Medical Equipment (Routine) Location: None Selected Ordered By: Sabrina Vázquez Problem Reconciliation Problems Reviewed?: Yes Patient Discharge Instructions ACTIVITY: Continue current activity and Other DIET: continue same diet and diabetic diet Additional Instructions: Every other day dressing changes: Xeroform, Betadine soaked gauze, dry gauze, Maggi, Jarrett. Wear short fracture boot, with walker. Heel weightbearing in boot right lower extremity. Patient Instructions: High Triglycerides, Type 2 Diabetes, DI for Diabetic Foot Ulcer, Stop Light Infection Print Language: Nepalese Providers Primary Care Provider: Daniel Ugarte Provider: Jude Gordillo Attending Provider: Jude Gordillo
[2025-02-21 11:29] LABS: POC Glucose,Bedside 80 (70-110)
[2025-02-21 11:54] VITALS: BP 113/56; PULSE 90; RESP 16; TEMP 37.5; O2SAT 95
--- NOTE | 2025-02-21 13:57 | CARE MANAGER ---
Patient requires the assistance of a walker to aid in ambulation due to mobility impairment that cannot be corrected with a cane.
--- NOTE | 2025-02-21 14:11 | P.PNANES_ITS ---
[facility] Anesthesia Record Part II Anesthesia Record Part II Discharge Time: 15:38 Destination: Medical Surgical Department PACU nurse assessment reviewed?: Yes Patient Condition:: Good Anesthesia Complications:: None Swallowing reflex intact?: Yes Airway Patency: Patent Cyanosis?: No Blood Pressure: 126/71 SaO2: 93 Respiratory Rate: 15 Pulse Rate: 76 Temperature: 97.1 F Mental Status: Alert & Oriented Pain level:: 0 Nausea and/or vomitting:: None Intake, IV Amount: 0 Hydration: Adequate
[2025-02-21 14:12] VITALS: BP 126/71; PULSE 76; RESP 15; TEMP 36.2; O2SAT 93
--- NOTE | 2025-02-23 10:47 | SW/DCPLANNER ---
Phoned patient x2.Left message with name and a call back number. Emir Malloy
--- NOTE | 2025-02-23 15:23 | CARE MANAGER ---
Patient returned phone call. He states he does have his new medications. Home health started today and they contacted MD for nausea medication as patient is struggling with this. He is aware of follow up appointment and denies questions or concerns.
== END 2025-02-21 15:10 | disposition home health service (06) ==
LOC: ER 20:06 → 2ND 21:08
PROVIDERS: Nurse Practitioner Family; Podiatrist; Admitting Provider Student in an Organized Health Care Education/Training Program; Emergency Provider Emergency Medicine; PCP Family Medicine; Visit Provider Student in an Organized Health Care Education/Training Program
DX: E11.628 Type 2 diabetes mellitus with other skin complications (principal); L08.9 Local infection of the skin and subcutaneous tissue, unspecified; E11.69 Type 2 diabetes mellitus with other specified complication; Z79.4 Long term (current) use of insulin; E11.42 Type 2 diabetes mellitus with diabetic polyneuropathy; E11.8 Type 2 diabetes mellitus with unspecified complications; G62.9 Polyneuropathy, unspecified; L03.031 Cellulitis of right toe; E11.621 Type 2 diabetes mellitus with foot ulcer; L97.512 Non-pressure chronic ulcer of other part of right foot with fat layer exposed; L02.611 Cutaneous abscess of right foot; N40.0 Benign prostatic hyperplasia without lower urinary tract symptoms; F32.A Depression, unspecified; G47.34 Idiopathic sleep related nonobstructive alveolar hypoventilation; H91.93 Unspecified hearing loss, bilateral; E87.1 Hypo-osmolality and hyponatremia; L97.519 Non-pressure chronic ulcer of other part of right foot with unspecified severity; E78.1 Pure hyperglyceridemia; F17.290 Nicotine dependence, other tobacco product, uncomplicated; I10 Essential (primary) hypertension; G43.909 Migraine, unspecified, not intractable, without status migrainosus; Z79.899 Other long term (current) drug therapy; Z79.84 Long term (current) use of oral hypoglycemic drugs; Z79.82 Long term (current) use of aspirin
CPT/HCPCS: 11042; 20240; 10061; 36415; 73630; 73701; 80053; 82962; 83036; 83735; 84550; 85007; 85025; 85027; 85651; 86140; 87040; 87070; 87077; 87186; 87205; 88304; 88307; 88311; 93923; 93971; 96374; 96375; 97163; G0378; J0665; J1100; J1171; J1580; J1885; J2003; J2405; J2543; J2704; J3010; J3373; J3375; J3475; J7050; J7120; Q9967

== ENCOUNTER 2025-02-24 12:14 | Emergency (ER) | payer MEDICARE, SELFPAY ==
--- OUTSIDE RECORDS SUMMARY | 2025-02-24 12:22 | XMS_ITS | Data Portability ---
Author Organization [facility] Address [address] [place] [address] Care Team Providers Care Procurement Services Manager Name Role Phone DOLORES GARNICALAS Referring Provider [phone] Assessment No assessment recorded. Plan of Treatment Reminders Order Date Submit Date Provider Last Modified By Organization Details Last Modified Time Details Appointments None recorded. Lab None recorded. Referral None recorded. Procedures None recorded. Surgeries None recorded. Imaging None recorded. Medication Orders Kenalog 40 mg/mL suspension for injection 2020 021 [facility], [address] [place] [address], [id number], 1 10:36:44 triamcinolo ne acetonide 0.1 % topical cream 2020 021 [facility], [address] [place] [address], [id number], 1 10:38:14 Patient TargetsNo targets recorded. Patient Instructions Encounter Date Encounter Id Patient Instructions Last Modified By Organization Details Last Modified Time 03/16/2018 [id number] Walk in hearing aid check. Patient reports [...] 2004. [email or web address] Not available 03/16/2018 14:36:24 08/30/2018 [id number] Walk in hearing aid check. Patient reports [...] information. [email or web address] Not available 08/30/2018 15:00:14 11/21/2020 [id number] Risks/Benefits/O p tions/Side Effects of diagnosis and treatment discussed. UV protection and signs of skin cancer discussed [email or web address] Not available 11/21/2020 09:40:40 Reason for Referral None Reported. Problems Name Problem SNOMED Code Status Onset Date Resolution Date Notes Provider Name and Address Organization Details Recorded Time Paresthes ia of skin Active 2014 From Automated Load;Provi caitlyn: Doris Noriega;Statu s: Active Not Available [facility] 6 05:20:03 Congenita l talipes calcaneov amarjitus 851408550 Active 2014 From Automated Load;Provi caitlyn: Doris Noriega;Statu s: Active Not Available [facility] 6 05:20:03 Disorder of body system Active 2014 From Automated Load;Provi caitlyn: Doris Noriega;Statu s: Active Not Available [facility] 6 05:20:03 Problem Notes None recorded. Medical Equipment None Reported. Allergies Allergen ID Allergen Name Allergen Category Reaction Reaction Severity Criticality Documentation Date Start Date Code Code System Note Provider Name and Address Organization Details Recorded Time 191719 codeine medicatio n itching Not available Not available 06/25/20162014 2670 RxNorm React ion: ITCHI NG; Comme nt: Creat ed By: Estela oquendo Date: 2014 2:43: 46 PM; Not Available [facility] 6 10:24:12 Medications Name Sig Start [...] MG/ML 2020 active INJECTIO N GIVEN BY [facility] Not Available Not Available Not Available Zanaflex [...] SNOMED-CT Code Diagnosis ICD10 Code Diagnosis Note [id number] ALAN SHAH AUD E[facility] [address] [place] [id number] 03/16/2018 13:21:16 03/16/2018 17:59:03 [id number] ALAN SHAH AUD E[facility] [address] [place] [address] 08/30/2018 13:32:36 08/30/2018 15:01:02 [id number] ANTONIA BARLOW PA-C [facility] [address] [place] [address] 11/21/2020 09:37:45 11/21/2020 10:26:08 Eczema [id number] L30.9 APPEARS ECZEMATOUS WIDESPREAD FLARE START TRIAMCINOL ONE 0.1% TOPICAL CREAM BID PT IS CONTROLLED DIABETIC - FASTING GLUCOSE 120'S PER PT INJECTED KENALOG 40 MG/ML IM PER [place] CALL OR CONTACT CENTRE TEAM LEADER, NO COMPLICATI ONS; PT TOLERATED WELL ADVISED [...] Guarantor Name 10/31/2020 1 *SELF PAY* Meme Sloan 12/17/2020 1 [place]IC[place] ([place]ICARE[place] Henrique Bragg Nathalia [id number] Henrique Bragg Nathalia Notes Date Note Type Note Provider Name and Address Organization Details Recorded Time 03/16/2018 text/html hac ALAN SHAH, AUD [address] [place], [address], [facility] 03/16/2018 14:36:26 08/30/2018 text/html Hearing aid check ALAN SHAH, AUD [address] [place], [address], [facility] 08/30/2018 15:00:16 11/21/2020 text/html ROS as noted in the HPI NEW PATIENT 1) PT C/O PINK SCALY [...] history of melanoma. ANTONIA BARLOW PA-C [address] [place], [address], [facility] 11/21/2020 12:20:52
--- OUTSIDE RECORDS SUMMARY | 2025-02-24 12:22 | XMS_ITS | Clinical Summary ---
Author Organization [facility] Address [address] [place] [address] Care Team Providers Care Friction Welding Machine Operator Name Role Phone Luisa Golden Salo DUMONT Primary Care Provider [phone] Allergies Active Allergy Reactions Criticality Noted Date [...] mouth. 3 Active Blood Glucose Monitoring Suppl (Zubicanyle [place] Lite) w/Device kit 10/30/201 3 Active glucose [...] migraine 04/03/2016 Overview (04/03/2016): Assessed By: Misael España (Neurology); Last Assessed: 23 May 2015 Nephrolithiasis [...] 5:48 PM EDT) Hemoglobin A1C 8.5 % [facility] Lot Number [id number] [facility] Expiration Date [facility] Blood 11/16/2022 5:48 PM EDT us Luisa Golden SERVICE SUPPORT REPRESENTATIVE POINT OF CARE TEST ORDERABLE S Final Result [facility]
[address] [place] [address], [place] [phone] * ULTRASOUND ABDOMEN LIMITED (01/17/2014 8:03 AM EDT) Anatomical Region Laterality Modality Body, Abdomen Ultrasound 01/17/2014 8:03 AM EDT Narrative 01/17/2014 10:54 AM EDT [address] [address] Ultrasound Report [id number] Signed PATIENT NAME: NAKITA SLOAN : 1955 ATTENDING: SAMI QUIROS APRN DATE OF EXAM: 01/17/14 PRIMARY CARE: NONE LOCATION: ORDERING PHYSICIAN: SAMI QUIROS APRN PROCEDURE(s): ABDOMEN RUQ ORDER NUMBER(s): [id number] CC: EXAM: RIGHT UPPER QUADRANT ULTRASOUND INDICATIONS: [...] been electronically signed and is considered final. [id number] DICTATED BY : VIANCA STEVE MD DICTATED DATE/TIME : 01/17/14 0923 TRANSCRIBED DATE/TIME : 01/17/14 1042 CC : Procedure Note Vianca Steve MD - 04/22/[address] [address] Ultrasound Report [id number] Signed PATIENT NAME: NAKITA SLOAN : 1955 ATTENDING: SAMI QUIROS APRN DATE OF EXAM: 01/17/14 PRIMARY CARE: NONE LOCATION: ORDERING PHYSICIAN: SAMI QUIROS APRN PROCEDURE(s): ABDOMEN RUQ ORDER NUMBER(s): [id number] CC: EXAM: RIGHT UPPER QUADRANT ULTRASOUND INDICATIONS: [...] been electronically signed and is considered final. [id number] DICTATED BY : VIANCA STEVE MD DICTATED DATE/TIME : 01/17/14 0923 TRANSCRIBED DATE/TIME : 01/17/14 1042 CC : Sami Quiros Jr., APRN [facility] ORDERABLES Final Result from Last 3 Months or Most Recently Relevant to Health Maintenance Insurance MEDICARE A & B Care Teams Friction Welding Machine Operator Relationship Specialty Start Date End Date Luisa Golden APRN [address] [place] [address] (work) PCP - General Family Medicine 11/16/22
--- OUTSIDE RECORDS SUMMARY | 2025-02-24 12:22 | XMS_ITS | Encounter Summary ---
Author Organization [facility] Address [address] [place] [address] Care Team Providers Care Manager Paid Name Role Phone Jude Pacheco DO Primary Care Provider [phone] Reason for Visit * Reason Comments Med Refill Encounter Details Date Type Department Care Team (Late st Contact Info) Description 12/24/2024 Refill [facility] Diabetes Education [address] [place] [address] Mitali Dominguez, METALLURGIST HELPER [address] [facility] [address] [place] [address] Social History Tobacco Use Types [...] drink first t vishal in the morning (EYE-PROPERTY PRESERVATION SPECIALIST) to steady your nerves or to get [...] documented as of this encounter Care Teams Manager Paid Relationship Specialty Start Date End Date Jude Pacheco DO [address] [place] [address] PCP - General 05/09/24 documented as of this encounter
--- OUTSIDE RECORDS SUMMARY | 2025-02-24 12:22 | XMS_ITS | Encounter Summary ---
Author Organization [facility] Address [address] [place] [address] Care Team Providers Care Control Officer Name Role Phone Cristhian Marino MD Primary Care Provider [phone] Arie Bateman Unavailable Unavailable Caitie Burton DMD Unavailable [phone] Jude Pacheco DO Primary Care Provider [phone] Encounter Details Date Type Department Care Team (Late st Contact Info) Description 01/19/2023 [facility] Community [facility] [address] [place] [address] Severino Hernandez, MAIL TELLER [address] [place] [address] Social History Tobacco Use Types [...] drink first t vishal in the morning (EYE-VP ACCOUNT DIRECTOR) to steady your nerves or to get [...] documented as of this encounter Care Teams Control Officer Relationship Specialty Start Date End Date Cristhian Marino MD [address] [facility] [address] [place] [address] PCP - General 12/13/20 05/08/24 Jude Pacheco DO [address] [place] [address] PCP - General 05/09/24 Arie Bateman [employer] Dental Student Dental Senior Attorney 01/08/22 06/15/23 Caitie Burton DMD [address] [facility] [address] [place] [address] Dentist Dental Senior Attorney 02/27/2206/15 documented as of this encounter
--- OUTSIDE RECORDS SUMMARY | 2025-02-24 12:22 | XMS_ITS | Clinical Summary ---
Author Organization [facility] Address [address] [place] [address] Care Team Providers Care Director Inpatient Headache Program Name Role Phone Jude Pacheco Jacinta Primary Care Provider [phone] Allergies Active Allergy Reactions Criticality Noted Date [...] tablet 3 Active Blood Glucose Monitoring Suppl (Vive Unique ULTRA 2) w/Device kit device kitIndications: Type [...] Department Care Team Description 12/24/2024 Refill [facility] Diabetes Education [address] [place] [address] Mitali Dominguez, MIXER RUNNER 12/14/2024 Refill [facility] Endocrinology [address] [place] [address] Estella Rosales APRN from Last 3 Months [...] drink first t vishal in the morning (EYE-HYDRAULIC TESTER) to steady your nerves or to get [...] 2014 [facility]-Abdominal Aortic Aneurysm (AAA) Screening 2019 [id number] Vaccine ( - season) 2024 [facility]-Diabetes: Hemoglobin [...] (Hb A1C) (09/07/2024 3:50 PM EST) Pathologist [facility] POCT Hemoglobin A1C 10.6 <5.7% Non-Diabet ic % [facility] Kit Lot Number [id number] [facility] Kit Expiration Date 06/27 [facility] Blood Venous blood specimen / Unknown 09/07/2024 3:50 PM EST Mitali Dominguez MIXER RUNNER POINT OF CARE TEST ENTER /EDIT ORDERABLES Final Result Performing Organization Address [facility] Co de Phone Number [facility] [address] [place] [address] * Mary[place] Hepatitis C Antibody (07/10/2020 4:25 PM EST) Pathologist [facility] Hepatitis C Ab NEGATIVE Reference Range: Negative [facility] 07/10/2020 4:25 PM EST 07/10/2020 4:44 PM EST Ray Mccallum MD LAB BLOOD ORDERABLES Final Result [facility] from Last 3 Months or Most Recently Relevant to Health Maintenance Insurance MEDICARE Care Teams Director Inpatient Headache Program Relationship Specialty Start Date End Date Jude Pacheco DO [address] [place] [address] PCP - General 05/09/24
--- OUTSIDE RECORDS SUMMARY | 2025-02-24 12:22 | XMS_ITS | Encounter Summary ---
Author Organization [facility] Address [address] [place] [address] Care Team Providers Care Analytical Chemistry Teacher Name Role Phone Cristhian Marino MD Primary Care Provider [phone] Natan Eaton DMD Unavailable [phone] Pancho Hood Unavailable Unavailabl e Arie Bateman S Unavailable Unavailable Caitie Burton DMD Unavailable [phone] Chinyere Artis Unavailable Unavailable Jude Pacheco DO Primary Care Provider [phone] Encounter Details Date Type Department Care Team (Late st Contact Info) Description 12/25/2020 Abstract DSB [facility] [address] [place] [address] [employer] Dental caries [...] enamel documented in this encounter Care Teams Analytical Chemistry Teacher Relationship Specialty Start Date End Date Cristhian Marino MD [address] [place] [address] PCP - General 12/13/20 05/08/24 Jude Pacheco DO [address] [place] [address] PCP - General 05/09/24 Natan Eaton, GEOVANNA [address] [facility], [address] [place] [address] Dentist Dental Service Assistant 01/14/21 02/27/22 [employer] Dental Student Dental Service Assistant 01/14/21 01/07/22 Arie Bateman [facility] Dental Student Dental Service Assistant 01/08/22 06/15/23 Caitie Burton DMD [address] [facility] [address] [place] [address] Dentist Dental Service Assistant 02/27/22 06/15/23 [place] [address] [employer] Navigator 04/09/22 05/11/22 documented as of this encounter
--- OUTSIDE RECORDS SUMMARY | 2025-02-24 12:22 | XMS_ITS | Data Portability ---
Author Organization [place] [facility] ADMIN Address [address] [place] [address] Assessment No assessment recorded. Plan of Treatment Reminders Order Date Submit Date Provider Last Modified By Organization Details Last Modified Time Details Appointments None recorded. Lab PSA, total, serum or plasma 2022 023 [facility] (Lab Registration) , [address] [place] [address] [place], [address], 3 14:59:36 Referral None recorded. Procedures None recorded. Surgeries None recorded. Imaging None recorded. Medication Orders tamsulosin 0.4 mg capsule 2022 023 [facility] [address] [place] [address], [id number], 3 13:23:09 Patient TargetsNo targets recorded. Patient InstructionsNo instructions recorded. Reason for Referral None Reported. Results Created Date Observation Date Name Description Value Unit Range Abnormal Flag Note LastModifiedBy Organization Detail LastModifiedTime 06/09/2006/09/2023 PSA, TOTAL (REFL EX TO FREE) note Unles s other norman noted testi ng [facility] r [address] [place] [address] Rashi gasca MD Not Available [facility] (Pre-Op Clinic) [address] [place] [address] [place], [address], 06/11/2023 04:09:23 06/09/20 23 06/11/2023 PSA, TOTAL (REFL EX TO FREE) prostate [...] ce of jennifer little se. Not Available [facility] (Pre-Op Clinic) [address] [place] [address] [place], [address], 06/11/2023 04:09:23 06/09/2006/11/2023 PSA, TOTAL (REFL EX TO FREE) reflex criteria Commen t . The perce nt free PSA is perfo rmed on a refle x basis only when the total PSA is betwe en 4.0 and 10.0 ng/mL . Perfo rmed at: - [facility] [place] [id number] [facility] Lab Direc tor: [place] zepeda PhD, Phone : [phone] Not Available [facility] (Pre-Op Clinic) [address] [place] [address] [place], [address], 06/11/2023 04:09:23 Result Notes None recorded. Procedures Surgical History Date Name Laterality Status Provider Name and Address Organization Details Recorded Time Other completed Bettie KIMBLE - CRISTHI[place] - [place] [facility] [place] 06/09/2023 13:10:17 Imaging Results None recorded. Procedure [...] Details Last Updated DateTime 06/09/2023 97 [degF] 82312.51 g [place] [facility] [place] 06/09/2023 13:10:12 Social History None recorded. Functional Status None recorded. Mental Status None recorded. Family History Nothing Reported. Medical History No medical history recorded. Past Encounters Encounter ID Performer Location Encounter Start Date Encounter Closed Date Diagnosis/Indication Diagnosis SNOMED-CT Code Diagnosis ICD10 Code Diagnosis Note [id number] Charles Thurman M.D [facility] [address] 06/09/2023 12:57:28 06/09/2023 13:28:54 Benign prostatic hyperplasia with outflow obstruction 401100486 N40.1 RTc 4-6 weeks for pvrfollow up response to tx Screening for malignant neoplasm of prostate 691323804 Z12.5 repeat PSA screening in 1 year Health Concerns Section Related Observation LastModified by Organization Detai ls LastModified Time None Recorded Concern Status LastModified by Organization Details LastModified Time None Recorded Advance Directives Directive None Recorded Payers Insurance Date Sequence Insurance Name Policy Number Policy Em Covered Member ID Em Member ID Guarantor Name 02/19/2024 1 [place] Henrique Sloan [id number] Henrique Sloan Notes Date Note Type [...] blood in the urine Charles Thurman M.D [address] [place] [address], [address], [place], [address], [facility] - [place] [facility] [place] 06/11/2023 17:02:20
--- OUTSIDE RECORDS SUMMARY | 2025-02-24 12:22 | XMS_ITS | Encounter Summary ---
Author Organization [facility] Address [address] [place] [address] Care Team Providers Care Dragline Operator Helper Name Role Phone Cristhian Marino MD Primary Care Provider [phone] Natan Eaton DMD Unavailable [phone] Pancho Hood Unavailable Unavailabl e Arie Bateman S Unavailable Unavailable Caitie Burton DMD Unavailable [phone] Chinyere Artis Unavailable Unavailable Jude Pacheco DO Primary Care Provider [phone] Encounter Details Date Type Department Care Team (Late st Contact Info) Description 12/25/2020 Abstract DSB [facility] [address] [place] [address] [employer] Dental caries [...] enamel documented in this encounter Care Teams Dragline Operator Helper Relationship Specialty Start Date End Date Cristhian Marino MD [address] [place] [address] PCP - General 12/13/20 05/08/24 Jude Pacheco DO [address] [place] [address] PCP - General 05/09/24 Natan Eaton, GEOVANNA 800 [facility], [address] [place] [address] Dentist Dental Glass Toughening Operator 01/14/21 02/27/22 [employer] Dental Student Dental Glass Toughening Operator 01/14/21 01/07/22 Arie Bateman [facility] Dental Student Dental Glass Toughening Operator 01/08/22 06/15/23 Caitie Burton DMD [address] [facility] [address] [place] [address] Dentist Dental Glass Toughening Operator 02/27/22 06/15/23 [place] [address] [employer] Navigator 04/09/22 05/11/22 documented as of this encounter
[2025-02-24 12:23] VITALS: BP 118/78; PULSE 76; PULSE 81; RESP 16; TEMP 36.4; O2SAT 97; O2SAT 98; BMI 29.7
--- NOTE | 2025-02-24 12:25 | ED_ITS ---
<Statement entered by Mandy Tejada MD - 02/24/25 15:15> I was consulted by the LAW, and we discussed the complexity of the problems being addressed. I approved the treatment and management plan for this patient's care in the emergency department, thus performing a substantive portion of the medical decision making. Mandy Tejada MD, ERAN, FACEP Discharge Plan Disposition Patient Disposition: Home, Self-Care Condition: Good Prescriptions Prescriptions: New promethazine 12.5 mg tablet 12.5 mg PO TID PRN (Reason: allergy symptoms) Qty: 14 0RF Rx Instructions: 3 doses during day; last dose no later than 4 hr before bedtime No Action aspirin 81 mg tablet,delayed release (DR/EC) 81 mg PO DAILY bupropion HCl 300 mg tablet extended release 24 hr 300 mg PO DAILY pioglitazone 30 mg tablet 30 mg PO DAILY Patient Comments: TAKE 1 TABLET BY MOUTH EVERY DAY lisinopril 10 mg tablet 10 mg PO DAILY Qty: 30 2RF ondansetron HCl 4 mg tablet 4 mg PO Q6H PRN (Reason: nausea and vomiting) Qty: 30 0RF Humulin 70/30 U-100 Insulin 100 unit/mL (70-30) suspension 70 unit SQ BID tamsulosin 0.4 mg capsule 0.8 mg PO HS Patient Comments: TAKE 2 CAPSULES BY MOUTH ONCE A DAY levofloxacin 750 mg tablet 750 mg PO DAILY Qty: 10 0RF doxycycline hyclate 100 mg capsule 100 mg PO BID Qty: 20 0RF hydrocodone-acetaminophen 5-325 mg tablet 1 tab PO Q6H PRN (Reason: pain) Qty: 17 0RF metformin 500 mg Tablet 500 mg PO BIDWMEAL 30 Days Qty: 60 1RF fenofibrate 54 mg Tablet 54 mg PO DAILY 30 Days Qty: 30 1RF Referrals Follow up/Referrals: Daniel Ugarte MD [Primary Care Provider, Family Practice] - See instructions Activity Restrictions/Add. Instructions Additional Instructions/Restrictions: Please continue to take your medication/antibiotics as prescribed, I recommend good intake with liquids and solids, please follow-up with your foot doctor in the upcoming days, please take Zofran and Phenergan as needed for nausea, please choose one, please do not take together. Follow-up with your PCP. Please return to the emergency department any worsening signs or symptoms. Clinical Impressions Clinical Impression: Poorly controlled diabetes mellitus, Diabetic infection of left foot, Nausea vomiting and diarrhea Instructions Patient Instructions: DI for Nausea -- Adult, Nausea and Vomiting-Adult Print Language Print Language: Hungarian Discharge ED Provider: Mandy Tejada General Adult HPI General Chief complaint: Weakness Stated complaint: General Weakness;Nausea; Vomitting; Dizzy Time Seen by Provider: 02/24/25 12:21 Mode of Arrival: Ambulatory Source of Information: Patient Limitations: No Limitations History of Present Illness HPI narrative: 69-year-old male presents to the emergency department with a 1 day history of abdominal pain/cramping, nausea, vomiting, diarrhea, poor p.o. intake, concern for elevated blood glucose, last blood glucose level was 250 something . Patient denies any hematuria melena hematochezia hematemesis or hemoptysis, denies any urinary test otology, denies any fever chills chest pain shortness of breath. Patient is currently status postop 3 days from what sounds like a Right foot great toe incision and drainage, and debridement and open bone biopsy from a diabetic foot ulcer/wound/infection, patient was recently seen in the emergency department on 02/19/2025, subsequently found to have a diabetic foot infection, not meeting sepsis criteria admitted to the hospitalist service, started on IV ABX, was taken to the OR by podiatry, on 02/20/2025, discharged in a stable condition, on p.o. Levaquin (750 mg) and p.o. doxycycline (100 mg p.o. twice daily for 10 to 14 days), p.o. Levaquin due to history of Klebsiella, was seen by health/wound care nurse yesterday had new dressing applied/changed, has slated podiatry follow-up. Initial triage vitals are unremarkable history of tobacco abuse, denies any other substance use or abuse, other past medical history consistent with hypertension, splenectomy, nephrolithiasis,, hyperlipidemia, depression, T2DM insulin-dependent, diabetic polyneuropathy, DEEDEE, sensorineural hearing loss. Please note that above description of symptoms, in this electronic medical record under categorization of recalled from ER triage doctor by RN are reflective of an initial nursing assessment, however, is not reflective of my full history and physical exam that was personally taken and clarified. Consequentially, this preceding description of symptoms, which may include the patient's categorized chief complaint in the EMR, do not reflect my personal clinical impression, and the ultimate description of history of present illness and patient stated complaints should be deferred to this section of the note. Unless stated otherwise or congruent with this section of the note, additional signs, symptoms, or incongruence should be interpreted as inaccurate with my clinical impression. Onset (ago): day(s) Related Data Home Medications ?Medication ?Instructions ?Recorded ?Confirmed aspirin 81 mg tablet,delayed 81 mg PO DAILY 12/11/24 0 02/19/25 release bupropion HCl 300 mg 24 hr tablet, 300 mg PO DAILY 07/2602/19/25 extended release insulin human U-100 NPH-regulr 70 unit SQ BID 12/11/24 02/19/25 70-30 mix 100 unit/mL subcutaneous susp (Humulin 70/30 U-100 Insulin) pioglitazone 30 mg tablet 30 mg PO DAILY 12/11/2401/31 tamsulosin 0.4 mg capsule 0.8 mg PO HS 02/20/25 Previous Rx's ?Medication ?Instructions ?Recorded lisinopril 10 mg tablet 10 mg PO DAILY #30 tabs 11/30 10/24 doxycycline hyclate 100 mg capsule 100 mg PO BID #20 c aps 02/21/25 fenofibrate 54 mg tablet 54 mg PO DAILY 30 days #30 t abs 02/21/25 hydrocodone 5 mg-acetaminophen 325 1 tab PO Q6H PRN pa in #17 tabs 02/21/25 mg tablet levofloxacin 750 mg tablet 750 mg PO DAILY #10 tabs metformin 500 mg tablet 500 mg PO BIDWMEAL 30 days # 60 tabs 02/21/25 ondansetron HCl 4 mg tablet 4 mg PO Q6H PRN nausea and 02/23/25 vomiting #30 tabs promethazine 12.5 mg tablet 12.5 mg PO TID PRN allergy 02/24/25 symptoms #14 tabs Allergies Allergy/AdvReac Type Severity Reaction Status Date / Time codeine Allergy Mild Verified 12/11/24 13:30 [facility] Disclaimer: The information contained in this section may have been updated after the patient was seen, as this information can be updated by other users. Medical History (Updated 02/24/25 @ 15:09 by JAG Castellon) Tobacco use Falls MCI (mild cognitive impairment) Tinea pedis of both feet Hematuria Uncontrolled type 2 diabetes mellitus Infected hematoma Hematoma of left lower leg Cellulitis of left lower leg Leg skin lesion, left Vertigo Tobacco abuse counseling Cardiac risk counseling Anxiety BPV (benign positional vertigo) Cubital tunnel syndrome on left Contusion, knee Abrasion of knee, bilateral Type 2 diabetes mellitus with hyperglycemia Complicated migraine Abnormal laboratory test Syncope Callus of foot Skin ulcer of left great toe, limited to breakdown of skin Nocturnal hypoxemia Sleep apnea Diabetes Seizure GERD (gastroesophageal reflux disease) HLD (hyperlipidemia) HTN (hypertension) Spleen absent Migraine Diabetes mellitus, type 2 Surgical History H/O shoulder surgery H/O splenectomy Family History Other Cancer Coronary artery disease Heart attack No significant family history Stroke Social History Smoking Status: Current every day smoker tobacco type: cigars alcohol intake: never substance use type: former substance user and marijuana current occupational status: retired Travel in the last 8 weeks?: None household members: none housing: house Have you lived/traveled outside [place] in past 30 days?: No Contact w/someone who lives/traveled outside US past 30 days?: No Exposure to someone with infectious disease in past 14 days?: No Do you have a fever (greater than 100.4 F or 38 C)?: No Have you tested positive for COVID-19?: No Exposed to someone with COVID-19 in past 14 days?: No Do you have a sore throat?: No Do you have a cough?: No Do you have any weakness?: No Do you have any diarrhea?: No Are you experiencing any unusual bleeding?: No Do you have any muscle aches/pain?: No Do you have any abdominal pain?: No Are you experiencing loss of taste or smell?: No Other Medical History Have you received the Flu Vaccine for this season: No Have you received the Pneumonia Vaccine: No ROS Obtained: Yes All systems reviewed & no additional complaints except as documented Physical Exam General General appearance: alert and in no apparent distress Head Head exam: atraumatic and normocephalic Eye Eye exam: Present PERRL and EOMI ENT ENT exam: Present mucous membranes moist Neck Neck exam: Present normal inspection Chest Chest inspection: Present normal inspection and symmetric chest wall rise Respiratory Respiratory exam: Present normal lung sounds bilaterally; Absent respiratory distress Cardiovascular Cardiovascular exam: Present regular rate and normal rhythm Abdominal Exam Abdominal exam: Present soft, distention and tenderness; Absent guarding, rebound or rigidity Abdominal tenderness: Present mild Comment: Minimal to mild diffuse abdominal tenderness palpation Extremities Exam Extremities exam: Present normal inspection Neurological Exam Neurological exam: Present alert and oriented X3 Psychiatric Psychiatric exam: Present normal affect Skin Skin exam: Present warm, dry, erythema and other (Patient's right hallux toe wound looks to be well epithelialized, sutures are in place, no active evidence of any wound dehiscence or drainage, still with some mild erythema surrounding the wound otherwise neurovasc intact) Medical Decision Making Medical Records Medical records reviewed: Yes I reviewed the patient's medical records. Screening: Per USPSTF and CDC recommendations, given the prevalence of disease in our region, it is our hospital?s policy to screen for HIV and viral Hepatitis for all patients aged 18 and over and those with ongoing risk factors. Shant Inquiry Pt receiving controlled substance: No Shant was queried for this patient: No Vital Signs: 02/24/25 12:23 02/24/25 12:23 02/24/25 12:30 Temperature 97.6 F Temperature Source Oral Pulse Rate 81 77 Pulse Rate [Right Brachial] 76 Respiratory Rate 16 Blood Pressure 118/78 132/71 Blood Pressure [Left Arm] 118/78 Blood Pressure Mean [Left Arm] 91 Blood Pressure Source [Left Arm] Automatic Cuff Blood Pressure Position [Left Arm] Supine 02 Sat by Pulse Oximetry 97 98 97 Oxygen Delivery Method Room Air Room Air Room Air 02/24/25 13:00 Temperature Temperature Source Pulse Rate 83 Pulse Rate [Right Brachial] Respiratory Rate Blood Pressure 110/86 Blood Pressure [Left Arm] Blood Pressure Mean [Left Arm] Blood Pressure Source [Left Arm] Blood Pressure Position [Left Arm] 02 Sat by Pulse Oximetry 97 Oxygen Delivery Method Room Air Lab Data Lab results reviewed: Yes I reviewed the patient's lab results. Lab Results 02/24/25 12:20: WBC 10.1, RBC 4.30 L, Hgb 13.1 L, Hct 38.4 L, MCV 89.3, MCH 30.5, MCHC 34.1, RDW 13.6, Plt Count 414 D, MPV 11.0 H, Neut % (Auto) 59.7, Lymph % (Auto) 30.4, [place] % (Auto) 8.3, Eos % (Auto) 0.7, Baso % (Auto) 0.5, Neut # (Auto) 6.0, Lymph # (Auto) 3.1, [place] # (Auto) 0.8, Eos # (Auto) 0.1, Baso # (Auto) 0.1, Sodium 133 L, Potassium 4.3, Chloride 98, Carbon Dioxide 27, Anion Gap 12.3, BUN 13, Creatinine 0.90, Estimated Creat Clear 84, Estimated GFR 83, Est GFR ( Amer) 101, Glucose 255 H, Calcium 9.9, Total Bilirubin 0.4, AST 40, ALT 41, Alkaline Phosphatase 111, Total Protein 7.3, Albumin 3.3 L, Globulin 4.0 H, Albumin/Globulin Ratio 0.8 L, Lipase 99 02/24/25 13:33: Urine Color Yellow, Urine Appearance Clear, Urine pH 7.0, Ur Specific [place] 1.010, Urine Protein 1+ A, Urine Glucose (UA) Trace, Urine Ketones Negative, Urine Blood Negative, Urine Nitrate Negative, Urine Bilirubin Negative, Urine Urobilinogen 0.2, Ur Leukocyte Esterase 1+ A, Urine RBC None, Urine WBC 3-5, Ur Squamous Epith Cells 3-5, Urine Bacteria None 02/24/25 14:15: Lactate 2.7 H 02/24/25 12:20 02/24/25 12:20 Orders (Tests/Meds): ED MEDICATIONS Discontinued Medications Generic Name Dose Route Start Last Admin Trade Name Samantha PRN Reason Stop Dose Admin Iopamidol 75 ml 02/24/25 13:54 02/24/25 13:57 Iopamidol-370 (76%);100ml Bottle IV 02/24/25 13:55 75 ml ONCE ONE Administration Ondansetron HCl 4 mg 02/24/25 12:42 02/24/25 12:53 Ondansetron 4mg/2ml Vial IV 02/24/25 12:43 4 mg ONCE ONE Administration Sodium Chloride 10 ml 02/24/25 13:54 02/24/25 13:57 Sodium Chloride 0.9% 10ml Syr (Rad Only) IV 02/24/25 13:55 10 ml ONCE ONE Administration ORDERS Category Date Time Status CT abdomen pelvis w con Stat Cat Scan 02/24/25 12:54 Completed Complete Blood Count Auto Diff Stat Lab 02/24/25 12:20 Completed Comprehensive Metabolic Panel Stat Lab 02/24/25 12:20 Completed Lactic Acid Stat Lab 02/24/25 14:15 Completed Lipase Stat Lab 02/24/25 12:20 Completed Urinalysis and Microscopic Stat Lab 02/24/25 13:33 Completed Urine Culture Stat Micro 02/24/25 13:33 Received Medical Decision Narrative: 69-year-old male presents to the emergency department with abdominal pain nausea vomiting diarrhea, poor p.o. intake for 1 day, see HPI for full detail past medical history, differential diagnose include but not limited to, cardiac arrhythmia, electrolyte disturbance, diabetic gastroparesis, gastroenteritis, bowel obstruction, side effect of antibiotic therapy, pancreatitis, colitis, among others. I discussed patient case with attending patient Dr. Tejada Obtain basic laboratory studies, lactic acid level, lipase, UA, EKG, will give 4 mg IV Zofran for nausea, will obtain CT abdomen pelvis with contrast for further evaluation. CBC is unremarkable leukocytosis is improved from previous CMP is notable for hyperglycemia 255, lipase in normal limits. UA is notable for 1+ proteinuria, 1+ leukocyte esterase, negative nitrites, no bacteria. Lactic acidosis at 2.7 I reviewed the patient's CT head and pelvis with contrast, the corresponding radiologic report, findings can be attributed lower urinary tract infection in the appropriate clinical setting, bilateral avascular necrosis of femoral heads no intra-articular collapse. I discussed the results with the patient family bedside, patient and family agree with current treatment plan/discharge planning, lactic acidosis could be contributing to nausea and vomiting diarrhea as well as being 2 days postop, recommend continue take a medication as prescribed, recommend good p.o. intake, patient already has Zofran 4 mg p.o. at home, will prescribe an additional antiemetic if needed, refractory nausea and vomiting. I was able to assess the patient's diabetic foot wound, patient's wound is well epithelialized, otherwise neurovascularly intact, no evidence of any wound dehiscence or drainage. CT noted some degree of UTI with fat stranding, however urinalysis only shows leukocyte esterase, patient is on p.o. antibiotics to treat this if the. Patient family voiced understanding, strict ED return precaution were given. Critical Care Critical Care Time Critical Care Time: No
[2025-02-24 12:30] VITALS: BP 132/71; PULSE 77; O2SAT 97
[2025-02-24] MEDS: ONDANSETRON 4MG/2ML VIAL 4 MG IV (12:53)
--- NOTE | 2025-02-24 12:54 | CT_ITS ---
PROCEDURE INFORMATION: Exam: CT Abdomen And Pelvis With Contrast Exam date and time: 02/24/2025 1:55 PM Age: 69 years old Clinical indication: Abdominal pain; Additional info: Abd pain, n/v/d TECHNIQUE: Imaging protocol: Computed tomography of the abdomen and pelvis with contrast. Radiation optimization: All CT scans at this facility use at least one of these dose optimization techniques: automated exposure control; mA and/or kV adjustment per patient size (includes targeted exams where dose is matched to clinical indication); or iterative reconstruction. Contrast material: ISOVUE; Contrast volume: 75 ml; Contrast route: IV; COMPARISON: CR XR PELVIS 1-2V 04/12/2022 9:17 PM FINDINGS: Coronary arteries: There is severe atherosclerotic calcification of the coronary arteries. Liver: Hepatic steatosis noted. No focal hepatic lesions. Gallbladder and biliary ducts: Cholelithiasis noted without pericholecystic fluid/stranding. Pancreas: Normal. No ductal dilation. Spleen: Status post splenectomy Adrenal glands: Normal. No mass. Kidneys and ureters: Nephrograms are symmetric. Nonobstructive left nephrolithiasis noted. No hydroureteronephrosis on either side. No solid lesions. Stomach and bowel: Pancolonic diverticulosis noted without acute inflammatory change. Appendix: A normal appendix is identified. Intraperitoneal space: There is no evidence of free intraperitoneal or pelvic fluid. Vasculature: The aorta demonstrates mild atherosclerotic calcification. Major aortic branches are patent. Lymph nodes: Unremarkable. No enlarged lymph nodes. Urinary bladder: Bladder is partially distended. There is urothelial hyperenhancement and bladder wall thickening. Reproductive: Unremarkable as visualized. Bones/joints: No acute osseous abnormality. Bilateral avascular necrosis of the femoral heads. No intra-articular collapse. Soft tissues: Unremarkable. IMPRESSION: 1. Findings can be attributed to a lower urinary tract infection in the appropriate clinical context. 2. Bilateral avascular necrosis of the femoral heads. No intra-articular collapse.
[2025-02-24 13:00] VITALS: BP 110/86; PULSE 83; O2SAT 97
[2025-02-24 13:04] LABS: Hematocrit 38.4 % (42.0-52.0); Hemoglobin 13.1 g/dL (14.1-18.0); Immature Granulocytes % 0.4 %; Mean Corpuscular HGB Conc 34.1 g/dL (31.8-35.4); Mean Corpuscular Hemoglobin 30.5 pg (27.0-31.2); Mean Corpuscular Volume 89.3 fl (80-94); Nucleated Red Blood Cells % 0 %; Platelet Count 414 K/mm3 (142-424); Red Blood Count 4.30 M/mm3 (4.60-6.20); Red Cell Distribution Width-SD 44.4 fL; White Blood Count 10.1 K/mm3 (4.8-10.8)
[2025-02-24 13:11] LABS: Alanine Aminotransferase 41 U/L (12-78); Albumin Level 3.3 g/dl (3.5-5.0); Albumin/Globulin Ratio 0.8 (1.1-1.8); Alkaline Phosphatase 111 U/L (38-126); Anion Gap 12.3 mEq/L (5-15); Aspartate Amino Transferase 40 U/L (17-59); Bilirubin,Total 0.4 mg/dl (0.2-1.3); Blood Urea Nitrogen 13 mg/dl (9-20); Calcium 9.9 mg/dl (8.4-10.2); Carbon Dioxide 27 mmol/L (22.0-30.0); Chloride 98 mmol/L (98-107); Creatinine Clearance Estimated 84 mL/min (50-200); Creatinine,Serum 0.90 mg/dl (0.66-1.25); Estimated Glomerular Filt Rate 83 ml/min (>60); GFR (African American) 101 ML/MIN (>60); Globulin 4.0 g/dL (1.3-3.2); Glucose 255 mg/dl (74-100); Lipase 99 U/L (23-300); Potassium 4.3 mmoL/L (3.5-5.1); Sodium 133 mmol/L (136-145); Total Protein,Serum 7.3 g/dl (6.3-8.2)
--- NOTE | 2025-02-24 13:29 | PC.NURSE ---
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
[2025-02-24 13:36] LABS: Microscopic, Urine URINE MICROSCOPIC (MICROSCOPIC)
--- NOTE | 2025-02-24 13:36 | ECG_ITS ---
APPROVED REPORT Exam: Resting ECG HR:58 bpm ECG Measurements Heart Rate 58 AXES AZ 210 P 89 QRSd 89 QRS -40 QT 391 T 38 QTc 387 Conclusion SINUS BRADYCARDIA WITH MARKED SINUS ARRHYTHMIA WITH FIRST DEGREE AV BLOCK LEFT AXIS DEVIATION [QRS AXIS < -30] PATTERN CONSISTENT WITH PULMONARY DISEASE ABNORMAL ECG UNCONFIRMED REPORT Electronically signed by : Paul Tejada, 02/24/2025 15:20:20
[2025-02-24 13:49] LABS: Bilirubin,Urine Negative (Negative); Color,Urine YELLOW (Yellow); Glucose,Urine (UA) TRACE (Negative); Ketones,Urine Negative (Negative); Leukocyte Esterase,Urine 1+ (Negative); PH,Urine 7.0 (5.0-8.5); Protein,Urine 1+ (Negative); Specific Gravity, Urine 1.010 (1.005-1.030); Urobilinogen,Urine 0.2 EU/dl (0.2)
[2025-02-24] MEDS: SODIUM CHLORIDE 0.9% 10ML SYR (RAD ONLY) 10 ML IV (13:57)
[2025-02-24] MEDS: IOPAMIDOL-370 (76%);100ML BOTTLE 75 ML IV (13:57)
--- NOTE | 2025-02-24 14:43 | PC.NURSE ---
Pt called out stating dexcom was reading FSBG of 60. Pt was given apple juice and peanut butter.
[2025-02-24 15:01] VITALS: BP 127/68; PULSE 79; O2SAT 96
[2025-02-24 15:20] VITALS: BP 137/78; PULSE 78; RESP 16; TEMP 36.6; O2SAT 97
--- NOTE | 2025-02-24 15:43 | PC.NURSE ---
Wound to right toe redressed per discharge instructions that patient had with him. Xeroform applied, covered with Betadyne soaked gauze and dry gauze, covered with Maggi and HELENA wrap. +CMS after bandage applied. Patient tolerated well.
[2025-02-24 18:22] LABS: Reflex Lactic Add Lactic Reflex
== END 2025-02-24 15:38 | disposition home or self-care (01) ==
PROVIDERS: Physician Assistant; Emergency Provider Student in an Organized Health Care Education/Training Program; PCP Family Medicine
DX: R10.84 Generalized abdominal pain (principal); E87.29 Other acidosis; R74.02 Elevation of levels of lactic acid dehydrogenase [LDH]; R11.2 Nausea with vomiting, unspecified; E11.628 Type 2 diabetes mellitus with other skin complications; E11.65 Type 2 diabetes mellitus with hyperglycemia; I10 Essential (primary) hypertension; E78.5 Hyperlipidemia, unspecified; F17.290 Nicotine dependence, other tobacco product, uncomplicated; E11.40 Type 2 diabetes mellitus with diabetic neuropathy, unspecified; Z79.4 Long term (current) use of insulin
CPT/HCPCS: 74177; 80053; 81001; 83605; 83690; 85025; 87086; 93005; 96374; 99285; J2405; Q9967

== ENCOUNTER 2025-03-03 17:15 | Emergency (ER) | payer MEDICARE, SELFPAY ==
[2025-03-03] VITALS (10 sets, daily range): BP systolic 143–174; BP diastolic 77–99; PULSE 80–91; RESP 14–21; TEMP 36.7–36.9; O2SAT 95–97; BMI 33.8
--- NOTE | 2025-03-03 17:17 | PC.NURSE ---
stroke alert called
--- NOTE | 2025-03-03 17:22 | ECG_ITS ---
APPROVED REPORT Exam: Resting ECG HR:91 bpm ECG Measurements Heart Rate 91 AXES IN 252 P 8 QRSd 93 QRS -82 QT 353 T 48 QTc 402 Conclusion SINUS RHYTHM WITH FIRST DEGREE AV BLOCK WITH OCCASIONAL SUPRAVENTRICULAR PREMATURE COMPLEXES PATTERN CONSISTENT WITH PULMONARY DISEASE LEFT ANTERIOR FASCICULAR BLOCK [QRS AXIS <= -45, QR IN I, RS IN II] ABNORMAL ECG UNCONFIRMED REPORT Electronically signed by : Paul Tejada, 03/03/2025 22:51:01
--- NOTE | 2025-03-03 17:22 | CT_ITS ---
PROCEDURE INFORMATION: Exam: CT Head Without Contrast Exam date and time: 03/03/2025 5:26 PM Age: 69 years old Clinical indication: Stroke-like symptoms; Other: Possible stroke- dysarthria; Left facial, lue numb TECHNIQUE: Imaging protocol: Computed tomography of the head without contrast. Radiation optimization: All CT scans at this facility use at least one of these dose optimization techniques: automated exposure control; mA and/or kV adjustment per patient size (includes targeted exams where dose is matched to clinical indication); or iterative reconstruction. Other technique: STROKE PROTOCOL was implemented. COMPARISON: MR HEAD/BRAIN WO CON 05/11/2022 10:43 AM FINDINGS: Brain: Periventricular and subcortical small vessel ischemic changes appear chronic. Mild atrophy associated. No acute hemorrhage, mass effect, midline shift, or extra-axial fluid collection. Cerebral ventricles: No ventriculomegaly. Paranasal sinuses: Visualized sinuses are unremarkable. No fluid levels. Mastoid air cells: Visualized mastoid air cells are well aerated. Bones: Unremarkable. No acute fracture. Soft tissues: Unremarkable. IMPRESSION: No acute intracranial abnormality identified. ASSESSMENT: ASPECTS ([place] Stroke Program Early CT Score) is 10.
--- NOTE | 2025-03-03 17:22 | CT_ITS ---
PROCEDURE INFORMATION: Exam: CTA Head With Contrast, Arteriography Exam date and time: 03/03/2025 5:28 PM Age: 69 years old Clinical indication: Stroke-like symptoms; Other: Possible stroke TECHNIQUE: Imaging protocol: Computed tomographic angiography of the head with contrast. Exam focused on the arteries. 3D rendering (Not supervised by radiologist): MIP and/or 3D reconstructed images were created by the technologist. Radiation optimization: All CT scans at this facility use at least one of these dose optimization techniques: automated exposure control; mA and/or kV adjustment per patient size (includes targeted exams where dose is matched to clinical indication); or iterative reconstruction. Contrast material: ISO 370; Contrast volume: 80 ml; Contrast route: INTRAVENOUS (IV); COMPARISON: CT HEAD/BRAIN WO CON 03/03/2025 5:26 PM FINDINGS: ANTERIOR CIRCULATION: Right internal carotid artery: Intracranial segment is patent with no significant stenosis. No aneurysm. Right middle cerebral artery: No occlusion or significant stenosis. No aneurysm. Right anterior cerebral artery: No occlusion or significant stenosis. No aneurysm. Left internal carotid artery: Intracranial segment is patent with no significant stenosis. No aneurysm. Left middle cerebral artery: No occlusion or significant stenosis. No aneurysm. Left anterior cerebral artery: No occlusion or significant stenosis. No aneurysm. POSTERIOR CIRCULATION: Right vertebral artery: No occlusion or significant stenosis. No aneurysm. Left vertebral artery: No occlusion or significant stenosis. No aneurysm. Basilar artery: No occlusion or significant stenosis. No aneurysm. Right posterior cerebral artery: No occlusion or significant stenosis. No aneurysm. Left posterior cerebral artery: No occlusion or significant stenosis. No aneurysm. Brain: No definite mass, mass effect, or midline shift. Cerebral ventricles: No ventriculomegaly. Bones/joints: Unremarkable. No acute fracture. Soft tissues: Unremarkable. IMPRESSION: No large vessel stenosis or occlusion.
--- NOTE | 2025-03-03 17:22 | CT_ITS ---
PROCEDURE INFORMATION: Exam: CTA Neck With Contrast Exam date and time: 03/03/2025 5:28 PM Age: 69 years old Clinical indication: Stroke-like symptoms; Other: Possible stroke TECHNIQUE: Imaging protocol: Computed tomographic angiography of the neck with contrast. Exam focused on the cervical segments of the vasculature. 3D rendering (Not supervised by radiologist): MIP and/or 3D reconstructed images were created by the technologist. Radiation optimization: All CT scans at this facility use at least one of these dose optimization techniques: automated exposure control; mA and/or kV adjustment per patient size (includes targeted exams where dose is matched to clinical indication); or iterative reconstruction. Contrast material: ISO 370; Contrast volume: 80 ml; Contrast route: INTRAVENOUS (IV); COMPARISON: CT ANGIO NECK 04/08/2022 6:02 PM FINDINGS: Right common carotid artery: No stenosis. No dissection or occlusion. Right internal carotid artery: No stenosis of the extracranial segment. No dissection or occlusion. Right external carotid artery: No occlusion or stenosis of the origin. Left common carotid artery: No stenosis. No dissection or occlusion. Left internal carotid artery: No stenosis of the extracranial segment. No dissection or occlusion. Left external carotid artery: No occlusion or stenosis of the origin. Right vertebral artery: No stenosis. No dissection or occlusion. Left vertebral artery: No stenosis. No dissection or occlusion. Soft tissues: Normal. No significant soft tissue swelling. Bones/joints: No acute fracture. IMPRESSION: No stenosis or occlusion. REFERENCES: NASCET CRITERIA. The degree of stenosis in the cervical segment of the internal carotid artery is based on NASCET criteria. Normal is no stenosis. Mild is less than 50% stenosis. Moderate is 50-69% stenosis. Severe is 70% to 99% stenosis. Total occlusion is no detectable patent lumen.
[2025-03-03] MEDS: IOPAMIDOL-370 (76%);100ML BOTTLE 80 ML IV (17:25)
[2025-03-03] MEDS: 0.9 % SODIUM CHLORIDE 50 ML VIAL IV (17:25)
[2025-03-03] MEDS: SODIUM CHLORIDE 0.9% 10ML SYR (RAD ONLY) 10 ML IV (17:25)
[2025-03-03 17:29] LABS: Hematocrit 40.7 % (42.0-52.0); Hemoglobin 13.7 g/dL (14.1-18.0); Immature Granulocytes % 0.4 %; Mean Corpuscular HGB Conc 33.7 g/dL (31.8-35.4); Mean Corpuscular Hemoglobin 30.2 pg (27.0-31.2); Mean Corpuscular Volume 89.6 fl (80-94); Nucleated Red Blood Cells % 0 %; Platelet Count 458 K/mm3 (142-424); Red Blood Count 4.54 M/mm3 (4.60-6.20); Red Cell Distribution Width-SD 45.4 fL; White Blood Count 11.4 K/mm3 (4.8-10.8)
[2025-03-03 17:33] LABS: Albumin Level 3.3 g/dl (3.5-5.0); Chloride 96 mmol/L (98-107); Potassium 4.2 mmoL/L (3.5-5.1); Sodium 131 mmol/L (136-145)
--- OUTSIDE RECORDS SUMMARY | 2025-03-03 17:34 | XMS_ITS | Encounter Summary ---
Author Organization [facility] Address [address] [place] [address] Care Team Providers Care Packing Supervisor Name Role Phone Cristhian Marino MD Primary Care Provider [phone] Natan Eaton DMD Unavailable [phone] Pancho Hood Unavailable Unavailabl e Arie Bateman S Unavailable Unavailable Caitie Burton DMD Unavailable [phone] Chinyere Artis Unavailable Unavailable Jude Pacheco DO Primary Care Provider [phone] Encounter Details Date Type Department Care Team (Late st Contact Info) Description 12/25/2020 Abstract DSB [facility] [address] [place] [address] [employer] Dental caries [...] enamel documented in this encounter Care Teams Packing Supervisor Relationship Specialty Start Date End Date Cristhian Marino MD [address] [place] [address] PCP - General 12/13/20 05/08/24 Jude Pacheco DO [address] [place] [address] PCP - General 05/09/24 Natan Eaton, GEOVANNA 800 [facility], [address] [place] [address] Dentist Dental Underground Distribution Engineer 01/14/21 02/27/22 [employer] Dental Student Dental Underground Distribution Engineer 01/14/21 01/07/22 Arie Bateman [facility] Dental Student Dental Underground Distribution Engineer 01/08/22 06/15/23 Caitie Burton DMD 800 [facility] [address] [place] [id number] Dentist Dental Underground Distribution Engineer 02/27/22 06/15/23 [place] [address] [employer] Navigator 04/09/22 05/11/22 documented as of this encounter
--- OUTSIDE RECORDS SUMMARY | 2025-03-03 17:34 | XMS_ITS | Clinical Summary ---
Author Organization [facility] Address [address] [place] [address] Care Team Providers Care Workers Compensation Adjuster Name Role Phone Jude Pacheco Jacinta Primary Care Provider [phone] Allergies Active Allergy Reactions Criticality Noted Date [...] tablet 3 Active Blood Glucose Monitoring Suppl (LeanKit ULTRA 2) w/Device kit device kitIndications: Type [...] Department Care Team Description 12/24/2024 Refill [place] Diabetes Education [address] [place] [address] Mitali Dominguez, DUTY OFFICER 12/14/2024 Refill [place] [facility] Endocrinology [address] [place] [phone] Estella Rosales APRN from Last 3 Months [...] drink first t vishal in the morning (EYE-STUDY ABROAD ADVISOR) to steady your nerves or to get [...] 2014 [facility]-Abdominal Aortic Aneurysm (AAA) Screening 2019 RVT-MIMID-10 Vaccine ( - season) 2024 [facility]-Diabetes: Hemoglobin [...] (Hb A1C) (09/07/2024 3:50 PM EST) Pathologist [facility] POCT Hemoglobin A1C 10.6 <5.7% Non-Diabet ic % [facility] Kit Lot Number [id number] [facility] Kit Expiration Date 06/27 [facility] Blood Venous blood specimen / Unknown 09/07/2024 3:50 PM EST Mitlai Dominguez DUTY OFFICER POINT OF CARE TEST ENTER /EDIT ORDERABLES Final Result Performing Organization Address [facility] Co de Phone Number [facility] [address] [place] [address] * [place] Hepatitis C Antibody (07/10/2020 4:25 PM EST) Pathologist [facility] Hepatitis C Ab NEGATIVE Reference Range: Negative SUNQUEST 07/10/2020 4:25 PM EST 07/10/2020 4:44 PM EST Ray Mccallum MD LAB BLOOD ORDERABLES Final Result SUNQUEST from Last 3 Months or Most Recently Relevant to Health Maintenance Insurance MEDICARE Care Teams Workers Compensation Adjuster Relationship Specialty Start Date End Date Jude Pacheco DO [address] [place] [address] PCP - General 05/09/24
--- OUTSIDE RECORDS SUMMARY | 2025-03-03 17:34 | XMS_ITS | Encounter Summary ---
Author Organization [facility] Address [address] [place] [address] Care Team Providers Care General Dentist Name Role Phone Cristhian Marino MD Primary Care Provider [phone] Natan Eaton DMD Unavailable [phone] Pancho Hood Unavailable Unavailabl e Arie Bateman S Unavailable Unavailable Caitie Burton DMD Unavailable [phone] Chinyere Artis Unavailable Unavailable Jude Pacheco DO Primary Care Provider [phone] Encounter Details Date Type Department Care Team (Late st Contact Info) Description 12/25/2020 Abstract DSB [facility] [address] [place] [address] [employer] Dental caries [...] enamel documented in this encounter Care Teams General Dentist Relationship Specialty Start Date End Date Cristhian Marino MD [address] [place] [address] PCP - General 12/13/20 05/08/24 Jude Pacheoc DO [address] [place] [address] PCP - General 05/09/24 Natan Eaton, GEOVANNA 800 [facility], [address] [place] [address] Dentist Dental Director Speech And Hearing 01/14/21 02/27/22 [employer] Dental Student Dental Director Speech And Hearing 01/14/21 01/07/22 Arie Bateman [facility] Dental Student Dental Director Speech And Hearing 01/08/22 06/15/23 Caitie Burton DMD 800 [facility] [address] [place] [phone] Dentist Dental Director Speech And Hearing 02/27/22 06/15/23 [place] [address] [employer] Navigator 04/09/22 05/11/22 documented as of this encounter
--- OUTSIDE RECORDS SUMMARY | 2025-03-03 17:34 | XMS_ITS | Encounter Summary ---
Author Organization [facility] Address [address] [place] [address] Care Team Providers Care Bundles Hanger Name Role Phone Cristhian Marino MD Primary Care Provider [phone] Arie Bateman Unavailable Unavailable Caitie Burton DMD Unavailable [phone] Jude Pacheco DO Primary Care Provider [phone] Encounter Details Date Type Department Care Team (Late st Contact Info) Description 01/19/2023 [facility] Community [facility] [address] [place] [address] Severino Hernandez, PAINTER RAILROAD CAR [address] [place] [address] Social History Tobacco Use Types [...] drink first t vishal in the morning (EYE-LAUNCH MANAGER) to steady your nerves or to get [...] documented as of this encounter Care Teams Bundles Hanger Relationship Specialty Start Date End Date Cristhian Marino MD [address] [facility] [address] [place] [address] PCP - General 12/13/20 05/08/24 Jude Pacheco DO [address] [place] [address] PCP - General 05/09/24 Arie Bateman [employer] Dental Student Dental Concrete Panel Installer 01/08/22 06/15/23 Caitie Burton DMD [address] [facility] [address] [place] [address] Dentist Dental Concrete Panel Installer 02/27/2206/15 documented as of this encounter
--- OUTSIDE RECORDS SUMMARY | 2025-03-03 17:34 | XMS_ITS | Encounter Summary ---
Author Organization [facility] Address [address] [place] [address] Care Team Providers Care Echo Tech Name Role Phone Jude Pacheco DO Primary Care Provider [phone] Reason for Visit * Reason Comments Med Refill Encounter Details Date Type Department Care Team (Late st Contact Info) Description 12/24/2024 Refill [facility] Diabetes Education [address] [place] [address] Mitali Dominguez, QUALITY CONTROL CLERK [address] [facility] [address] [place] [address] Social History Tobacco Use Types [...] drink first t vishal in the morning (EYE-LINUX SYSTEM ADMIN) to steady your nerves or to get [...] documented as of this encounter Care Teams Echo Tech Relationship Specialty Start Date End Date Jude Pacheco DO [address] [place] [address] PCP - General 05/09/24 documented as of this encounter
--- OUTSIDE RECORDS SUMMARY | 2025-03-03 17:34 | XMS_ITS | Clinical Summary ---
Author Organization [facility] Address [address] [place] [address] Care Team Providers Care Regional Trainer Name Role Phone Luisa Golden Salo DUMONT Primary Care Provider [phone] Allergies Active Allergy Reactions Criticality Noted Date [...] mouth. 3 Active Blood Glucose Monitoring Suppl (Docalyticsyle [place] Lite) w/Device kit 10/30/201 3 Active glucose [...] 5:48 PM EDT) Hemoglobin A1C 8.5 % [facility] Lot Number [id number] [facility] Expiration Date [facility] Blood 11/16/2022 5:48 PM EDT us Luisa Golden HEELER MACHINE POINT OF CARE TEST ORDERABLE S Final Result [facility]
[address] [place] [address], [place] [phone] * ULTRASOUND ABDOMEN LIMITED (01/17/2014 8:03 AM EDT) Anatomical Region Laterality Modality Body, Abdomen Ultrasound 01/17/2014 8:03 AM EDT Narrative 01/17/2014 10:54 AM EDT [address] [address] Ultrasound Report [id number] Signed PATIENT NAME: NAKITA SLOAN : 1955 ATTENDING: SAMI QUIROS APRN DATE OF EXAM: 01/17/14 PRIMARY CARE: NONE LOCATION: ORDERING PHYSICIAN: SAMI QUIROS APRN PROCEDURE(s): ABDOMEN RUQ ORDER NUMBER(s): [id number] CC: EXAM: RIGHT UPPER QUADRANT ULTRASOUND INDICATIONS: [...] been electronically signed and is considered final. [id number] DICTATED BY : VIANCA STEVE MD DICTATED DATE/TIME : 01/17/14 0923 TRANSCRIBED DATE/TIME : 01/17/14 1042 CC : Procedure Note Vianca Steve MD - 04/22/[address] [address] Ultrasound Report [id number] Signed PATIENT NAME: NAKITA SLOAN : 1955 ATTENDING: SAMI QUIROS APRN DATE OF EXAM: 01/17/14 PRIMARY CARE: NONE LOCATION: ORDERING PHYSICIAN: SAMI QUIROS APRN PROCEDURE(s): ABDOMEN RUQ ORDER NUMBER(s): [id number] CC: EXAM: RIGHT UPPER QUADRANT ULTRASOUND INDICATIONS: [...] been electronically signed and is considered final. [id number] DICTATED BY : VIANCA STEVE MD DICTATED DATE/TIME : 01/17/14 0923 TRANSCRIBED DATE/TIME : 01/17/14 1042 CC : Sami Quiros Jr., APRN [facility] ORDERABLES Final Result from Last 3 Months or Most Recently Relevant to Health Maintenance Insurance MEDICARE A & B Care Teams Regional Trainer Relationship Specialty Start Date End Date Luisa Golden APRN [address] [place] [address] (work) PCP - General Family Medicine 11/16/22
[2025-03-03 17:36] LABS: Alanine Aminotransferase 20 U/L (12-78); Albumin/Globulin Ratio 0.8 (1.1-1.8); Alkaline Phosphatase 104 U/L (38-126); Anion Gap 10.2 mEq/L (5-15); Aspartate Amino Transferase 30 U/L (17-59); Bilirubin,Total 0.6 mg/dl (0.2-1.3); Blood Urea Nitrogen 11 mg/dl (9-20); Calcium 9.2 mg/dl (8.4-10.2); Carbon Dioxide 29 mmol/L (22.0-30.0); Cholesterol 155 mg/dl (140-200); Creatinine Clearance Estimated 88 mL/min (50-200); Creatinine,Serum 0.70 mg/dl (0.66-1.25); Estimated Glomerular Filt Rate 111 ml/min (>60); GFR (African American) 135 ML/MIN (>60); Globulin 4.4 g/dL (1.3-3.2); Glucose 220 mg/dl (74-100); Total Protein,Serum 7.7 g/dl (6.3-8.2); Triglycerides 277 mg/dl (30-150)
[2025-03-03 17:38] LABS: Activated Partial Thrombo Time 23.6 seconds (22.8-30.6); INR 0.96 (0.9-1.1); Prothrombin Time 10.7 seconds (10.1-12.5)
--- NOTE | 2025-03-03 17:39 | PC.NURSE ---
Called [facility] so he can talk to the stroke navigator. is on the phone now.
--- NOTE | 2025-03-03 17:45 | PC.NURSE ---
[facility] called for pt transport.
--- NOTE | 2025-03-03 17:45 | PC.NURSE ---
DR lopez speaking with community service coordinator at this time
--- NOTE | 2025-03-03 17:46 | PC.NURSE ---
DR Hayes accpeted pt
--- NOTE | 2025-03-03 17:48 | PC.NURSE ---
[facility] accpeted will be here in 22mins
--- NOTE | 2025-03-03 17:50 | PC.NURSE ---
call made to [facility], spoke with pharmacist to dose TNK
--- NOTE | 2025-03-03 17:51 | HMH.EDGENADL ---
Discharge Plan Disposition Patient Disposition: Xfer Other Prescriptions Prescriptions: No Action aspirin 81 mg tablet,delayed release (DR/EC) 81 mg PO DAILY pioglitazone 30 mg tablet 30 mg PO DAILY Patient Comments: TAKE 1 TABLET BY MOUTH EVERY DAY prochlorperazine maleate [Compazine] 10 mg tablet 10 mg PO Q8H PRN (Reason: nausea and vomiting) 3 Days Qty: 14 0RF ibuprofen 600 mg tablet 600 mg PO Q8H 10 Days Qty: 30 2RF bupropion HCl 300 mg tablet extended release 24 hr 300 mg PO DAILY Qty: 90 3RF lisinopril 10 mg tablet 10 mg PO DAILY Qty: 30 2RF Humulin 70/30 U-100 Insulin 100 unit/mL (70-30) suspension 70 unit SQ BID tamsulosin 0.4 mg capsule 0.8 mg PO HS Patient Comments: TAKE 2 CAPSULES BY MOUTH ONCE A DAY levofloxacin 750 mg tablet 750 mg PO DAILY Qty: 10 0RF doxycycline hyclate 100 mg capsule 100 mg PO BID Qty: 20 0RF hydrocodone-acetaminophen 5-325 mg tablet 1 tab PO Q6H PRN (Reason: pain) Qty: 17 0RF metformin 500 mg Tablet 500 mg PO BIDWMEAL 30 Days Qty: 60 1RF fenofibrate 54 mg Tablet 54 mg PO DAILY 30 Days Qty: 30 1RF Referrals Follow up/Referrals: Provider,Referral, MD [Primary Care Provider, Medical] - See instructions Clinical Impressions Clinical Impression: Acute CVA (cerebrovascular accident) Stand Alone Forms Stand Alone Forms: Transfer Record - ED Print Language Print Language: Romanian Discharge ED Provider: Mandy Tejada General Adult HPI General Chief complaint: Weakness Stated complaint: Lethargy, Weakness Time Seen by Provider: 03/03/25 17:21 Mode of Arrival: EMS Source of Information: Patient and EMS Description of Symptoms (Recalled from ER Triage Doc. by RN): pt states he fell earlier today. started having left sided numbness and slurred speech @1600. pt noted to have partial facial droop slurred speech History of Present Illness HPI narrative: Patient is a 69-year-old male with a history of hypertension hyperlipidemia diabetes who presents today with just over an hour of strokelike symptoms. States that he started having slurred speech and left-sided arm numbness as well as some weakness on the left side of his face starting around 4 PM today. Denies any chest pain shortness of breath or any other symptoms. States that he is on blood thinners. However from historical standpoint reviewing his chart he is only on aspirin. No evidence that he has been on any other anticoagulants or other antiplatelets. Related Data Home Medications ?Medication ?Instructions ?Recorded ?Confirmed aspirin 81 mg tablet,delayed 81 mg PO DAILY 12/11/24 03/01/25 release insulin human U-100 NPH-regulr 70 unit SQ BID 12/11/24 03/01/25 70-30 mix 100 unit/mL subcutaneous susp (Humulin 70/30 U-100 Insulin) pioglitazone 30 mg tablet 30 mg PO DAILY 12/11/24 03/01/25 tamsulosin 0.4 mg capsule 0.8 mg PO HS 02/20/25 03/01/25 Previous Rx's ?Medication ?Instructions ?Recorded doxycycline hyclate 100 mg capsule 100 mg PO BID #20 caps 02/21/25 fenofibrate 54 mg tablet 54 mg PO DAILY 30 days #30 tabs 02/21/25 hydrocodone 5 mg-acetaminophen 325 1 tab PO Q6H PRN pain #17 tabs 02/21/25 mg tablet levofloxacin 750 mg tablet 750 mg PO DAILY #10 tabs 02/21/25 metformin 500 mg tablet 500 mg PO BIDWMEAL 30 days #60 tabs 02/21/25 ibuprofen 600 mg tablet 600 mg PO Q8H 10 days #30 tabs 02/28/25 prochlorperazine maleate 10 mg 10 mg PO Q8H PRN nausea and 02/28/25 tablet (Compazine) vomiting 3 days #14 tabs bupropion HCl 300 mg 24 hr tablet, 300 mg PO DAILY #90 tabs 03/01/25 extended release lisinopril 10 mg tablet 10 mg PO DAILY #30 tabs 03/03/25 Allergies Allergy/AdvReac Type Severity Reaction Status Date / Time codeine Allergy Mild Verified 03/01/25 08:54 [facility] Disclaimer: The information contained in this section may have been updated after the patient was seen, as this information can be updated by other users. Medical History Hyponatremia His low sodium is probably secondary to his very high sugars. Hypotestosteronemia Will just follow for now. Tobacco use Falls By patient's history he has fallen frequently. This is probably secondary to his diabetes and not being able to tell exactly where his feet are in space. This was clear when he started to get up onto the exam table. I have suggested that he use a cane on a regular basis. We can consider physical therapy and follow-up and evaluation in this patient. MCI (mild cognitive impairment) Tinea pedis of both feet Hematuria Uncontrolled type 2 diabetes mellitus Infected hematoma Hematoma of left lower leg Cellulitis of left lower leg Leg skin lesion, left Very concerning lesion on the skin that has been present for about a week. Is gotten worse since that time. It swollen extremely tender to palpation. This could just be pus filled, but my concern is that it is involving the left knee joint itself. He clearly needs to have an evaluation, radiologic evaluation, and perhaps IV antibiotics and this is poorly controlled diabetic who is at risk for multiple different kinds of skin infections. I have sent him to the emergency room and call them to let them know he is coming. Vertigo This is not a new issue. Patient has had tilt table's and other evaluations. He has been seen by Dr. Meek. It may be that his medic brain injury as well as his dementia are contributing to this. His poor hearing may also be contributing and he is getting hearing aids. Will send him back to Dr. Meek for further thoughts. Will place him on meclizine for now. Tobacco abuse counseling Cardiac risk counseling Anxiety BPV (benign positional vertigo) Cubital tunnel syndrome on left Contusion, knee Abrasion of knee, bilateral This is much worse and I am very concerned in this diabetic was poorly controlled, obviously has inhibited immune response and now a wound that has advanced and is close to the knee joint. I have called the ER and also the hospitalist and discussed this case. My thought would be he needs to be admitted and needs IV antibiotics but we will see what they have to say. Will send him to the emergency room now. Type 2 diabetes mellitus with hyperglycemia Complicated migraine Abnormal laboratory test Syncope Callus of foot Skin ulcer of left great toe, limited to breakdown of skin Nocturnal hypoxemia Sleep apnea Diabetes Seizure Cannot exclude symptomatic seizure in the setting of uncontrolled hyperglycemia, hypertension. GERD (gastroesophageal reflux disease) HLD (hyperlipidemia) HTN (hypertension) Spleen absent Migraine Diabetes mellitus, type 2 Surgical History H/O shoulder surgery H/O splenectomy Family History Other Cancer Coronary artery disease Heart attack No significant family history Stroke Social History Smoking Status: Unknown if ever smoked alcohol intake: never substance use type: former substance user and marijuana current occupational status: retired Travel in the last 8 weeks?: None household members: none housing: house Have you lived/traveled outside US in past 30 days?: No Contact w/someone who lives/traveled outside US past 30 days?: No Exposure to someone with infectious disease in past 14 days?: No Do you have a fever (greater than 100.4 F or 38 C)?: No Have you tested positive for COVID-19?: No Exposed to someone with COVID-19 in past 14 days?: No Do you have a sore throat?: No Do you have a cough?: No Do you have any weakness?: No Do you have any diarrhea?: No Are you experiencing any unusual bleeding?: No Do you have any muscle aches/pain?: No Do you have any abdominal pain?: No Are you experiencing loss of taste or smell?: No Other Medical History Have you received the Flu Vaccine for this season: No Have you received the Pneumonia Vaccine: Yes ROS Obtained: Yes All systems reviewed & no additional complaints except as documented Physical Exam General General appearance: alert and in no apparent distress Respiratory Respiratory exam: Present normal lung sounds bilaterally Cardiovascular Cardiovascular exam: Present regular rate Neurological Exam Neurological exam: Present alert and other (Patient has left-sided facial weakness with central sparing also some asymmetry to his tongue he is dysarthric but has no aphasia he is understandable he has left upper extremity numbness but the motor exam throughout is normal NIH is 4) Medical Decision Making Medical Records Screening: Per USPSTF and CDC recommendations, given the prevalence of disease in our region, it is our hospital?s policy to screen for HIV and viral Hepatitis for all patients aged 18 and over and those with ongoing risk factors. Shant Inquiry Pt receiving controlled substance: No Vital Signs: 03/03/25 17:24 Temperature 98.1 F Temperature Source Oral Pulse Rate [Right] 91 H Respiratory Rate 18 Blood Pressure [Left Arm] 165/99 H Blood Pressure Mean [Left Arm] 121 02 Sat by Pulse Oximetry 97 Lab Data Lab results reviewed: Yes I reviewed the patient's lab results. Lab Results 03/03/25 17:19: WBC 11.4 H, RBC 4.54 L, Hgb 13.7 L, Hct 40.7 L, MCV 89.6, MCH 30.2, MCHC 33.7, RDW 13.8, Plt Count 458 H, MPV 10.4, Neut % (Auto) 40.6, Lymph % (Auto) 43.8, Andrew % (Auto) 10.3 H, Eos % (Auto) 4.0, Baso % (Auto) 0.9, Neut # (Auto) 4.6, Lymph # (Auto) 5.0 H, Andrew # (Auto) 1.2 H, Eos # (Auto) 0.5 H, Baso # (Auto) 0.1, PT 10.7, INR 0.96, APTT 23.6, Sodium 131 L, Potassium 4.2, Chloride 96 L, Carbon Dioxide 29, Anion Gap 10.2, BUN 11, Creatinine 0.70, Estimated Creat Clear 88, Estimated GFR 111, Est GFR ( Amer) 135, Glucose 220 H, Calcium 9.2, Total Bilirubin 0.6, AST 30, ALT 20, Alkaline Phosphatase 104, Total Protein 7.7, Albumin 3.3 L, Globulin 4.4 H, Albumin/Globulin Ratio 0.8 L, Triglycerides 277 H, Cholesterol 155, VLDL Cholesterol 55 H, HDL Cholesterol 40, Plasma/Serum Alcohol < 10 03/03/25 17:19 03/03/25 17:19 Orders (Tests/Meds): ED MEDICATIONS Generic Name Dose Route Start Last Admin Trade Name Freq PRN Reason Stop Dose Admin Sodium Chloride 10 ml 03/03/25 17:21 Sodium Chloride 0.9% 10ml Flush Syringe IV 04/02/25 17:20 NEEDED PRN Maintain IV Site Tenecteplase 0 mg 03/03/25 17:48 Tenecteplase 50mg Vial IV 03/03/25 17:49 CONSULT PHARMACY ONE Discontinued Medications Generic Name Dose Route Start Last Admin Trade Name Freq PRN Reason Stop Dose Admin Iopamidol 80 ml 03/03/25 17:24 03/03/25 17:25 Iopamidol-370 (76%);100ml Bottle IV 03/03/25 17:25 80 ml ONCE ONE Administration Sodium Chloride 50 ml 03/03/25 17:24 03/03/25 17:25 0.9 % Sodium Chloride 50 Ml Vial IV 03/03/25 17:25 50 ml ONCE ONE Administration Sodium Chloride 10 ml 03/03/25 17:24 03/03/25 17:25 Sodium Chloride 0.9% 10ml Syr (Rad Only) IV 03/03/25 17:25 10 ml ONCE ONE Administration ORDERS Category Date Time Status CT angio head Stat Cat Scan 03/03/25 17:[address] angio neck Stat Cat Scan 03/03/25 17:[address] head/brain wo con Stat Cat Scan 03/03/25 17:22 Completed Activated Partial Thrombo Time Stat Lab 03/03/25 17:19 Completed Complete Blood Count Auto Diff Stat Lab 03/03/25 17:19 Results Comprehensive Metabolic Panel Stat Lab 03/03/25 17:19 Results Drug Screen,Urine Stat Lab 03/03/25 17:22 Ordered Ethyl Alcohol Stat Lab 03/03/25 17:19 Completed Lipid Panel Stat Lab 03/03/25 17:19 Results Prothrombin Time INR Stat Lab 03/03/25 17:19 Completed Troponin I Q3H Lab 03/03/25 20:30 Ordered Troponin I Q3H Lab 03/03/25 23:30 Ordered Troponin I Stat Lab 03/03/25 17:19 Results Urinalysis and Microscopic Stat Lab 03/03/25 17:22 Ordered ECG Request Stat Y 03/03/25 17:22 Ordered Medical Decision Narrative: 69-year-old male presenting today less than 2 hours into symptoms concerning for an acute ischemic stroke. Patient was immediately stroke alerted I personally interpreted the images I do not see any evidence of any hemorrhagic aspect. There is a I images were also shared with [facility]. Also radiology called me and stated that there is no obvious abnormalities. Patient has NIH of 4 on my evaluation with left-sided facial weakness dysarthria and left upper extremity numbness. Patient states that the symptoms are debilitating and I had a risk-benefit discussion with him regarding TNK and he understands that there is a risk of hemorrhage and this could be life-threatening and he accepts his risk. We are going through a checklist for this patient and will be administering TNK. His blood pressure is under control. I spoke with Maria Guadalupe who is the design coordinator at [facility] and she accepted the patient to the ICU under the attending Dr. Hayes. We are flying the patient to [facility]. Critical Care Critical Care Time Critical Care Time: Yes Attestation: On 03/03/25, the high probability of a clinically significant, sudden or life threatening deterioration of the following system(s) required my full and direct attention, intervention and personal management. The time I documented below is in addition to time spent performing reported procedures but includes the following listed in this critical care notation. Total Time Total Critical Care Time: 35
[2025-03-03 17:57] LABS: Troponin I < 0.01 ng/ml (0.00-0.034)
[2025-03-03] MEDS: TENECTEPLASE 50MG VIAL 25 MG IV (18:01)
--- NOTE | 2025-03-03 18:02 | PC.NURSE ---
report called to Sandy @ [facility].
[2025-03-03 18:10] LABS: RBC Morphology Normal; Total Cells Counted 100
--- NOTE | 2025-03-03 18:23 | PC.NURSE ---
report given to Celina with [place] [employer] flight crew
[2025-03-03 18:34] LABS: HDL Cholesterol 40 mg/dl (40-60)
--- OUTSIDE RECORDS SUMMARY | 2025-04-22 20:00 | XMS_ITS | Clinical Summary ---
Author Organization Unknown Care Team Providers Care Basin Cleaner Name Role Phone ANGELIA QUINTEROS, MARIAMA Unavailable Unavailable ASHLEY RN, RUSSELL Unavailable Unavailable RISHABH ROLLER COASTER OPERATOR, CHELI Unavailable Unavailable FLORY PT, ADOLFO Unavailable Unavailable JAZMINE IT ASSISTANT, PATRICIA Unavailable Unavailable SPENCER OT, FALGUNI Unavailable Unavailable Payers Payer Name Policy Type Policy Number Effective Date Expira tion Date MEDICARE.[facility] [id number] Problems Condition Name Condition Details Condition Category Status Onset Date Resolution Date Last Treatment Date Treating Clinician Comments ENCOUNTER FOR CHANGE OR REMOVAL OF SURGICAL WOUND DRESSING Active 02-23 00:00: 00 ENCNTR FOR SURGICAL AFTCR FOL SURGERY ON THE SKIN, SUBCU Active 02-23 00:00: 00 TYPE 2 DIABETES MELLITUS WITH DIABETIC POLYNEUROPAT HY Active 02-23 00:00: 00 ESSENTIAL (PRIMARY) HYPERTENSION Active 02-23 00:00: 00 MILD COGNITIVE IMPAIRMENT OF UNCERTAIN OR UNKNOWN ETIOLOGY Active 02-23 00:00: 00 MIGRAINE WITH AURA, NOT INTRACTABLE, W/O STATUS MIGRAINOSUS Active 02-23 00:00: 00 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 Active 02-23 00:00: 00 BENIGN PROSTATIC HYPERPLASIA WITHOUT LOWER URINRY TRACT SYMP Active 02-23 00:00: 00 DEPRESSION, UNSPECIFIED Active 02-23 00:00: 00 ANXIETY DISORDER, UNSPECIFIED Active 02-23 00:00: 00 NICOTINE DEPENDENCE, CIGARETTES, UNCOMPLICATE D Active 02-23 00:00: 00 BENIGN PAROXYSMAL VERTIGO, UNSPECIFIED EAR Active 02-23 00:00: 00 UNSPECIFIED HEARING LOSS, BILATERAL Active 02-23 00:00: 00 HYPERLIPIDEM IA, UNSPECIFIED Active 02-23 00:00: 00 HYPO-OSMOLAL ITY AND HYPONATREMIA Active 02-23 00:00: 00 GASTRO-ESOPH AGEAL REFLUX DISEASE WITHOUT ESOPHAGITIS Active 02-23 00:00: 00 REPEATED FALLS Active 02-23 00:00: 00 JAIL (CURRENT) USE OF ASPIRIN Active 02-23 00:00: 00 JAIL (CURRENT) USE OF ORAL HYPOGLYCEMIC DRUGS Active 02-23 00:00: 00 HISTORY OF FALLING Active 02-23 00:00: 00 Allergies, Adverse Reactions, Alerts Allergy Name Allergy Type Status Severity Reaction(s) Onset Date Inactive Date Treating Clinician Comments NO KNOWN ALLERGIES Propensity to adverse reactions Active 02-23 14:49: 30 Vital Signs Vital Name Observation Time Observation Value Commen ts Temperature 2025-02-27 15:08:00.000 98.3 [degF] Temperature 2025-02-23 14:00:00.000 97.2 [degF] BMI (%) 2025-02-24 12:16:17.000 31 kg/m2 Height 2025-02-24 12:16:07.000 66 [in_us] Pulse 2025-02-27 15:08:00.000 86 /min Pulse 2025-02-23 14:00:00.000 92 /min O2 Saturation (%) 2025-02-27 15:11:00.000 95 % O2 Saturation (%) 2025-02-23 14:00:00.000 97 % Respirations 2025-02-27 15:08:00.000 18 /min Respirations 2025-02-23 14:00:00.000 20 /min Weight (lbs) 2025-02-24 12:16:17.000 195 [lb_av] Systolic Blood Pressure 2025-02-27 15:08:00.000 138 mm [Hg] Systolic Blood Pressure 2025-02-23 14:00:00.000 118 mm [Hg] Diastolic Blood Pressure 2025-02-27 15:08:00.000 80 mm [Hg] Diastolic Blood Pressure 2025-02-23 14:00:00.000 60 mm [Hg] Plan of Treatment Planned Activity Planned Date Details Comments Future Scheduled Test RN TO OBSE RVE, ASSESS, EVALUATE, AND DEVELOP AN INDIVIDUALIZED PLAN OF CARE. AGENCY MAY ACCEPT ORDERS FROM CONSULTING PHYSICIANS RN TO OBSERVE AND ASSESS, ROLLER COASTER OPERATOR/POLL CLERK TO OBSERVE FOR RISK FOR FALLS AND INSTRUCT IN FALL PREVENTION, HOME SAFETY, MEDICATION MANAGEMENT, INFECTION PREVENTION, AND NUTRITION MANAGEMENT. RN/ROLLER COASTER OPERATOR/POLL CLERK NURSE MAY PERFORM O2 SATURATION LEVEL ON ADMISSION AND PRN FOR RN TO ASSESS/ROLLER COASTER OPERATOR TO OBSERVE PATIENT, WITH NOTIFICATION TO THE PHYSICIAN IF SATURATION IS 90% IN THE ABSENCE OF MORE SPECIFIC PARAMETERS FROM THE PHYSICIAN. AGENCY MAY PERFORM A RESUMPTION OF CARE VISIT FOLLOWING ANY HOSPITAL ADMISSION. RN/ROLLER COASTER OPERATOR/POLL CLERK TO MONITOR CO-MORBID CONDITIONS LISTED ON THE PLAN OF CARE AND ANY NEW CONDITIONS THAT PRESENT THEMSELVES DURING THIS EPISODE TO IDENTIFY CHANGES AND INTERVENE TO MINIMIZE COMPLICATIONS. [code = RN TO OBSERVE, ASSESS, EVALUATE, AND DEVELOP AN INDIVIDUALIZED PLAN OF CARE. AGENCY MAY ACCEPT ORDERS FROM CONSULTING PHYSICIANS RN TO OBSERVE AND ASSESS, ROLLER COASTER OPERATOR/POLL CLERK TO OBSERVE FOR RISK FOR FALLS AND INSTRUCT IN FALL PREVENTION, HOME SAFETY, MEDICATION MANAGEMENT, INFECTION PREVENTION, AND NUTRITION MANAGEMENT. RN/ROLLER COASTER OPERATOR/POLL CLERK NURSE MAY PERFORM O2 SATURATION LEVEL ON ADMISSION AND PRN FOR RN TO ASSESS/ROLLER COASTER OPERATOR TO OBSERVE PATIENT, WITH NOTIFICATION TO THE PHYSICIAN IF SATURATION IS 90% IN THE ABSENCE OF MORE SPECIFIC PARAMETERS FROM THE PHYSICIAN. AGENCY MAY PERFORM A RESUMPTION OF CARE VISIT FOLLOWING ANY HOSPITAL ADMISSION. RN/ROLLER COASTER OPERATOR/POLL CLERK TO MONITOR CO-MORBID CONDITIONS LISTED ON THE PLAN OF CARE AND ANY NEW CONDITIONS THAT PRESENT THEMSELVES DURING THIS EPISODE TO IDENTIFY CHANGES AND INTERVENE TO MINIMIZE COMPLICATIONS.] Future Scheduled Test DIABETES M ONITORING RN/POLL CLERK/ROLLER COASTER OPERATOR TO MONITOR BLOOD SUGAR LOG FOR BLOOD SUGAR READINGS THAT ARE BEING CHECKED BY PATIENT 4 TIMES A DAY. PATIENT THERAPEUTIC BLOOD SUGAR PARAMETERS ARE 70-120. REPORT BLOOD SUGARS OUT OF RANGE TO PHYSICIAN. NURSE MAY PERFORM FINGER STICK BLOOD GLUCOSE NEEDED FOR SIGNS AND SYMPTOMS OF HYPO AND HYPERGLYCEMIA. RN/POLL CLERK/ROLLER COASTER OPERATOR TO MONITOR ADHERENCE OF PATIENT PERFORMING DIABETIC FOOT CARE AND MAY PERFORM DIABETIC FOOT CARE PRN. RN/POLL CLERK/ROLLER COASTER OPERATOR TO MONITOR FOR ADHERENCE TO DIABETIC SELF-CARE AND MANAGEMENT INCLUDING MEDICATIONS. [code = DIABETES MONITORING RN/POLL CLERK/ROLLER COASTER OPERATOR TO MONITOR BLOOD SUGAR LOG FOR BLOOD SUGAR READINGS THAT ARE BEING CHECKED BY PATIENT 4 TIMES A DAY. PATIENT THERAPEUTIC BLOOD SUGAR PARAMETERS ARE 70-120. REPORT BLOOD SUGARS OUT OF RANGE TO PHYSICIAN. NURSE MAY PERFORM FINGER STICK BLOOD GLUCOSE NEEDED FOR SIGNS AND SYMPTOMS OF HYPO AND HYPERGLYCEMIA. RN/POLL CLERK/ROLLER COASTER OPERATOR TO MONITOR ADHERENCE OF PATIENT PERFORMING DIABETIC FOOT CARE AND MAY PERFORM DIABETIC FOOT CARE PRN. RN/POLL CLERK/ROLLER COASTER OPERATOR TO MONITOR FOR ADHERENCE TO DIABETIC SELF-CARE AND MANAGEMENT INCLUDING MEDICATIONS.] Future Scheduled Test RN/ROLLER COASTER OPERATOR/POLL CLERK TO MONITOR/INSTRUCT PATIENT WITH STABLE DEPRESSION ON SIGNS AND SYMPTOMS OF WORSENING DEPRESSION, IMPORTANCE OF ADHERENCE TO PRESCRIBED MEDICATION/TREATMENT REGIMEN, AND AVAILABLE RESOURCES INCLUDING 8 SUICIDE CRISIS LIFELINE. [code = RN/ROLLER COASTER OPERATOR/POLL CLERK TO MONITOR/INSTRUCT PATIENT WITH STABLE DEPRESSION ON SIGNS AND SYMPTOMS OF WORSENING DEPRESSION, IMPORTANCE OF ADHERENCE TO PRESCRIBED MEDICATION/TREATMENT REGIMEN, AND AVAILABLE RESOURCES INCLUDING [facility].] Future Scheduled Test RISK FOR H OSPITALIZATION; RN TO ASSESS/TEACH, POLL CLERK/ROLLER COASTER OPERATOR TO OBSERVE/TEACH PATIENT/CAREGIVER ON RISK FOR HOSPITALIZATION/EMERGENCY ROOM VISITS, TEACH SIGNS AND SYMPTOMS THAT PUT PATIENT AT RISK, WHEN TO NOTIFY NURSE/PHYSICIAN OF COMPLICATIONS/DECLINE, AND WHEN TO CALL 911. [code = RISK FOR HOSPITALIZATION; RN TO ASSESS/TEACH, POLL CLERK/ROLLER COASTER OPERATOR TO OBSERVE/TEACH PATIENT/CAREGIVER ON RISK FOR HOSPITALIZATION/EMERGENCY ROOM VISITS, TEACH SIGNS AND SYMPTOMS THAT PUT PATIENT AT RISK, WHEN TO NOTIFY NURSE/PHYSICIAN OF COMPLICATIONS/DECLINE, AND WHEN TO CALL 911.] Future Scheduled Test CARDIOVASC ULAR SYSTEM; RN TO ASSESS/TEACH, ROLLER COASTER OPERATOR/POLL CLERK TO OBSERVE/TEACH RELATED TO ALTERED CARDIOVASCULAR STATUS TO MINIMIZE COMPLICATIONS AND REDUCE HOSPITALIZATION. [code = CARDIOVASCULAR SYSTEM; RN TO ASSESS/TEACH, ROLLER COASTER OPERATOR/POLL CLERK TO OBSERVE/TEACH RELATED TO ALTERED CARDIOVASCULAR STATUS TO MINIMIZE COMPLICATIONS AND REDUCE HOSPITALIZATION.] Future Scheduled Test HYPERTENSI ON MANAGEMENT; RN TO ASSESS AND TEACH, ROLLER COASTER OPERATOR/POLL CLERK TO OBSERVE AND TEACH WARNING SIGNS AND SYMPTOMS TO AVOID HOSPITALIZATION. [code = HYPERTENSION MANAGEMENT; RN TO ASSESS AND TEACH, ROLLER COASTER OPERATOR/POLL CLERK TO OBSERVE AND TEACH WARNING SIGNS AND SYMPTOMS TO AVOID HOSPITALIZATION.] Future Scheduled Test RN/ROLLER COASTER OPERATOR/POLL CLERK TO PERFORM/TEACH DIABETIC ULCER - NEUROPATHIC CARE TO RIGHT GREAT TOE: IRRIGATE/CLEANSE WITH WOUND CLEANSER AND PAT DRY APPLY XEROFORM, BETADINE SOAKED GAUZE, DRY GAUZE, WRAP WITH KERLIX HELENA WRAP. MAY APPLY SKIN BARRIER TO PERIWOUND AREA PRN TO PREVENT SKIN MACERATION AND PROTECT PERIWOUND SECURE WITH TAPE CHANGE DRESSING EVERY OTHER DAY AND PRN FOR DISLODGED DRESSING. [code = RN/ROLLER COASTER OPERATOR/POLL CLERK TO PERFORM/TEACH DIABETIC ULCER - NEUROPATHIC CARE TO RIGHT GREAT TOE: IRRIGATE/CLEANSE WITH WOUND CLEANSER AND PAT DRY APPLY XEROFORM, BETADINE SOAKED GAUZE, DRY GAUZE, WRAP WITH KERLIX HELENA WRAP. MAY APPLY SKIN BARRIER TO PERIWOUND AREA PRN TO PREVENT SKIN MACERATION AND PROTECT PERIWOUND SECURE WITH TAPE CHANGE DRESSING EVERY OTHER DAY AND PRN FOR DISLODGED DRESSING.] Future Scheduled Test RN TO ASSE SS/TEACH, ROLLER COASTER OPERATOR/POLL CLERK TO OBSERVE/TEACH SURGICAL AFTERCARE MANAGEMENT TO AVOID HOSPITALIZATION. [code = RN TO ASSESS/TEACH, ROLLER COASTER OPERATOR/POLL CLERK TO OBSERVE/TEACH SURGICAL AFTERCARE MANAGEMENT TO AVOID HOSPITALIZATION.] Future Scheduled Test PAIN MANAG EMENT; RN TO ASSESS AND TEACH, POLL CLERK/ROLLER COASTER OPERATOR TO OBSERVE AND TEACH AND PROVIDE EDUCATION ON PAIN MANAGEMENT TECHNIQUES. [code = PAIN MANAGEMENT; RN TO ASSESS AND TEACH, POLL CLERK/ROLLER COASTER OPERATOR TO OBSERVE AND TEACH AND PROVIDE EDUCATION ON PAIN MANAGEMENT TECHNIQUES.] Future Scheduled Test DIABETES M ANAGEMENT; RN TO ASSESS AND TEACH, POLL CLERK/ROLLER COASTER OPERATOR TO OBSERVE AND TEACH INSTRUCTIONS OF DIABETIC CARE TO INCLUDE: DIET: NCS SKIN CARE, SIGNS AND SYMPTOMS OF HYPO/HYPERGLYCEMIA, PROPER ADMINISTRATION OF DIABETIC MEDICATION. RN/POLL CLERK/ROLLER COASTER OPERATOR TO INSTRUCT ON DIABETIC FOOT CARE AND MONITOR FOR SKIN LESIONS ON LOWER EXTREMITIES. BLOOD GLUCOSE TESTING QID RN TO ASSESS AND TEACH, POLL CLERK/ROLLER COASTER OPERATOR TO OBSERVE AND TEACH PATIENT/CAREGIVER ABILITY TO PERFORM AND RECORD BLOOD GLUCOSE TESTING ORDERED AND TO REPORT ABNORMAL FINDINGS TO PHYSICIAN. RN/POLL CLERK/ROLLER COASTER OPERATOR MAY PERFORM BLOOD GLUCOSE TEST NEEDED. RN/POLL CLERK/ROLLER COASTER OPERATOR TO REPORT TO PHYSICIAN BLOOD GLUCOSE READINGS GREATER THAN 300 OR LESS THAN 60. RN/POLL CLERK/ROLLER COASTER OPERATOR TO INSTRUCT PATIENT ON IMPORTANCE OF HGBA1C MONITORING, KIDNEY FUNCTION TEST, EYE AND FOOT EXAMS. [code = DIABETES MANAGEMENT; RN TO ASSESS AND TEACH, POLL CLERK/ROLLER COASTER OPERATOR TO OBSERVE AND TEACH INSTRUCTIONS OF DIABETIC CARE TO INCLUDE: DIET: NCS SKIN CARE, SIGNS AND SYMPTOMS OF HYPO/HYPERGLYCEMIA, PROPER ADMINISTRATION OF DIABETIC MEDICATION. RN/POLL CLERK/ROLLER COASTER OPERATOR TO INSTRUCT ON DIABETIC FOOT CARE AND MONITOR FOR SKIN LESIONS ON LOWER EXTREMITIES. BLOOD GLUCOSE TESTING QID RN TO ASSESS AND TEACH, POLL CLERK/ROLLER COASTER OPERATOR TO OBSERVE AND TEACH PATIENT/CAREGIVER ABILITY TO PERFORM AND RECORD BLOOD GLUCOSE TESTING ORDERED AND TO REPORT ABNORMAL FINDINGS TO PHYSICIAN. RN/POLL CLERK/ROLLER COASTER OPERATOR MAY PERFORM BLOOD GLUCOSE TEST NEEDED. RN/POLL CLERK/ROLLER COASTER OPERATOR TO REPORT TO PHYSICIAN BLOOD GLUCOSE READINGS GREATER THAN 300 OR LESS THAN 60. RN/POLL CLERK/ROLLER COASTER OPERATOR TO INSTRUCT PATIENT ON IMPORTANCE OF HGBA1C MONITORING, KIDNEY FUNCTION TEST, EYE AND FOOT EXAMS.] Future Scheduled Test FALL REDUC TION MANAGEMENT; RN TO ASSESS AND OBSERVE, ROLLER COASTER OPERATOR/POLL CLERK TO OBSERVE FALL RISK FACTORS AND EDUCATE PATIENT/CAREGIVER ON STRATEGIES TO MINIMIZE THE RISK OF FALLING. [code = FALL REDUCTION MANAGEMENT; RN TO ASSESS AND OBSERVE, ROLLER COASTER OPERATOR/POLL CLERK TO OBSERVE FALL RISK FACTORS AND EDUCATE PATIENT/CAREGIVER ON STRATEGIES TO MINIMIZE THE RISK OF FALLING.] Future Scheduled Test PHYSICAL T HERAPIST TO EVALUATE FOR WEAKNESS [code = PHYSICAL THERAPIST TO EVALUATE FOR WEAKNESS ] Future Scheduled Test OCCUPATION AL THERAPIST TO EVALUATE FOR WEAKNESS [code = OCCUPATIONAL THERAPIST TO EVALUATE FOR WEAKNESS ] Future Scheduled Test PRN VISITS ; NUMBER OF RN/ROLLER COASTER OPERATOR/POLL CLERK VISITS: 3 RN/ROLLER COASTER OPERATOR/POLL CLERK TO PERFORM: ASSESSMENT OF WOUND STATUS FOR THE FOLLOWING REASONS: COMPLICATIONS RELATED TO WOUND STATUS [code = PRN VISITS; NUMBER OF RN/ROLLER COASTER OPERATOR/POLL CLERK VISITS: 3 RN/ROLLER COASTER OPERATOR/POLL CLERK TO PERFORM: ASSESSMENT OF WOUND STATUS FOR THE FOLLOWING REASONS: COMPLICATIONS RELATED TO WOUND STATUS ] Goal Patient Goal - I WANT MY WOU ND TO HEAL Goal Provider Goal - A PLAN OF CARE WILL BE ESTABLISHED THAT MEETS THE PATIENTS NEEDS. PATIENT WILL DEMONSTRATE OXYGEN SATURATION WITHIN NORMAL LIMITS OR PATIENTS OPTIMAL LEVEL ESTABLISHED BY THE PHYSICIAN THROUGHOUT CARE. CHANGES TO CO-MORBID CONDITIONS AND ANY NEW CONDITIONS WILL BE IDENTIFIED AND REPORTED TO THE PHYSICIAN. Goal Provider Goal - BLOOD SUGARS WILL REMAIN WITHIN ESTABLISHED RANGES AND DIABETES CONTROLLED THROUGHOUT EPISODE. Goal Provider Goal - PATIENT DEPRESSION REMAINED STABLE THROUGHOUT THE EPISODE. Goal Provider Goal - PATIENT/CAREGIVER WILL VERBALIZE UNDERSTANDING OF SIGNS AND SYMPTOMS THAT PUT THE PATIENT AT RISK FOR HOSPITALIZATION /EMERGENCY ROOM VISITS, WHEN TO NOTIFY NURSE/PHYSICIAN OF COMPLICATIONS/DECLINE AND WHEN TO CALL 911. Goal Provider Goal - PATIENT / CAREGIVER WILL VERBALIZE/DEMONSTRATE UNDERSTANDING OF MEASURES TO MANAGE ALTERED CARDIOVASCULAR STATUS BY THE END OF THE CERT PERIOD. Goal Provider Goal - PATIENT / CAREGIVER WILL VERBALIZE/DEMONSTRATE AN ABILITY TO ADHERE TO SELF-MANAGEMENT OF HTN TO MINIMIZE COMPLICATIONS AND AVOID HOSPITALIZATION BY END OF EPISODE. Goal Provider Goal - PATIENT / CAREGIVER WILL VERBALIZE UNDERSTANDING OF DIABETIC ULCER - NEUROPATHIC CARE INCLUDING BUT NOT LIMITED TO DEFINITION, SIGNS AND SYMPTOMS OF COMPLICATIONS AND PRESCRIBED TREATMENT REGIME BY THE END OF THE CERT PERIOD. Goal Provider Goal - PATIENT/CAREGIVER WILL VERBALIZE/DEMONSTRATE POSTOPERATIVE CARE TO MINIMIZE COMPLICATION AND AVOID HOSPITALIZATIONS BY THE END OF THE EPISODE. Goal Provider Goal - PATIENT / CAREGIVER WILL VERBALIZE / DEMONSTRATE UNDERSTANDING OF PAIN CONTROL MEASURES BY THE END OF THE CERT PERIOD. Goal Provider Goal - PATIENT / CAREGIVER WILL VERBALIZE / DEMONSTRATE AN ABILITY TO ADHERE TO SELF-MANAGEMENT OF DIABETES MANAGEMENT BY THE END OF THE CERT PERIOD. Goal Provider Goal - PATIENT/CAREGIVER WILL VERBALIZE/DEMONSTRATE UNDERSTANDING OF FALL RISK FACTORS AND IMPLEMENT STRATEGIES TO MINIMIZE FALL RISK. PATIENT/CAREGIVER WILL VERBALIZE/DEMONSTRATE AN ABILITY TO ADHERE TO FALL REDUCTION SELF-MANAGEMENT AND LIFE-STYLE CHANGES BY THE END OF THE CERT PERIOD. Goal Provider Goal - Goal Provider Goal - Goal Provider Goal - Encounters Start Date/Time End Date/Time Encounter Type Admission Type Attending [facility] Care Department Encounter ID Discharge Date Discharge Status Discharge Condition Discharge Reason Percent Goals Met 2025-02-23 00:00:00 2025-04-23 00:00:00 Outpatient RUSSELL CHASE [facility] [id number] 6.25
--- OUTSIDE RECORDS SUMMARY | 2025-04-22 20:00 | XMS_ITS | Clinical Summary ---
Author Organization Unknown Care Team Providers Care Safety Investigator Name Role Phone ANGELIA QUINTEROS, MARIAMA Unavailable Unavailable ASHLEY RN, RUSSELL Unavailable Unavailable RISHABH DX BOARD OPERATOR, CHELI Unavailable Unavailable FLORY PT, ADOLFO Unavailable Unavailable JAZMINE BEACH ATTENDANT, PATRICIA Unavailable Unavailable SPENCER OT, FALGUNI Unavailable Unavailable Payers Payer Name Policy Type Policy Number Effective Date Expira tion Date MEDICARE.[facility] [id number] Problems Condition Name Condition Details Condition Category [...] 00 REPEATED FALLS Active 02-23 00:00: 00 GROUP HOME (CURRENT) USE OF ASPIRIN Active 02-23 00:00: 00 GROUP HOME (CURRENT) USE OF ORAL HYPOGLYCEMIC DRUGS Active [...] CONSULTING PHYSICIANS RN TO OBSERVE AND ASSESS, DX BOARD OPERATOR/ORDNANCE TRUCK INSTALLATION MECHANIC TO OBSERVE FOR RISK FOR FALLS AND INSTRUCT IN FALL PREVENTION, HOME SAFETY, MEDICATION MANAGEMENT, INFECTION PREVENTION, AND NUTRITION MANAGEMENT. RN/DX BOARD OPERATOR/ORDNANCE TRUCK INSTALLATION MECHANIC NURSE MAY PERFORM O2 SATURATION LEVEL ON ADMISSION AND PRN FOR RN TO ASSESS/DX BOARD OPERATOR TO OBSERVE PATIENT, WITH NOTIFICATION TO THE PHYSICIAN IF SATURATION IS 90% IN THE ABSENCE OF MORE SPECIFIC PARAMETERS FROM THE PHYSICIAN. AGENCY MAY PERFORM A RESUMPTION OF CARE VISIT FOLLOWING ANY HOSPITAL ADMISSION. RN/DX BOARD OPERATOR/ORDNANCE TRUCK INSTALLATION MECHANIC TO MONITOR CO-MORBID CONDITIONS LISTED ON THE PLAN OF CARE AND ANY NEW CONDITIONS THAT PRESENT THEMSELVES DURING THIS EPISODE TO IDENTIFY CHANGES AND INTERVENE TO MINIMIZE COMPLICATIONS. [code = RN TO OBSERVE, ASSESS, EVALUATE, AND DEVELOP AN INDIVIDUALIZED PLAN OF CARE. AGENCY MAY ACCEPT ORDERS FROM CONSULTING PHYSICIANS RN TO OBSERVE AND ASSESS, DX BOARD OPERATOR/ORDNANCE TRUCK INSTALLATION MECHANIC TO OBSERVE FOR RISK FOR FALLS AND INSTRUCT IN FALL PREVENTION, HOME SAFETY, MEDICATION MANAGEMENT, INFECTION PREVENTION, AND NUTRITION MANAGEMENT. RN/DX BOARD OPERATOR/ORDNANCE TRUCK INSTALLATION MECHANIC NURSE MAY PERFORM O2 SATURATION LEVEL ON ADMISSION AND PRN FOR RN TO ASSESS/DX BOARD OPERATOR TO OBSERVE PATIENT, WITH NOTIFICATION TO THE PHYSICIAN IF SATURATION IS 90% IN THE ABSENCE OF MORE SPECIFIC PARAMETERS FROM THE PHYSICIAN. AGENCY MAY PERFORM A RESUMPTION OF CARE VISIT FOLLOWING ANY HOSPITAL ADMISSION. RN/DX BOARD OPERATOR/ORDNANCE TRUCK INSTALLATION MECHANIC TO MONITOR CO-MORBID CONDITIONS LISTED ON THE PLAN OF CARE AND ANY NEW CONDITIONS THAT PRESENT THEMSELVES DURING THIS EPISODE TO IDENTIFY CHANGES AND INTERVENE TO MINIMIZE COMPLICATIONS.] Future Scheduled Test DIABETES M ONITORING RN/ORDNANCE TRUCK INSTALLATION MECHANIC/DX BOARD OPERATOR TO MONITOR BLOOD SUGAR LOG FOR BLOOD SUGAR READINGS THAT ARE BEING CHECKED BY PATIENT 4 TIMES A DAY. PATIENT THERAPEUTIC BLOOD SUGAR PARAMETERS ARE 70-120. REPORT BLOOD SUGARS OUT OF RANGE TO PHYSICIAN. NURSE MAY PERFORM FINGER STICK BLOOD GLUCOSE NEEDED FOR SIGNS AND SYMPTOMS OF HYPO AND HYPERGLYCEMIA. RN/ORDNANCE TRUCK INSTALLATION MECHANIC/DX BOARD OPERATOR TO MONITOR ADHERENCE OF PATIENT PERFORMING DIABETIC FOOT CARE AND MAY PERFORM DIABETIC FOOT CARE PRN. RN/ORDNANCE TRUCK INSTALLATION MECHANIC/DX BOARD OPERATOR TO MONITOR FOR ADHERENCE TO DIABETIC SELF-CARE AND MANAGEMENT INCLUDING MEDICATIONS. [code = DIABETES MONITORING RN/ORDNANCE TRUCK INSTALLATION MECHANIC/DX BOARD OPERATOR TO MONITOR BLOOD SUGAR LOG FOR BLOOD SUGAR READINGS THAT ARE BEING CHECKED BY PATIENT 4 TIMES A DAY. PATIENT THERAPEUTIC BLOOD SUGAR PARAMETERS ARE 70-120. REPORT BLOOD SUGARS OUT OF RANGE TO PHYSICIAN. NURSE MAY PERFORM FINGER STICK BLOOD GLUCOSE NEEDED FOR SIGNS AND SYMPTOMS OF HYPO AND HYPERGLYCEMIA. RN/ORDNANCE TRUCK INSTALLATION MECHANIC/DX BOARD OPERATOR TO MONITOR ADHERENCE OF PATIENT PERFORMING DIABETIC FOOT CARE AND MAY PERFORM DIABETIC FOOT CARE PRN. RN/ORDNANCE TRUCK INSTALLATION MECHANIC/DX BOARD OPERATOR TO MONITOR FOR ADHERENCE TO DIABETIC SELF-CARE AND MANAGEMENT INCLUDING MEDICATIONS.] Future Scheduled Test RN/DX BOARD OPERATOR/ORDNANCE TRUCK INSTALLATION MECHANIC TO MONITOR/INSTRUCT PATIENT WITH STABLE DEPRESSION ON SIGNS AND SYMPTOMS OF WORSENING DEPRESSION, IMPORTANCE OF ADHERENCE TO PRESCRIBED MEDICATION/TREATMENT REGIMEN, AND AVAILABLE RESOURCES INCLUDING 8 SUICIDE CRISIS LIFELINE. [code = RN/DX BOARD OPERATOR/ORDNANCE TRUCK INSTALLATION MECHANIC TO MONITOR/INSTRUCT PATIENT WITH STABLE DEPRESSION ON SIGNS AND SYMPTOMS OF WORSENING DEPRESSION, IMPORTANCE OF ADHERENCE TO PRESCRIBED MEDICATION/TREATMENT REGIMEN, AND AVAILABLE RESOURCES INCLUDING [facility].] Future Scheduled Test RISK FOR H OSPITALIZATION; RN TO ASSESS/TEACH, ORDNANCE TRUCK INSTALLATION MECHANIC/DX BOARD OPERATOR TO OBSERVE/TEACH PATIENT/CAREGIVER ON RISK FOR HOSPITALIZATION/EMERGENCY ROOM VISITS, TEACH SIGNS AND SYMPTOMS THAT PUT PATIENT AT RISK, WHEN TO NOTIFY NURSE/PHYSICIAN OF COMPLICATIONS/DECLINE, AND WHEN TO CALL 911. [code = RISK FOR HOSPITALIZATION; RN TO ASSESS/TEACH, ORDNANCE TRUCK INSTALLATION MECHANIC/DX BOARD OPERATOR TO OBSERVE/TEACH PATIENT/CAREGIVER ON RISK FOR HOSPITALIZATION/EMERGENCY ROOM VISITS, TEACH SIGNS AND SYMPTOMS THAT PUT PATIENT AT RISK, WHEN TO NOTIFY NURSE/PHYSICIAN OF COMPLICATIONS/DECLINE, AND WHEN TO CALL 911.] Future Scheduled Test CARDIOVASC ULAR SYSTEM; RN TO ASSESS/TEACH, DX BOARD OPERATOR/ORDNANCE TRUCK INSTALLATION MECHANIC TO OBSERVE/TEACH RELATED TO ALTERED CARDIOVASCULAR STATUS TO MINIMIZE COMPLICATIONS AND REDUCE HOSPITALIZATION. [code = CARDIOVASCULAR SYSTEM; RN TO ASSESS/TEACH, DX BOARD OPERATOR/ORDNANCE TRUCK INSTALLATION MECHANIC TO OBSERVE/TEACH RELATED TO ALTERED CARDIOVASCULAR STATUS TO MINIMIZE COMPLICATIONS AND REDUCE HOSPITALIZATION.] Future Scheduled Test HYPERTENSI ON MANAGEMENT; RN TO ASSESS AND TEACH, DX BOARD OPERATOR/ORDNANCE TRUCK INSTALLATION MECHANIC TO OBSERVE AND TEACH WARNING SIGNS AND SYMPTOMS TO AVOID HOSPITALIZATION. [code = HYPERTENSION MANAGEMENT; RN TO ASSESS AND TEACH, DX BOARD OPERATOR/ORDNANCE TRUCK INSTALLATION MECHANIC TO OBSERVE AND TEACH WARNING SIGNS AND SYMPTOMS TO AVOID HOSPITALIZATION.] Future Scheduled Test RN/DX BOARD OPERATOR/ORDNANCE TRUCK INSTALLATION MECHANIC TO PERFORM/TEACH DIABETIC ULCER - NEUROPATHIC CARE TO RIGHT GREAT TOE: IRRIGATE/CLEANSE WITH WOUND CLEANSER AND PAT DRY APPLY XEROFORM, BETADINE SOAKED GAUZE, DRY GAUZE, WRAP WITH KERLIX HELENA WRAP. MAY APPLY SKIN BARRIER TO PERIWOUND AREA PRN TO PREVENT SKIN MACERATION AND PROTECT PERIWOUND SECURE WITH TAPE CHANGE DRESSING EVERY OTHER DAY AND PRN FOR DISLODGED DRESSING. [code = RN/DX BOARD OPERATOR/ORDNANCE TRUCK INSTALLATION MECHANIC TO PERFORM/TEACH DIABETIC ULCER - NEUROPATHIC CARE [...] Future Scheduled Test RN TO ASSE SS/TEACH, DX BOARD OPERATOR/ORDNANCE TRUCK INSTALLATION MECHANIC TO OBSERVE/TEACH SURGICAL AFTERCARE MANAGEMENT TO AVOID HOSPITALIZATION. [code = RN TO ASSESS/TEACH, DX BOARD OPERATOR/ORDNANCE TRUCK INSTALLATION MECHANIC TO OBSERVE/TEACH SURGICAL AFTERCARE MANAGEMENT TO AVOID HOSPITALIZATION.] Future Scheduled Test PAIN MANAG EMENT; RN TO ASSESS AND TEACH, ORDNANCE TRUCK INSTALLATION MECHANIC/DX BOARD OPERATOR TO OBSERVE AND TEACH AND PROVIDE EDUCATION ON PAIN MANAGEMENT TECHNIQUES. [code = PAIN MANAGEMENT; RN TO ASSESS AND TEACH, ORDNANCE TRUCK INSTALLATION MECHANIC/DX BOARD OPERATOR TO OBSERVE AND TEACH AND PROVIDE EDUCATION ON PAIN MANAGEMENT TECHNIQUES.] Future Scheduled Test DIABETES M ANAGEMENT; RN TO ASSESS AND TEACH, ORDNANCE TRUCK INSTALLATION MECHANIC/DX BOARD OPERATOR TO OBSERVE AND TEACH INSTRUCTIONS OF DIABETIC CARE TO INCLUDE: DIET: NCS SKIN CARE, SIGNS AND SYMPTOMS OF HYPO/HYPERGLYCEMIA, PROPER ADMINISTRATION OF DIABETIC MEDICATION. RN/ORDNANCE TRUCK INSTALLATION MECHANIC/DX BOARD OPERATOR TO INSTRUCT ON DIABETIC FOOT CARE AND MONITOR FOR SKIN LESIONS ON LOWER EXTREMITIES. BLOOD GLUCOSE TESTING QID RN TO ASSESS AND TEACH, ORDNANCE TRUCK INSTALLATION MECHANIC/DX BOARD OPERATOR TO OBSERVE AND TEACH PATIENT/CAREGIVER ABILITY TO PERFORM AND RECORD BLOOD GLUCOSE TESTING ORDERED AND TO REPORT ABNORMAL FINDINGS TO PHYSICIAN. RN/ORDNANCE TRUCK INSTALLATION MECHANIC/DX BOARD OPERATOR MAY PERFORM BLOOD GLUCOSE TEST NEEDED. RN/ORDNANCE TRUCK INSTALLATION MECHANIC/DX BOARD OPERATOR TO REPORT TO PHYSICIAN BLOOD GLUCOSE READINGS GREATER THAN 300 OR LESS THAN 60. RN/ORDNANCE TRUCK INSTALLATION MECHANIC/DX BOARD OPERATOR TO INSTRUCT PATIENT ON IMPORTANCE OF HGBA1C MONITORING, KIDNEY FUNCTION TEST, EYE AND FOOT EXAMS. [code = DIABETES MANAGEMENT; RN TO ASSESS AND TEACH, ORDNANCE TRUCK INSTALLATION MECHANIC/DX BOARD OPERATOR TO OBSERVE AND TEACH INSTRUCTIONS OF DIABETIC CARE TO INCLUDE: DIET: NCS SKIN CARE, SIGNS AND SYMPTOMS OF HYPO/HYPERGLYCEMIA, PROPER ADMINISTRATION OF DIABETIC MEDICATION. RN/ORDNANCE TRUCK INSTALLATION MECHANIC/DX BOARD OPERATOR TO INSTRUCT ON DIABETIC FOOT CARE AND MONITOR FOR SKIN LESIONS ON LOWER EXTREMITIES. BLOOD GLUCOSE TESTING QID RN TO ASSESS AND TEACH, ORDNANCE TRUCK INSTALLATION MECHANIC/DX BOARD OPERATOR TO OBSERVE AND TEACH PATIENT/CAREGIVER ABILITY TO PERFORM AND RECORD BLOOD GLUCOSE TESTING ORDERED AND TO REPORT ABNORMAL FINDINGS TO PHYSICIAN. RN/ORDNANCE TRUCK INSTALLATION MECHANIC/DX BOARD OPERATOR MAY PERFORM BLOOD GLUCOSE TEST NEEDED. RN/ORDNANCE TRUCK INSTALLATION MECHANIC/DX BOARD OPERATOR TO REPORT TO PHYSICIAN BLOOD GLUCOSE READINGS GREATER THAN 300 OR LESS THAN 60. RN/ORDNANCE TRUCK INSTALLATION MECHANIC/DX BOARD OPERATOR TO INSTRUCT PATIENT ON IMPORTANCE OF HGBA1C MONITORING, KIDNEY FUNCTION TEST, EYE AND FOOT EXAMS.] Future Scheduled Test FALL REDUC TION MANAGEMENT; RN TO ASSESS AND OBSERVE, DX BOARD OPERATOR/ORDNANCE TRUCK INSTALLATION MECHANIC TO OBSERVE FALL RISK FACTORS AND EDUCATE PATIENT/CAREGIVER ON STRATEGIES TO MINIMIZE THE RISK OF FALLING. [code = FALL REDUCTION MANAGEMENT; RN TO ASSESS AND OBSERVE, DX BOARD OPERATOR/ORDNANCE TRUCK INSTALLATION MECHANIC TO OBSERVE FALL RISK FACTORS AND EDUCATE PATIENT/CAREGIVER ON STRATEGIES TO MINIMIZE THE RISK OF FALLING.] Future Scheduled Test PHYSICAL T HERAPIST TO EVALUATE FOR WEAKNESS [code = PHYSICAL THERAPIST TO EVALUATE FOR WEAKNESS ] Future Scheduled Test OCCUPATION AL THERAPIST TO EVALUATE FOR WEAKNESS [code = OCCUPATIONAL THERAPIST TO EVALUATE FOR WEAKNESS ] Future Scheduled Test PRN VISITS ; NUMBER OF RN/DX BOARD OPERATOR/ORDNANCE TRUCK INSTALLATION MECHANIC VISITS: 3 RN/DX BOARD OPERATOR/ORDNANCE TRUCK INSTALLATION MECHANIC TO PERFORM: ASSESSMENT OF WOUND STATUS FOR THE FOLLOWING REASONS: COMPLICATIONS RELATED TO WOUND STATUS [code = PRN VISITS; NUMBER OF RN/DX BOARD OPERATOR/ORDNANCE TRUCK INSTALLATION MECHANIC VISITS: 3 RN/DX BOARD OPERATOR/ORDNANCE TRUCK INSTALLATION MECHANIC TO PERFORM: ASSESSMENT OF WOUND STATUS FOR [...] End Date/Time Encounter Type Admission Type Attending [facility] Care Department Encounter ID Discharge Date Discharge Status Discharge Condition Discharge Reason Percent Goals Met 2025-02-23 00:00:00 2025-04-23 00:00:00 Outpatient [facility]SELL [facility] [id number] 6.25
== END 2025-03-03 18:33 | disposition other institution (70) ==
PROVIDERS: Emergency Provider Student in an Organized Health Care Education/Training Program
DX: I63.9 Cerebral infarction, unspecified (principal); I10 Essential (primary) hypertension; E11.628 Type 2 diabetes mellitus with other skin complications; G47.34 Idiopathic sleep related nonobstructive alveolar hypoventilation; F32.A Depression, unspecified; E78.1 Pure hyperglyceridemia; R29.704 NIHSS score 4
CPT/HCPCS: 70450; 70496; 70498; 80053; 80061; 80320; 84484; 85007; 85025; 85027; 85610; 85730; 93005; 96374; 96376; 99291; J3101; Q9967